=== PATIENT | male | born 1960 | race Caucasian/White ===

== ENCOUNTER 2023-03-16 07:26 | Outpatient (RCR) | payer OTHER, SELFPAY ==
[2023-03-16 07:27] VITALS: BP 142/85; PULSE 82; RESP 16; TEMP 36.3; O2SAT 97
[2023-03-16] MEDS: MITOMYCIN 40 MG in WATER FOR INJECTION,STERILE 20 ML 20 MG INTRAVESIC (07:53)
--- NOTE | 2023-03-16 07:53 | PC.NURSE ---
0753:Voss drainage bag removed. Mitomycin, 40mg, instilled into voss cath. using closed system transfer device. Instructed pt. to turn side to side and front to back Q 15min. x's 1.5hr. Pt. relays understanding.
--- NOTE | 2023-03-16 08:32 | PC.NURSE ---
0727: Pt. to [facility] amb. per self. Seated on side of bed. Consent form reviewed and verified, questions addressed. Consent obtained. Given privacy to change. 0748: Using sterile technique, #16Fr. voss catheter inserted easily into bladder with immediate return of pale yellow urine. Flecks of brown sediment noted in urine. U/A obtained and sent to lab. Pt. tolerated with minimal c/o.
--- NOTE | 2023-03-16 08:41 | PC.NURSE ---
Pt. tolerating treatment. Denies c/o or needs.
[2023-03-16 08:43] LABS: Bilirubin Urine NEGATIVE (NEGATIVE); Blood Urine MODERATE (NEGATIVE); Clarity Urine CLEAR (CLEAR); Color Urine LT. YELLOW (YELLOW); Glucose Urine UA NEGATIVE (NEGATIVE); Ketones Urine NEGATIVE (NEGATIVE); Leukocyte Esterase Urine MODERATE (NEGATIVE); Nitrite Urine NEGATIVE (NEGATIVE); Protein Urine NEGATIVE (NEG/TRACE); Specific Gravity Urine 1.015 (1.005-1.025); Urobilinogen Urine 0.2 EU/dL (0.2-1.0)
[2023-03-16 08:59] LABS: Urine Microscopic Indicated YES
[2023-03-16 09:01] LABS: Bacteria Urine MODERATE #/HPF (NONE SEEN); WBC Urine 20-50 #/HPF (NONE SEEN)
[2023-03-16 09:02] LABS: Amorphous Sediment Urine FEW; Crystals Seen? Seen #/HPF (None Seen); Mucus Urine NONE SEEN (NONE SEEN); Squamous Epithelial Cell Urine FEW #/LPF (NONE/RARE)
[2023-03-16 09:40] VITALS: BP 142/78; PULSE 78; RESP 16; TEMP 36.6; O2SAT 98
--- NOTE | 2023-03-16 09:40 | PC.NURSE ---
0940: Treatment completed at this time. Drainage bag re-connected to voss catheter. 400ML pale purple urine emptied from bladder. Cath. removed. Pt. tolerated with minimal c/o. Pt. relays having slight burning sensation when in prone position only. No redness, rash or c/o burning relayed. Pt. given at home care instructions, verbalizes understanding. D/c'd to home amb.
== END 2023-03-16 23:59 | disposition home or self-care (01) ==
LOC: INF 07:26
PROVIDERS: Visit Provider Urology
DX: Z85.51 Personal history of malignant neoplasm of bladder (principal)
CPT/HCPCS: 51700; 81001; 99211; J9280

== ENCOUNTER 2023-04-13 07:14 | Outpatient (RCR) | payer OTHER, SELFPAY ==
[2023-04-13 07:54] VITALS: BP 118/81; PULSE 94; RESP 16; TEMP 36; O2SAT 96
--- NOTE | 2023-04-13 07:57 | PC.NURSE ---
0730 Arrival ambulatory. Alert oriented. procedure explained to patient verbalizes understanding. 16 Yi voss placed without difficulty, returning clear yellow urine. balloon inflated wit 10cc NS. connected to bedside drainage
[2023-04-13] MEDS: MITOMYCIN 40 MG in WATER FOR INJECTION,STERILE 20 ML 20 MG INTRAVESIC (08:01)
--- NOTE | 2023-04-13 08:09 | PC.NURSE ---
0812 mitomyvin instilled via voss catheter using transfer devices. instructed on turning left right front/back every 15 mins. verbalizes understanding.
--- NOTE | 2023-04-13 08:13 | PC.NURSE ---
0810 Mitomycin verified with Sandie Britt
--- NOTE | 2023-04-13 09:46 | PC.NURSE ---
0930 patient rotated per self every 15 minutes per order, tolerated well. Voss connected to bedside drain after prescribed time. allowed to drain, voss dc'd after emptying bladder, tolerated well. Instructed may have some burning with urination for first few times after dc of voss. also instructed on chemo protocol post treatment. verbalizes understanding. Released ambulatory
== END 2023-04-15 23:59 | disposition home or self-care (01) ==
LOC: INF 07:14
PROVIDERS: Visit Provider Urology
DX: Z85.51 Personal history of malignant neoplasm of bladder (principal)
CPT/HCPCS: 51700; J9280

== ENCOUNTER 2023-05-18 11:04 | Outpatient (OUT) | payer OTHER, SELFPAY ==
--- NOTE | 2023-05-18 11:51 | PM.PRESUREVA ---
History of Present Illness History of Present Illness Chief complaint: BLADDER TUMOR, H/O BLADDER CANCER Narrative: Patient presents for preadmission testing. Please see HPI from Dr. Grimm dated 05/10/2023. Review of Systems ROS Narrative Please see ROS from Dr. Grimm dated 05/10/2023. [facility] Medical History (Updated 05/18/23 @ 11:34 by Caren Fajardo NP) Arthritis ?M19.90 - Unspecified osteoarthritis, unspecified site (ICD-10) Back pain ?M54.9 - Dorsalgia, unspecified (ICD-10) Bladder cancer ?C67.9 - Malignant neoplasm of bladder, unspecified (ICD-10) Bladder tumor ?D49.4 - Neoplasm of unspecified behavior of bladder (ICD-10) COVID-19 ?U07.1 - COVID-19 (ICD-10) Hypertension ?I10 - Essential (primary) hypertension (ICD-10) Pneumonia ?J18.9 - Pneumonia, unspecified organism (ICD-10) Shoulder pain ?M25.519 - Pain in unspecified shoulder (ICD-10) Surgical History (Updated 05/18/23 @ 11:50 by Caren Fajardo NP) H/O transurethral resection of bladder tumor (TURBT) ?Z98.890 - Other specified postprocedural states (ICD-10) ?Z86.03 - Personal history of neoplasm of uncertain behavior (ICD-10) H/O wrist surgery ?Z98.890 - Other specified postprocedural states (ICD-10) History of spinal surgery ?Z98.890 - Other specified postprocedural states (ICD-10) S/P cystoscopy ?Z98.890 - Other specified postprocedural states (ICD-10) Family History (Updated 05/18/23 @ 11:33 by Caren Fajardo NP) Other Family history of heart disease Family history of hypertension Family history of myocardial infarction Social History (Updated 05/18/23 @ 11:29 by Caren Fajardo NP) Within the past year, how often did you have a drink containing alcohol: never Score interpretation: A score less than 4 is consistent with normal alcohol consumption. Smoking status: Current every day smoker What tobacco products do you use: cigarettes Pack-years instructions: Please document either packs per day or cigarettes per day in order for pack years to calculate correctly. If using both packs per day and cigarettes per day, please make sure that they denote the same thing. If they differ, pack-years will calculate based on packs per day. Packs Per Day Cigarettes Per Day 1/4 of a pack 5 1/2 a pack 10 3/4 of a pack 15 1 pack 20 1.5 pack 30 2 packs 40 2.5 packs 50 3 packs 60 Packs per day: 2 Years smoked: 50 Smoking pack-years: 100.00 Non-prescribed substance use: denies use Previous occupational history: [employer] Highest level of school completed/degree received: high school graduate Meds Home Medications and Allergies Home Medications Medication Instructions Recorded Confirmed Type amlodipine 10 mg tablet 10 mg PO DAILY 05/18/23 05/18/23 History losartan 50 mg tablet 50 mg PO DAILY 05/18/23 05/18/23 History Allergies Allergy/AdvReac Type Severity Reaction Status Date / Time solifenacin [From [facility]] Allergy muscle Verified 05/18/23 11:25 aches Exam Narrative Exam Narrative: Constitutional: Awake, alert, comfortable, chronically-ill appearing, nontoxic, interactive, vital signs as charted Head: Normocephalic, atraumatic Neck: Supple, normal appearance, normal range of motion, no meningeal signs, no lymphadenopathy Respiratory: No respiratory distress, rhonchi bilateral bases, cleared with cough Cardiovascular: Regular rate and rhythm, strong and regular heart tones Abdomen: Nontender, normal bowel sounds, soft, no CVA tenderness Musculoskeletal: Normal gait, no swelling or edema Skin: No rashes or induration, no lesions, only visible skin inspected Neuro: No neurological deficits, normal sensation Psychiatric: Oriented ?3, normal affect Assessment and Plan Assessment and Plan (1) Bladder cancer: (2) Bladder tumor: Plan Cystoscopy/TURBT scheduled with Dr. Grimm 05/25/2023.
[2023-05-18 11:55] LABS: Basophils Percent Auto 0.7 % (0.2-2.0); Eosinophils Absolute Auto 0.1 10^3/uL (0.0-0.7); Hematocrit 44.7 % (42.0-54.0); Hemoglobin 15.2 g/dL (14.0-18.0); Immature Granulocytes Abs Auto 0.02 10^3/uL (0.00-0.03); Immature Granulocytes Pct Auto 0.3 % (0.0-0.5); Lymphocytes Absolute Auto 1.5 10^3/uL (1.2-3.8); Lymphocytes Percent Auto 25.7 % (20.5-60.0); Mean Corpuscular Hemoglobin 30.8 pg (25.9-34.0); Mean Corpuscular Volume 90.5 fL (80.0-94.0); Mean Platelet Volume 9.4 fL (9.5-13.5); Monocytes Absolute Auto 0.5 10^3/uL (0.3-0.8); Monocytes Percent Auto 7.5 % (1.7-12.0); Neutrophils Absolute Auto 3.8 10^3/uL (1.4-6.5); Neutrophils Percent Auto 63.8 % (43.0-75.0); Platelet Count 184 10^3/uL (150-450); Red Blood Count 4.94 10^6/uL (4.70-6.10); Red Cell Distribution Width 12.6 % (11.0-15.0)
[2023-05-18 12:16] LABS: INR 0.97; Partial Thromboplastin Time 31.6 sec (22.3-36.2); Prothrombin Time 10.3 sec (9.0-11.6)
[2023-05-18 12:18] LABS: Anion Gap 12.7; BUN Creatinine Ratio 14.1; Calcium 8.6 mg/dL (8.5-10.1); Chloride 101 mmol/L (98-107); Estimated GFR (African America >60 (>=60); Estimated GFR (Non-African Ame >60 (>=60); Glucose 180 mg/dL (74-106); Potassium 3.7 mmol/L (3.5-5.1); Sodium 137 mmol/L (136-145)
== END 2023-05-18 11:05 | disposition home or self-care (01) ==
LOC: PST 11:05
PROVIDERS: Visit Provider Urology
DX: Z01.812 Encounter for preprocedural laboratory examination (principal); Z85.51 Personal history of malignant neoplasm of bladder; D49.4 Neoplasm of unspecified behavior of bladder; I10 Essential (primary) hypertension
CPT/HCPCS: 80048; 85025; 85610; 85730; G0463

== ENCOUNTER 2023-05-25 08:57 | Day surgery (SDC) | payer OTHER, SELFPAY ==
[2023-05-18 11:49] VITALS: BP 135/81; PULSE 96; RESP 20; TEMP 36.3; O2SAT 95; BMI 36.2
[2023-05-25] VITALS (15 sets, daily range): BP systolic 92–134; BP diastolic 57–80; PULSE 76–92; RESP 10–24; TEMP 36.1–36.5; O2SAT 90–98
--- NOTE | 2023-05-25 09:19 | PC.NURSE ---
Lungs diminished in bases
[2023-05-25] MEDS: LACTATED RINGER'S SOLUTION 1,000 ML 50 ML IV (09:25)
[2023-05-25] MEDS: CEFAZOLIN SODIUM/DEXTROSE,ISO 1 GM/50 ML IV.SOLN IV (10:33)
[2023-05-25] MEDS: MITOMYCIN 40 MG in WATER FOR INJECTION,STERILE 20 ML 20 MG INTRAVESIC (11:20)
--- NOTE | 2023-05-25 11:28 | PM.URSON ---
Urology Surgery Operative Note Operative Note Procedure Date: 05/25/23 Time Out Performed: yes Pre-op Diagnosis: recurrent bladder tumors Post-op Diagnosis: same as pre-op Procedures performed: #1. Cyystoscopy. #2. Transurethral resection of bladder tumors approximately 3 cm. #3. Placement of intravesical mitomycin C 40 mg. Anesthesia: GETA Primary Surgeon: Marcelo Grimm Complications: none Estimated blood loss (mL): 5 Findings: several bladder tumors at the dome, one adjacent to the left UO and several other tiny tumors on the back wall. 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 He now presents for cystoscopy and transurethral resection of bladder tumors. He also is going to get intravesical mitomycin instilled after the procedure. He has signed an informed consent for these procedures after all risks were explained. Detailed description of Procedure: The patient was brought to the operating room and placed on the operating room table in the supine position. SCDs were placed on the lower extremities and turned on and functioning during the entire case. Timeout was done by all parties in the room. We all agreed upon the patient's identification and the planned procedures for this patient. Genn. anesthesia was then administered. The patient was then repositioned into the modified dorsal lithotomy position. All pressure points were satisfactorily padded. Genitalia were sterilely prepped and draped in usual fashion.I started by passing a 26 Hungarian Olympus resectoscope with the standard bipolar loop electrode per urethra and into the bladder. The bladder was evaluated and all the tumors were mapped out. I started at the dome. I had to hold suprapubic pressure to bring the dome down to the scope and I uniformly and deeply resected the tumors at the dome. The ellick was used to get the tumors out and these were sent for permanent sections. The resection beds were fulgurated. I then went to the left UO and I uniformly and deeply resected these tumors adjacent to it. I was able to spare the UO. The resection bed was fulgurated similarly. The tumors were removed similarly and sent for permanent sections. Clear urine was seen effluxing from the left UO upon completion. Several other tiny tumors were noted on the back wall. These were simply fulgurated. Upon completion there was no evidence of any tumors remaining in the bladder. All tumor pieces were removed. There was no bleeding. The scope was removed. I then placed a 20 Hungarian Santos catheter in the bladder. I then instilled 40 mg of mitomycin-C into the bladder and plugged the catheter. The anesthetic was then reversed. He was then transferred to a [facility] and wheeled to PACU in stable condition.
--- NOTE | 2023-05-25 11:39 | PC.NURSE ---
pt has catheter in with mitomycin. 1135. pt turned to left side.
--- NOTE | 2023-05-25 11:54 | PC.NURSE ---
1150 pt transferred to abdomen for mitomycin .
--- NOTE | 2023-05-25 14:09 | PC.NURSE ---
1350 voss catheter removed per order and Mitomyocin was drained. pt able to void after voss was removed at 1355. discharge instructions given regarding mitomyocin.
== END 2023-05-25 14:00 | disposition home or self-care (01) ==
PROVIDERS: Visit Provider Urology
PROC: (CPT 52235; principal; 2023-05-25 10:00)
DX: C67.9 Malignant neoplasm of bladder, unspecified (principal); Z85.51 Personal history of malignant neoplasm of bladder; I10 Essential (primary) hypertension; M19.90 Unspecified osteoarthritis, unspecified site; Z86.16 Personal history of COVID-19; Z87.01 Personal history of pneumonia (recurrent); F17.210 Nicotine dependence, cigarettes, uncomplicated; N40.1 Benign prostatic hyperplasia with lower urinary tract symptoms; R31.0 Gross hematuria; R91.1 Solitary pulmonary nodule
CPT/HCPCS: 52235; 36415; 88305; J2704; J9280

== ENCOUNTER 2024-08-20 13:17 | Outpatient (OUT) | payer OTHER, SELFPAY ==
--- NOTE | 2024-08-20 13:22 | ECG_ITS ---
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
--- OUTSIDE RECORDS SUMMARY | 2024-08-20 13:31 | XMS_ITS | CCD ---
Author Organization [facility] [place] [facility] Care Team Providers Care Defect Repairer Glassware Name Role Phone NO FAMILY, PHYSICIAN Primary Care Provider Unava ilable DO Ra Brannon Emergency Provider [phone] DIANELYS Roche Attending Provider NONE, XXXX Primary Care Physician Unavailab le NO FAMILY, PHYSICIAN Primary Care Provider Unava ilable DO Ra Brannon Emergency Provider DIANELYS Roche Attending Provider MD Yevgeniy Escudero Attending Provider NO FAMILY, PHYSICIAN Primary Care Provider Unava MD Yevgeniy Pelaez Attending Provider NO FAMILY, PHYSICIAN Primary Care Provider Unava MD Yevgeniy Pelaez Attending Provider Yevgeniy Escudero Attending Unavailable Escudero, Yevgeniy Admitting Unavailable NO FAMILY, PHYSICIAN Primary Care Unavailable Escudero, Yevgeniy Admitting Unavailable Escudero, Yevgeniy Attending Unavailable NO FAMILY, PHYSICIAN Primary Care Unavailable Escudero, Yevgeniy Attending Unavailable NO FAMILY, PHYSICIAN Primary Care Unavailable Escudero, Yevgeniy Admitting Unavailable Escudero, Yevgeniy Attending Unavailable Escudero, Yevgeniy Admitting Unavailable Escudero, Yevgeniy Attending Unavailable Escudero, Yevgeniy Admitting Unavailable NO FAMILY, PHYSICIAN Primary Care Unavailable DIANELYS DAVIS Attending Unavailab DIANELYS Kruse Attending Unavailab DIANELYS Kruse Attending Unavailab le Yevgeniy ESCUDERO Attending Unavailable KENA, Yevgeniy R Admitting Unavailable Yevgeniy ESCUDERO R Attending Unavailable Jerrod FINN - Johan AMES Primary Care Provi ia JOHAN GIBBONS Primary Care Unavailable JOHAN GIBBONS Primary Care Unavailable JOHAN GIBBONS Primary Care Unavailable QUINTON HEATH Attending Unavailable JOHAN GIBBONS Primary Care Unavailable YUSUF BOSS Referring Unavailable Kena ESPARZA, Yevgeniy Us Unavailable ESCUDERO, YEVGENIY Us Referring Unavailable ESCUDERO, Yevgeniy R Attending Unavailable ESCUDERO, Yevgeniy R Attending Unavailable ESCUDERO, Yevgeniy R Admitting Unavailable ESCUDERO, Yevgeniy R Attending Unavailable ESCUDERO, Yevgeniy R Attending Unavailable ESCUDERO, Yevgeniy R Admitting Unavailable ESCUDERO, Yevgeniy R Attending Unavailable ESCUDERO, Yevgeniy R Attending Unavailable ESCUDERO, Yevgeniy R Admitting Unavailable ESCUDERO, Yevgeniy R Attending Unavailable DIANELYS DAVIS Attending Unavailab le ESCUDERO, Yevgeniy Us Attending Unavailable ESCUDERO, Yevgeniy Us Attending Unavailable ESCUDERO, Yevgeniy Us Admitting Unavailable ESCUDERO, Yevgeniy Us Attending Unavailable ESCUDERO, Yevgeniy R Admitting Unavailable ESCUDERO, Yevgeniy R Attending Unavailable Allergies Allergy Classification Reported Allergen(s) Allergy Type Date of Onset Reaction(s) Facility Solifenacin (1 source) Solifenacin; Translations: [solifenacin] Drug Allergy Muscle pain (finding) [facility] (20 sources) Solifenacin; Translations: [solifenacin] Drug Allergy Muscle pain (finding) [facility] (4 sources) No Known Medication Allergies; Translations: [No Known Medication Allergies] Propensity to adverse reactions (disorder) [facility] (2 sources) Seasonal allergy Propensity to adverse reactions to substance [address] [place] [address] Medications Current Medications Medication Drug Class(es) Dates Sig (Normalized) Sig (Original) 24 hr alfuzosin hydrochloride 10 mg extended release oral tablet (2 sources) alpha-Adrenergic Luisa Start: 05-31-2023 End: 06-07-2023 take 1 tablet by mouth once daily alfuzosin 10 mg ER Tab 10 mg = 1 tab(s), Oral, Daily, X 7 day(s), # 7 tab(s), Refills(s) 0, Pharmacy: [facility], 167, cm, 05/31/23 10:41:00 EST, Height/Length Dosing, 100, kg, 05/31/23 10:41:00 EST, Weight Dosing Start Date: 05/31/23 Stop Date: 06/07/23 Status: Ordered amLODIPine 10 mg oral tablet (20 sources) Dihydropyridine Calcium Channel Luisa Start: 04-27-2022 take 1 tablet by mouth once daily amLODIPine (NORVASC) 10 MG tablet Indications: Essential hypertension TAKE 1 TABLET BY MOUTH EVERY DAY 30 tablet 06/10/2024 Active Start: 04-25-2022 End: 06-21-2022 take 2.5 mg by mouth once daily Amlodipine Discontinued 2.5 MG PO Daily April 24, 2022 11:00pm June 21, 2022 3:43pm cephalexin 500 mg oral capsule (5 sources) Cephalosporin Antibacterial Start: 07-05-2022 take 500 mg by mouth twice daily Cephalexin Active 500 MG PO Twice daily 10 July 05, 2022 12:00am cyclobenzaprine hydrochloride 5 mg oral tablet (1 source) Muscle Relaxant Start: 07-20-2024 End: 07-30-2024 take 1 tablet by mouth twice daily as needed for muscle spasms cyclobenzaprine (FLEXERIL) 5 MG tablet Take 1 tablet by mouth 2 times daily as needed for Muscle spasms 10 tablet 07/20/2024 07/30/2024 Active Handicap Placard MISC (2 sources) Start: 12-03-2021 Handicap Placard MISC Indications: Chronic low back pain, unspecified back pain laterality, unspecified whether sciatica present by Does not apply route Exp 5 years 1 each 12/03/2021 Active Start: 12-03-[address] MISC Indications: Chronic low back pain, unspecified back pain laterality, unspecified whether sciatica present by Does not apply route Exp 5 years 1 each 0 12/03/2021 Active levoFLOXacin 500 mg oral tablet (2 sources) Quinolone Antimicrobial Start: 05-31-2023 End: 06-07-2023 take 1 tablet by mouth every twenty-four hours Levaquin 500 mg Tab 500 mg = 1 tab(s), Oral, q24hr, X 7 day(s), # 7 tab(s), Refills(s) 0, Pharmacy: [facility], 167, cm, 05/31/23 10:41:00 EST, Height/Length Dosing, 100, kg, 05/31/23 10:41:00 EST, Weight Dosing Start Date: 05/31/23 Stop Date: 06/07/23 Status: Ordered naproxen 500 mg oral tablet (1 source) Nonsteroidal Anti-inflammatory Drug Start: 07-20-2024 take 1 tablet by mouth twice daily as needed for pain naproxen (NAPROSYN) 500 MG tablet Take 1 tablet by mouth 2 times daily as needed for Pain 14 tablet 07/20/2024 Active predniSONE 20 mg oral tablet (1 source) Start: 07-20-2024 End: 07-25-2024 take 1 tablet by mouth twice daily predniSONE (DELTASONE) 20 MG tablet Take 1 tablet by mouth 2 times daily for 5 days 10 tablet 07/20/2024 07/25/2024 Active solifenacin succinate 10 mg oral tablet (5 sources) Cholinergic Muscarinic Antagonist Start: 07-05-2022 take 1 tablet by mouth once daily Solifenacin (Vesicare) 10 mg tablet Active 10 MG PO Daily July 05, 2022 12:00am sulfamethoxazole 800 mg / trimethoprim 160 mg oral tablet (3 sources) Dihydrofolate Reductase Inhibitor Antibacterial, Sulfonamide Antimicrobial Start: 03-14-2024 End: 03-21-2024 Bactrim D.S. 800 mg-160 mg Tab 1 tab(s), Oral, BID for 7 day(s), 14 tab(s), Refill(s) 0, [id number], 167, cm, 03/14/24 13:22:00 EDT, Height/Length Dosing, 102, kg, 03/14/24 13:22:00 EDT, Weight Dosing Start Date: 03/14/24 Stop Date: 03/21/24 Status: Ordered Start: 07-05-2023 End: 07-12-2023 take 1 tablet by mouth every twelve hours Bactrim D.S. 800 mg-160 mg Tab 160 mg, Oral, q12hr for 7 day(s), 14 tab(s), Refill(s) 0, [id number], 167, cm, 07/05/23 11:06:00 EST, Height/Length Dosing, 100, kg, 07/05/23 11:06:00 EST, Weight Dosing Start Date: 07/05/23 Stop Date: 07/12/23 Status: Ordered tamsulosin hydrochloride 0.4 mg oral capsule (10 sources) alpha-Adrenergic Luisa Start: 01-25-2023 take 1 capsule by mouth once daily tamsulosin 0.4 mg Cap 0.4 mg = 1 cap(s), Oral, Daily, # 30 cap(s), Refills(s) 5, Pharmacy: [facility], 167, cm, 01/04/23 7:40:00 EDT, Height/Length Dosing, 99, kg, 01/04/23 7:40:00 EDT, Weight Dosing Start Date: 01/25/23 Status: Ordered tolterodine tartrate 2 mg oral tablet (17 sources) Cholinergic Muscarinic Antagonist Start: 08-23-2023 take 1 tablet by mouth twice daily Detrol 2 mg Tab 2 mg = 1 tab(s), Oral, BID, # 60 tab(s), Refills(s) 1, Pharmacy: [id number], 167, cm, 08/23/23 10:55:00 EST, Height/Length Dosing, 100, kg, 08/23/23 10:55:00 EST, Weight Dosing Start Date: 08/23/23 Status: Ordered Start: 07-11-2023 take 1 tablet by [facility] twice daily Detrol 2 mg Tab 2 mg = 1 tab(s), Oral, BID, # 60 tab(s), Refills(s) 1, Pharmacy: [id number], 167, cm, 07/05/23 11:06:00 EST, Height/Length Dosing, 100, kg, 07/05/23 11:06:00 EST, Weight Dosing Start Date: 07/11/23 Status: Ordered Completed/Discontinued Medications Medication Drug Class(es) Dates Sig (Normalized) Sig (Original) ciprofloxacin 500 mg oral tablet (8 sources) Quinolone Antimicrobial Start: 08-23-2023 take 1 tablet by mouth every three months Cipro 500 mg Tab 500 mg = 1 tab(s), Oral, Daily, Take 1 tablet the day before the procedure and 1 tablet after the procedure every 3 months, # 8 tab(s), Refills(s) 0, Pharmacy: [facility], 167, cm, 08/23/23 10:55:00 EST, Height/Length Dosing, 100, kg, 08/23/23 10:55:00 EST, Weight Dosing Start Date: 08/23/23 Status: Ordered Start: 12-08-2022 take 1 tablet by raina once daily Cipro 500 mg Tab 500 mg = 1 tab(s), Oral, Daily, Take 1 tablet the day before the procedure and 1 tablet after the procedure, # 6 tab(s), Refills(s) 0, Pharmacy: [facility], 167, cm, 09/20/22 7:58:00 EST, Height/Length Dosing, 99, kg, 09/20/22 7:58:00... Start Date: 12/08/22 Status: Ordered Start: 07-18-2022 take 1 tablet by raina once daily Cipro 500 mg Tab 500 mg = 1 tab(s), Oral, Daily, Take 1 tablet the day before the procedure and 1 tablet after the procedure, # 2 tab(s), Refills(s) 0, Pharmacy: [facility], 167, cm, 07/15/22 9:45:00 EST, Height/Length Dosing, 99, kg, 07/15/22 9:45:00... Start Date: 07/18/22 Status: Ordered Start: 05-04-2022 Cipro 500 mg T ab 500 mg = 1 tab(s), Oral, As Directed, # 2 tab(s), Refills(s) 0, Pharmacy: [facility], 169, cm, 05/04/22 10:09:00 EDT, Height/Length Dosing, 99, kg, 05/04/22 10:09:00 EDT, Weight Dosing Start Date: 05/04/22 Status: Ordered dexamethasone phosphate 10 mg/ml injectable solution (1 source) Corticosteroid Start: 07-20-2024 End: 07-20-2024 inject 10 mg by intramuscular injection once 10 mg, IntraMUSCular, ONCE, On 07/20/24 at 1845, For 1 dose 1 ml ketorolac tromethamine 30 mg/ml cartridge (1 source) Nonsteroidal Anti-inflammatory Drug, Cyclooxygenase Inhibitor Start: 07-20-2024 End: 07-20-2024 inject 1 dose by intramuscular injection once 30 mg, IntraMUSCular, ONCE, 1 dose, On 07/20/24 at 1845 losartan potassium 50 mg oral tablet (20 sources) Angiotensin 2 Receptor Luisa Start: 04-27-2022 End: 07-20-2024 take 1 tablet by mouth once daily losartan (COZAAR) 50 MG tablet Indications: Essential hypertension TAKE 1 TABLET BY MOUTH EVERY DAY 30 tablet 06/10/2024 07/20/2024 Discontinued (LIST CLEANUP) Start: 04-25-2022 End: 06-21-2022 take 25 mg by mouth once daily Losartan Discontinued 2 5 MG PO Daily April 24, 2022 11:00pm June 21, 2022 3:42pm Problems Active Problems Problem Classification Problem Date Documented Date Episodic/Chronic Cancer of bladder (20 sources) Malignant tumor of urinary bladder; Translations: [Malignant neoplasm of bladder, unspecified] Onset: 07-15-2022 Chronic Cancer of bladder (16 sources) History of malignant neoplasm of bladder; Translations: [Personal history of malignant neoplasm of bladder] Onset: 09-20-2022 Episodic Cancer; other and unspecified primary (20 sources) H/O: malignant neoplasm 09-20-2022 Episodic Essential hypertension (20 sources) Hypertensive disorder 04-27-2022 Chronic Genitourinary symptoms and ill-defined conditions (20 sources) Blood in urine; Translations: [Hematuria, unspecified] Onset: 05-04-2022 04-25-2022 Episodic Hyperplasia of prostate (20 sources) Benign prostatic hypertrophy with outflow obstruction; Translations: [Benign prostatic hyperplasia with lower urinary tract symptoms] Onset: 05-04-2022 Chronic Neoplasms of unspecified nature or uncertain behavior (20 sources) Neoplasm of bladder; Translations: [Neoplasm of unspecified behavior of bladder] Onset: 01-04-2023 Episodic Other connective tissue disease (1 source) Spasm; Translations: [Other muscle spasm] 07-20-2024 Episodic Other connective tissue disease (1 source) Other muscle spasm; Translations: [Other muscle spasm] Onset: 07-20-2024 Episodic Other diseases of bladder and urethra (20 sources) Mass of urinary bladder; Translations: [Other specified disorders of bladder] 04-25-2022 Chronic Other diseases of bladder and urethra (20 sources) Disorder of bladder; Translations: [Other specified disorders of bladder] Onset: 05-04-2022 Chronic Other diseases of kidney and ureters (2 sources) Urinary tract obstruction; Translations: [Other obstructive and reflux uropathy] Onset: 05-04-2022 Episodic Other lower respiratory disease (4 sources) Solitary nodule of lung; Translations: [Solitary pulmonary nodule] Onset: 05-10-2023 Episodic Other lower respiratory disease (20 sources) Nodule of lung 05-10-2023 Episodic Other nutritional; endocrine; and metabolic disorders (1 source) Obese class I; Translations: [Body mass index (BMI) 34.0-34.9, adult] Onset: 05-04-2022 Chronic Other nutritional; endocrine; and metabolic disorders (20 sources) Body mass index 30+ - obesity 05-04-2022 Chronic Other screening for suspected conditions (not mental disorders or infectious disease) (8 sources) Encounter for screening for malignant neoplasm of prostate; Translations: [Screening for malignant neoplasm done] Onset: 01-23-2024 Episodic Residual codes; unclassified (20 sources) Noncompliance with treatment; Translations: [Patient's noncompliance with other medical treatment and regimen due to unspecified reason] Onset: 05-10-2023 Episodic Spondylosis; intervertebral disc disorders; other back problems (2 sources) Cervical radiculopathy; Translations: [Radiculopathy, cervical region] Onset: 07-20-2024 07-20-2024 Episodic Substance-related disorders (20 sources) Smoker; Translations: [Nicotine dependence] Onset: 05-31-2023 05-31-2023 Chronic Unclassified (20 sources) Patient encounter status 04-27-2022 Urinary tract infections (20 sources) Acute cystitis; Translations: [Acute cystitis without hematuria] Onset: 05-31-2023 05-31-2023 Episodic Past or Other Problems Problem Classification Problem Date Documented Da te Episodic/Chronic E Codes: Fall (2 sources) Unspecified fall, initial encounter; Translations: [Fall] Onset: 01-07-2024 01-07-2024 Episodic Open wounds of head; neck; and trunk (2 sources) Laceration without foreign body of other part of head, initial encounter; Translations: [Laceration of forehead] Onset: 01-07-2024 01-07-2024 Episodic Other aftercare (1 source) Encounter for removal of sutures; Translations: [Encounter for removal of sutures] Onset: 01-20-2024 Episodic Other lower respiratory disease (1 source) Solitary pulmonary nodule; Translations: [Solitary pulmonary nodule] Onset: 03-14-2023 Episodic Results Test Name Value Interpretation Reference Range Facility [facility] Urine Cyt [facility] ([facility])on 08-13-2024 UVFISH & UC Diagnosis Info Invalid Interpretation Code [facility] Comment on above: Result Comment: A:Ur ine,Urine:Voided Diagnosis Summary - Occasional atypical urothelial cells with degenerative changes. Diagnosis Summary - The [facility] FISH study detected normal copy numbers for chromosomes 3, 7, 17, and 9p21. 200 cells were analyzed in this evaluation. No evidence of aneuploidy for chromosomes 3, 7, or 17 or deletion of the 9p21 locus was found in cells present in this specimen. This test does not rule out the possibility of a low grade non-invasive papillary urothelial carcinoma. These findings should be correlated with cytology and cystoscopy results. * CPT: 53191, 76277. 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 Electronically signed by : on: 08/13/2024 12:57:45 Performed By: #### 1 [id number] #### [facility] [address] [place] [id number] Reminderson 08-08-2024 Reminders Reminders From: Darleen Gonzalez To: EU - Recalls Escudero; Sent: 05/23/2024 14:17:15 EST Show up: 07/17/2024 14:17:00 EST Subject: cysto/FISH/cytol Due Date/Time: 08/12/2024 14:17:00 EST Reminder/Recall Patient is due in October 2024 for 3 month cysto/fish/cytol, bt ck Patient having TURBT 08/29/24.LG Normal [facility] Reminders Reminders From: Darleen Gonzalez To: EU - Recalls Escudero; Sent: 10/03/2023 14:40:01 EDT Show up: 01/15/2024 14:39:00 EDT Subject: Ct scan of chest Due Date/Time: 02/05/2024 14:39:00 EDT Reminder/Recall Pt needs sched for Ct scan of chest at [facility] in February 2024 CT order and paper work faxed to [facility] @ [facility] [phone] on 04/15/2024. I contacted [facility] to see if his CT had been approved and they stated that they do not do pre approvals for any outside doctors that are not contracted with them, we would have to do the approval for him. Spoke to pt, he states he said got the Ct of chest done a few months ago. He cannot remember which hosp. pt advised to find out which Hosp so we can get report, or he will have to have it repeated.LG Trying to coordinate at same time of pts PAT appt at [facility].LG Normal [facility] Fish and Urine Cyt [facility] ([facility])on 08-06-2024 [facility] Method of Extraction Voided Normal [facility] Comment on above: Performed By: #### 1 [id number] #### [facility] [address] [place] [address] [facility] Number of Jars 1 Invalid Interpretation Code [facility] Comment on above: Performed By: #### 1 [id number] #### [facility] [address] [place] [address] [facility] Specimen Urine [facility] Comment on above: Performed By: #### 1 [id number] #### [facility] [address] [place] [address] [facility] Type of Service Technical Only [facility] Comment on above: Performed By: #### 1 [id number] #### [facility] [address] [place] [address] Urology Office/Clinic Noteon 08-06-2024 Urology Office/Clinic Note Urology Office/Clinic Note Chief Complaint Cysto HPI Staff Cysto ABX taken, need Fish/Cytol History of Present Illness Tests reviewed: none. I have reviewed the previous health record information and history for this patient from . I have reviewed and verified the staff HPI to be accurate for this encounter. There have been no associated fever, chills, flank pain, or blood in the urine. Denies any urinary infections since last encounter. Review of Systems PHQ Score Initial Depression Screen Score: 0 SCORE ROS - Provider Constitutional: denies weight loss, denies hot flashes. Eyes: denies eye problems. Gastrointestinal: denies nausea, denies vomiting. Cardiovascular: denies chest pain or angina. Integumentary: no dryness Musculoskeletal: denies musculoskeletal symptoms. ENMT: denies otolaryngeal symptoms. Respiratory: no shortness of breath. Heme/Lymph: denies easy bleeding tendency, denies easy bruising tendency. Psychiatric: no confusion, no anxiety. Genitourinary: See HPI. Physical Exam Vitals & Measurements HR: 60(Peripheral) RR: 16 BP: 138/72 HT: 67 in HT: 169 cm WT: 97.5 kg WT: 214.95 lb BMI: 34.14 General Appearance: alert, no distress, well nourished, well developed male. Procedure Operative Information Anesthesia Type: Local Procedure: Local Cystoscopy Complications: None Surgical risks, benefits, details of the procedure have been explained to the patient. Full informed consent has been obtained. Intraoperative Information Prepped: Patient is brought back to the endoscopy suite. Patient is placed in supine position. Patient prepped in the usual fashion with Betadine solution. 2% Xylocaine Jelly is placed per Urethra. After waiting several minutes, the Cystoscope is introduced. The Urethra is: Normal The Prostatic Urethra is: bilobar obstruction The Bladder: on the back and dome there are 3, 2-3cm red raised areas, Trabeculated: Moderate (2) diverticuli The Ureteral orifices: Show efflux of clear urine Specimens Removed: Voided specimen sent for FISH and Cytology test Removal: Cystoscope is removed. The patient tolerated it well. Postoperative Information Patient is discharged home with antibiotic coverage. Follow up arranged. Assessment/Plan 1. History of bladder cancer (Z85.51: Personal history of malignant neoplasm of bladder) Original TURBT 07/05/22 - Low grade noninvasive papillary urothelial carcinoma. Detrusor muscle present and uninvolved. TURBT 01/24/23 - Low-grade papillary urothelial carcinoma in all fragments with a small focus of tumor microinvasion in 1 fragment (pT1). A small bundle of muscularis propria wo tumor involvement. Mitomycin 03/16/23 and 04/13/23. TURBT and Mitomycin instillation 05/25/23 - Low grade papillary urothelial carcinoma, noninvasive. BCG #6/6 08/23/23. Last cysto 01/23/24. BCG #3/3 03/14/24. Cysto 05/03/24 - bilobar obstruction, The Bladder:On R lateral wall prior resection site 3 cm with adhered calcified material but without tumor, stable. On dome, there is a stable 2 cm red area, not raised. Rest of the bladder is without tumors, Trabeculated: Moderate (2), a few open diverticuli. Pt had IO cysto done today without complications. Prophylactic abx taken. UA sent for FISH/Cytology. All questions/concerns were discussed. Pt to call the office if he encounters any issues prior. Pt acknowledges understanding. -Will schedule Cysto with TURBT. The procedure risks, benefits, details, and treatment alternatives have been discussed with the patient. These include bleeding -- sometimes to the point of hemorrhaging, infection, risk of bladder perforation, recurrence of bladder tumor in 60-70% of patients, need for indwelling catheter for a variable amount of time, as well as the rare risk of needing an open operation to repair the bladder, among others. Additional therapy as well as follow-up bladder evaluation will most likely be required. Full informed consent has been obtained. Will order General anesthesia. -Will schedule BCG pending path from TURBT. -See Procedure Documentation. 2. Elevated PSA (R97.20: Elevated prostate specific antigen [PSA]) PSA: 04/27/22 - 1.25 01/23/24 - 3.00 MRI of Prostate 07/29/23 - PI-RADS 2, negative for any suspicious lesions 3. Bladder neoplasm of uncertain malignant potential (D41.4: Neoplasm of uncertain behavior of bladder) Found on IO cysto. -See Procedure Documentation. Follow-up With When Contact Information KENA ESPARZA, Yevgeniy Us, [facility] [address], [place] [address]- Additional Instructions: Schedule TURBT Patient Education Transurethral Resection of Bladder Tumor Prostate Cancer Screening I, Gemini James , personally scribed for Dr. Escudero on 08/06/2024 14:15:52. . Documentation recorded by the Gemini maradiaga, accurately reflects the services(s) I performed and (more content not included)... [facility] Comment on above: Result Comment: Elec tronically Signed By: Yevgeniy ESCUDERO MD\.br\Date and Time Signed: 08/06/24 14:17 EST\.br\Electronically Co-Signed By: Gemini James\.br\Date and Time Co-Signed: 08/06/24 14:16 EST MRI PELVIS WO/W IVCONon 07-17 MRI PELVIS WO/W IVCON * * *Final Report* * * DATE OF EXAM: Jul 29 2024 5:16PM Q 0742 - MRI PELVIS WO/W IVCON / PROCEDURE REASON: ELEVATED PROSTATE SPEC ANTIGEN * * * * Physician Interpretation * * * * EXAMINATION: MRI PELVIS WITHOUT AND WITH IV CONTRAST (MULTIPARAMETRIC PROSTATE MRI) CLINICAL HISTORY: 63 years old being evaluated for prostate cancer. Elevated PSA. Previous biopsy: Not available or unknown. PSA: Not available or unknown. Prior therapy: Not available or unknown. TECHNIQUE: Multiparametric MRI of the prostate and pelvis performed on a 3T scanner utilizing phase pelvic coil. Sequences obtained: multiplanar T2-WI with small FOV; Axial DWI with multiple B-values and creation of ADC-maps; DCE T1-weighted images through the prostate obtained before, during and after the administration of intravenous gadolinium. THREE-DIMENSIONAL IMAGIND imaging including complex volumetric analysis of the prostate was performed on a dedicated stand-alone workstation by the interpreting physician, with images reviewed and archived. CONTRAST: IV: 18 cc of Dotarem. COMPARISON: None. RESULT: Prostate: 5.0 x 4.3 x 4.0 cm Gland volume: 38.0 cc Post biopsy hemorrhage: Absent Peripheral zone: Diffuse mild T2/ADC map hypointensity (PI-RADS 2). No focal lesion present. Transition zone: Transition zone hypertrophy, without focal abnormalities suspicious for clinically significant disease (PI-RADS 2). No focal lesion present. Neurovascular bundle: Unremarkable. Seminal vesicles: Unremarkable. Adjacent Organ Involvement: Not applicable. Lymph nodes: No enlarged pelvic lymph nodes. Bladder: Unremarkable. Pelvic bones: No suspicious pelvic osseous lesions. Other Findings: Small umbilical hernia containing a nondilated loop of small bowel. IMPRESSION: No focal lesions suspicious for clinically significant prostate cancer (PI-RADS 2). No pelvic lymphadenopathy. No suspicious osseous lesions. PI-QUAL v1: (3-3-3-5) Optimal image quality Number of targets created for MR/US fusion biopsy: Peripheral zone: 0 Transition zone: 0 Platform used: DynaCAD/Uronav If present, targets were numbered in order of level of suspicion for clinically significant prostate cancer (Grade Group 2 or higher). PI-RADS v2.1 Assessment Categories and clinically significant cancer detection rates (CDR): PI-RADS 1: Very low (CDR: 6%) PI-RADS 2: Low (CDR: 6%) PI-RADS 3: Intermediate (CDR: 20%) PI-RADS 4: High (CDR: 55%) PI-RADS 5: Very high (CDR: 83%) Source: Bonilla B, et al. Update on PI-RADS Version 2.1 Diagnostic Performance Benchmarks for Prostate MRI: Systematic Review and [place]-Analysis. Radiology. 2023;312(2):[id number] PMID: [id number]. Community Engagement Specialist: JERRY Transcribe Date/Time: Jul 30 2024 9:17A Dictated by : JONO AHN MD This examination was interpreted and the report reviewed and electronically signed by: FAB VELASQUEZ MD on Jul 30 2024 11:11AM EST [id number] Normal [facility] Reminderson 05-23-2024 Reminders Reminders From: Darleen Gonzalez To: EU - Recalls Escudero; Sent: 03/15/2024 11:34:21 EDT Show up: 05/17/2024 11:34:00 EDT Subject: Cysto/FISH/cytol Due Date/Time: 06/10/2024 11:34:00 EST Reminder/Recall Patient is due in Jul 2024 for 3 month cysto/fish/cytol (bt ck) Patient sched for 08/06/24. He will be due in September 2024.LG [facility] Fish and Urine Cyt o ([facility])on 05-06-2024 UVFISH & UC Diagnosis Info Invalid Interpretation Code [facility] Comment on above: Result Comment: A:Ur ine,Urine:Voided Interpretation - Occasional atypical urothelial cells with degenerative changes. Interpretation - The UroVysion FISH study detected normal copy numbers for chromosomes 3, 7, 17, and 9p21. 200 cells were analyzed in this evaluation. No evidence of aneuploidy for chromosomes 3, 7, or 17 or deletion of the 9p21 locus was found in cells present in this specimen. This test does not rule out the possibility of a low grade non-invasive papillary urothelial carcinoma. These findings should be correlated with cytology and cystoscopy results. * CPT: 14301, 30949. MicroScopic Description - MicroScopic Description - Electronically signed by : on: 05/06/2024 15:33:10 Performed By: #### 1 [id number] #### [facility] [address] [place] [address] Urology Office/Clinic Noteon 05-03-2024 Urology Office/Clinic Note Urology Office/Clinic Note Chief Complaint Patient is here for Cysto HPI Staff Cysto ABX TAKEN, need fish/cytol History of Present Illness Tests reviewed: I have reviewed the previous health record information and history for this patient from Dr. Escudero. I have reviewed and verified the staff HPI to be accurate for this encounter. Review of Systems ROS - Provider Constitutional: denies weight loss, denies hot flashes. Eyes: denies eye problems. Gastrointestinal: denies nausea, denies vomiting. Cardiovascular: denies chest pain or angina. Integumentary: no dryness Musculoskeletal: denies musculoskeletal symptoms. ENMT: denies otolaryngeal symptoms. Respiratory: no shortness of breath. Heme/Lymph: denies easy bleeding tendency, denies easy bruising tendency. Psychiatric: no confusion, no anxiety. Genitourinary: See HPI. Physical Exam Vitals & Measurements HR: 90(Peripheral) RR: 20 BP: 144/88 HT: 67 in HT: 169 cm WT: 97.5 kg WT: 214.5 lb BMI: 34.14 General Appearance: alert, no distress, well nourished, well developed male. Genitourinary: normal scrotum, normal testes, normal urethra, normal epididymis, normal vas deferens/spermatic cord. Flank Pain: none. Bladder: nonpalpable. Procedure Operative Information Anesthesia Type: Local Procedure: Local Cystoscopy Complications: None Surgical risks, benefits, details of the procedure have been explained to the patient. Full informed consent has been obtained. Intraoperative Information Prepped: Patient is brought back to the endoscopy suite. Patient is placed in supine position. Patient prepped in the usual fashion with Betadine solution. 2% Xylocaine Jelly is placed per Urethra. After waiting several minutes, the Cystoscope is introduced. The Urethra is: Normal The Prostatic Urethra is: _Bilobar obstruction. The Bladder: _On R lateral wall prior resection site 3 cm with adhered calcified material but without tumor, stable. On dome, there is a stable 2 cm red area, not raised. Rest of the bladder is without tumors, Trabeculated: Moderate (2), a few open diverticuli. The Ureteral orifices: Show efflux of clear urine Specimens Removed: Voided specimen sent for FISH and Cytology test Removal: Cystoscope is removed. The patient tolerated it well. Postoperative Information Patient is discharged home with antibiotic coverage. Follow up arranged. Assessment/Plan 1. History of bladder cancer (Z85.51: Personal history of malignant neoplasm of bladder) Original TURBT 07/05/22 - Low grade noninvasive papillary urothelial carcinoma. Detrusor muscle present and uninvolved. TURBT 01/24/23 - Low-grade papillary urothelial carcinoma in all fragments with a small focus of tumor microinvasion in 1 fragment (pT1). A small bundle of muscularis propria wo tumor involvement. Mitomycin 03/16/23 and 04/13/23. TURBT and Mitomycin instillation 05/25/23 - Low grade papillary urothelial carcinoma, noninvasive. BCG #6/6 08/23/23. Last cysto 01/23/24. BCG #3/3 03/14/24. Pt had 3 mo IO cysto to check for bladder tumor recurrence without complications today. Pt took prophylactic abx prior to procedure. Will send voided specimen for FISH/cytol and call pt if positive. Follow up 3 mos surveillance cysto/bt ck/FISH/cytol or sooner if needed. Pt understands and agrees with plan. 2. Elevated PSA (R97.20: Elevated prostate specific antigen [PSA]) PSA: 04/27/22 - 1.25 01/23/24 - 3.00 Waiting to find facility that takes pt's insurance for prostate MRI. Follow-up With When Contact Information Yevgeniy ESCUDERO MD, URL [facility] [address], [place] [address]- Additional Instructions: 3 mos surveillance cysto/bt ck/FISH/cytol Patient Education Prostate Cancer Screening I, Darcy Pineda, personally scribed for Dr. Escudero on 04/30/2024 13:27:20. . Problem List/Past Medical History Ongoing Acute cystitis Bladder cancer Bladder mass Bladder neoplasm of uncertain malignant potential Bladder tumor Blood in urine BMI 34.0-34.9,adult BPH with urinary obstruction Current smoker Disorder of bladder Elevated PSA Gross hematuria H/O: malignant neoplasm History of bladder cancer History of UTI HTN (hypertension) Hypertensive disorder Incomplete bladder emptying Mass of urinary bladder Noncompliance Prostate cancer screening Pulmonary nodule Screening PSA (prostate specific antigen) Urinary frequency Urinary tract obstruction UTI (urinary tract infection) UTI symptoms Historical No qualifying data Procedure/Surgical History Cystoscopy (04/30/2024), Flexible cystoscope (01/23/2024), Cystoscopy (10/03/2023), TURBT - Transurethral resection of bladder tumor (05/25/2023), Cystoscopy (05/10/2023), Cystoscopy (05/10/2023), TURBT - Transurethral resection of bladder tumor (01/24/2023), Cystoscopy (01/04/2023), Cystoscopy (09/20/2022), T (more content not included)... [facility] Comment on above: Result Comment: Elec tronically Signed By: Yevgeniy ESCUDERO MD\.br\Date and Time Signed: 05/03/24 13:11 EDT\.br\Electronically Co-Signed By: Darcy Pineda\.br\Date and Time Co-Signed: 04/30/24 13:27 EDT UroVysion Fish and Urine Cyt o ([facility])on 04-30-2024 [facility] Method of Extraction Voided [facility] Comment on above: Performed By: #### 1 [id number] #### [facility] [address] [place] [address] [facility] Number of Jars 1 Invalid Interpretation Code [facility] Comment on above: Performed By: #### 1 [id number] #### [facility] [address] [place] [address] [facility] Specimen Urine Normal [facility] Comment on above: Performed By: #### 1 [id number] #### [facility] [address] [place] [address] [facility] Type of Service Technical Only [facility] Comment on above: Performed By: #### 1 [id number] #### [facility] [address] [place] [address] C Urineon 03-16-2024 Bacteria identified Cx Nom (U) Microbiology PROCEDURE: Urine Culture [R1] SOURCE: U CleanCatch BODY SITE: COLLECTED DATE/TIME: 03/14/2024 15:03 EDT RECEIVED DATE/TIME: 03/14/2024 18:16 EDT START DATE/TIME: 03/14/2024 18:16 EDT FREE TEXT SOURCE: SYLVIE DAVIS PA-C, PA-C, JENNIFER E FINAL REPORTS Final Report [] Verified Date/Time: 03/16/2024 09:27 EDT 4,000 cfu/ml Mixed skin contaminants Performing Locations R1: [facility] at[facility], [address] [place] [address], [address]- , , Normal [facility] Comment on above: Performed By: #### 2 [id number] #### [facility] [address] [place] [id number] Reminderson 03-15-2024 Reminders Reminders From: Darleen Gonzalez To: EU - Recalls Escudero; Sent: 12/01/2023 11:29:20 EDT Show up: 01/15/2024 11:29:00 EDT Subject: cysto/fish/cytol Due Date/Time: 02/12/2024 11:29:00 EDT Reminder/Recall Patient is due in Mar 2024 for 3 month cysto/fish/cytol (bt ck) Patient having cysto January 22. Due in Apr 2024.LG Patient sched for 04/30/24 in [place] office. Patient is due in Jul 2024.LG [facility] Ambulatory Visit Summaryon 0 03-07-2024 Ambulatory Visit Summary Ambulatory Visit Summary TIKI RUGGIERO :1960 Visit Date:03/07/2024 Ambulatory Visit Instructions Your Diagnosis History of bladder cancer Bladder cancer Your Care Team Attending Physician - SYLVIE DAVIS PA-C Primary Care Physician - NONE, XXXX This Is Your Medications List Contact prescribing physician if questions or concerns amlodipine (amLODIPine 10 mg Tab) losartan (losartan 50 mg Tab) tolterodine (Detrol 2 mg Tab) Procedures Performed Flexible cystoscope (01/23/2024), Cystoscopy (10/03/2023), TURBT - Transurethral resection of bladder tumor (05/25/2023), Cystoscopy (05/10/2023), Cystoscopy (05/10/2023), TURBT - Transurethral resection of bladder tumor (01/24/2023), Cystoscopy (01/04/2023), Cystoscopy (09/20/2022), TURBT - Transurethral resection of bladder tumor (07/05/2022), Post-surgery back pain. Discharge Vitals Height 167 cm Height 66 in Weight 102 kg Weight 224.4 lb BMI 36.57 What to do next Scheduled Follow-Up Appointments 2023 1:20 PM EDT With: SYLVIE DAVIS PA-C Where: [facility] [address] [place] [address]- You Need to Schedule the Following Appointments Follow Up with MILLICENT IVORY, BRITTNEE GREY When: Comments: BCG #3 of 3 in 1 week Where: [address] [place] [address] Medications What How Much When Instructions Unchanged amlodipine (amLODIPine 10 mg Tab) Contact prescribing physician if questions or concerns Unchanged losartan (losartan 50 mg Tab) Contact prescribing physician if questions or concerns Unchanged tolterodine (Detrol 2 mg Tab) 1 Tablets By Mouth 2 times a day Contact prescribing physician if questions or concerns Medications and Immunizations Administered Given Mayte BCG Live (for intravesical use), 25 mg, IntraVesical. For: Bladder cancer BCG, IntraVesical Allergies VESIcare (Muscle ache) Problems Ongoing - Any problem that you are currently receiving treatment for. Acute cystitis Bladder cancer Bladder mass Bladder neoplasm of uncertain malignant potential Bladder tumor Blood in urine BMI 34.0-34.9,adult BPH with urinary obstruction Current smoker Disorder of bladder Gross hematuria H/O: malignant neoplasm History of bladder cancer History of UTI HTN (hypertension) Hypertensive disorder Incomplete bladder emptying Mass of urinary bladder Noncompliance Prostate cancer screening Pulmonary nodule Screening PSA (prostate specific antigen) Urinary frequency Urinary tract obstruction UTI (urinary tract infection) UTI symptoms Patient Survey You may receive a survey via text or e-mail asking about your office visit. Please share your experience with us by completing your survey. We appreciate your feedback and thank you for choosing us for your care. Education Materials Cancer Screening for Men A cancer screening is a test or exam that checks for cancer. Your health care provider will recommend specific cancer screenings based on your age, medical history (including risk factors), and family history of cancer. Work with your health care provider to create a cancer screening schedule that protects your health. Who should have screening? All men should be considered for screening of certain cancers, including colorectal cancer, prostate cancer, lung cancer, and skin cancer. Your health care provider may recommend screenings for other types of cancer if: ? You had cancer before. ? You have a family member with cancer. ? You have abnormal genes that could increase the risk of cancer. ? You have risk factors for certain cancers, such as current or past use of tobacco products, or being overweight. When you should be screened for cancer depends on: ? Your age. ? Your medical history and your family's medical history. ? Certain lifestyle factors, such as smoking or other use of tobacco products. ? Environmental exposure, such as to asbestos. How is screening done? Colorectal cancer All adults should have screenings starting at age 45 and continuing until age 75. Your health care provider may recommend screening before age 45. You will have tests every 1?10 years, depending on your results and the type of screening test. People at increased risk should start screening at an earlier age. Talk with your health care provider about which screening test is right for you and how often you should be screened. Colorectal cancer screening looks for cancer or for growths called polyps that often form before cancer starts. Tests to look for cancer or polyps include: ? Colonoscopy or flexible sigmoidoscopy. For these procedures, a flexible tube with a small camera is inserted into the rectum. ? CT colonography. This test uses X-rays and a contrast dye to check the colon for polyps. If a polyp is found (more content not included)... [facility] Urology Office/Clinic Noteon 03-07-2024 Urology Office/Clinic Note Urology Office/Clinic Note Chief Complaint BCG #2 of 3 half dose HPI Staff 63 year old male here for BCG #2 of 3 half dose. Dx: hx of bladder cancer s/p TURBT 07/05/22, TURBT 01/24/23, Mitomycin 03/16/23 and 04/13/23, TURBT 05/25/23, Cysto 10/03/23 and Cysto 01/23/24 History of Present Illness Tests reviewed: reviewed UA I have reviewed the previous health record information and history for this patient from ADRIAN Kraus & Dr. Escudero. I have reviewed and verified the staff HPI to be accurate for this encounter. Review of Systems PHQ Score Initial Depression Screen Score: 0 SCORE No fever, chills, malaise, myalgia. No rash/lesions. No chest pain, palpitations, or SOB. No abdominal pain, nausea, vomiting. No unilateral calf swelling, redness, pain Physical Exam Vitals & Measurements HT: 66 in HT: 167 cm WT: 102 kg WT: 224.4 lb BMI: 36.57 General: nontoxic, NAD Mouth: moist mucosa Lungs: normal respiratory effort Cardio: regular rate, good distal perfusion Abdomen: nondistended, no suprapubic distention or tenderness, no CVA tenderness Neurologic: Grossly normal Skin: No rashes or suspicious lesions Procedure The patient was placed in the appropriate position and under sterile conditions, the urethra is catheterized with a 14 Fr straight catheter and the bladder is emptied. 50 cc of sterile 0.9 NS with one vial of MAYTE BCG was placed into the bladder and the straight catheter was removed. The patient will hold the solution in the bladder for two hours, turning every fifteen minutes 1/4 turn to allow coating of the bladder surface. The patient should call the office or present to the Emergency Department for development of fever, chills, or flu-like symptoms. Symptoms such as urinary frequency, urgency, and other bladder irritation symptoms are expected. Assessment/Plan 1. History of bladder cancer (Z85.51: Personal history of malignant neoplasm of bladder) Original TURBT 07/05/22 - Low grade noninvasive papillary urothelial carcinoma. Detrusor muscle present and uninvolved. S/p TURBT 01/24/23 - Low-grade papillary urothelial carcinoma in all fragments with a small focus of tumor microinvasion in 1 fragment (pT1). A small bundle of muscularis propria wo tumor involvement. S/p Mitomycin 03/16/23 and 04/13/23. S/p TURBT and Mitomycin instillation 05/25/23 - Low grade papillary urothelial carcinoma, noninvasive. [1] BCG #1 was postponed 07/05/23 due to UA showing large blood and trace leuks. Was given multiple rounds of abx due to pt having extreme frequency since TURBT 05/25/23. UCx 07/05/23 was neg. BCG #1 was then canceled 07/12/23 due to continued frequency, 15-20x per day. Was rx'd Tolterodine 2mg bid. [1] UCx 08/23/23 - 1k mixed skin contam, tx'd empirically w/ Bactrim DS BID x7 days and Gentamicin 160mg IM inj given. 6 BCGs completed 08/23/23. [1] S/p Cysto 10/03/23 - Necrotic tissue adhered on back right wall of prior resection, 2 flat small red areas on anterior wall likely due to BCG irritation. Atypia, inconclusive cytol. No FISH done due to pt having lost his insurance. S/p Cysto 01/23/24 - negative for recurrence but found to have adhered calcified material on R lateral wall at prior resection site and a 2 cm red area, not raised but of concern at bladder dome. FISH/Cytol 01/23/24 - negative. #1 - trace leuk UA today shows negative blood and nitrites, +small leuks. Asx Pt received BCG #2 of 3 (half dose) IO today wo complications. Pt received 1/2 dose BCG today due to national shortage. EORTC 64868 trial showed no difference between 1/3 dose and full-dose BCG in patients with high-risk disease. Pt is aware of the reasoning and is amenable to proceed as discussed. -BCG #3 of 3 half dose in 1 week -Cysto in 3 mos following treatments Follow-up With When Contact Information SYLVIE DAVIS PA-C, URL [address] [address] Additional Instructions: BCG #3 of 3 in 1 week Patient Education Cancer Screening for Men Documentation recorded by the scribryan uS accurately reflects the services(s) I performed and decisions made by me. Authenticated by Sylvie Davis PA-C on 03/07/2024 14:03:13. I, Wilfred Su, personally scribed for Sylvie Davis PA-C on 03/07/2024 13:49:36. . Problem List/Past Medical History Ongoing Acute cystitis Bladder cancer Bladder mass Bladder neoplasm of uncertain malignant potential Bladder tumor Blood in urine BMI 34.0-34.9,adult BPH with urinary obstruction Current smoker Disorder of bladder Gross hematuria H/O: malignant neoplasm History of bladder cancer History of UTI HTN (hypertension) Hypertensive disorder Incomplete bladder emptying Mass of urinary bladder Noncompliance Prostate cancer screening Pulmonary nodule Screening PSA (prostate specific antigen) Urinary frequency Urinary tract obstruction UTI (more content not included)... [facility] Comment on above: Result Comment: Elec tronically Signed By: SYLVIE DAVIS PA-C\.br\Date and Time Signed: 03/07/24 14:03 EDT\.br\Electronically Co-Signed By: Wilfred Subr\Date and Time Co-Signed: 03/07/24 13:49 EDT Ambulatory Visit Summaryon 0 02-29-2024 Ambulatory Visit Summary Ambulatory Visit Summary TIKI RUGGIERO :1960 Visit Date:02/29/2024 Ambulatory Visit Instructions Your Diagnosis History of bladder cancer Your Care Team Attending Physician - SYLVIE DAVIS PA-C Primary Care Physician - NONE, XXXX This Is Your Medications List Contact prescribing physician if questions or concerns amlodipine (amLODIPine 10 mg Tab) losartan (losartan 50 mg Tab) tolterodine (Detrol 2 mg Tab) Procedures Performed Flexible cystoscope (01/23/2024), Cystoscopy (10/03/2023), TURBT - Transurethral resection of bladder tumor (05/25/2023), Cystoscopy (05/10/2023), Cystoscopy (05/10/2023), TURBT - Transurethral resection of bladder tumor (01/24/2023), Cystoscopy (01/04/2023), Cystoscopy (09/20/2022), TURBT - Transurethral resection of bladder tumor (07/05/2022), Post-surgery back pain. Discharge Vitals Temperature (Temporal Artery) 37 ?C Heart Rate (Peripheral) 80 Respiratory Rate 16 Blood Pressure 137/81 Height 167 cm Height 66 in Weight 102 kg Weight 224.4 lb BMI 36.57 What to do next Scheduled Follow-Up Appointments 2023 1:20 PM EDT With: SYLVIE DAVIS PA-C Where: [facility] [address] [address]- 2023 1:20 PM EDT With: SYLVIE DAVIS PA-C Where: [facility] [address] [address]- You Need to Schedule the Following Appointments Follow Up with SYLVIE DAVIS PA-C, URL When: Comments: 1 week BCG #2 of 3 half dose Where: [address] [place] [address] Medications What How Much When Instructions Unchanged amlodipine (amLODIPine 10 mg Tab) Contact prescribing physician if questions or concerns Unchanged losartan (losartan 50 mg Tab) Contact prescribing physician if questions or concerns Unchanged tolterodine (Detrol 2 mg Tab) 1 Tablets By Mouth 2 times a day Contact prescribing physician if questions or concerns Medications and Immunizations Administered Given Mayte BCG Live (for intravesical use), 25 mg, IntraVesical. For: History of bladder cancer BCG, IntraVesical Allergies VESIcare (Muscle ache) Problems Ongoing - Any problem that you are currently receiving treatment for. Acute cystitis Bladder cancer Bladder mass Bladder neoplasm of uncertain malignant potential Bladder tumor Blood in urine BMI 34.0-34.9,adult BPH with urinary obstruction Current smoker Disorder of bladder Gross hematuria H/O: malignant neoplasm History of bladder cancer History of UTI HTN (hypertension) Hypertensive disorder Incomplete bladder emptying Mass of urinary bladder Noncompliance Prostate cancer screening Pulmonary nodule Screening PSA (prostate specific antigen) Urinary frequency Urinary tract obstruction UTI (urinary tract infection) UTI symptoms Patient Survey You may receive a survey via text or e-mail asking about your office visit. Please share your experience with us by completing your survey. We appreciate your feedback and thank you for choosing us for your care. Education Materials Bladder Cancer Bladder cancer is a condition where abnormal tissue (a tumor) grows in the bladder. The bladder is the organ that holds urine. Two tubes (ureters) carry urine from the kidneys to the bladder. The bladder wall is made of layers of tissue. Cancer that spreads through these layers of the bladder wall becomes more difficult to treat. What increases the risk? The following factors may make you more likely to develop this condition: ? Smoking. ? Working where there are risks (occupational exposures), such as working with rubber, leather, clothing fabric, dyes, chemicals, or paint. ? Being 55 years of age or older. ? Being male. ? Having long-term bladder inflammation. ? Having a history of cancer. This includes: ? A family history of bladder cancer. ? Having had bladder cancer before. ? Having had certain treatments for cancer before, such as: ? Medicines to kill cancer cells (chemotherapy). ? Strong X-ray beams or high-energy capsules to kill cancer cells and shrink tumors (radiation therapy). ? Having been exposed to arsenic. This is a poisonous substance. What are the signs or symptoms? Early symptoms of this condition include: ? Blood in your urine. ? Pain when urinating. ? Infections of your urinary system (urinary tract infections or UTIs) that happen often. ? Having to urinate sooner or more often than normal. Late symptoms of this condition include: ? Not being able to urinate. ? Pain on one side of your lower back. ? Loss of appetite. ? Weight loss. ? Tiredness (fatigue). ? Swelling in your feet. ? Bone pain. How is (more content not included)... [facility] Office/Clinic Noteon 02-29-2024 Urology Office/Clinic Note Urology Office/Clinic Note Chief Complaint BCG #1 Hx of bladder cancer HPI Staff BCG #1 of 3 half dose. Dx: hx of bladder cancer, pulmonary nodule, current smoker Dysuria: no Incomplete bladder emptying: no Hematuria: denies Frequency: denies Urgency: denies Nocturia: denies Stream: weaker with intermittency Leaking: no Post void dripping: no Wearing pads/ Depends: no Urge incontinence: no Stress incontinence: no Incontinence without Sensory Awareness: no Abdominal pain: no Flank pain: no Sexual complaints: no History of Present Illness Tests reviewed: none I have reviewed the previous health record information and history for this patient from Dr. Escudero. I have reviewed and verified the staff HPI to be accurate for this encounter. Review of Systems PHQ Score Initial Depression Screen Score: 0 SCORE no fever, chills, malaise, myalgia. no rash/lesions. no chest pain, palpitations, or SOB. no abdominal pain, nausea, vomiting. no unilateral calf swelling, redness, pain Physical Exam Vitals & Measurements T: 37 ?C(Temporal Artery) HR: 80(Peripheral) RR: 16 BP: 137/81 HT: 66 in HT: 167 cm WT: 102 kg WT: 224.4 lb BMI: 36.57 General: nontoxic, NAD Mouth: moist mucosa Lungs: normal respiratory effort Cardio: regular rate, good distal perfusion Abdomen: nondistended, no suprapubic distention or tenderness, no CVA tenderness Neurologic: Grossly normal Skin: No rashes or suspicious lesions Procedure The patient was placed in the appropriate position and under sterile conditions, the urethra is catheterized with a 14 Fr straight catheter and the bladder is emptied. 50 cc of sterile 0.9 NS with one half vial of MAYTE BCG was placed into the bladder and the straight catheter was removed. The patient will hold the solution in the bladder for two hours, turning every fifteen minutes 1/4 turn to allow coating of the bladder surface. The patient should call the office or present to the Emergency Department for development of fever, chills, or flu-like symptoms. Symptoms such as urinary frequency, urgency, and other bladder irritation symptoms are expected. Assessment/Plan UA today negative for blood or nitrites, shows trace leuks. 1. History of bladder cancer (Z85.51: Personal history of malignant neoplasm of bladder) Original TURBT 07/05/22 - Low grade noninvasive papillary urothelial carcinoma. Detrusor muscle present and uninvolved. S/p TURBT 01/24/23 - Low-grade papillary urothelial carcinoma in all fragments with a small focus of tumor microinvasion in 1 fragment (pT1). A small bundle of muscularis propria wo tumor involvement. S/p Mitomycin 03/16/23 and 04/13/23. S/p TURBT and Mitomycin instillation 05/25/23 - Low grade papillary urothelial carcinoma, noninvasive. [1] BCG #1 was postponed 07/05/23 due to UA showing large blood and trace leuks. Was given multiple rounds of abx due to pt having extreme frequency since TURBT 05/25/23. UCx 07/05/23 was neg. BCG #1 was then canceled 07/12/23 due to continued frequency, 15-20x per day. Was rx'd Tolterodine 2mg bid. [1] UCx 08/23/23 - 1k mixed skin contam, tx'd empirically w/ Bactrim DS BID x7 days and Gentamicin 160mg IM inj given. 6 BCGs completed 08/23/23. [1] S/p Cysto 10/03/23 - Necrotic tissue adhered on back right wall of prior resection, 2 flat small red areas on anterior wall likely due to BCG irritation. Atypia, inconclusive cytol. No FISH done due to pt having lost his insurance. S/p Cysto 01/23/24 - negative for recurrence but found to have adhered calcified material on R lateral wall at prior resection site and a 2 cm red area, not raised but of concern at bladder dome. FISH/Cytol 01/23/24 - negative. UA shows trace leuks only. Pt asx. Pt received BCG tx #1 of 3 IO today wo complications. Pt received 1/2 dose BCG today due to national shortage. [employer] 10656 trial showed no difference between 1/3 dose and full-dose BCG in patients with high-risk disease. Pt is aware of the reasoning and is amenable to proceed as discussed. -BCG #2 of 3 half dose in 1 week -Cysto in 3 mos Follow-up With When Contact Information SYLVIE DAVIS PA-C, URL [address] [place] [address] Additional Instructions: 1 week BCG #2 of 3 half dose Patient Education Bladder Cancer Documentation recorded by the scribryan Su accurately reflects the services(s) I performed and decisions made by me. Authenticated by Sylvie Davis PA-C on 02/29/2024 13:37:12. Wilfred Armstrong, personally scribed for Sylvie Davis PA-C on 02/29/2024 13:29:19. . Problem List/Past Medical History Ongoing Acute cystitis Bladder cancer Bladder mass Bladder neoplasm of uncertain malignant potential Bladder tumor Blood in urine BMI 34.0-34.9,adult BPH with urinary obstruction Current smoker Disorder of bladder Gross hematuria H/O: malignant neoplas (more content not included)... [facility] Comment on above: Result Comment: Elec tronically Signed By: SYLVIE DAVIS PA-C\.br\Date and Time Signed: 02/29/24 13:37 EDT\.br\Electronically Co-Signed By: Wilfred Su\.br\Date and Time Co-Signed: 02/29/24 13:29 EDT [facility] Fish and Urine Cyt o ([facility])on 01-29-2024 UV[facility] & UC Diagnosis Info Invalid Interpretation Code [facility] Comment on above: Result Comment: A:Ur ine,Bladder Wash:Bladder Wash Diagnosis Summary - Adequate Diagnosis Summary - The [facility] FISH study detected normal copy numbers for chromosomes 3, 7, 17, and 9p21. 200 cells were analyzed in this evaluation. No evidence of aneuploidy for chromosomes 3, 7, or 17 or deletion of the 9p21 locus was found in cells present in this specimen. This test does not rule out the possibility of a low grade non-invasive papillary urothelial carcinoma. These findings should be correlated with cytology and cystoscopy results.* Microscopic Notes - Microscopic Notes - Abnormal cells 9p21 deletions: Abnormal cells aneploid events: Total cells analyzed: 200 Hematuria: Gross Description Site ID:A color Yellow fixative Alcohol Received 90 mls of clear yellow fluid with the patient's name and, Bladder Wash on the vial. Electronically signed by : on: 01/29/2024 17:36:53 Performed By: #### 1 [id number] #### [facility] [address] [place] [address] PSA Totalon 01-26-2024 Prostate specific Ag [Mass/Vol] 3.0 ng/mL Normal 0.1-3.5 [facility] Comment on above: Result Comment: The concentration of PSA determined by different manufacturers can vary due to differences in assay methods and reagent specificity. Values obtained from different assay methods cannot be used interchangeably. The methodology used for this result was chemiluminescence using [employer] Access Hybritech PSA reagent. Performed By: #### 1 [id number] #### [facility] [address] [place] [address] Ambulatory Visit Summaryon 0 01-23-2024 Ambulatory Visit Summary Ambulatory Visit Summary TIKI RUGGIERO :1960 Visit Date:01/23/2024 Ambulatory Visit Instructions Your Diagnosis History of bladder cancer Pulmonary nodule Screening PSA (prostate specific antigen) Current smoker Your Care Team Attending Physician - KENA ESPARZA, Yevgeniy Us Primary Care Physician - NONE, XXXX This Is Your Medications List Contact prescribing physician if questions or concerns amlodipine (amLODIPine 10 mg Tab) losartan (losartan 50 mg Tab) tolterodine (Detrol 2 mg Tab) Procedures Performed Flexible cystoscope (01/23/2024), Cystoscopy (10/03/2023), TURBT - Transurethral resection of bladder tumor (05/25/2023), Cystoscopy (05/10/2023), Cystoscopy (05/10/2023), TURBT - Transurethral resection of bladder tumor (01/24/2023), Cystoscopy (01/04/2023), Cystoscopy (09/20/2022), TURBT - Transurethral resection of bladder tumor (07/05/2022), Post-surgery back pain. Discharge Vitals Temperature (Temporal Artery) 36.6 ?C Heart Rate (Peripheral) 100 Respiratory Rate 16 Blood Pressure 122/78 Height 167 cm Height 66 in Weight 102 kg Weight 224.4 lb BMI 36.57 What to do next You Need to Schedule the Following Appointments Follow Up with KENA ESPARZA, BRITTNEE Andino When: Where: [facility] [address], [place] [phone]- [phone] Medications What How Much When Instructions Unchanged amlodipine (amLODIPine 10 mg Tab) Contact prescribing physician if questions or concerns Unchanged losartan (losartan 50 mg Tab) Contact prescribing physician if questions or concerns Unchanged tolterodine (Detrol 2 mg Tab) 1 Tablets By Mouth 2 times a day Contact prescribing physician if questions or concerns Medications and Immunizations Administered Given lidocaine Top 2% Gel w/Appl 11 mL, 11 mL, Topical. For: History of bladder cancer Allergies VESIcare (Muscle ache) Problems Ongoing - Any problem that you are currently receiving treatment for. Acute cystitis Bladder cancer Bladder mass Bladder neoplasm of uncertain malignant potential Bladder tumor Blood in urine BMI 34.0-34.9,adult BPH with urinary obstruction Current smoker Disorder of bladder Gross hematuria H/O: malignant neoplasm History of bladder cancer History of UTI HTN (hypertension) Hypertensive disorder Incomplete bladder emptying Mass of urinary bladder Noncompliance Prostate cancer screening Pulmonary nodule Screening PSA (prostate specific antigen) Urinary frequency Urinary tract obstruction UTI (urinary tract infection) UTI symptoms Patient Survey You may receive a survey via text or e-mail asking about your office visit. Please share your experience with us by completing your survey. We appreciate your feedback and thank you for choosing us for your care. Education Materials Cancer Screening for Men A cancer screening is a test or exam that checks for cancer. Your health care provider will recommend specific cancer screenings based on your age, medical history (including risk factors), and family history of cancer. Work with your health care provider to create a cancer screening schedule that protects your health. Who should have screening? All men should be considered for screening of certain cancers, including colorectal cancer, prostate cancer, lung cancer, and skin cancer. Your health care provider may recommend screenings for other types of cancer if: ? You had cancer before. ? You have a family member with cancer. ? You have abnormal genes that could increase the risk of cancer. ? You have risk factors for certain cancers, such as current or past use of tobacco products, or being overweight. When you should be screened for cancer depends on: ? Your age. ? Your medical history and your family's medical history. ? Certain lifestyle factors, such as smoking or other use of tobacco products. ? Environmental exposure, such as to asbestos. How is screening done? Colorectal cancer All adults should have screenings starting at age 45 and continuing until age 75. Your health care provider may recommend screening before age 45. You will have tests every 1?10 years, depending on your results and the type of screening test. People at increased risk should start screening at an earlier age. Talk with your health care provider about which screening test is right for you and how often you should be screened. Colorectal cancer screening looks for cancer or for growths called polyps that often form before cancer starts. Tests to look for cancer or polyps include: ? Colonoscopy or flexible sigmoidoscopy. For these procedures, a flexible tube with a small camera is inserted into the rectum. ? CT colonography. This test uses X-rays and a contrast dye to check the colon for polyps. If a polyp is found, you may need to have a colonoscopy so the polyp can be located and removed. Tests to loo (more content not included)... [facility] Fish and Urine Cyt o ([facility])on 01-23-2024 [facility] Method of Extraction Bladder Wash [facility] Comment on above: Performed By: #### 1 [id number] #### [facility] [address] [place] [address] [facility] Number of Jars 1 Invalid Interpretation Code [facility] Comment on above: Performed By: #### 1 [id number] #### [facility] [address] [place] [address] [facility] Specimen Bladder Wash [facility] Comment on above: Performed By: #### 1 [id number] #### [facility] [address] [place] [address] [facility] Type of Service Global Normal [facility] Comment on above: Performed By: #### 1 [id number] #### [facility] [address] [place] [address] Urology Office/Clinic Noteon 01-23-2024 Urology Office/Clinic Note Urology Office/Clinic Note Chief Complaint cysto with fish/cytol 3 month bladder check HPI Staff 3 mos cysto/bt ck. Cysto with FISH/CYTOL. ABX not taken History of Present Illness Tests reviewed: reviewed cytology I have reviewed the previous health record information and history for this patient from Dr. Escudero. I have reviewed and verified the staff HPI to be accurate for this encounter. Review of Systems PHQ Score Initial Depression Screen Score: 0 SCORE ROS - Provider Constitutional: denies weight loss, denies hot flashes. Eyes: denies eye problems. Gastrointestinal: denies nausea, denies vomiting. Cardiovascular: denies chest pain or angina. Integumentary: no dryness Musculoskeletal: denies musculoskeletal symptoms. ENMT: denies otolaryngeal symptoms. Respiratory: no shortness of breath. Heme/Lymph: denies easy bleeding tendency, denies easy bruising tendency. Psychiatric: no confusion, no anxiety. Genitourinary: See HPI. Physical Exam Vitals & Measurements T: 36.6 ?C(Temporal Artery) HR: 100(Peripheral) RR: 16 BP: 122/78 HT: 66 in HT: 167 cm WT: 102 kg WT: 224.4 lb BMI: 36.57 General Appearance: alert, no distress, well nourished, well developed male. Procedure Operative Information Anesthesia Type: Local Procedure: Local Cystoscopy Complications: None Surgical risks, benefits, details of the procedure have been explained to the patient. Full informed consent has been obtained. Intraoperative Information Prepped: Patient is brought back to the endoscopy suite. Patient is placed in supine position. Patient prepped in the usual fashion with Betadine solution. 2% Xylocaine Jelly is placed per Urethra. After waiting several minutes, the Cystoscope is introduced. The Urethra is: Normal The Prostatic Urethra is: Bilobar obstruction The Bladder: On R lateral wall prior resection site 3cm with adhered calcified material but without tumor. On dome, there is a 2 cm red area, not raised but of concern. Rest of the bladder is without tumors. , Trabeculated: Moderate (2), a few open diverticuli The Ureteral orifices: Show efflux of clear urine The Urethra was dilated to: _ [place] with sounds. Specimens Removed: Bladder wash sent for FISH and Cytology test Removal: Cystoscope is removed. The patient tolerated it well. Postoperative Information Patient is discharged home with antibiotic coverage. Follow up arranged. Assessment/Plan 1. History of bladder cancer (Z85.51: Personal history of malignant neoplasm of bladder) Original TURBT 07/05/22 - Low grade noninvasive papillary urothelial carcinoma. Detrusor muscle present and uninvolved. S/p TURBT 01/24/23 - Low-grade papillary urothelial carcinoma in all fragments with a small focus of tumor microinvasion in 1 fragment (pT1). A small bundle of muscularis propria wo tumor involvement. S/p Mitomycin 03/16/23 and 04/13/23. S/p TURBT and Mitomycin instillation 05/25/23 - Low grade papillary urothelial carcinoma, noninvasive. [1] BCG #1 was postponed 07/05/23 due to UA showing large blood and trace leuks. Was given multiple rounds of abx due to pt having extreme frequency since TURBT 05/25/23. UCx 07/05/23 was neg. BCG #1 was then canceled 07/12/23 due to continued frequency, 15-20x per day. Was rx'd Tolterodine 2mg bid. [1] UCx 08/23/23 - 1k mixed skin contam, tx'd empirically w/ Bactrim DS BID x7 days and Gentamicin 160mg IM inj given. 6 BCGs completed 08/23/23. [1] Most recent cysto 10/03/23 - Necrotic tissue adhered on back right wall of prior resection, 2 flat small red areas on anterior wall likely due to BCG irritation. Atypia, inconclusive cytol. No FISH done due to pt having lost his insurance. Pt had IO cysto to check for bladder tumor recurrence without complications today. Pt did not take prophylactic abx prior to procedure. Will send bladder wash specimen for FISH/cytol and call pt if positive. Cysto today was negative for recurrence but found to have adhered calcified material on R lateral wall at prior resection site and a 2 cm red area, not raised but of concern at bladder dome. -Proceed with BCG #3 -Cysto in 3 mos 2. Pulmonary nodule (R91.1: Solitary pulmonary nodule) CTU 02/14/23 - 5 mm pulmonary nodule RLL. CT Chest w con 03/14/23 - 5 mm noncalcified pulmonary nodule RLL is once again demonstrated. No additional nodule is seen. CT Chest 09/01/23 [facility] - Stable 5 mm pulmonary nodule right lower lobe. No additional nodule seen. [2] -CT Chest due 02/2024 (recall in place) 3. Screening PSA (prostate specific antigen) (Z12.5: Encounter for screening for malignant neoplasm of prostate) PSA 04/27/22 - 1.25 (no prior level found per [facility]). Pt was to get level done prior to appt today but forgot. Offered to draw blood IO today. Pt wishes to proceed. -PSA to be drawn IO today. Will call pt with results. 4. Current smoker (F17.200: Nicotine dependence, unspecified, uncomplicated) Risk factor for #1. [3] Follow-up With (more content not included)... [facility] Comment on above: Result Comment: Elec tronically Signed By: Yevgeniy ESCUDERO MD\.br\Date and Time Signed: 01/23/24 15:20 EDT\.br\Electronically Co-Signed By: Nilsa Hernandez\.br\Date and Time Co-Signed: 01/23/24 15:19 EDT Reminderson 01-16-2024 Reminders Reminders From: Darleen Gonzalez To: [facility] - Recalls Kena; Sent: 11/22/2023 16:14:13 EDT Show up: 01/15/2024 16:14:00 EDT Subject: cysto/fish/cytol Due Date/Time: 02/05/2024 16:14:00 EDT Reminder/Recall Patient is due in Mar for 3 month cysto/fish/cytol (bt ck) duplicate [facility] CT CERVICAL SPINE WO CONTRAS Ton 01-07-2024 CT CERVICAL SPINE WO CONTRAST EXAMINATION: CT OF THE CERVICAL SPINE WITHOUT CONTRAST 01/07/2024 1:16 am TECHNIQUE: CT of the cervical spine was performed without the administration of intravenous contrast. Multiplanar reformatted images are provided for review. Automated exposure control, iterative reconstruction, and/or weight based adjustment of the mA/kV was utilized to reduce the radiation dose to as low as reasonably achievable. COMPARISON: None. HISTORY: ORDERING SYSTEM PROVIDED HISTORY: Fall TECHNOLOGIST PROVIDED HISTORY: Reason for exam:->Fall Decision Support Exception - unselect if not a suspected or confirmed emergency medical condition->Emergency Medical Condition (MA) FINDINGS: BONES/ALIGNMENT: There is no acute fracture or traumatic malalignment. DEGENERATIVE CHANGES: There are multilevel discogenic changes throughout the cervical spine without evidence of acute fracture or subluxation. SOFT TISSUES: There is no prevertebral soft tissue swelling. IMPRESSION: No acute abnormality of the cervical spine. Interpreted by: Patricio Crum III, DO Signed by: Patricio Crum III, DO 01/07/24 Final result [facility] Comment on above: Order Comment: Reaso n for exam:->Fall Decision Support Exception - unselect if not a suspected or confirmed emergency medical condition->Emergency Medical Condition (MA) CT Cervical spine WO contras ton 01-07-2024 No acute abnormality of the cervical spine. [facility] EXAMINATION: CT OF THE CERVICAL SPINE WITHOUT CONTRAST 01/07/2024 1:16 am TECHNIQUE: CT of the cervical spine was performed without the administration of intravenous contrast. Multiplanar reformatted images are provided for review. Automated exposure control, iterative reconstruction, and/or weight based adjustment of the mA/kV was utilized to reduce the radiation dose to as low as reasonably achievable. COMPARISON: None. HISTORY: ORDERING SYSTEM PROVIDED HISTORY: Fall TECHNOLOGIST PROVIDED HISTORY: Reason for exam:->Fall Decision Support Exception - unselect if not a suspected or confirmed emergency medical condition->Emergency Medical Condition (MA) FINDINGS: BONES/ALIGNMENT: There is no acute fracture or traumatic malalignment. DEGENERATIVE CHANGES: There are multilevel discogenic changes throughout the cervical spine without evidence of acute fracture or subluxation. SOFT TISSUES: There is no prevertebral soft tissue swelling. [facility] Patricio Crum III, DO - 01/07/2024 EXAMINATION: CT OF THE CERVICAL SPINE WITHOUT CONTRAST 01/07/2024 1:16 am TECHNIQUE: CT of the cervical spine was performed without the administration of intravenous contrast. Multiplanar reformatted images are provided for review. Automated exposure control, iterative reconstruction, and/or weight based adjustment of the mA/kV was utilized to reduce the radiation dose to as low as reasonably achievable. COMPARISON: None. HISTORY: ORDERING SYSTEM PROVIDED HISTORY: Fall TECHNOLOGIST PROVIDED HISTORY: Reason for exam:->Fall Decision Support Exception - unselect if not a suspected or confirmed emergency medical condition->Emergency Medical Condition (MA) FINDINGS: BONES/ALIGNMENT: There is no acute fracture or traumatic malalignment. DEGENERATIVE CHANGES: There are multilevel discogenic changes throughout the cervical spine without evidence of acute fracture or subluxation. SOFT TISSUES: There is no prevertebral soft tissue swelling. IMPRESSION: No acute abnormality of the cervical spine. [facility] CT HEAD WO CONTRASTon 2023 CT HEAD WO CONTRAST EXAMINATION: CT OF THE HEAD WITHOUT CONTRAST 01/07/2024 1:16 am TECHNIQUE: CT of the head was performed without the administration of intravenous contrast. Automated exposure control, iterative reconstruction, and/or weight based adjustment of the mA/kV was utilized to reduce the radiation dose to as low as reasonably achievable. COMPARISON: None. HISTORY: ORDERING SYSTEM PROVIDED HISTORY: Fall TECHNOLOGIST PROVIDED HISTORY: Has a code stroke or stroke alert been called?->No Reason for exam:->Fall Decision Support Exception - unselect if not a suspected or confirmed emergency medical condition->Emergency Medical Condition (MA) FINDINGS: BRAIN/VENTRICLES: There is no acute intracranial hemorrhage, mass effect or midline shift. No abnormal extra-axial fluid collection. The nunez-white differentiation is maintained without evidence of an acute infarct. There is no evidence of hydrocephalus. ORBITS: The visualized portion of the orbits demonstrate no acute abnormality. SINUSES: The visualized paranasal sinuses and mastoid air cells demonstrate no acute abnormality. SOFT TISSUES/SKULL: No acute abnormality of the visualized skull or soft tissues. IMPRESSION: No acute intracranial abnormality. Interpreted by: Patricio Crum III, DO Signed by: Patricio Crum III, DO 01/07/24 Final result [facility] Comment on above: Order Comment: Has a code stroke or stroke alert been called?->No Reason for exam:->Fall Decision Support Exception - unselect if not a suspected or confirmed emergency medical condition->Emergency Medical Condition (MA) CT Head WO contraston 2023 No acute intracrania l abnormality. [facility] EXAMINATION: CT OF THE HEAD WITHOUT CONTRAST 01/07/2024 1:16 am TECHNIQUE: CT of the head was performed without the administration of intravenous contrast. Automated exposure control, iterative reconstruction, and/or weight based adjustment of the mA/kV was utilized to reduce the radiation dose to as low as reasonably achievable. COMPARISON: None. HISTORY: ORDERING SYSTEM PROVIDED HISTORY: Fall TECHNOLOGIST PROVIDED HISTORY: Has a code stroke or stroke alert been called?->No Reason for exam:->Fall Decision Support Exception - unselect if not a suspected or confirmed emergency medical condition->Emergency Medical Condition (MA) FINDINGS: BRAIN/VENTRICLES: There is no acute intracranial hemorrhage, mass effect or midline shift. No abnormal extra-axial fluid collection. The nunez-white differentiation is maintained without evidence of an acute infarct. There is no evidence of hydrocephalus. ORBITS: The visualized portion of the orbits demonstrate no acute abnormality. SINUSES: The visualized paranasal sinuses and mastoid air cells demonstrate no acute abnormality. SOFT TISSUES/SKULL: No acute abnormality of the visualized skull or soft tissues. [facility] Patricio Crum III , DO - 01/07/2024 EXAMINATION: CT OF THE HEAD WITHOUT CONTRAST 01/07/2024 1:16 am TECHNIQUE: CT of the head was performed without the administration of intravenous contrast. Automated exposure control, iterative reconstruction, and/or weight based adjustment of the mA/kV was utilized to reduce the radiation dose to as low as reasonably achievable. COMPARISON: None. HISTORY: ORDERING SYSTEM PROVIDED HISTORY: Fall TECHNOLOGIST PROVIDED HISTORY: Has a code stroke or stroke alert been called?->No Reason for exam:->Fall Decision Support Exception - unselect if not a suspected or confirmed emergency medical condition->Emergency Medical Condition (MA) FINDINGS: BRAIN/VENTRICLES: There is no acute intracranial hemorrhage, mass effect or midline shift. No abnormal extra-axial fluid collection. The nunez-white differentiation is maintained without evidence of an acute infarct. There is no evidence of hydrocephalus. ORBITS: The visualized portion of the orbits demonstrate no acute abnormality. SINUSES: The visualized paranasal sinuses and mastoid air cells demonstrate no acute abnormality. SOFT TISSUES/SKULL: No acute abnormality of the visualized skull or soft tissues. IMPRESSION: No acute intracranial abnormality. [facility] CT Head WO contrastOrdered B y: Patricio Crum on 01-07-2024 [facility] [employer] Work Phone: No Panel Informationon 01-06 Radiology Study observation (narrative) [facility] Urine Cytology ([facility])on 0 11-07-2023 Microscopic exam Cytology (U) [Interp] Diagnosis Info Invalid Interpretation Code [facility] Comment on above: Result Comment: A:Ur ine,Urine:Voided Interpretation - MicroScopic Description - Obscuring acute inflammatory cells are seen. CPT 33009 Adequacy - Gross Description Site ID:A color Dark Yellow fixative Alcohol Specimen designated Urine received in alcohol preservative and labeled with the patient?s name, consists of 80ml clear dark yellow fluid. Electronically signed by : on: 10/06/2023 12:21:14 Performed By: #### 1 [id number] ####[facility] [address] [place] [address] Consent for Procedure/Surger yon 10-04-2023 Consent for Procedure/Surgery [id number] [facility] Ambulatory Visit Summaryon 0 10-03-2023 Ambulatory Visit Summary TIKI RUGGIERO :1960 Visit Date:10/03/2023 Ambulatory Visit Instructions Your Diagnosis Bladder cancer Pulmonary nodule Current smoker Your Care Team Attending Physician - KENA ESPARZA, Yevgeniy Us Primary Care Physician - NONE, XXXX This Is Your Medications List Contact prescribing physician if questions or concerns amlodipine (amLODIPine 10 mg Tab) losartan (losartan 50 mg Tab) tolterodine (Detrol 2 mg Tab) [Image Removed: STOP]Stop taking these medications ciprofloxacin (Cipro 500 mg Tab) Procedures Performed Cystoscopy (10/03/2023), TURBT - Transurethral resection of bladder tumor (05/25/2023), Cystoscopy (05/10/2023), TURBT - Transurethral resection of bladder tumor (01/24/2023), Cystoscopy (01/04/2023), Cystoscopy (09/20/2022), TURBT - Transurethral resection of bladder tumor (07/05/2022), Post-surgery back pain. Discharge Vitals Temperature (Temporal Artery) 37 ?C Heart Rate (Peripheral) 77 Respiratory Rate 16 Blood Pressure 123/82 Height 167 cm Height 66 in Weight 100 kg Weight 220 lb BMI 35.86 What to do next You Need to Schedule the Following Appointments Follow Up with KENA ESPARZA, BRITTNEE Andino When: Comments: cysto/bt ck in 3 mos Where: [facility] [address] [place] [address] [phone] Medications What How Much When Instructions Unchanged amlodipine (amLODIPine 10 mg Tab) Contact prescribing physician if questions or concerns Unchanged losartan (losartan 50 mg Tab) Contact prescribing physician if questions or concerns Unchanged tolterodine (Detrol 2 mg Tab) 1 Tablets By Mouth 2 times a day Contact prescribing physician if questions or concerns What How Much When Comments Stop Taking ciprofloxacin (Cipro 500 mg Tab) 1 Tablets By Mouth Every day Take 1 tablet the day before the procedure and 1 tablet after the procedure every 3 months Medications and Immunizations Administered Given lidocaine Top 2% Gel w/Appl 6 mL, 6 mL, Topical. For: Bladder cancer Allergies VESIcare (Muscle ache) Problems Ongoing - Any problem that you are currently receiving treatment for. Acute cystitis Bladder cancer Bladder mass Bladder neoplasm of uncertain malignant potential Bladder tumor Blood in urine BMI 34.0-34.9,adult BPH with urinary obstruction Current smoker Disorder of bladder Gross hematuria H/O: malignant neoplasm History of bladder cancer History of UTI HTN (hypertension) Hypertensive disorder Incomplete bladder emptying Mass of urinary bladder Noncompliance Prostate cancer screening Pulmonary nodule Urinary frequency Urinary tract obstruction UTI (urinary tract infection) UTI symptoms Patient Survey You may receive a survey via text or e-mail asking about your office visit. Please share your experience with us by completing your survey. We appreciate your feedback and thank you for choosing us for your care. Education Materials Cancer Screening for Men A cancer screening is a test or exam that checks for cancer. Your health care provider will recommend specific cancer screenings based on your age, medical history (including risk factors), and family history of cancer. Work with your health care provider to create a cancer screening schedule that protects your health. Who should have screening? All men should be considered for screening of certain cancers, including colorectal cancer, prostate cancer, lung cancer, and skin cancer. Your health care provider may recommend screenings for other types of cancer if: ? You had cancer before. ? You have a family member with cancer. ? You have abnormal genes that could increase the risk of cancer. ? You have risk factors for certain cancers, such as current or past use of tobacco products, or being overweight. When you should be screened for cancer depends on: ? Your age. ? Your medical history and your family's medical history. ? Certain lifestyle factors, such as smoking or other use of tobacco products. ? Environmental exposure, such as to asbestos. How is screening done? Colorectal cancer All adults should have screenings starting at age 45 and continuing until age 75. Your health care provider may recommend screening before age 45. You will have tests every 1?10 years, depending on your results and the type of screening test. People at increased risk should start screening at an earlier age. Talk with your health care provider about which screening test is right for you and how often you should be screened. Colorectal cancer screening looks for cancer or for growths called polyps that often form before cancer starts. Tests to look for cancer or polyps include: ? Colonoscopy or flexible sigmoidoscopy. For these procedures, a flexible tube with a small camera is inserted into the rectum. ? CT colonography. This test uses X-rays and a contrast dye to check the colon for (more content not included)... [facility] Patient Educationon 10-03-19 Patient Education Oncology Cancer Screening for Men A cancer screening is a test or exam that checks for cancer. Your health care provider will recommend specific cancer screenings based on your age, medical history (including risk factors), and family history of cancer. Work with your health care provider to create a cancer screening schedule that protects your health. Who should have screening? All men should be considered for screening of certain cancers, including colorectal cancer, prostate cancer, lung cancer, and skin cancer. Your health care provider may recommend screenings for other types of cancer if: ? You had cancer before. ? You have a family member with cancer. ? You have abnormal genes that could increase the risk of cancer. ? You have risk factors for certain cancers, such as current or past use of tobacco products, or being overweight. When you should be screened for cancer depends on: ? Your age. ? Your medical history and your family's medical history. ? Certain lifestyle factors, such as smoking or other use of tobacco products. ? Environmental exposure, such as to asbestos. How is screening done? Colorectal cancer All adults should have screenings starting at age 45 and continuing until age 75. Your health care provider may recommend screening before age 45. You will have tests every 1?10 years, depending on your results and the type of screening test. People at increased risk should start screening at an earlier age. Talk with your health care provider about which screening test is right for you and how often you should be screened. Colorectal cancer screening looks for cancer or for growths called polyps that often form before cancer starts. Tests to look for cancer or polyps include: ? Colonoscopy or flexible sigmoidoscopy. For these procedures, a flexible tube with a small camera is inserted into the rectum. ? CT colonography. This test uses X-rays and a contrast dye to check the colon for polyps. If a polyp is found, you may need to have a colonoscopy so the polyp can be located and removed. Tests to look for cancer in the stool (feces) include: ? Guaiac-based fecal occult blood test (FOBT). This test can find blood in stool. It can be done at home with a kit. ? Fecal immunochemical test (FIT). This test can find blood in stool. For this test, you will need to collect stool samples at home. ? Stool DNA test. This test looks for blood in stool and any changes in DNA that can lead to colon cancer. For this test, you will need to collect a stool sample at home and send it to a lab. Prostate cancer Prostate cancer screening for men with average risk may start at age 50. Men with risk factors may need to be screened earlier, at ages 40?45. Talk with your health care provider about whether screening is right for you and, if so, how often you should be screened. Prostate cancer screening is done with blood tests and a digital rectal exam. During this exam, a health care provider uses a gloved finger to check prostate size. You may need to be screened for prostate cancer if: ? You have risk factors for prostate cancer, such as being or having a close family member with prostate cancer. ? You have had gene changes or a genetic condition that was passed on to you from a parent (inherited). These gene changes or genetic conditions include BRCA1 or BRCA2 gene mutations or Archuleta syndrome. ? You have symptoms of prostate cancer, such as problems urinating or problems getting or keeping an erection (erectile dysfunction). When you have been screened for prostate cancer, future screening may be recommended based on the results of your blood tests. Lung cancer Lung cancer screening is done with a CT scan that looks for abnormal changes in the lungs. Discuss lung cancer screening with your health care provider if you are 50?80 years old and if any of the following apply to you: ? You currently smoke. ? You used to smoke heavily. ? You have a smoking history of 1 pack of cigarettes a day for 20 years or 2 packs a day for 10 years. ? You have quit smoking within the past 15 years. You may need to be screened every year if you smoke heavily or if you used to smoke. Skin cancer Skin cancer screening is done by checking the skin for unusual moles or spots and any changes in existing moles. Your health care provider should check your skin for signs of skin cancer at every physical exam. You should check your skin every month and tell your health care provider right away if anything looks unusual. Men with a sjzyjw-gqbo-pbthek risk for skin cancer may want to see a clarity specialists (hourly manager) for an annual body check. What are the benefits of screening? Cancer screening is done to look for cancer in the very early stages, before it spreads and becomes harder to treat and before you would start to notice symptoms. Finding cancer early improves the chances of successful treatment. It doug (more content not included)... [facility] Reminderson 10-03-2023 Reminders - From: Darleen Gonzalez To: EU - Recalls Escudero; Cc: Darleen Gonzalez; Sent: 09/06/2023 10:14:52 EST Show up: 11/15/2023 10:14:00 EDT Subject: Cysto/FISH/cytol Due Date/Time: 12/04/2023 10:14:00 EDT Reminder/Recall Patient is due in December 2023 for 3 month cysto/fish/cytol (bt ck) and PSA/SHAR Patient sched for 01/09/24 , 3 mo bt ck [facility] Urine Cytology ([facility])on 0 10-03-2023 UC Method of Extraction Voided [facility] Comment on above: Performed By: #### 1 [id number] ####[facility] [address] [place] [address] Number of Jars 1 Invalid Interpretation Code [facility] Comment on above: Performed By: #### 1 [id number] ####[facility] [address] [place] [address] Specimen Urine [facility] Comment on above: Performed By: #### 1 [id number] ####[facility] [address] [place] [address] Type of Service Technical Only Normal [facility] Comment on above: Performed By: #### 1 [id number] ####[facility] [address] [place] [address] Urology Office/Clinic Noteon 10-03-2023 Urology Office/Clinic Note Chief Complaint Pt is here for cystoscopy HPI Staff Cysto/needs FISH/cytology. History of Present Illness Tests reviewed: reviewed CT scan I have reviewed the previous health record information and history for this patient from Dr. Escudero. I have reviewed and verified the staff HPI to be accurate for this encounter. Review of Systems PHQ Score Initial Depression Screen Score: 0 SCORE ROS - Provider Constitutional: denies weight loss, denies hot flashes. Eyes: denies eye problems. Gastrointestinal: denies nausea, denies vomiting. Cardiovascular: denies chest pain or angina. Integumentary: no dryness Musculoskeletal: denies musculoskeletal symptoms. ENMT: denies otolaryngeal symptoms. Respiratory: no shortness of breath. Heme/Lymph: denies easy bleeding tendency, denies easy bruising tendency. Psychiatric: no confusion, no anxiety. Genitourinary: See HPI. Physical Exam Vitals & Measurements T: 37 ?C(Temporal Artery) HR: 77(Peripheral) RR: 16 BP: 123/82 HT: 66 in HT: 167 cm WT: 100 kg WT: 220 lb BMI: 35.86 General Appearance: alert, no distress, well nourished, well developed male. Genitourinary: normal scrotum, normal testes, normal urethra, normal epididymis, normal vas deferens/spermatic cord. Flank Pain: none. Bladder: nonpalpable. Procedure Operative Information Anesthesia Type: Local Procedure: Local Cystoscopy Complications: None Surgical risks, benefits, details of the procedure have been explained to the patient. Full informed consent has been obtained. Intraoperative Information Prepped: Patient is brought back to the endoscopy suite. Patient is placed in supine position. Patient prepped in the usual fashion with Betadine solution. 2% Xylocaine Jelly is placed per Urethra. After waiting several minutes, the Cystoscope is introduced. The Urethra is: Normal The Prostatic Urethra is: Bilobar obstruction The Bladder: Necrotic tissue adhered on back right wall of prior resection, 2flat small red areas on anterior wall likely due to BCG irritation, Trabeculated: Severe (3), a few open diverticuli The Ureteral orifices: Show efflux of clear urine Specimens Removed: Voided specimen sent for Cytology Removal: Cystoscope is removed. The patient tolerated it well. Postoperative Information Patient is discharged home with antibiotic coverage. Follow up arranged. Assessment/Plan 1. Bladder cancer (C67.9: Malignant neoplasm of bladder, unspecified) Original TURBT 07/05/22 - Low grade noninvasive papillary urothelial carcinoma. Detrusor muscle present and uninvolved. S/p TURBT 01/24/23 - Low-grade papillary urothelial carcinoma in all fragments with a small focus of tumor microinvasion in 1 fragment (pT1). A small bundle of muscularis propria wo tumor involvement. S/p Mitomycin 03/16/23 and 04/13/23. S/p TURBT and Mitomycin instillation 05/25/23 - Low grade papillary urothelial carcinoma, noninvasive. [1] BCG #1 was postponed 07/05/23 due to UA showing large blood and trace leuks. Was given multiple rounds of abx due to pt having extreme frequency since TURBT 05/25/23. UCx 07/05/23 was neg. BCG #1 was then canceled 07/12/23 due to continued frequency, 15-20x per day. Was rx'd Tolterodine 2mg bid. [1] UCx 08/23/23 - 1k mixed skin contam, tx'd empirically w/ Bactrim DS BID x7 days and Gentamicin 160mg IM inj given. 6 BCGs completed 08/23/23. Pt had IO cysto to check for bladder tumor recurrence without complications today. Pt took prophylactic abx prior to procedure. Will send voided specimen for cytol (no FISH done as pt recently lost his insurance) and call pt if positive. Cysto today was negative for recurrence. -Schedule cysto/bt ck in 3 mos 2. Pulmonary nodule (R91.1: Solitary pulmonary nodule) CTU 02/14/23 - 5 mm pulmonary nodule RLL. CT Chest w con 03/14/23 - 5 mm noncalcified pulmonary nodule RLL is once again demonstrated. No additional nodule is seen. CT Chest 09/01/23 [facility] - Stable 5 mm pulmonary nodule right lower lobe. No additional nodule seen. Discussed imaging results, nodule remains stable. Will need repeat imaging in 6 months. 3. Current smoker (F17.200: Nicotine dependence, unspecified, uncomplicated) Risk factor for #1. Follow-up With When Contact Information Yevgeniy ESCUDERO MD, URL [facility] [address], [place] [address] [phone] Additional Instructions: cysto/bt ck in 3 mos Patient Education Cancer Screening for Men Steps to Quit Smoking I, Nilsa Hernandez, personally scribed for Dr. Escudero on 10/03/2023 14:35:27. . Documentation recorded by the scribeNilsa, accurately reflects the services(s) I performed and decisions made by me. Authenticated by Dr. Escudero on 10/03/2023 14:37:34. Problem List/Past Medical History Ongoing Acute cystitis Bladder cancer Bladder mass Bladder neoplasm of uncertain malignant potential Bladder tumor Blood in urine (more content not included)... [facility] Comment on above: Result Comment: Elec tronically Signed By: Yevgeniy ESCUDERO MD\.br\Date and Time Signed: 10/03/23 14:37 EDT\.br\Electronically Co-Signed By: Nilsa Hernandez\Catrachitabr\Date and Time Co-Signed: 10/03/23 14:35 EDT Reminderson 09-14-2023 Reminders - From: Fidelia Centeno To: PEDRO - Sade Escudero; Sent: 03/17/2023 15:24:03 EDT Show up: 07/17/2023 14:23:00 EST Subject: CT chest w/ con Due Date/Time: 08/17/2023 14:24:00 EST Reminder Message Patient needs CT chest w/ contrast to be done @ [facility] in 6 months. Order already placed. Order, H&P & demo's faxed to [facility]. Pt notified. [facility] will authorize and call pt to schedule. Results in chart. Review @ time of Cysto 10/02 [facility] RAD - CT Reporton 09-08-[address] - CT Report [id number] [facility] CT chest w conon 09-01-2023 CT chest w con [facility] [place] [address] [place] [address] CT Scan Report Signed Patient: Tiki Ruggiero MR#: [id number] : 1960 Acct:[id number] Age/Sex: 62 / M ADM Date: 09/01/23 Loc: CT Room: Type: [facility] Attending Dr: Yevgeniy Escudero MD Copies to: Yevgeniy Escudero MD Ordering Provider: Yevgeniy Escudero MD Date of Service: 09/01/23 CT/CT chest w con: R91.1 CT CHEST WITH INTRAVENOUS CONTRAST: CLINICAL HISTORY: Follow-up lung nodules COMPARISON: CT chest 03/14/2023 TECHNIQUE: Spiral images were obtained through the chest following intravenous administration of IV contrast. This CT exam was performed using one or more following dose reduction techniques: Automated exposure control, adjustment of the mA and/or kV according to patient size, or use of iterative reconstruction technique. FINDINGS: Mediastinum:Thoracic aorta appears normal in caliber. Pulmonary trunk appears nondilated. No pericardial effusion. No lymphadenopathy. The esophagus is unremarkable. Lungs:No consolidation pneumothorax or pleural effusion. Mild lung scarring. Stable 5 mm nodule right lower lobe series 5 image 33. No additional suspicious pulmonary nodule is seen. Abd:No acute findings. Soft tissues/Bones: Soft tissue surrounding the chest wall demonstrate no acute findings. Osseous structures demonstrate degenerative change. CT/CT chest w con IMPRESSION: Stable 5 mm pulmonary nodule right lower lobe. Repeat CT in 6 months is recommended. Impression dictated by: Avila Freeman Jr., D.OCatrachita09/01/2023 2:15 PM Dictation Location: [place] [address] Transcribed By: [facility] 09/01/23 141 Dictated By: Avila Freeman Jr, DO 09/01/23 141 Signed By: 09/01/23 141 [facility] Creatinine (Bld) [Mass/Vol]O rdered By: Yevgeniy Escudero on 09-01-2023 Creatinine [Mass/Vol] 1.0 mg/dL 0.6-1.3 [facility] Comment on above: ER/ESD physician is notified/shown all ISTAT results.Critical values may be confirmed by laboratory testing ifdeemed necessary by ER attending doctor. ISTAT XRay CREon 09-01-2023 Creatinine [Mass/Vol] 1.0 mg/dL Normal 0.6-1.3 [facility] Comment on above: Result Comment: ER/E SD physician is notified/shown all ISTAT results. Critical values may be confirmed by laboratory testing if deemed necessary by ER attending doctor. Performed By: #### I SCRE #### [facility] [address] [place] [address] ISTAT GFR > 60.0 [facility] Comment on above: Result Comment: PERF ORMED BY: [place] [address] PATHOLOGIST SEAM PRESS OPERATOR HAN CARBAJAL M.D. Performed By: #### I SCRE #### [facility] [address] [place] [address] No Panel InformationOrdered By: Yevgeniy Escudero on 09-01-2023 Bedside Estimated GFR (eGFR) > 60.0 [facility] C Urineon 08-25-2023 Bacteria identified Cx Nom (U) Microbiology PROCEDURE: Urine Culture [R1] SOURCE: U CleanCatch BODY SITE: COLLECTED DATE/TIME: 08/23/2023 11:26 EST RECEIVED DATE/TIME: 08/23/2023 18:08 EST START DATE/TIME: 08/23/2023 18:08 EST FREE TEXT SOURCE: Yevgeniy ESCUDERO MD, MD, Yevgeniy Us FINAL REPORTS Final Report [] Verified Date/Time: 08/25/2023 10:18 EST 1,000 cfu/ml Mixed skin contaminants Performing Locations R1: This test was performed at: [facility], [address] [place] [place] [address], [id number] , [place], [facility] Comment on above: Performed By: #### [id number] ####[facility] [address] [place] [address] Ambulatory Visit Summaryon 0 08-23-2023 Ambulatory Visit Summary TIKI RUGGIERO :1960 Visit Date:08/23/2023 Ambulatory Visit Instructions Your Diagnosis Bladder cancer Gross hematuria UTI (urinary tract infection) Your Care Team Attending Physician - Yevgeniy ESCUDERO MD Primary Care Physician - NONE, XXXX This Is Your Medications List sulfamethoxazole-trimetho prim (Bactrim D.S. 800 mg-160 mg Tab) tolterodine (Detrol 2 mg Tab) Contact prescribing physician if questions or concerns amlodipine (amLODIPine 10 mg Tab) losartan (losartan 50 mg Tab) Procedures Performed TURBT - Transurethral resection of bladder tumor (05/25/2023), Cystoscopy (05/10/2023), TURBT - Transurethral resection of bladder tumor (01/24/2023), Cystoscopy (01/04/2023), Cystoscopy (09/20/2022), TURBT - Transurethral resection of bladder tumor (07/05/2022), Post-surgery back pain. Discharge Vitals Height 167 cm Height 66 in Weight 100 kg Weight 220 lb BMI 35.86 What to do next You Need to Schedule the Following Appointments Follow Up with KENA ESPARZA, Yevgeniy Us, URL When: In 1 month Comments: w/Cysto Where: [facility] [address], [place] [address]- Medications What How Much When Instructions New sulfamethoxazole-trimetho prim (Bactrim D.S. 800 mg-160 mg Tab) 1 Tablets By Mouth 2 times a day Duration: 7 Days Printed Prescription Unchanged tolterodine (Detrol 2 mg Tab) 1 Tablets By Mouth 2 times a day Pickup at [id number] Unchanged amlodipine (amLODIPine 10 mg Tab) Contact prescribing physician if questions or concerns Unchanged losartan (losartan 50 mg Tab) Contact prescribing physician if questions or concerns Pharmacy Information [id number]: [id number] [place], [place] [id number] [phone] Medications and Immunizations Administered Given gentamicin 40 mg/mL Inj, 80 mg, IntraMuscular. For: UTI (urinary tract infection) gentamicin 40 mg/mL Inj, 80 mg, IntraMuscular. For: UTI (urinary tract infection) Mayte BCG Live (for intravesical use), 50 mg, IntraVesical. For: BCG, IntraVesical Not Given influenza virus vaccine, inactivated, Postpone due to refusal Allergies VESIcare (Muscle ache) Problems Ongoing - Any problem that you are currently receiving treatment for. Acute cystitis Bladder cancer Bladder mass Bladder neoplasm of uncertain malignant potential Bladder tumor Blood in urine BMI 34.0-34.9,adult BPH with urinary obstruction Current smoker Disorder of bladder Gross hematuria H/O: malignant neoplasm History of bladder cancer History of UTI HTN (hypertension) Hypertensive disorder Incomplete bladder emptying Mass of urinary bladder Noncompliance Prostate cancer screening Pulmonary nodule Urinary frequency Urinary tract obstruction UTI (urinary tract infection) UTI symptoms Patient Survey You may receive a survey via text or e-mail asking about your office visit. Please share your experience with us by completing your survey. We appreciate your feedback and thank you for choosing us for your care. Education Materials Bladder Cancer Bladder cancer is a condition where abnormal tissue (a tumor) grows in the bladder. The bladder is the organ that holds urine. Two tubes (ureters) carry urine from the kidneys to the bladder. The bladder wall is made of layers of tissue. Cancer that spreads through these layers of the bladder wall becomes more difficult to treat. What increases the risk? The following factors may make you more likely to develop this condition: ? Smoking. ? Working where there are risks (occupational exposures), such as working with rubber, leather, clothing fabric, dyes, chemicals, or paint. ? Being 55 years of age or older. ? Being male. ? Having long-term bladder inflammation. ? Having a history of cancer. This includes: ? A family history of bladder cancer. ? Having had bladder cancer before. ? Having had certain treatments for cancer before, such as: ? Medicines to kill cancer cells (chemotherapy). ? Strong X-ray beams or high-energy capsules to kill cancer cells and shrink tumors (radiation therapy). ? Having been exposed to arsenic. This is a poisonous substance. What are the signs or symptoms? Early symptoms of this condition include: ? Blood in your urine. ? Pain when urinating. ? Infections of your urinary system (urinary tract infections or UTIs) that happen often. ? Having to urinate sooner or more often than normal. Late symptoms of this condition include: ? Not being able to urinate. ? Pain on one side of your lower back. ? Loss of appetite. ? Weight loss. ? Tiredness (fatigue). ? Swelling in your feet. ? Bone pain. How is this diagnosed? This condition is diagnosed based on: ? Your medical history. ? A physical exam. ? Lab tests, such as urine tests. ? Imaging tests. ? (more content not included)... [facility] Patient Educationon 08-23-19 Patient Education Oncology Bladder Cancer Bladder cancer is a condition where abnormal tissue (a tumor) grows in the bladder. The bladder is the organ that holds urine. Two tubes (ureters) carry urine from the kidneys to the bladder. The bladder wall is made of layers of tissue. Cancer that spreads through these layers of the bladder wall becomes more difficult to treat. What increases the risk? The following factors may make you more likely to develop this condition: ? Smoking. ? Working where there are risks (occupational exposures), such as working with rubber, leather, clothing fabric, dyes, chemicals, or paint. ? Being 55 years of age or older. ? Being male. ? Having long-term bladder inflammation. ? Having a history of cancer. This includes: ? A family history of bladder cancer. ? Having had bladder cancer before. ? Having had certain treatments for cancer before, such as: ? Medicines to kill cancer cells (chemotherapy). ? Strong X-ray beams or high-energy capsules to kill cancer cells and shrink tumors (radiation therapy). ? Having been exposed to arsenic. This is a poisonous substance. What are the signs or symptoms? Early symptoms of this condition include: ? Blood in your urine. ? Pain when urinating. ? Infections of your urinary system (urinary tract infections or UTIs) that happen often. ? Having to urinate sooner or more often than normal. Late symptoms of this condition include: ? Not being able to urinate. ? Pain on one side of your lower back. ? Loss of appetite. ? Weight loss. ? Tiredness (fatigue). ? Swelling in your feet. ? Bone pain. How is this diagnosed? This condition is diagnosed based on: ? Your medical history. ? A physical exam. ? Lab tests, such as urine tests. ? Imaging tests. ? Your symptoms. You may also have other tests or procedures, such as: ? A cystoscopy. This involves putting a narrow tube into your urethra. The urethra is the organ that carries urine from your bladder to the outside of your body. This procedure is done to view the lining of your bladder for tumors. ? A biopsy. This involves removing a tissue sample to look at under a microscope to check for cancer. Blood tests or imaging tests may be needed. These show how far into the bladder wall cancer has grown, and if cancer has spread to any other parts of your body. Tests may include: ? CT scan. ? MRI. ? Bone scan. ? X-ray. How is this treated? Your health care provider may recommend one or more types of treatment based on the stage of your cancer. The most common treatments are: ? Surgery to remove the cancer. Types of surgeries include: ? Removing a tumor on the inside wall of the bladder (transurethral resection). ? Removing the bladder (cystectomy). ? Radiation therapy. This is often combined with chemotherapy. ? Chemotherapy. ? Immunotherapy. This uses medicines to help your body's disease-fighting system (immune system) destroy cancer cells. Follow these instructions at home: ? Take rluq-rco-hvmqinc and prescription medicines only as told by your health care provider. ? If you were prescribed an antibiotic medicine, take it as told by your health care provider. Do not stop using the antibiotic even if you start to feel better. ? Eat a healthy diet. Some treatments might affect your appetite. ? Do not use any products that contain nicotine or tobacco. These products include cigarettes, chewing tobacco, and vaping devices, such as e-cigarettes. If you need help quitting, ask your health care provider. ? Consider joining a support group. This may help you learn to deal with the stress of having bladder cancer. ? Tell your cancer care team if you develop side effects. Your team may be able to recommend ways to get relief. ? Keep all follow-up visits. This is important. Where to find more information ? [place] [employer] (ACS): cancer.org ? [employer] [place] (NCI): cancer.gov Contact a health care provider if: ? You have symptoms of a UTI. These include: ? Fever. ? Chills. ? Weakness. ? Muscle aches. ? Pain in your abdomen. ? Urge to urinate that is stronger and happens more often than normal. ? Burning in the bladder or urethra when you urinate. Get help right away if: ? There is blood in your urine. ? You cannot urinate. ? You have severe pain or other symptoms that do not go away. Summary ? Bladder cancer is a condition where tumors grow in the bladder. ? Diagnosis is based on your medical history, a physical exam, lab tests, imaging tests, and your symptoms. ? Your health care provider may recommend one or more types of treatment based on the stage of your cancer. ? Consider joining a support group. This may help you learn to deal with the stress of having bladder cancer. This information is not intended to replace advice given to you by your health care provider. Make sure you discuss any questions you have wi (more content not included)... [facility]rology Office/Clinic Noteon 08-23-2023 Urology Office/Clinic Note Chief Complaint Pt is here for BCG #6 of 6 HPI Staff BCG #6 of#6 due to bladder cancer. Previous DX: acute cystitis, bladder cancer, bladder mass, bladder tumor, blood in urine, BPH w/ urinary obstruction, disorder of bladder, gross hematuria, history of UTI, incomplete bladder emptying, mass of urinary bladder, urinary frequency, UTI symptoms. S/P TURBT done on 05/25/23, cystoscopy done on 05/10/23. Dysuria: mild burning Incomplete bladder emptying: denies Hematuria: denies Frequency: mild Urgency: denies Nocturia: 3x a night Stream: steady stream Leaking: denies Post void dripping: denies Wearing pads/ Depends: denies Urge incontinence: denies Stress incontinence: denies Incontinence without Sensory Awareness: denies Abdominal pain: denies Flank pain: denies Sexual complaints: _ History of Present Illness Tests reviewed: reviewed UA I have reviewed the previous health record information and history for this patient from . I have reviewed and verified the staff HPI to be accurate for this encounter. There have been no associated fever, chills, flank pain, or blood in the urine. Denies any urinary infections since last encounter. Review of Systems PHQ Score Initial Depression Screen Score: 0 SCORE ROS - Provider Constitutional: denies weight loss, denies hot flashes. Eyes: denies eye problems. Gastrointestinal: denies nausea, denies vomiting. Cardiovascular: denies chest pain or angina. Integumentary: no dryness Musculoskeletal: denies musculoskeletal symptoms. ENMT: denies otolaryngeal symptoms. Respiratory: no shortness of breath. Heme/Lymph: denies easy bleeding tendency, denies easy bruising tendency. Psychiatric: no confusion, no anxiety. Genitourinary: See HPI. Physical Exam Vitals & Measurements HT: 66 in HT: 167 cm WT: 100 kg WT: 220 lb BMI: 35.86 General Appearance: alert, no distress, well nourished, well developed male. Procedure The patient was placed in the appropriate position and under sterile conditions, the urethra is catheterized with a 14 Fr straight catheter and the bladder is emptied. 50 cc of sterile 0.9 NS with one vial of MAYTE BCG was placed into the bladder and the straight catheter was removed. The patient will hold the solution in the bladder for two hours, turning every fifteen minutes 1/4 turn to allow coating of the bladder surface. The patient should call the office or present to the Emergency Department for development of fever, chills, or flu-like symptoms. Symptoms such as urinary frequency, urgency, and other bladder irritation symptoms are expected. Assessment/Plan 1. Bladder cancer (C67.9: Malignant neoplasm of bladder, unspecified) Original TURBT 07/05/22 - Low grade noninvasive papillary urothelial carcinoma. Detrusor muscle present and uninvolved. S/p TURBT 01/24/23 - Low-grade papillary urothelial carcinoma in all fragments with a small focus of tumor microinvasion in 1 fragment (pT1). A small bundle of muscularis propria wo tumor involvement. S/p Mitomycin 03/16/23 and 04/13/23. S/p TURBT and Mitomycin instillation 05/25/23 - Low grade papillary urothelial carcinoma, noninvasive. [1] BCG #1 was postponed 07/05/23 due to UA showing large blood and trace leuks. Was given multiple rounds of abx due to pt having extreme frequency since TURBT 05/25/23. UCx 07/05/23 was neg. BCG #1 was then canceled 07/12/23 due to continued frequency, 15-20x per day. Was rx'd Tolterodine 2mg bid. Pt denies any fevers while taking the BCG. Pt states that when he is done voiding, he does feel he empties completely. Pt states that the Tolterodine helps with his urinary sxs. Pt states that after his last BCG treatment, he could not work for 3 days due to having having to void so often. Pt was given BCG #6 of 6 (full dose) today wo complications. All questions/concerns were discussed. Pt to call the office if he encounters any issues prior. Pt acknowledges understanding. -Will schedule cysto in one month. The risks and benefits for cystoscopy have been discussed. The risks include bleeding, infection, and irritation of the bladder and urinary channel, among others. The patient, after being informed of procedural details and after questions have been answered, wishes to proceed. Full informed consent has been obtained. Will order Local anesthesia. 2. Gross hematuria (R31.0: Gross hematuria) Pt states that after every BCG treatment he voids blood clots, but after his BCG #5 of 6 last week, he did not have as many blood clots, but was voiding out some sort of debris, white chunks. Advised pt that the whit chunks are parts of scar tissue that are falling off from the BCG treatments. Advised pt that the blood clots is also from the BCG. 3. UTI (urinary tract infection) (N39.0: Urinary tract infection, site not specified) UA today shows large blood, positive nitrates and trace leuks. Pt states that he has a little bit of burning, nothing bad, other than that has had no (more content not included)... [facility] Comment on above: Result Comment: Elec tronically Signed By: Yevgeniy ESCUDERO MD.br\Date and Time Signed: 08/23/23 11:45 EST\.br\Electronically Co-Signed By: Gemini James.[email or web address]\Date and Time Co-Signed: 08/23/23 11:40 EST Ambulatory Visit Summaryon 0 08-16-2023 Ambulatory Visit Summary TIKI RUGGIERO :1960 Visit Date:08/16/2023 Ambulatory Visit Instructions Your Diagnosis Bladder cancer Your Care Team Attending Physician - MILLICENT IVORY, SYLVIE Wilkerson Primary Care Physician - NONE, XXXX This Is Your Medications List Contact prescribing physician if questions or concerns amlodipine (amLODIPine 10 mg Tab) losartan (losartan 50 mg Tab) tolterodine (Detrol 2 mg Tab) Procedures Performed TURBT - Transurethral resection of bladder tumor (05/25/2023), Cystoscopy (05/10/2023), TURBT - Transurethral resection of bladder tumor (01/24/2023), Cystoscopy (01/04/2023), Cystoscopy (09/20/2022), TURBT - Transurethral resection of bladder tumor (07/05/2022), Post-surgery back pain. Discharge Vitals Heart Rate (Peripheral) 75 Respiratory Rate 16 Blood Pressure 133/83 Height 167 cm Height 66 in Weight 100 kg Weight 220 lb BMI 35.86 What to do next Scheduled Follow-Up Appointments Monday. 2023 10:45 AM EST With: KENA ESPARZA, Yevgeniy Us Where: [facility] Patient Educationon 08-16-19 24 Patient Education Oncology Bladder Cancer Bladder cancer is a condition where abnormal tissue (a tumor) grows in the bladder. The bladder is the organ that holds urine. Two tubes (ureters) carry urine from the kidneys to the bladder. The bladder wall is made of layers of tissue. Cancer that spreads through these layers of the bladder wall becomes more difficult to treat. What increases the risk? The following factors may make you more likely to develop this condition: ? Smoking. ? Working where there are risks (occupational exposures), such as working with rubber, leather, clothing fabric, dyes, chemicals, or paint. ? Being 55 years of age or older. ? Being male. ? Having long-term bladder inflammation. ? Having a history of cancer. This includes: ? A family history of bladder cancer. ? Having had bladder cancer before. ? Having had certain treatments for cancer before, such as: ? Medicines to kill cancer cells (chemotherapy). ? Strong X-ray beams or high-energy capsules to kill cancer cells and shrink tumors (radiation therapy). ? Having been exposed to arsenic. This is a poisonous substance. What are the signs or symptoms? Early symptoms of this condition include: ? Blood in your urine. ? Pain when urinating. ? Infections of your urinary system (urinary tract infections or UTIs) that happen often. ? Having to urinate sooner or more often than normal. Late symptoms of this condition include: ? Not being able to urinate. ? Pain on one side of your lower back. ? Loss of appetite. ? Weight loss. ? Tiredness (fatigue). ? Swelling in your feet. ? Bone pain. How is this diagnosed? This condition is diagnosed based on: ? Your medical history. ? A physical exam. ? Lab tests, such as urine tests. ? Imaging tests. ? Your symptoms. You may also have other tests or procedures, such as: ? A cystoscopy. This involves putting a narrow tube into your urethra. The urethra is the organ that carries urine from your bladder to the outside of your body. This procedure is done to view the lining of your bladder for tumors. ? A biopsy. This involves removing a tissue sample to look at under a microscope to check for cancer. Blood tests or imaging tests may be needed. These show how far into the bladder wall cancer has grown, and if cancer has spread to any other parts of your body. Tests may include: ? CT scan. ? MRI. ? Bone scan. ? X-ray. How is this treated? Your health care provider may recommend one or more types of treatment based on the stage of your cancer. The most common treatments are: ? Surgery to remove the cancer. Types of surgeries include: ? Removing a tumor on the inside wall of the bladder (transurethral resection). ? Removing the bladder (cystectomy). ? Radiation therapy. This is often combined with chemotherapy. ? Chemotherapy. ? Immunotherapy. This uses medicines to help your body's disease-fighting system (immune system) destroy cancer cells. Follow these instructions at home: ? Take pmri-gbe-cytrwrt and prescription medicines only as told by your health care provider. ? If you were prescribed an antibiotic medicine, take it as told by your health care provider. Do not stop using the antibiotic even if you start to feel better. ? Eat a healthy diet. Some treatments might affect your appetite. ? Do not use any products that contain nicotine or tobacco. These products include cigarettes, chewing tobacco, and vaping devices, such as e-cigarettes. If you need help quitting, ask your health care provider. ? Consider joining a support group. This may help you learn to deal with the stress of having bladder cancer. ? Tell your cancer care team if you develop side effects. Your team may be able to recommend ways to get relief. ? Keep all follow-up visits. This is important. Where to find more information ? [place] [employer] (ACS): cancer.org ? [employer] [place] (NCI): cancer.gov Contact a health care provider if: ? You have symptoms of a UTI. These include: ? Fever. ? Chills. ? Weakness. ? Muscle aches. ? Pain in your abdomen. ? Urge to urinate that is stronger and happens more often than normal. ? Burning in the bladder or urethra when you urinate. Get help right away if: ? There is blood in your urine. ? You cannot urinate. ? You have severe pain or other symptoms that do not go away. Summary ? Bladder cancer is a condition where tumors grow in the bladder. ? Diagnosis is based on your medical history, a physical exam, lab tests, imaging tests, and your symptoms. ? Your health care provider may recommend one or more types of treatment based on the stage of your cancer. ? Consider joining a support group. This may help you learn to deal with the stress of having bladder cancer. This information is not intended to replace advice given to you by your health care provider. Make sure you discuss any questions you have wi (more content not included)... [facility] Office/Clinic Noteon 08-16-2023 Urology Office/Clinic Note Chief Complaint BCG #5 of 6 HPI Staff BCG #5 of 6. Previous dx of bladder cancer and urinary frequency. Dysuria: no Incomplete bladder emptying: no Hematuria: no Frequency: no Urgency: no Nocturia: 2x Stream: no straining or intermittency, states that his stream feels stronger Leaking: no Post void dripping: no Wearing pads/ Depends: no Urge incontinence: no Stress incontinence: no Incontinence without Sensory Awareness: no Abdominal pain: only the day of the last treatment Flank pain: no Sexual complaints: no Review of Systems PHQ Score Initial Depression Screen Score: 0 SCORE no fever, chills, malaise, myalgia. no rash/lesions. no chest pain, palpitations, or SOB. no abdominal pain, nausea, vomiting. no unilateral calf swelling, redness, pain Physical Exam Vitals & Measurements HR: 75(Peripheral) RR: 16 BP: 133/83 HT: 66 in HT: 167 cm WT: 100 kg WT: 220 lb BMI: 35.86 General: nontoxic, NAD Mouth: moist mucosa Lungs: normal respiratory effort Cardio: regular rate, good distal perfusion Abdomen: nondistended, no suprapubic distention or tenderness, no CVA tenderness Neurologic: Grossly normal Skin: No rashes or suspicious lesions Procedure The patient was placed in the appropriate position and under sterile conditions, the urethra is catheterized with a 14 Fr straight catheter and the bladder is emptied. 50 cc of sterile 0.9 NS with one vial of MAYTE BCG was placed into the bladder and the straight catheter was removed. The patient will hold the solution in the bladder for two hours, turning every fifteen minutes 1/4 turn to allow coating of the bladder surface. The patient should call the office or present to the Emergency Department for development of fever, chills, or flu-like symptoms. Symptoms such as urinary frequency, urgency, and other bladder irritation symptoms are expected. Assessment/Plan 1. Bladder cancer (C67.9: Malignant neoplasm of bladder, unspecified) Original TURBT 07/05/22 - Low grade noninvasive papillary urothelial carcinoma. Detrusor muscle present and uninvolved. S/p TURBT 01/24/23 - Low-grade papillary urothelial carcinoma in all fragments with a small focus of tumor microinvasion in 1 fragment (pT1). A small bundle of muscularis propria wo tumor involvement. S/p Mitomycin 03/16/23 and 04/13/23. S/p TURBT and Mitomycin instillation 05/25/23 - Low grade papillary urothelial carcinoma, noninvasive. [1] BCG #1 was postponed 07/05/23 due to UA showing large blood and trace leuks. Was given multiple rounds of abx due to pt having extreme frequency since TURBT 05/25/23. UCx 07/05/23 was neg. BCG #1 was then canceled 07/12/23 due to continued frequency, 15-20x per day. Was rx'd Tolterodine 2mg bid. UA today shows trace hgb small leuks. Last week had more blood the day of and more frequency. Cleared by next day. fine the rest of the week. Pt was given BCG #5 of 6 (full dose) today wo complications. Follow up in 1 wk for BCG #6 of 6 - FULL DOSE. will need to see Darleen next week to schedule cysto. Ordered: BCG, 50 mg, IntraVesical, Once, Stop date 08/16/23 11:21:00 EST, Routine, Start date 08/16/23 11:21:00 EST, 08/16/23 11:21:00 EST Urnls Dip Stick Auto w/o Microscopy POC [id number] Follow-up With When Contact Information [facility] [place] [id number] [place] [address] Business (1) Additional Instructions: for procedure as scheduled [facility] [place] [id number] [place] [address] Business (1) Additional Instructions: for procedure as scheduled Patient Education Bladder Cancer Problem List/Past Medical History Ongoing Acute cystitis Bladder cancer Bladder mass Bladder neoplasm of uncertain malignant potential Bladder tumor Blood in urine BMI 34.0-34.9,adult BPH with urinary obstruction Current smoker Disorder of bladder Gross hematuria H/O: malignant neoplasm History of bladder cancer History of UTI HTN (hypertension) Hypertensive disorder Incomplete bladder emptying Mass of urinary bladder Noncompliance Prostate cancer screening Pulmonary nodule Urinary frequency Urinary tract obstruction UTI symptoms Historical No qualifying data Procedure/Surgical History TURBT - Transurethral resection of bladder tumor (05/25/2023), Cystoscopy (05/10/2023), TURBT - Transurethral resection of bladder tumor (01/24/2023), Cystoscopy (01/04/2023), Cystoscopy (09/20/2022), TURBT - Transurethral resection of bladder tumor (07/05/2022), Post-surgery back pain. Medications amLODIPine 10 mg Tab Detrol 2 mg Tab, 2 mg= 1 tab(s), Oral, BID, 1 refills losartan 50 mg Tab [place] BCG Live (for intravesical use), 50 mg, IntraVesical, Once Allergies VESIcare (Muscle ache) Social History Alcohol - Low Risk, 02/01/2023 Substance Abuse - Denies Substance Abuse, 02/01/2023 Tobacco - Hig (more content not included)... [facility] Comment on above: Result Comment: Elec tronically Signed By: SYLVIE DAVIS PA-C.[email or web address]\Date and Time Signed: 08/16/23 11:32 EST Patient Educationon 08-14-19 Patient Education Oncology Bladder Cancer Bladder cancer is a condition where abnormal tissue (a tumor) grows in the bladder. The bladder is the organ that holds urine. Two tubes (ureters) carry urine from the kidneys to the bladder. The bladder wall is made of layers of tissue. Cancer that spreads through these layers of the bladder wall becomes more difficult to treat. What increases the risk? The following factors may make you more likely to develop this condition: ? Smoking. ? Working where there are risks (occupational exposures), such as working with rubber, leather, clothing fabric, dyes, chemicals, or paint. ? Being 55 years of age or older. ? Being male. ? Having long-term bladder inflammation. ? Having a history of cancer. This includes: ? A family history of bladder cancer. ? Having had bladder cancer before. ? Having had certain treatments for cancer before, such as: ? Medicines to kill cancer cells (chemotherapy). ? Strong X-ray beams or high-energy capsules to kill cancer cells and shrink tumors (radiation therapy). ? Having been exposed to arsenic. This is a poisonous substance. What are the signs or symptoms? Early symptoms of this condition include: ? Blood in your urine. ? Pain when urinating. ? Infections of your urinary system (urinary tract infections or UTIs) that happen often. ? Having to urinate sooner or more often than normal. Late symptoms of this condition include: ? Not being able to urinate. ? Pain on one side of your lower back. ? Loss of appetite. ? Weight loss. ? Tiredness (fatigue). ? Swelling in your feet. ? Bone pain. How is this diagnosed? This condition is diagnosed based on: ? Your medical history. ? A physical exam. ? Lab tests, such as urine tests. ? Imaging tests. ? Your symptoms. You may also have other tests or procedures, such as: ? A cystoscopy. This involves putting a narrow tube into your urethra. The urethra is the organ that carries urine from your bladder to the outside of your body. This procedure is done to view the lining of your bladder for tumors. ? A biopsy. This involves removing a tissue sample to look at under a microscope to check for cancer. Blood tests or imaging tests may be needed. These show how far into the bladder wall cancer has grown, and if cancer has spread to any other parts of your body. Tests may include: ? CT scan. ? MRI. ? Bone scan. ? X-ray. How is this treated? Your health care provider may recommend one or more types of treatment based on the stage of your cancer. The most common treatments are: ? Surgery to remove the cancer. Types of surgeries include: ? Removing a tumor on the inside wall of the bladder (transurethral resection). ? Removing the bladder (cystectomy). ? Radiation therapy. This is often combined with chemotherapy. ? Chemotherapy. ? Immunotherapy. This uses medicines to help your body's disease-fighting system (immune system) destroy cancer cells. Follow these instructions at home: ? Take uqmw-qhm-qrmnrem and prescription medicines only as told by your health care provider. ? If you were prescribed an antibiotic medicine, take it as told by your health care provider. Do not stop using the antibiotic even if you start to feel better. ? Eat a healthy diet. Some treatments might affect your appetite. ? Do not use any products that contain nicotine or tobacco. These products include cigarettes, chewing tobacco, and vaping devices, such as e-cigarettes. If you need help quitting, ask your health care provider. ? Consider joining a support group. This may help you learn to deal with the stress of having bladder cancer. ? Tell your cancer care team if you develop side effects. Your team may be able to recommend ways to get relief. ? Keep all follow-up visits. This is important. Where to find more information ? [place] [employer] (ACS): cancer.org ? National Cancer [place] (NCI): cancer.gov Contact a health care provider if: ? You have symptoms of a UTI. These include: ? Fever. ? Chills. ? Weakness. ? Muscle aches. ? Pain in your abdomen. ? Urge to urinate that is stronger and happens more often than normal. ? Burning in the bladder or urethra when you urinate. Get help right away if: ? There is blood in your urine. ? You cannot urinate. ? You have severe pain or other symptoms that do not go away. Summary ? Bladder cancer is a condition where tumors grow in the bladder. ? Diagnosis is based on your medical history, a physical exam, lab tests, imaging tests, and your symptoms. ? Your health care provider may recommend one or more types of treatment based on the stage of your cancer. ? Consider joining a support group. This may help you learn to deal with the stress of having bladder cancer. This information is not intended to replace advice given to you by your health care provider. Make sure you discuss any questions you have wi (more content not included)... Normal [facility] chest w [facility] 03-14-2023 CT chest w [facility] [place] [address] [place] [address] CT Scan Report Signed Patient: Tiki Ruggiero MR#: [id number] 84 : 1960 Acct:[id number] Age/Sex: 62 / M ADM Date: 03/14/23 Loc: CT Room: Type: [facility] Attending Dr: Yevgeniy Escudero MD Copies to: Yevgeniy Escudero MD Ordering Provider: Yevgeniy Escudero MD Date of Service: 03/14/23 CT/CT chest w con: R91.1 CT CHEST WITH INTRAVENOUS CONTRAST: CLINICAL HISTORY: Follow-up lung nodule. Shortness of breath with exertion. COMPARISON: CT urogram 02/14/2023 TECHNIQUE: Spiral images were obtained through the chest following intravenous administration of IV contrast. This CT exam was performed using one or more following dose reduction techniques: Automated exposure control, adjustment of the mA and/or kV according to patient size, or use of iterative reconstruction technique. FINDINGS: Mediastinum:Thoracic aorta appears normal caliber. Pulmonary trunk appears nondilated. No pericardial effusion. No lymphadenopathy. The esophagus is grossly unremarkable. Lungs:No consolidation pneumothorax or pleural effusion. Trachea and distal airways appear patent. Stable 5 mm noncalcified pulmonary nodule right lower lobe series 4 measures 34. No additional suspicious pulmonary nodule is seen. Abd:No acute findings. Soft tissues/Bones: Soft tissues surrounding the chest wall demonstrate no acute findings. Osseous structures demonstrate degenerative change. CT/CT chest w con IMPRESSION: 5 mm noncalcified pulmonary nodule right lower lobe is once again demonstrated. No additional nodule is seen. Please see follow-up recommendations below. Fleischner Society guidelines for follow-up and management of incidentally detected pulmonary nodules: ? Single Solid Nodule: ? Nodule size less than 6 mm In a low-risk patient, no routine follow-up. In a high-risk patient, optional CT at 12 months. ? ? - Low risk patients include individuals with minimal or absent history of smoking and other known risk factors. ? - High risk patients include individuals with a history or smoking or known risk factors. ? Radiology 2017 http://pubs.rsna.org/doi/ full/10.1148/radiol.04496 77527 Impression dictated by: Avila Freeman Jr., D.O.03/14/2023 10:38 AM Dictation Location: [place] [address] Transcribed By: [facility] 03/14/23 1038 Dictated By: Avila Freeman Jr, DO 03/14/23 1035 Signed By: 03/14/23 1038 Normal [facility] CT urogramon 02-14-2023 CT [place]rogram [place] [address] CT Scan Report Signed Patient: Tiki Ruggiero MR#: [id number] 84 : 1960 Acct:[id number] Age/Sex: 62 / M ADM Date: 02/14/23 Loc: CT Room: Type: [facility] Attending Dr: Yevgeniy Escudero MD Copies to: Yevgeniy Escudero MD Ordering Provider: Yevgeniy Escudero MD Date of Service: 02/14/23 CT/CT urogram: BLADDER CA CT ABDOMEN AND PELVIS WITH AND WITHOUT INTRAVENOUS CONTRAST: CT urogram CLINICAL HISTORY: Hematuria. History of bladder cancer. COMPARISON: CT abdomen and pelvis 04/25/2022 TECHNIQUE: Spiral images were obtained through the abdomen and pelvis before and after the administration of intravenous contrast. This CT exam was performed using one or more following dose reduction techniques: Automated exposure control, adjustment of the mA and/or kV according to patient size, or use of iterative reconstruction technique. FINDINGS: Lung Bases: [5 mm noncalcified pulmonary nodule right lower lobe seen on image 1 of today's study.] Organs:Noncontrast images of the urinary system demonstrates no urinary tract calculus or hydronephrosis. Postcontrast images demonstrate no enhancing mass within the kidneys. No collecting system mass is noted. Opacified ureters appear unremarkable. Bladder wall irregularity, most prominent in the region of the left UVJ with surrounding inflammatory change. Prostate gland is normal in size. Liver gallbladder portal vein pancreas spleen and adrenal glands all appear unremarkable. Abdominal aorta appears normal in caliber. IVC and renal veins appear patent. GI: Stomach is grossly unremarkable. Small bowel appears nondilated.[ No acute colonic abnormality. Pelvis:[No lymphadenopathy.] Peritoneum/Retroperitoneu m:No free air, free fluid or lymphadenopathy.[ Abd wall/Bones:Abdominal wall demonstrates no acute findings. Osseous structures demonstrate degenerative change.[ CT/CT urogram IMPRESSION: 1. Bladder wall irregularity, most prominent involving the region of the left UVJ with surrounding inflammatory changes. Findings may posttreatment nature. Residual tumor cannot be excluded. This can be further evaluated by cystoscopy. 2. 5 mm pulmonary nodule right lower lobe. Given the history, complete evaluation with CT chest is recommended. Impression dictated by: Avila Freeman Jr., Margo02/14/2023 1:16 PM Dictation Location: [place] [address] Transcribed By: DMITRIY 02/14/23 1316 Dictated By: Avila Freeman Jr, DO 02/14/23 1307 Signed By: 02/14/23 1316 [facility] 01-24-2023 L ----- Specimen: [id number] Received: 01/25/230755 Status: [place] Num: [id number] Spec Type: Surgical Subm Dr: Yevgeniy Escudero MD Tissues: A Urinary Bladder - TUR (BLADDER TUMOR) Procedures: HE, Gross/Micro L5 Age/ Patient Sex Location Account Attending Physician Tiki Ruggiero 62/M [place] [id number] Yevgeniy Escudero MD SPEC NUM: [id number] RECD: 01/25/23 STATUS: KENNETH STEWART NUM: [id number] AAKASH: 01/24/23- [facility] DR: Yevgeniy Escudero MD ENTERED: 01/25/[address] [facility] [address]: Nando Wade [facility] SPEC TYPE: Surgical DEPT: S ORDERED: HE, Gross/Micro L5 ORDERED: HE, Gross/Micro L5 Pathological Diagnosis Bladder, tumor, TURBT: - 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 Entirely submitted in one cassette labeled A1. Microscopic Description One H E slide reviewed. The microscopic examination confirms the diagnosis. CPT Codes 53140 Specimen: [id number] Received: 01/25/23 Status: KENNETH Stewart Num: [id number] Spec Type: Surgical Subm Dr: Yevgeniy Escudero MD Tissues: A Urinary Bladder - TUR (BLADDER TUMOR) Procedures: Leslie SEVILLA/[place] L5 Patient: Tiki Ruggiero [id number] (Continued) Signed (signature on file) Arian Jasso MD 01/26/23 1445 Normal [facility] Activated partial thrombopla stin time (aPTT) in platelet poor plasma by coagulation aOrdered By: Yevgeniy Escudero on 01-12-2023 aPTT Coag (PPP) [Time] 32.0 s 25.1-36.5 [facility] Basic Metabolic Panelon 12-16 Anion gap [Moles/Vol] 9.1 mmol/L Normal 6.0-15.0 [facility] Comment on above: Performed By: #### P TT, PT, BMP, CBC #### [facility] [address] Calcium [Mass/Vol] 9.3 mg/dL Normal 8.6-10.3 [facility] Comment on above: Result Comment: PERF ORMED BY: [place] [address] PATHOLOGIST SEAM PRESS OPERATOR HAN CARBAJAL M.D. Performed By: #### P TT, PT, BMP, CBC #### [facility] [address] [place] [address] [place] Chloride [Moles/Vol] 102 mmol/L Normal 98-107 [facility] Comment on above: Performed By: #### P TT, PT, BMP, CBC #### [facility] [address] [place] [address] [place] CO2 [Moles/Vol] 30.3 mmol/L Normal 21.0-31.0 [facility] Comment on above: Performed By: #### P TT, PT, BMP, CBC #### [facility] [address] [place] [address] [place] Creatinine [Mass/Vol] 1.03 mg/dL Normal 0.70-1.30 [facility] Comment on above: Performed By: #### P TT, PT, BMP, CBC #### [facility] [address] [place] [address] [place] GFR/1.73 sq M.predicted MDRD (S/P/Bld) [Vol rate/Area] mL/min/{1.73_m2} Normal [facility] Comment on above: Performed By: #### P TT, PT, BMP, CBC #### [facility] [address] Glucose [Mass/Vol] 74 mg/dL Normal 70-100 [facility] Comment on above: Result Comment: [place] Glucose Reference Range is dependent on time and content of last meal. Glucose of more than 200 mg/dL in a nonstressed, ambulatory subject supports the diagnosis of Diabetes Mellitus. ADA recommended reference range Performed By: #### P TT, PT, BMP, CBC #### [facility] [address] Potassium [Moles/Vol] 4.4 mmol/L Normal 3.5-5.1 [facility] Comment on above: Performed By: #### P TT, PT, BMP, CBC #### [facility] [address] Sodium [Moles/Vol] 137 mmol/L Normal 136-145 [facility] Comment on above: Performed By: #### P TT, PT, BMP, CBC #### [facility] [address] Urea nitrogen [Mass/Vol] 11 mg/dL Normal 7-25 [facility] Comment on above: Performed By: #### P TT, PT, BMP, CBC #### [facility] [address] Basophils Auto (Bld) [#/Vol] Ordered By: Yevgeniy Escudero on 01-12-2023 Basophils (Bld) [#/Vol] 0.0 10*3/uL 0.0-0.2 [facility] Basophils/100 WBC Auto (Bld) Ordered By: Yevgeniy Escudero on 01-12-2023 Basophils/100 WBC (Bld) 0.6 % . [facility] Calcium [Mass/volume] in Ser um or PlasmaOrdered By: Yevgeniy Escudero on 01-12-2023 Calcium [Mass/Vol] 9.3 mg/dL 8.6-10.3 [facility] Carbon dioxide, total [Moles /volume] in Serum or PlasmaOrdered By: Yevgeniy Escudero on 01-12-2023 CO2 [Moles/Vol] 30.3 mmol/L 21.0-31.0 [facility] Chloride [Moles/volume] in S ginger or PlasmaOrdered By: Yevgeniy Escudero on 01-12-2023 Chloride [Moles/Vol] 102 mmol/L 98-107 [facility] Complete Blood Count Auto Di ffon 01-12-2023 Basophils (Bld) [#/Vol] 0.0 10*3/uL Normal 0.0-0.2 [facility] Comment on above: Result Comment: PERF ORMED BY: [place] [address] PATHOLOGIST SEAM PRESS OPERATOR HAN CARBAJAL M.D. Performed By: #### P TT, PT, BMP, CBC #### [facility] [address] [place] [address] Basophils/100 WBC (Bld) 0.6 % Normal . [facility] Comment on above: Performed By: #### P TT, PT, BMP, CBC #### [facility] [address] [place] [address] [place] Eosinophils (Bld) [#/Vol] 0.2 10*3/uL Normal 0.0-0.45 [facility] Comment on above: Performed By: #### P TT, PT, BMP, CBC #### [facility] [address] [place] [address] [place] Eosinophils/100 WBC (Bld) 2.5 % Normal . [facility] Comment on above: Performed By: #### P TT, PT, BMP, CBC #### [facility] [address] [place] [address] [place] Erythrocyte distribution width (RBC) [Ratio] 13.7 % Normal 12.0-14.8 [facility] Comment on above: Performed By: #### P TT, PT, BMP, CBC #### [facility] [address] Hematocrit (Bld) [Volume fraction] 47.0 % Normal 38.8-50.0 [facility] Comment on above: Performed By: #### P TT, PT, BMP, CBC #### [address] Hemoglobin (Bld) [Mass/Vol] 16.2 g/dL Normal 13.0-17.0 [facility] Comment on above: Performed By: #### P TT, PT, BMP, CBC #### [address] Lymphocytes (Bld) [#/Vol] 2.0 10*3/uL Normal 1.00-4.8 [facility] Comment on above: Performed By: #### P TT, PT, BMP, CBC #### [address] Lymphocytes/100 WBC (Bld) 30.6 % Normal . [facility] Comment on above: Performed By: #### P TT, PT, BMP, CBC #### [address] MCH (RBC) [Entitic mass] 31.1 pg Normal 27.5-35.2 [facility] Comment on above: Performed By: #### P TT, PT, BMP, CBC #### [address] MCV (RBC) [Entitic vol] 90.4 fL Normal 83.5-101 [facility] Comment on above: Performed By: #### P TT, PT, BMP, CBC #### [address] Mean Corpuscular HGB Conc 34.4 g/dL Normal 32.5-35.6 [facility] Comment on above: Performed By: #### P TT, PT, BMP, CBC #### [address] Monocytes (Bld) [#/Vol] 0.6 10*3/uL Normal 0.0-0.8 [facility] Comment on above: Performed By: #### P TT, PT, BMP, CBC #### [address] [place] [address] [place] Monocytes/100 WBC (Bld) 8.9 % Normal . [facility] Comment on above: Performed By: #### P TT, PT, BMP, CBC #### [facility] [address] Neutrophils (Bld) [#/Vol] 3.7 10*3/uL Normal 1.8-7.7 [facility] Comment on above: Performed By: #### P TT, PT, BMP, CBC #### [address] Neutrophils/100 WBC (Bld) 57.4 % Normal . [facility] Comment on above: Performed By: #### P TT, PT, BMP, CBC #### [address] NRBC% 0.2 /100{WBC} Normal 0-0.5 [facility] Comment on above: Performed By: #### P TT, PT, BMP, CBC #### [address] Platelet mean volume (Bld) [Entitic vol] 7.8 fL Normal 6.6-10.1 [facility] Comment on above: Performed By: #### P TT, PT, BMP, CBC #### [place] [address] [place] Platelets (Bld) [#/Vol] 210 10*3/uL Normal 150-450 [facility] Comment on above: Performed By: #### P TT, PT, BMP, CBC #### [place] [address] [place] RBC (Bld) [#/Vol] 5.20 10*6/uL Normal 3.90-5.60 [facility] Comment on above: Performed By: #### P TT, PT, BMP, CBC #### [place] [address] [place] WBC (Bld) [#/Vol] 6.4 10*3/uL Normal 4.1-10.5 [facility] Comment on above: Performed By: #### P TT, PT, BMP, CBC #### [facility] [address] Creatinine [Mass/volume] in Serum or PlasmaOrdered By: Yevgeniy Escudero on 01-12-2023 Creatinine [Mass/Vol] 1.03 mg/dL 0.70-1.30 [facility] ECG 12 lead ECGon 01-12-2023 ECG 12 lead ECG [facility] [place] [address] [place] [address] Electrocardiograph Report Signed Patient: Tiki Ruggiero MR#: [id number] 84 : 1960 Acct:[id number] Age/Sex: 62 / M ADM Date: 01/12/23 Loc: Room: Type: [facility] Attending Dr: Yevgeniy Escudero MD Ordering Provider: Yevgeniy Escudero MD Date of Service: 01/12/23/ ECG/ECG 12 lead ECG: see order Copies to: Test Reason : Blood Pressure : / mmHG Vent. Rate : 078 BPM Atrial Rate : 078 BPM P-R Int : 166 ms QRS Dur : 098 ms QT Int : 372 ms P-R-T Axes : 052 -17 068 degrees QTc Int : 424 ms Normal sinus rhythm Normal ECG When compared with ECG of 21-JUN-2022 15:21, No significant change was found Confirmed by TJ ESPARZA [facility] ([id number] on 01/12/2023 5:30:34 PM Referred By: Electronically Signed By:NI SPENCER MD [facility] Transcribed By: MUS Signed By Ni Spencer MD, FACC 01/12/23 1730 Normal [facility] Eosinophils Auto (Bld) [#/Vo l]Ordered By: Yevgeniy Escudero on 01-12-2023 Eosinophils (Bld) [#/Vol] 0.2 10*3/uL 0.0-0.45 [facility] Eosinophils/100 WBC Auto (Bl d)Ordered By: Yevgeniy Escudero on 01-12-2023 Eosinophils/100 WBC (Bld) 2.5 % . [facility] Erythrocyte distribution wid th Auto (RBC) [Ratio]Ordered By: Yevgeniy Escudero on 01-12-2023 Erythrocyte distribution width (RBC) [Ratio] 13.7 % 12.0-14.8 [facility] Glucose [Mass/volume] in Ser um or PlasmaOrdered By: Yevgeniy Escudero on 01-12-2023 Glucose [Mass/Vol] 74 mg/dL 70-100 [facility] Comment on above: ADA recommended refe rence rangeRandom Glucose Reference Range is dependent on time and content of last meal. Glucose of more than 200 mg/dL in a nonstressed, ambulatory subject supports the diagnosis of Diabetes Mellitus. Hematocrit Auto (Bld) [Volum e fraction]Ordered By: Yevgeniy Escudero on 01-12-2023 Hematocrit (Bld) [Volume fraction] 47.0 % 38.8-50.0 [facility] Hemoglobin [Mass/volume] in BloodOrdered By: Yevgeniy Escudero on 01-12-2023 Hemoglobin (Bld) [Mass/Vol] 16.2 g/dL 13.0-17.0 [facility] Laboratory - CoagulationOrde red By: Yevgeniy Escudero on 01-12-2023 PT Coag (PPP) [Time] 11.5 s 9.0-12.9 [facility] Leukocytes [#/volume] correc araseli for nucleated erythrocytes in Blood by Automated counOrdered By: Yevgeniy Escudero on 01-12-2023 WBC corrected for nucl RBC Auto (Bld) [#/Vol] 6.4 10*3/uL 4.1-10.5 [facility] Lymphocytes Auto (Bld) [#/Vo l]Ordered By: Yevgeniy Escudero on 01-12-2023 Lymphocytes (Bld) [#/Vol] 2.0 10*3/uL 1.00-4.8 [facility] Lymphocytes/100 WBC Auto (Bl d)Ordered By: Yevgeniy Escudero on 01-12-2023 Lymphocytes/100 WBC (Bld) 30.6 % . [facility] MCH Auto (RBC) [Entitic mass ]Ordered By: Yevgeniy Escudero on 01-12-2023 MCH (RBC) [Entitic mass] 31.1 pg 27.5-35.2 [facility] MCHC Auto (RBC) [Mass/Vol]Or dered By: Yevgeniy Escudero on 01-12-2023 MCHC (RBC) [Mass/Vol] 34.4 g/dL 32.5-35.6 [facility] MCV Auto (RBC) [Entitic vol] Ordered By: Yevgeniy Escudero on 01-12-2023 MCV (RBC) [Entitic vol] 90.4 fL 83.5-101 [facility] Monocytes Auto (Bld) [#/Vol] Ordered By: Yevgeniy Escudero on 01-12-2023 Monocytes (Bld) [#/Vol] 0.6 10*3/uL 0.0-0.8 [facility] Monocytes/100 WBC Auto (Bld) Ordered By: Yevgeniy Escudero on 01-12-2023 Monocytes/100 WBC (Bld) 8.9 % . [facility] Neutrophils Auto (Bld) [#/Vo l]Ordered By: Yevgeniy Escudero on 01-12-2023 Neutrophils (Bld) [#/Vol] 3.7 10*3/uL 1.8-7.7 [facility] Neutrophils/100 WBC Auto (Bl d)Ordered By: Yevgeniy Escudero on 01-12-2023 Neutrophils/100 WBC (Bld) 57.4 % . [facility] No Panel InformationOrdered By: Yevgeniy Escudero on 01-12-2023 Estimated GFR (CKD-EPI) > 60.0 mL/Min [facility] Pharmacy Creatinine Clearance (Chem N/A [facility] Nucleated erythrocytes [Pres ence] in Blood by Automated countOrdered By: Yevgeniy Escudero on 01-12-2023 Nucleated RBC Auto Ql (Bld) 0.2 /100{WBC} 0-0.5 [facility] Partial Thromboplastin Timeo n 01-12-2023 aPTT Coag (Bld) [Time] 32.0 s Normal 25.1-36.5 [facility] Comment on above: Result Comment: PERF ORMED BY: [place] [address] PATHOLOGIST SEAM PRESS OPERATOR HAN CARBAJAL M.D. Performed By: #### P TT, PT, BMP, CBC #### [facility] [address] [place] [address] [place] Platelet mean volume Auto (B ld) [Entitic vol]Ordered By: Yevgeniy Escudero on 01-12-2023 Platelet mean volume (Bld) [Entitic vol] 7.8 fL 6.6-10.1 [facility] Platelet poor plasma interna tional normalized ratio (INR) by coagulation assay (relatOrdered By: Yevgeniy Escudero on 01-12-2023 INR Coag (PPP) [Relative time] 1.0 {INR} [facility] Comment on above: INR Therapeutic Rang e A) Pre- and Peroperative OAT started two weeks before surgery. NOT HIP SURGERY: 1.5 - 2.5 HIP SURGERY: 2 - 3B) Primary and secondary prevention of venous THROMBOSIS: 2 - 3C) Active venous thrombosis, pulmonary embolismand prevention of recurrent venous thrombosis: 2 - 3D) Prevention of arterial thromboembolismincluding patients with mechanical heart valves: 3 - 4.5 Platelets Auto (Bld) [#/Vol] Ordered By: Yevgeniy Escudero on 01-12-2023 Platelets (Bld) [#/Vol] 210 10*3/uL 150-450 [facility] Potassium [Moles/volume] in Serum or PlasmaOrdered By: Yevgeniy Escudero on 01-12-2023 Potassium [Moles/Vol] 4.4 mmol/L 3.5-5.1 [facility] Prothrombin Time INRon 01-12 INR Coag (PPP) [Relative time] 1.0 {INR} Normal [facility] Comment on above: Result Comment: INR Therapeutic Range A) Pre- and Peroperative OAT started two weeks before surgery. NOT HIP SURGERY: 1.5 - 2.5 HIP SURGERY: 2 - 3 B) Primary and secondary prevention of venous THROMBOSIS: 2 - 3 C) Active venous thrombosis, pulmonary embolism and prevention of recurrent venous thrombosis: 2 - 3 D) Prevention of arterial thromboembolism including patients with mechanical heart valves: 3 - 4.5 Performed By: #### P TT, PT, BMP, CBC #### [facility] [address] PT Coag (PPP) [Time] 11.5 s Normal 9.0-12.9 [facility] Comment on above: Performed By: #### P TT, PT, BMP, CBC #### [facility] [address] [place] [id number] [place] RBC Auto (Bld) [#/Vol]Ordere d By: Yevgeniy Escudero on 01-12-2023 RBC (Bld) [#/Vol] 5.20 10*6/uL 3.90-5.60 [facility] Serum or plasma anion gap de terminationOrdered By: Yevgeniy Escudero on 01-12-2023 Anion gap [Moles/Vol] 9.1 mmol/L 6.0-15.0 [facility] Sodium [Moles/volume] in Ser um or PlasmaOrdered By: Yevgeniy Escudero on 01-12-2023 Sodium [Moles/Vol] 137 mmol/L 136-145 [facility] Urea nitrogen [Mass/volume] in Serum or PlasmaOrdered By: Yevgeniy Escudero on 01-12-2023 Urea nitrogen [Mass/Vol] 11 mg/dL 7-25 [facility] WBC Auto (Bld) [#/Vol]Ordere d By: Yevgeniy Escudero on 01-12-2023 WBC (Bld) [#/Vol] 6.4 10*3/uL 4.1-10.5 [facility] XR chest 2V*on 01-12-2023 XR chest 2V* [facility] [address] [place] [address] XRay Report Signed Patient: Tiki Ruggiero MR#: [id number] : 1960 Acct:[id number] Age/Sex: 62 / M ADM Date: 01/12/23 Loc: Room: Type: [facility] Attending Dr: Yevgeniy Escudero MD Copies to: Yevgeniy Escudero MD Ordering Provider: Yevgeniy Escudero MD Date of Service: 01/12/23 XR/XR chest 2V*: HTN SMOKER XR chest 2V* 01/12/2023 11:58 AM SIGNS AND SYMPTOMS: Bladder cancer, HTN SMOKER PROTOCOL: Frontal and lateral radiographs of the chest COMPARISON: 04/25/2022 FINDINGS: The trachea is midline. Atherosclerotic changes are present in the thoracic aorta. The heart and mediastinal structures are within normal limits. The lung parenchyma is clear. The bony thorax is intact. Degenerative changes are noted in the thoracic spine. XR/XR chest 2V* IMPRESSION: No acute cardiopulmonary pathology. Impression dictated by: Saravanan Zuniga M.D.01/12/2023 2:40 PM Dictation Location: [place] [address] Transcribed By: [facility] 01/12/23 1440 Dictated By: Saravanan Zuniga II, MD 01/12/23 1438 Signed By: 01/12/23 1440 [facility] Surgical Specimenon 11-09-19 Surgical Specimen [facility] [address] [place] [address] FINAL SURGICAL PATHOLOGY REPORT Patient Name: TIKI RUGGIERO Accession No: [id number] Age Sex: 1960 Location: [facility] Account No: [id number] Collected: 11/08/2022 Med Rec No: [id number] Received: 11/09/2022 Attend Phys: PATRICK DICKEY Completed: 11/16/2022 Perform Phys: PATRICK DICKEY FINAL DIAGNOSIS: A. RIGHT POSTAURICULAR AREA INFERIOR TO THE HELIX- ORGANIZED NEVUS. SEE COMMENT. COMMENT: The more superficial aspect of a nevus sebaceous of Jad[place]ohn is strongly considered. B. RIGHT PREAURICULAR- HYPERKERATOSIS WITH PAPILLOMATOSIS, FOCAL ENDOPHYTIC HYPERPLASIA AND ATYPIA, FOCI SHOWING FEATURES SUGGESTING AN ORGANIZED NEVUS COMMENT: There is an area similar to that seen in specimen A above, as could be seen in hamartoma, quite possibly the superficial aspect of the nevus sebaceous of Jadassohn. However, there is endophytic hyperplasia and atypia, very concerning for superficial aspect of squamous cell carcinoma possibly occurring within a longstanding hamartoma. Complete excision is advised. Note: This case is signed out in consultation with Tyrese Mena MD at [facility]. Please also see separate consult report from [facility]. ALIFA/ALIFA CLINICAL INFORMATION: Abnormal skin growth, ICD-10 code D49.2. Changing skin lesion. Margin requested in all specimens. Rule out verrucous lesion right postauricular area inferior to the helix. SPECIMEN: A. Right Postauricular Area Inferior to [place] B. Right Preauricular GROSS DESCRIPTION: A. Specimen received in formalin in a container labeled Tiki Ruggiero and designated as right posterior auricular area inferior to the helix , consists of pinkish-brown, verrucous-appearing skin lesion, measuring 1.3 x 0.7 x 0.5 cm. The margins are inked green. The specimen is bisected and submitted in toto in one cassette. B. Specimen received in formalin in a container labeled Tiki Ruggiero and designated as right preauricular . The specimen consists of multiple brownish-polanco skin fragments, measuring in aggregate 0.9 x 0.5 x 0.2 cm. Filtered and submitted in toto in cassette B1. NAVA/RUIZ CPT: 42682 X2 YOCASTA RICH M.D. 11/16/2022 Electronically signed out by Page 1 of 1 Invalid Interpretation Code [facility] Comment on above: Performed By: #### S UR #### [facility] [address] [facility] [place] [id number] COVID-19 SOFIAOrdered By: Adrian Escudero on 07-01-2022 SARS-CoV+SARS-CoV-2 (COVID-19) Ag IA.rapid Ql (Resp) Negative Negative [facility] Comment on above: This is a duplicate [place] SARS Antigen (VANCE) result to be used for statistical tracking purpose only. No Panel InformationOrdered By: Yevgeniy Escudero on 07-01-2022 SARS Antigen (LFIA) [facility] Activated partial thrombopla stin time (aPTT) in platelet poor plasma by coagulation aOrdered By: Yevgeniy Escudero on 06-21-2022 aPTT Coag (PPP) [Time] 31.4 s 25.1-36.5 Fi [facility] Basophils Auto (Bld) [#/Vol] Ordered By: Yevgeniy Escudero on 06-21-2022 Basophils (Bld) [#/Vol] 0.0 10*3/uL 0.0-0.2 [facility] Basophils/100 WBC Auto (Bld) Ordered By: Yevgeniy Escudero on 06-21-2022 Basophils/100 WBC (Bld) 0.5 % . [facility] Creatinine and Glomerular fi ltration rate.predicted panel (S/P/Bld)Ordered By: Yevgeniy Escudero on 06-21-2022 Creatinine [Mass/Vol] 1.10 mg/dL 0.64-1.27 [facility] Eosinophils Auto (Bld) [#/Vo l]Ordered By: Yevgeniy Escudero on 06-21-2022 Eosinophils (Bld) [#/Vol] 0.2 10*3/uL 0.0-0.45 [facility] Eosinophils/100 WBC Auto (Bl d)Ordered By: Yevgeniy Escudero on 06-21-2022 Eosinophils/100 WBC (Bld) 2.4 % . [facility] Erythrocyte distribution wid th Auto (RBC) [Ratio]Ordered By: Yevgeniy Escudero on 06-21-2022 Erythrocyte distribution width (RBC) [Ratio] 13.0 % 12.0-14.8 [facility] Estimated glomerular filtrat ion rate (GFR) non- AmericanOrdered By: Yevgeniy Escudero on 06-21-2022 GFR/1.73 sq M.predicted among non-blacks MDRD (S/P/Bld) [Vol rate/Area] > 60 mL/Min [facility] Hematocrit Auto (Bld) [Volum e fraction]Ordered By: Yevgeniy Escudero on 06-21-2022 Hematocrit (Bld) [Volume fraction] 45.4 % 38.8-50.0 [facility] Hemoglobin [Mass/volume] in BloodOrdered By: Yevgeniy Escudero on 06-21-2022 Hemoglobin (Bld) [Mass/Vol] 15.6 g/dL 13.0-17.0 [facility] Laboratory - CoagulationOrde red By: Yevgeniy Escudero on 06-21-2022 PT Coag (PPP) [Time] 11.7 s 9.0-12.9 [facility] Leukocytes [#/volume] correc araseli for nucleated erythrocytes in Blood by Automated counOrdered By: Yvegeniy Escudero on 06-21-2022 WBC corrected for nucl RBC Auto (Bld) [#/Vol] 7.0 10*3/uL 4.1-10.5 [facility] Lymphocytes Auto (Bld) [#/Vo l]Ordered By: Yevgeniy Escudero on 06-21-2022 Lymphocytes (Bld) [#/Vol] 1.7 10*3/uL 1.00-4.8 [facility] Lymphocytes/100 WBC Auto (Bl d)Ordered By: Yevgeniy Escudero on 06-21-2022 Lymphocytes/100 WBC (Bld) 23.5 % . [facility] MCH Auto (RBC) [Entitic mass ]Ordered By: Yevgeniy Escudero on 06-21-2022 MCH (RBC) [Entitic mass] 31.0 pg 27.5-35.2 [facility] MCHC Auto (RBC) [Mass/Vol]Or dered By: Yevgeniy Escudero on 06-21-2022 MCHC (RBC) [Mass/Vol] 34.4 g/dL 32.5-35.6 [facility] MCV Auto (RBC) [Entitic vol] Ordered By: Yevgeniy Escudero on 06-21-2022 MCV (RBC) [Entitic vol] 90.0 fL 83.5-101 [facility] Monocytes Auto (Bld) [#/Vol] Ordered By: Yevgeniy Escudero on 06-21-2022 Monocytes (Bld) [#/Vol] 0.7 10*3/uL 0.0-0.8 [facility] Monocytes/100 WBC Auto (Bld) Ordered By: Yevgeniy Escudero on 06-21-2022 Monocytes/100 WBC (Bld) 9.6 % . [facility] Neutrophils Auto (Bld) [#/Vo l]Ordered By: Yevgeniy Escudero on 06-21-2022 Neutrophils (Bld) [#/Vol] 4.5 10*3/uL 1.8-7.7 [facility] Neutrophils/100 WBC Auto (Bl d)Ordered By: Yevgeniy Escudero on 06-21-2022 Neutrophils/100 WBC (Bld) 64.0 % . [facility] No Panel InformationOrdered By: Yevgeniy Escudero on 06-21-2022 Estimated GFR () > 60 mL/Min [facility] Comment on above: GFR estimated refere nce range: According to KDOQI guidelines, <60 ml/min/1.73m2 is sufficient to diagnose a patient with chronic kidney disease. Pharmacy Creatinine Clearance (Chem N/A [facility] Nucleated erythrocytes [Pres ence] in Blood by Automated countOrdered By: Yevgeniy Escudero on 06-21-2022 Nucleated RBC Auto Ql (Bld) 0.1 /100{WBC} 0-0.5 [facility] Platelet mean volume Auto (B ld) [Entitic vol]Ordered By: Yevgeniy Escudero on 06-21-2022 Platelet mean volume (Bld) [Entitic vol] 7.6 fL 6.6-10.1 [facility] Platelet poor plasma interna tional normalized ratio (INR) by coagulation assay (relatOrdered By: Yevgeniy Escudero on 06-21-2022 INR Coag (PPP) [Relative time] 1.0 {INR} [facility] Comment on above: INR Therapeutic Rang e A) Pre- and Peroperative OAT started two weeks before surgery. NOT HIP SURGERY: 1.5 - 2.5 HIP SURGERY: 2 - 3B) Primary and secondary prevention of venous THROMBOSIS: 2 - 3C) Active venous thrombosis, pulmonary embolismand prevention of recurrent venous thrombosis: 2 - 3D) Prevention of arterial thromboembolismincluding patients with mechanical heart valves: 3 - 4.5 Platelets Auto (Bld) [#/Vol] Ordered By: Yevgeniy Escudero on 06-21-2022 Platelets (Bld) [#/Vol] 228 10*3/uL 150-450 [facility] RBC Auto (Bld) [#/Vol]Ordere d By: Yevgeniy Escudero on 06-21-2022 RBC (Bld) [#/Vol] 5.04 10*6/uL 3.90-5.60 [facility] Serum or plasma anion gap de terminationOrdered By: Yevgeniy Escudero on 06-21-2022 Anion gap [Moles/Vol] 11.4 mmol/L 6.0-15.0 [facility] Serum or plasma calcium steve urement (mass/volume)Ordered By: Yevgeniy Escudero on 06-21-2022 Calcium [Mass/Vol] 9.0 mg/dL 8.2-10.2 [facility] Serum or plasma chloride carmita surement (moles/volume)Ordered By: Yevgeniy Escudero on 06-21-2022 Chloride [Moles/Vol] 102 mmol/L 95-114 [facility] Serum or plasma glucose steve urement (mass/volume)Ordered By: Yevgeniy Escudero on 06-21-2022 Glucose [Mass/Vol] 97 mg/dL 70-100 [facility] Comment on above: ADA recommended refe rence rangeRandom Glucose Reference Range is dependent on time and content of last meal. Glucose of more than 200 mg/dL in a nonstressed, ambulatory subject supports the diagnosis of Diabetes Mellitus. Serum or plasma potassium me asurement (moles/volume)Ordered By: Yevgeniy Escudero on 06-21-2022 Potassium [Moles/Vol] 4.3 mmol/L 3.5-5.1 [facility] Serum or plasma sodium measu rement (moles/volume)Ordered By: Yevgeniy Escudero on 06-21-2022 Sodium [Moles/Vol] 134 mmol/L 136-146 [facility] Serum or plasma total carbon dioxide measurement (moles/volume)Ordered By: Yevgeniy Escudero on 06-21-2022 CO2 [Moles/Vol] 24.9 mmol/L 22.0-30.0 [facility] Serum or plasma urea nitroge n measurement (mass/volume)Ordered By: Yevgeniy Escudero on 06-21-2022 Urea nitrogen [Mass/Vol] 13 mg/dL 9-23 [facility] WBC Auto (Bld) [#/Vol]Ordere d By: Yevgeniy Escudero on 06-21-2022 WBC (Bld) [#/Vol] 7.0 10*3/uL 4.1-10.5 [facility] No Panel InformationOrdered By: Dinora Roche on 04-27-2022 Prostate Specific Antigen Screen 1.250 ng/mL 0.000-4.00 0 [facility] Prostate Specific Antigen Total 1.250 ng/mL 0.000-4.00 0 [facility] Urine culture routineOrdered By: Ra Brannon on 04-27-2022 Bacteria identified Cx Nom (U) No Growth 2 Days [facility] Activated partial thrombopla stin time (aPTT) in platelet poor plasma by coagulation aOrdered By: Ra Brannon on 04-25-2022 aPTT Coag (PPP) [Time] 33.2 s 25.1-36.5 [facility] Albumin [Mass/volume] in Ser um or PlasmaOrdered By: Ra Brannon on 04-25-2022 Albumin [Mass/Vol] 3.9 g/dL 3.2-5.5 [facility] Automated erythrocytes count in urine sediment (number/area)Ordered By: Ra Brannon on 04-25-2022 RBC Auto (Urine sed) [#/Area] Innumerable [HPF] 0-4 [facility] Automated leukocytes count i n urine sediment (number/area)Ordered By: Ra Brannon on 04-25-2022 WBC Auto (Urine sed) [#/Area] 3-4 [HPF] 0-4 [facility] Basophils Auto (Bld) [#/Vol] Ordered By: Ra Brannon on 04-25-2022 Basophils (Bld) [#/Vol] 0.0 10*3/uL 0.0-0.2 [facility] Basophils/100 WBC Auto (Bld) Ordered By: Ra Brannon on 04-25-2022 Basophils/100 WBC (Bld) 0.7 % . [facility] Bilirubin Test strip Ql (U)O rdered By: Ra Brannon on 04-25-2022 Bilirubin Ql (U) Negative Negative [facility] Chlamydia trachomatis DNA [P resence] in Specimen by PHOEBE with probe detectionOrdered By: Ra Brannon on 04-25-2022 C. trachomatis DNA PHOEBE+probe Ql (Unsp spec) Negative Negative [facility] Color Auto (U)Ordered By: Jose Brannon on 04-25-2022 Color (U) [place] Yellow [facility] Creatinine and Glomerular fi ltration rate.predicted panel (S/P/Bld)Ordered By: Ra Brannon on 04-25-2022 Creatinine [Mass/Vol] 1.01 mg/dL 0.64-1.27 [facility] Eosinophils Auto (Bld) [#/Vo l]Ordered By: Ra Brannon on 04-25-2022 Eosinophils (Bld) [#/Vol] 0.1 10*3/uL 0.0-0.45 [facility] Eosinophils/100 WBC Auto (Bl d)Ordered By: Ra Brannon on 04-25-2022 Eosinophils/100 WBC (Bld) 2.0 % . [facility] Erythrocyte distribution wid th Auto (RBC) [Ratio]Ordered By: Ra Brannon on 04-25-2022 Erythrocyte distribution width (RBC) [Ratio] 12.9 % 12.0-14.8 [facility] Estimated glomerular filtrat ion rate (GFR) non- AmericanOrdered By: Ra Brannon on 04-25-2022 GFR/1.73 sq M.predicted among non-blacks MDRD (S/P/Bld) [Vol rate/Area] > 60 mL/Min [facility] Globulin Calc (S) [Mass/Vol] Ordered By: Ra Brannon on 04-25-2022 Globulin (S) [Mass/Vol] 3.3 g/dL [facility] Hematocrit Auto (Bld) [Volum e fraction]Ordered By: Ra Brannon on 04-25-2022 Hematocrit (Bld) [Volume fraction] 47.0 % 38.8-50.0 [facility] Hemoglobin [Mass/volume] in BloodOrdered By: Ra Brannon on 04-25-2022 Hemoglobin (Bld) [Mass/Vol] 16.0 g/dL 13.0-17.0 [facility] Ketones Auto test strip (U) [Mass/Vol]Ordered By: Ra Brannon on 04-25-2022 Ketones (U) [Mass/Vol] Negative Negative [facility] Laboratory - CoagulationOrde red By: Ra Brannon on 04-25-2022 PT Coag (PPP) [Time] 12.5 s 9.0-12.9 [facility] Laboratory - Hematology and Cell countsOrdered By: Ra Brannon on 04-25-2022 Nucleated RBC/100 WBC (Bld) [Ratio] 0.1 % 0-0.5 [facility] Laboratory - UrinalysisOrder ed By: Ra Brannon on 04-25-2022 Hyaline casts LM Ql (Urine sed) None seen [LPF] 0-8 [facility] Leukocytes [#/volume] in Blo od by Automated countOrdered By: Ra Brannon on 04-25-2022 WBC (Bld) [#/Vol] 5.7 10*3/uL 4.5-11.0 [facility] Lymphocytes Auto (Bld) [#/Vo l]Ordered By: Ra Brannon on 04-25-2022 Lymphocytes (Bld) [#/Vol] 1.3 10*3/uL 1.00-4.8 [facility] Lymphocytes/100 WBC Auto (Bl d)Ordered By: Ra Brannon on 04-25-2022 Lymphocytes/100 WBC (Bld) 23.6 % . [facility] MCH Auto (RBC) [Entitic mass ]Ordered By: Ra Brannon on 04-25-2022 MCH (RBC) [Entitic mass] 31.2 pg 27.5-35.2 [facility] MCHC Auto (RBC) [Mass/Vol]Or dered By: Ra Brannon on 04-25-2022 MCHC (RBC) [Mass/Vol] 34.0 g/dL 32.5-35.6 [facility] MCV Auto (RBC) [Entitic vol] Ordered By: Ra Brannon on 04-25-2022 MCV (RBC) [Entitic vol] 91.8 fL 83.5-101 [facility] Monocytes Auto (Bld) [#/Vol] Ordered By: Ra Brannon on 04-25-2022 Monocytes (Bld) [#/Vol] 0.4 10*3/uL 0.0-0.8 [facility] Monocytes/100 WBC Auto (Bld) Ordered By: Ra Brannon on 04-25-2022 Monocytes/100 WBC (Bld) 7.2 % . [facility] Neisseria gonorrhoeae DNA [P resence] in Specimen by PHOEBE with probe detectionOrdered By: Ra Brannon on 04-25-2022 N. gonorrhoeae DNA PHOEBE+probe Ql (Unsp spec) Negative Negative [facility] Neutrophils Auto (Bld) [#/Vo l]Ordered By: Ra Barnnon on 04-25-2022 Neutrophils (Bld) [#/Vol] 3.8 10*3/uL 1.8-7.7 [facility] Neutrophils/100 WBC Auto (Bl d)Ordered By: Ra Brannon on 04-25-2022 Neutrophils/100 WBC (Bld) 66.5 % . [facility] Nitrite Test strip Ql (U)Ord ered By: Ra Brannon on 04-25-2022 Nitrite Ql (U) Negative Negative [facility] No Panel InformationOrdered By: Ra Brannon on 04-25-2022 Estimated GFR () > 60 mL/Min [facility] Comment on above: GFR estimated refere nce range: According to KDOQI guidelines, <60 ml/min/1.73m2 is sufficient to diagnose a patient with chronic kidney disease. Pharmacy Creatinine Clearance (Chem 86.56 [facility] Platelet mean volume Auto (B ld) [Entitic vol]Ordered By: Ra Brannon on 04-25-2022 Platelet mean volume (Bld) [Entitic vol] 7.6 fL 6.6-10.1 [facility] Platelet poor plasma interna tional normalized ratio (INR) by coagulation assay (relatOrdered By: Ra Brannon on 04-25-2022 INR Coag (PPP) [Relative time] 1.1 {INR} [facility] Comment on above: INR Therapeutic Rang e A) Pre- and Peroperative OAT started two weeks before surgery. NOT HIP SURGERY: 1.5 - 2.5 HIP SURGERY: 2 - 3B) Primary and secondary prevention of venous THROMBOSIS: 2 - 3C) Active venous thrombosis, pulmonary embolismand prevention of recurrent venous thrombosis: 2 - 3D) Prevention of arterial thromboembolismincluding patients with mechanical heart valves: 3 - 4.5 Platelets Auto (Bld) [#/Vol] Ordered By: Ra Brannon on 04-25-2022 Platelets (Bld) [#/Vol] 212 10*3/uL 150-450 [facility] Protein Auto test strip (U) [Mass/Vol]Ordered By: Ra Brannon on 04-25-2022 Protein (U) [Mass/Vol] 30 mg/dL Negative Fi [facility] Protein [Mass/volume] in Ser um or PlasmaOrdered By: Ra Brannon on 04-25-2022 Protein [Mass/Vol] 7.2 g/dL 6.1-7.9 [facility] RBC Auto (Bld) [#/Vol]Ordere d By: Ra Brannon on 04-25-2022 RBC (Bld) [#/Vol] 5.12 10*6/uL 3.90-5.60 [facility] Serum or plasma alanine gonzales otransferase measurement without P-5'-P (enzymatic activiOrdered By: Ra Brannon on 04-25-2022 ALT No additional P-5'-P [Catalytic activity/Vol] 21 U/L [facility] Serum or plasma albumin/glob ulin mass ratioOrdered By: Ra Brannon on 04-25-2022 Albumin/Globulin [Mass ratio] 1.2 {ratio} [facility] Serum or plasma alkaline rosendo sphatase measurement (enzymatic activity/volume)Ordered By: Ra Brannon on 04-25-2022 ALP [Catalytic activity/Vol] 77 U/L [facility] Serum or plasma anion gap de terminationOrdered By: Ra Brannon on 04-25-2022 Anion gap [Moles/Vol] 13.8 mmol/L 6.0-15.0 [facility] Serum or plasma aspartate am inotransferase measurement (enzymatic activity/volume)Ordered By: Ra Brannon on 04-25-2022 AST [Catalytic activity/Vol] 19 U/L [facility] Serum or plasma calcium steve urement (mass/volume)Ordered By: Ra Brannon on 04-25-2022 Calcium [Mass/Vol] 9.0 mg/dL 8.2-10.2 [facility] Serum or plasma chloride carmita surement (moles/volume)Ordered By: Ra Brannon on 04-25-2022 Chloride [Moles/Vol] 99 mmol/L 95-114 [facility] Serum or plasma glucose steve urement (mass/volume)Ordered By: Ra Brannon on 04-25-2022 Glucose [Mass/Vol] 97 mg/dL 70-100 [facility] Comment on above: ADA recommended refe rence rangeRandom Glucose Reference Range is dependent on time and content of last meal. Glucose of more than 200 mg/dL in a nonstressed, ambulatory subject supports the diagnosis of Diabetes Mellitus. Serum or plasma potassium me asurement (moles/volume)Ordered By: Ra Brannon on 04-25-2022 Potassium [Moles/Vol] 3.8 mmol/L 3.5-5.1 [facility] Serum or plasma sodium measu rement (moles/volume)Ordered By: Ra Brannon on 04-25-2022 Sodium [Moles/Vol] 134 mmol/L 136-146 [facility] Serum or plasma total biliru bin measurement (mass/volume)Ordered By: Ra Brannon on 04-25-2022 Bilirubin [Mass/Vol] 0.9 mg/dL 0.3-1.2 [facility] Serum or plasma total carbon dioxide measurement (moles/volume)Ordered By: Ra Brannon on 04-25-2022 CO2 [Moles/Vol] 25.0 mmol/L 22.0-30.0 [facility] Serum or plasma urea nitroge n measurement (mass/volume)Ordered By: Ra Brannon on 04-25-2022 Urea nitrogen [Mass/Vol] 8 mg/dL 9- [facility] Specific gravity Auto test s trip (U) [Rel density]Ordered By: Ra Brannon on 04-25-2022 Specific gravity (U) [Rel density] 1.014 1.001-1.03 0 [facility] Squamous epithelial cells de tection in urine sediment by light microscopyOrdered By: Ra Brannon on 04-25-2022 Epithelial cells.squamous LM Ql (Urine sed) None seen [HPF] 0-2 [facility] Trichomonas vaginalis DNA [P resence] in Specimen by PHOEBE with probe detectionOrdered By: Ra Brannon on 04-25-2022 T. vaginalis DNA PHOEBE+probe Ql (Unsp spec) Negative Negative [facility] Comment on above: Performed at: =[address] [id number] Director: Monique Berry MD, Phone: [phone] Urine bacteria detection by automated methodOrdered By: Ra Brannon on 04-25-2022 Bacteria Auto Ql (U) None seen None Seen [facility] Urine clarity by refractomet ry automatedOrdered By: Ra Brannon on 04-25-2022 Clarity Refractometry automated (U) Clear Clear [facility] Urine glucose measurement by automated test strip (mass/volume)Ordered By: Ra Brannon on 04-25-2022 Glucose Auto test strip (U) [Mass/Vol] Normal mg/dL Normal [facility] Urine hemoglobin detection b y automated test stripOrdered By: Ra Brannon on 04-25-2022 Hemoglobin Auto test strip Ql (U) 3+ Negative [facility] Urine leukocyte esterase det ection by automated test stripOrdered By: Ra Brannon on 04-25-2022 Leukocyte esterase Auto test strip Ql (U) 1+ Negative [facility] Urobilinogen Auto test strip (U) [Mass/Vol]Ordered By: Ra Brannon on 04-25-2022 Urobilinogen (U) [Mass/Vol] Normal mg/dL Normal [facility] pH Auto test strip (U)Ordere d By: Ra Brannon on 04-25-2022 pH (U) 7.5 [pH] 5.0-9.0 [facility] Vital Signs Date Time Vital Sign Value Performing Clinician Facility 08-06-2024 13:23-0500 Blood Pressure Location Yevgeniy ESCUDERO [facility] 08-06-2024 13:23-0500 Diastolic blood pressure 72 mm[Hg] Yevgeniy ESCUDERO [facility] 08-06-2024 13:23-0500 Heart rate 60 /min Yevgeniy ESCUDERO [facility] 08-06-2024 13:23-0500 Respiratory rate 16 /min Yevgeniy ESCUDERO [facility] 08-06-2024 13:23-0500 Systolic blood pressure 138 mm[Hg] Yevgeniy ESCUDERO [facility] 07-20-2024 18:28-0500 Diastolic blood pressure 95 mm[Hg] Johan Gibbons ELECTRO MECHANICAL DESIGNER - [employer] DEVELOPER Work Phone: [facility] 07-20-2024 18:28-0500 Systolic blood pressure 152 mm[Hg] Johan Gibbons ELECTRO MECHANICAL DESIGNER - [employer] DEVELOPER Work Phone: [facility] 07-20-2024 18:26-0500 Body mass index (BMI) [Ratio] 31.32 kg/m2 Johan Gibbons APRN - [employer]EL[employer] [facility] 07-20-2024 18:26-0500 Body weight 90.72 kg Johan Gibbons APRN - [employer] DEVELOPER [facility] 07-20-2024 18:26-0500 Respiratory rate 20 /min Johan Gibbons ELECTRO MECHANICAL DESIGNER - [employer] DEVELOPER [facility] 07-20-2024 18:21-0500 Body temperature 98.01 [degF] Johan Gibbons APRN - [employer] DEVELOPER Work Phone: [facility] [employer] 07-20-2024 18:21-0500 Heart rate 67 /min Johan Gibbons ELECTRO MECHANICAL DESIGNER - [employer] DEVELOPER [facility] Phone[facility] 07-20-2024 18:21-0500 SaO2% (BldA) [Mass fraction] 93 % Johan Gibbons APRN - [employer] DEVELOPER Work Phone: [facility] 04-30-2024 13:09-0400 Blood Pressure Location Yevgeniy ESCUDERO [facility] 04-30-2024 13:09-0400 Diastolic blood pressure 88 mm[Hg] Yevgeniy ESCUDERO [facility] 04-30-2024 13:09-0400 Heart rate 90 /min Yevgeniy ESCUDERO [facility] 04-30-2024 13:09-0400 Respiratory rate 20 /min Yevgeniy ESCUDERO [facility] 04-30-2024 13:09-0400 Systolic blood pressure 144 mm[Hg] Yevgeniy ESCUDERO [facility] 03-14-2024 13:18-0400 Blood Pressure Location SYLVIE MILLICENT [facility] 03-14-2024 13:18-0400 Diastolic blood pressure 87 mm[Hg] SYLVIE MILLICENT [facility] 03-14-2024 13:18-0400 Heart rate 94 /min SYLVIE MILLICENT [facility] 03-14-2024 13:18-0400 Respiratory rate 16 /min SYLVIE MILLICENT [facility] 03-14-2024 13:18-0400 Systolic blood pressure 138 mm[Hg] SYLVIE MILLICENT [facility] 02-29-2024 13:08-0400 Body temperature 98.6 [degF] SYLVIE MILLICENT [facility] 02-29-2024 13:08-0400 Diastolic blood pressure 81 mm[Hg] SYLVIE MILLICENT [facility] 02-29-2024 13:08-0400 Heart rate 80 /min SYLVIE MILLICENT [facility] 02-29-2024 13:08-0400 Respiratory rate 16 /min SYLVIE MILLICENT [facility] 02-29-2024 13:08-0400 Systolic blood pressure 137 mm[Hg] SYLVIE MILLICENT [facility] 01-23-2024 14:40-0400 Blood Pressure Location Yevgeniy ESCUDERO [facility] 01-23-2024 14:40-0400 Body temperature 97.88 [degF] Yevgeniy ESCUDERO [facility] 01-23-2024 14:40-0400 Diastolic blood pressure 78 mm[Hg] Yevgeniy ESCUDERO [facility] 01-23-2024 14:40-0400 Heart rate 100 /min Yevgeniy ESCUDERO [facility] 01-23-2024 14:40-0400 Respiratory rate 16 /min Yevgeniy ESCUDERO [facility] 01-23-2024 14:40-0400 Systolic blood pressure 122 mm[Hg] Yevgeniy ESCUDERO [facility] 01-07-2024 02:44-0400 Body temperature 98.2 [degF] Quinton Heath MD Work Phone: [facility] 01-07-2024 02:44-0400 Diastolic blood pressure 89 mm[Hg] Quinton Heath MD Work Phone: [facility] 01-07-2024 02:44-0400 Heart rate 84 /min Quinton Heath MD Work Phone: [facility] [facility] 01-07-2024 02:44-0400 Respiratory rate 18 /min Quinton Heath MD Work Phone: [facility] [facility] 01-07-2024 02:44-0400 SaO2% (BldA) [Mass fraction] 100 % Quinton Heath MD Work Phone: [facility] [employer] [facility] 01-07-2024 02:44-0400 Systolic blood pressure 122 mm[Hg] Quinton Heath MD Work Phone: [facility] 01-07-2024 00:53-0400 Body height 170.2 cm Quinton Heath MD Work Phone: [facility] 01-07-2024 00:53-0400 Body mass index (BMI) [Ratio] 32.11 kg/m2 Quinton Heath MD Work Phone: [facility] 01-07-2024 00:53-0400 Body weight 92.99 kg Quinton Heath MD Work Phone: [facility] 10-03-2023 14:01-0400 Body temperature 98.6 [degF] Yevgeniy ESCUDERO [facility] 10-03-2023 14:01-0400 Diastolic blood pressure 82 mm[Hg] Yevgeniy ESCUDERO [facility] 10-03-2023 14:01-0400 Heart rate 77 /min Yevgeniy ESCUDERO [facility] 10-03-2023 14:01-0400 Respiratory rate 16 /min Yevgeniy ESCUDERO [facility] 10-03-2023 14:01-0400 Systolic blood pressure 123 mm[Hg] Yevgeniy ESCUDERO [facility] 08-16-2023 10:54-0500 Blood Pressure Location SYLVIE MILLICENT [facility] 08-16-2023 10:54-0500 Diastolic blood pressure 83 mm[Hg] SYLVIE MILLICENT [facility] 08-16-2023 10:54-0500 Heart rate 75 /min SYLVIE PERSAUDRY [facility] 08-16-2023 10:54-0500 Respiratory rate 16 /min SYLVIE MILLICENT [facility] 08-16-2023 10:54-0500 Systolic blood pressure 133 mm[Hg] SYLVIE MILLICENT [facility] 08-09-2023 10:48-0500 Blood Pressure Location SYLVIE MILLICENT [facility] 08-09-2023 10:48-0500 Diastolic blood pressure 87 mm[Hg] SYLVIE MILLICENT [facility] 08-09-2023 10:48-0500 Heart rate 80 /min SYLVIE MILLICENT [facility] 08-09-2023 10:48-0500 Respiratory rate 16 /min SYLVIE MILLICENT [facility] 08-09-2023 10:48-0500 Systolic blood pressure 132 mm[Hg] SYLVIE MILLICENT [facility] 08-02-2023 11:02-0500 Blood Pressure Location SYLVIE MILLICENT [facility] 08-02-2023 11:02-0500 Diastolic blood pressure 87 mm[Hg] SYLVIE MILLICENT [facility] 08-02-2023 11:02-0500 Heart rate 80 /min SYLVIE MILLICENT [facility] 08-02-2023 11:02-0500 Respiratory rate 16 /min SYLVIE MILLICENT [facility] 08-02-2023 11:02-0500 Systolic blood pressure 129 mm[Hg] SYLVIE MILLICENT [facility] 07-19-2023 10:41-0500 Blood Pressure Location SYLVIE MILLICENT [facility] 07-19-2023 10:41-0500 Body temperature 97.16 [degF] SYLVIE MILLICENT [facility] 07-19-2023 10:41-0500 Diastolic blood pressure 78 mm[Hg] SYLVIE MILLICENT [facility] 07-19-2023 10:41-0500 Heart rate 68 /min SYLVIE MILLICENT [facility] 07-19-2023 10:41-0500 Systolic blood pressure 128 mm[Hg] SYLVIE MILLICENT [facility] 05-10-2023 07:25-0400 Blood Pressure Location Yevgeniy ESCUDERO [facility] 05-10-2023 07:25-0400 Diastolic blood pressure 89 mm[Hg] Yevgeniy ESCUDERO [facility] 05-10-2023 07:25-0400 Heart rate 83 /min Yevgeniy ESCUDERO [facility] 05-10-2023 07:25-0400 Respiratory rate 16 /min Yevgeniy ESCUDERO [facility] 05-10-2023 07:25-0400 Systolic blood pressure 136 mm[Hg] Yevgeniy ESCUDERO [facility] 02-01-2023 07:58-0400 Blood Pressure Location Yevgeniy ESCUDERO [facility] 02-01-2023 07:58-0400 Diastolic blood pressure 79 mm[Hg] Yevgeniy ESCUDERO [facility] 02-01-2023 07:58-0400 Heart rate 89 /min Yevgeniy ESCUDERO [facility] 02-01-2023 07:58-0400 Respiratory rate 18 /min Yevgeniy ESCUDERO [facility] 02-01-2023 07:58-0400 Systolic blood pressure 123 mm[Hg] Yevgeniy ESCUDERO [facility] 01-04-2023 07:34-0400 Blood Pressure Location Yevgeniy ESCUDERO [facility] 01-04-2023 07:34-0400 Diastolic blood pressure 89 mm[Hg] Yevgeniy ESCUDERO [facility] 01-04-2023 07:34-0400 Heart rate 92 /min Yevgeniy ESCUDERO [facility] 01-04-2023 07:34-0400 Respiratory rate 16 /min Yevgeniy ESCUDERO [facility] 01-04-2023 07:34-0400 Systolic blood pressure 138 mm[Hg] Yevgeniy ESCUDERO [facility] 09-20-2022 07:56-0500 Blood Pressure Location Yevgeniy ESCUDERO [facility] 09-20-2022 07:56-0500 Diastolic blood pressure 88 mm[Hg] Yevgeniy ESCUDERO [facility] 09-20-2022 07:56-0500 Heart rate 83 /min Yevgeniy ESCUDERO [facility] 09-20-2022 07:56-0500 Systolic blood pressure 133 mm[Hg] Yevgeniy ESCUDERO [facility] 07-15-2022 09:35-0500 Blood Pressure Location Yevgeniy ESCUDERO [facility] 07-15-2022 09:35-0500 Diastolic blood pressure 86 mm[Hg] Yevgeniy ESCUDERO [facility] 07-15-2022 09:35-0500 Heart rate 75 /min Yevgeniy ESCUDERO [facility] 07-15-2022 09:35-0500 Respiratory rate 16 /min Yevgeniy ESCUDERO [facility] 07-15-2022 09:35-0500 Systolic blood pressure 134 mm[Hg] Yevgeniy ESCUDERO [facility] 07-05-2022 10:34-0500 Diastolic blood pressure 76 mm[Hg] PHYSICIAN NO [facility] 07-05-2022 10:34-0500 Heart rate 80 /min PHYSICIAN NO [facility] 07-05-2022 10:34-0500 Respiratory rate 16 /min PHYSICIAN NO [facility] 07-05-2022 10:34-0500 SaO2% (BldA) [Mass fraction] 94 % PHYSICIAN NO [facility] 07-05-2022 10:34-0500 Systolic blood pressure 117 mm[Hg] PHYSICIAN NO [facility] 07-05-2022 10:04-0500 Inhaled oxygen flow rate 93 L/min PHYSICIAN NO [facility] 07-05-2022 09:59-0500 Body temperature 98.4 [degF] PHYSICIAN NO [facility] 07-05-2022 07:39-0500 Body mass index (BMI) [Ratio] 34.1 kg/m2 PHYSICIAN NO [facility] 07-05-2022 07:26-0500 Body height 170.18 cm PHYSICIAN NO [facility] 07-05-2022 07:26-0500 Body weight 98.88 kg PHYSICIAN NO [facility] 05-04-2022 10:06-0400 Blood Pressure Location Yevgeniy ESCUDERO [facility] 05-04-2022 10:06-0400 Diastolic blood pressure 90 mm[Hg] Yevgeniy ESCUDERO [facility] 05-04-2022 10:06-0400 Heart rate 92 /min Yevgeniy ESCUDERO [facility] 05-04-2022 10:06-0400 Systolic blood pressure 146 mm[Hg] Yevgeniy ESCUDERO [facility] 04-25-2022 13:21-0400 Diastolic blood pressure 86 mm[Hg] PHYSICIAN NO [facility] 04-25-2022 13:21-0400 Heart rate 79 /min PHYSICIAN NO [facility] 04-25-2022 13:21-0400 Respiratory rate 18 /min PHYSICIAN NO [facility] 04-25-2022 13:21-0400 SaO2% (BldA) [Mass fraction] 100 % PHYSICIAN NO [facility] 04-25-2022 13:21-0400 Systolic blood pressure 146 mm[Hg] PHYSICIAN NO [facility] 04-25-2022 11: Body height 167.64 cm PHYSICIAN NO [facility] 04-25-2022 11:040 Body temperature 98.1 [degF] PHYSICIAN NO [facility] 04-25-2022 11: Body weight 101 kg PHYSICIAN NO [facility] Encounters Encounter Date Encounter Type Care Provider Facility Start: 08-06-2024 End: 08-06-2024 ambulatory Yevgeniy ESCUDERO Facility:[facility] Start: 08-06-2024 End: 08-06-2024 Lab Drop off Yevgeniy ESCUDERO [facility] Start: 08-06-2024 End: 08-06-2024 ambulatory Yevgeniy ESCUDERO Facility: [place] Start: 08-06-2024 End: 08-06-2024 Patient encounter procedure Yevgeniy ESCUDERO [facility] Start: 07-29-2024 End: 07-29-2024 ambulatory YEVGENIY ESCUDERO Facility:[facility] Start: 07-29-2024 End: 07-29-2024 Subsequent hospital visit by physician Mri 3 [facility] (I-Stat/1.5t/3t) Work Phone: MRI [facility] Comment on above: Elevated prostate sp ecific antigen (PSA) [R97.20] Start: 07-20-2024 End: 07-20-2024 Emergency department patient visit JOHAN Samaniego [facility] Comment on above: Spasm of muscle ([place] jose de jesus Dx); Cervical radiculopathy Start: 04-30-2024 End: 04-30-2024 ambulatory Yevgeniy ESCUDERO Facility:[facility] Start: 04-30-2024 End: 04-30-2024 Lab Drop off Yevgeniy ESCUDERO [facility] Start: 04-30-2024 End: 04-30-2024 ambulatory Yevgeniy ESCUDERO Facility:[facility] [place] Start: 04-30-2024 End: 04-30-2024 Patient encounter procedure Yevgeniy ESCUDERO [facility] Start: 03-14-2024 End: 03-14-2024 Lab Drop off SYLVIE DAVIS [facility] Start: 03-14-2024 ambulatory PA-C SYLVIE DAVIS F acility:[facility] Start: 03-14-2024 End: 03-14-2024 Patient encounter procedure SYLVIE DAVIS [facility] Start: 03-07-2024 End: 03-07-2024 ambulatory PA-C SYLVIE DAVIS Facility[place] [place] Start: 03-07-2024 End: 03-07-2024 Patient encounter procedure SYLVIE DAVIS [facility] Start: 02-29-2024 End: 02-29-2024 ambulatory PA-C SYLVIE DAVIS Facility:[facility] [place] Start: 02-29-2024 End: 02-29-2024 Patient encounter procedure SYLVIE DAVIS [facility] Start: 01-23-2024 End: 01-23-2024 ambulatory Yevgeniy ESCUDERO Facility:[facility] Start: 01-23-2024 End: 01-23-2024 Lab Drop off Yevgeniy ESCUDERO [facility] Start: 01-23-2024 End: 01-23-2024 ambulatory Yevgeniy ESCUDERO Facility:[facility] Start: 01-23-2024 End: 01-23-2024 Patient encounter procedure Yevgeniy ESCUDERO [facility] Start: 01-20-2024 End: 01-20-2024 Emergency department patient visit JOHAN GIBBONS [facility] Start: 01-07-2024 End: 01-07-2024 Emergency department patient visit JOHAN GIBBONS [facility] Comment on above: Fall, initial encoun ter (Primary Dx); Laceration of forehead, initial encounter Start: 10-03-2023 End: 10-03-2023 Lab Drop off Yevgeniy ESCUDERO [facility] Start: 10-03-2023 End: 10-03-2023 ambulatory Yevgeniy ESCUDERO Facility:[facility] Start: 10-03-2023 End: 10-03-2023 Patient encounter procedure Yevgeniy ESCUDERO [facility] Start: 09-01-2023 End: 09-01-2023 ambulatory Yevgeniy Escudero Facility:[facility] Start: 09-01-2023 End: 09-01-2023 ambulatory PHYSICIAN NO [facility] Work Phone: Start: 09-01-2023 End: 09-01-2023 Patient encounter procedure PHYSICIAN NO [facility]-CT Scan Main [place] Work Phone: Start: 08-23-2023 End: 08-23-2023 Lab Drop off Yevgeniy ESCUDERO [facility] Start: 08-23-2023 End: 08-23-2023 ambulatory Yevgeniy ESCUDERO Facility:[facility] Start: 08-23-2023 End: 08-23-2023 Patient encounter procedure Yevgeniy ESCUDERO [facility] Start: 08-16-2023 End: 08-16-2023 ambulatory PA-C SYLVIE DAVIS Facility:[facility] Start: 08-16-2023 End: 08-16-2023 Patient encounter procedure SYLVIE PERSAUDRY [facility] [place] Start: 08-09-2023 End: 08-09-2023 Patient encounter procedure SYLVIE DAVIS [facility] [place] [facility] Start: 08-02-2023 End: 08-02-2023 Patient encounter procedure SYLVIE DAVIS [facility] Start: 07-26-2023 End: 07-26-2023 Patient encounter procedure SYLVIE DAVIS [facility] [place] [facility] Start: 07-19-2023 End: 07-19-2023 Patient encounter procedure SYLVIE PERSAUDRY [facility] [place] Start: 07-12-2023 End: 07-12-2023 Patient encounter procedure SYLVIE PERSAUDRY [facility] [place] [facility] Start: 07-05-2023 End: 07-05-2023 Lab Drop off SYLVIE DAVIS [facility] Start: 05-31-2023 End: 05-31-2023 Patient encounter [facility] Start: 05-10-2023 End: 05-10-2023 Lab Drop off Yevgeniyclaudio ESCUDERO [facility] Start: 05-10-2023 End: 05-10-2023 Patient encounter procedure Yevgeniyclaudio ESCUDERO [facility] Start: 03-14-2023 End: 03-14-2023 ambulatory Yevgeniy Kena Facility:[facility] Start: 03-09-2023 End: 03-09-2023 Lab Drop off SYLVIE DAVIS [facility] Start: 03-09-2023 End: 03-09-2023 Patient encounter procedure Yevgeniy R ESCUDERO [facility] Start: 02-14-2023 End: 02-14-2023 ambulatory Yevgeniy Escudero Facility:[facility] Start: 02-14-2023 End: 02-14-2023 ambulatory PHYSICIAN [facility] Work Phone: Start: 02-14-2023 End: 02-14-2023 Patient encounter procedure PHYSICIAN NO [facility]-CT Scan [facility] Work Phone: Start: 02-01-2023 End: 02-01-2023 Patient encounter procedure Yevgeniyclaudio ESCUDERO [facility] Start: 01-24-2023 End: 01-24-2023 ambulatory PHYSICIAN NO [facility] Work Phone: Start: 01-24-2023 End: 01-24-2023 Departed Referred PHYSICIAN NO [facility]-Lab [facility] Work Phone: Start: 01-12-2023 End: 01-12-2023 ambulatory PHYSICIAN NO [facility] Work Phone: Start: 01-12-2023 End: 01-12-2023 Patient encounter procedure PHYSICIAN NO [facility]-Electrodiagnostic s Work Phone: Start: 01-04-2023 End: 01-04-2023 Lab Drop off Yevgeniy ESCUDERO [facility] Start: 01-04-2023 End: 01-04-2023 Patient encounter procedure Yevgeniy ESCUDERO [facility] Start: 09-20-2022 End: 09-20-2022 Patient encounter procedure Yevgeniy ESCUDERO [facility] Start: 07-15-2022 End: 07-15-2022 Patient encounter procedure Yevgeniy Magen ESCUDERO [facility] Start: 07-12-2022 End: 07-12-2022 Patient encounter procedure Jono PAREDES [facility] Start: 07-05-2022 End: 07-05-2022 Admission to same day surgery center PHYSICIAN NO [facility]-Surgery Center [facility] Start: 07-05-2022 End: 07-05-2022 ambulatory PHYSICIAN NO [facility] Work Phone: Start: 07-01-2022 End: 07-01-2022 ambulatory PHYSICIAN [facility] Work Phone: Start: 07-01-2022 End: 07-01-2022 Patient encounter procedure PHYSICIAN [facility] Start: 06-21-2022 End: 06-21-2022 ambulatory PHYSICIAN NO [facility] Work Phone: Start: 06-21-2022 End: 06-21-2022 Patient encounter procedure PHYSICIAN NO [facility]-Pre-Surgical Testing Start: 05-24-2022 End: 05-24-2022 Patient encounter procedure Yevgeniy ESCUDERO [facility] Start: 05-04-2022 End: 05-04-2022 Patient encounter procedure Yevgeniy ESCUDERO [facility] Start: 04-27-2022 End: 04-27-2022 ambulatory PHYSICIAN NO [facility] Work Phone: Start: 04-27-2022 End: 04-27-2022 Patient encounter procedure PHYSICIAN [facility]-Lab [facility] Start: 04-25-2022 End: 04-25-2022 Emergency department patient visit PHYSICIAN NO [facility]-Emergency Room Procedures Date Procedure Procedure Detail Performing Clinician Start: 08-06-2024 Cystoscopy Yevgeniy HASSAN Start: 04-30-2024 Cystoscopy Yevgeniy HASSAN Start: 01-23-2024 Flexible cystoscope (physical object) Yevgeniy ESCUDERO Start: 01-07-2024 Ct cervical spine w/ o contrast material Yusuf Boss MD Work Phone: Start: 01-07-2024 Ct head/brain w/o co ntrast material Yusuf Boss MD Work Phone: Start: 10-03-2023 Transurethral cystoscopy Yevgeniy ESCUDERO Start: 09-01-2023 CT of thorax with contrast PHYSICIAN TI [facility] Start: 05-25-2023 Transurethral resect ion of bladder neoplasm Yevgeniy ESCUDERO Start: 05-10-2023 Transurethral cystoscopy Yevgeniy ESCUDERO Start: 05-10-2023 Transurethral cystoscopy Yevgeniy ESCUDERO Start: 02-14-2023 CT of urinary tract PHY SICIAN NO FAMILY Start: 01-24-2023 Transurethral resect ion of bladder neoplasm Yevgeniy ESCUDERO Start: 01-12-2023 Plain chest X-ray PHYSI SONALI NO FAMILY Start: 01-04-2023 Cystoscopy Yevgeniy HASSAN Start: 09-20-2022 Cystoscopy Yevgeniy HASSAN Start: 07-05-2022 Cystoscopy and transurethral resection of bladder tumor PHYSICIAN NO FAMILY Start: 07-05-2022 Transurethral resect ion of bladder neoplasm Yevgeniy ESCUDERO Start: 04-25-2022 Plain chest X-ray PHYSI SONALI NO FAMILY Start: 04-25-2022 Computed tomography of abdomen and pelvis with contrast PHYSICIAN NO FAMILY Start: 10-02-2021 Lipid 1996 panel - S ginger or Plasma Mri (I-Stat/1.5t/3t) Work Phone: Post-surgery back pa in (finding) Yevgeniy ESCUDERO SARS Antigen (LFIA) PHYSICIA N NO FAMILY Urine culture PHYSICIAN NO F AMILY Plan of Treatment Date Care Activity Detail Author Start: 2036 Respiratory Syncytial Virus (RSV) or age 60 yrs+ (1 - 1-dose 75+ series) Respiratory Syncytial Virus (RSV) or age 60 yrs+ (1 - 1-dose 75+ series) [facility] Start: 2036 RSV Vaccine (1 - 1-dose 75+ series) RSV Vaccine (1 - 1-dose 75+ series) [facility] Start: 10-02-2026 [facility]id [facility] Start: 10-02-2024 Depression Screen Depression Screen [facility] Start: 10-02-2024 Diabetes Screening Diabetes Screening [facility] Start: 09-04-2024 ambulatory Ambulatory Facility:[facility] Start: 08-29-2024 ambulatory Ambulatory Facility::[id number] Start: 03-17-2024 COVID-19 Vaccine ( season) COVID-19 Vaccine ( season) [facility] Start: 03-17-2024 Covid-19 Vaccine ( season) Covid-19 Vaccine ( season) [facility] Start: 03-17-2024 Influenza vaccination Influenza Vaccine (#1) [facility] Start: 02-15-2024 Influenza vaccination [facility] Start: 07-05-2022 [facility] Start: 07-05-2022 [facility] Start: 07-05-2022 Diagnostic radiography of abdomen [facility] Start: 2021 Respiratory Syncytial Virus (RSV) or age 60 yrs+ (1 - 1-dose 60+ series) Respiratory Syncytial Virus (RSV) or age 60 yrs+ (1 - 1-dose 60+ series) [facility] Start: 2016 Prostate specific antigen measurement Prostate Cancer Screening Discussion [facility] Start: 10-11-2011 Pneumococcal Vaccine: 50+ (1 of 1 - PCV) Pneumococcal Vaccine: 50+ (1 of 1 - PCV) [facility] Start: 10-11-2011 Screening for malignant neoplasm of lung [facility] Start: 10-11-2011 Shingles vaccine (1 of 2) Shingles vaccine (1 of 2) [facility] Start: 10-11-2011 Shingrix Vaccine (1 of 2) Shingrix Vaccine (1 of 2) [facility] Start: 2006 Screening for malignant neoplasm of colon [facility] Start: 05-01-2003 Urine microalbumin profile DTaP,Tdap,Td Vaccine (1 - Tdap) [facility] Start: 1980 DTaP/Tdap/Td vaccine (1 - Tdap) DTaP/Tdap/Td vaccine (1 - Tdap) [facility] Start: 10-11-1979 Anxiety Screening Anxiety Screening [facility] Start: 10-11-1979 Depression Screening Depression Screening [facility] Start: 10-11-1979 Hepatitis C screening [facility] Start: 10-11-1979 HIV screening HIV Screening [facility] Start: 1976 HIV screening HIV screen [facility] Start: 10-11-1967 Pneumococcal 0-64 years Vaccine (1 of 2 - PCV) Pneumococcal 0-64 years Vaccine (1 of 2 - PCV) [facility] Start: 04-12-1962 COVID-19 Vaccine (#1) COVID-19 Vaccine (#1) [facility] Patient Education Bladder Spasms Blood in Urine (Hematuria), Adult ED [facility] Work Phone: Patient referral [facility] Work Phone: Immunizations Immunization Date Immunization Notes Care Provider [facility] 03-14-2024 bacillus calmette-robbie vaccine SYLVIE DAVIS [facility] 03-07-2024 bacillus calmette-robbie vaccine SYLVIE DAVIS [facility] 02-29-2024 bacillus calmette-robbie vaccine SYLVIE DAVIS [facility] 10-03-2023 bacillus calmette-robbie vaccine Yevgeniy ESCUDERO [facility] Comment on above: Early/Late Reason: [place]/Late Reason: Other : wrong provider listed initially 08-23-2023 bacillus calmette-robbie vaccine Yevgeniy ESCUDERO [facility] 08-16-2023 bacillus calmette-robbie vaccine SYLVIE MILLICENT [facility] 08-09-2023 bacillus calmette-robbie vaccine SYLVIE MILLICENT [facility] 08-02-2023 bacillus calmette-robbie vaccine SYLVIE DAVIS [facility] 07-26-2023 bacillus calmette-robbie vaccine SYLVIE DAVIS [facility] 07-19-2023 bacillus calmette-robbie vaccine SYLVIE DAVIS [facility] NEGATED: Highlighted row has not occurred!08-23-2023 influenza virus vaccine, unspecified formulation Yevgeniy ESCUDERO [facility] Payers Date Payer Category Payer Unknown [employer] [place] X [id number] 2024-Present [id number] [id number] [facility] [id number] 2024 Unknown [id number] 2023 Self-pay 2022 Unknown [id number] 1961 Unknown [id number] 1961 Unknown [id number] [id number] 1961 Unknown [id number] [id number] 1961 Unknown [id number] .840.1.465165.3.579.2.727 1961 Unknown [id number] 2.840.1.090367.3.579.272 1961 Unknown [id number] 2.16.840.1.547883.3.579.2.204 1961 Unknown [id number] 2.16.840.1.824262.3.579.2.204 1961 Unknown [id number] 2.16.840.1.950158.3.579.2.727 1961 Unknown [id number] 2.16.840.1.952407.3.579.2.727 1961 Unknown [id number] 2.16.840.1.456134.3.579.2.727 1961 Unknown [id number] 2.16.840.1.001760.3.579.2.727 1961 Unknown [id number] 2.16.840.1.992992.3.579.2.727 1961 Unknown [id number] 2.16.840.1.569183.3.579.2.727 1961 Unknown [id number] 2.16.840.1.491478.3.579.2.727 1961 Unknown [id number] 2.16.840.1.699324.3.579.2.727 1961 Unknown [id number] 2.16.840.1.694470.3.579.2.727 1961 Unknown [id number] 2.16.840.1.412534.3.579.2.727 1961 Unknown [id number] 2.16.840.1.299512.3.579.2.727 Unknown [id number] 2.16.840.1.485372.3.579.2.531 Unknown [id number] 2.16.840.1.178544.3.579.2.531 Unknown [id number] 2.16.840.1.792780.3.579.2.531 Unknown [id number] 2.16.840.1.504079.3.579.2.531 Unknown [id number] 2.16.840.1.466651.3.579.2.531 Social History Date Type Detail Facility Start: 04-25-2022 End: 07-05-2022 Tobacco smoking status NHIS Smoker (finding) [facility] Start: 1960 Sex Assigned At Male [facility] Start: 05-04-2022 Tobacco smoking status Light t obacco smoker (finding) [facility] Tobacco smoking status Never [facility] Start: 10-14-2022 End: 07-20-2024 Sex Assigned At Male [facility] Start: 02-01-2023 End: 08-06-2024 Tobacco smoking status Heavy tobacco smoker (finding) [facility] Start: 10-03-2023 Tobacco smoking stat us NHIS Smokes tobacco daily [employer] History of tobacco use Cigarette Smoker [facility] [employer] Start: 10-14-2022 End: 10-03-2023 Cigarettes smoked current (pack per day) - Reported 2 [employer] Start: 10-03-2023 Tobacco use and exposure Smokeless tobacco non-user Scan Start: 01-07-2024 End: 01-20-2024 Alcoholic beverage intake Current drinker of alcohol (finding) Scan How often to you hav e a drink containing alcohol? Never Bon [employer] (I/We) worried arslan er (my/our) food would run out before (I/we) got money to buy more. Never true Scan Start: 1960 Sex assigned at Not on file [facility] [employer] [facility] consumption unknown [facility] At any time in the p ast 12 months, were you homeless or living in nursing home [including now]? No Scan Goals Date Patient Goal Desired Activity /State Functional Status Date Assessment Result Facility 08-06-2024 Functional Status N/A [facility] 04-30-2024 Functional Status N/A [facility] 03-14-2024 Functional Status N/A [facility] 03-07-2024 Functional Status N/A [facility] 02-29-2024 Functional Status N/A [facility] 01-23-2024 Functional Status N/A [facility] 10-03-2023 Functional Status N/A [facility] 08-23-2023 Functional Status N/A [facility] 08-16-2023 Functional Status N/A [facility] 08-09-2023 Functional Status N/A [facility] 08-02-2023 Functional Status N/A [facility] 07-26-2023 Functional Status N/A [facility] 07-19-2023 Functional Status Yes [facility] 05-31-2023 Functional Status N/A [facility] 05-10-2023 Functional Status N/A [facility] 02-01-2023 Functional Status N/A [facility] 01-04-2023 Functional Status N/A [facility] 09-20-2022 Functional Status N/A [facility] 07-15-2022 Functional Status N/A [facility] 05-12-2022 Functional Status N/A [facility] 05-04-2022 Functional Status N/A [facility] Clinical Notes 05-04-2022 to 08-06-2024 Neli Copeland RN - 07/29/2024 4:20 PM Dre KyungElsa - 07/29/2024 4:20 PM Adrian InstructionsAttachments Note Date & Type Note Facility 08-06-2024 Hospital Discharge instructions Patient Education 08/06/2024 14:15:25 Transurethral Resection of Bladder Tumor Transurethral Resection of Bladder Tumor Transurethral resection of a bladder tumor is the removal (resection) of cancerous tissue (tumor) from the inside wall of the bladder. The bladder is the organ that holds urine. The tumor is removed through the tube that carries urine out of the body (urethra). In a transurethral resection, a thin telescope with a light, a tiny camera, and an electric cutting edge (resectoscope) is passed through the urethra. In men, the opening of the urethra is at the end of the penis. In women, it is just above the opening of the vagina. Tell a health care provider about: Any allergies you have. All medicines you are taking, including vitamins, herbs, eye drops, creams, and ikkg-ztr-irokkin medicines. Any problems you or family members have had with anesthetic medicines. Any bleeding problems you have. Any surgeries you have had. Any medical conditions you have, including recent urinary tract infections. Whether you are or may be . What are the risks? Generally, this is a safe procedure. However, problems may occur, including: Infection. Bleeding. Allergic reactions to medicines. Damage to nearby structures or organs. Difficulty urinating from blockage of the urethra or not being able to urinate (urinary retention). Deep vein thrombosis. This is a blood clot that can develop in your leg. Recurring cancer. What happens before the procedure? When to stop eating and drinking Follow instructions from your health care provider about what you may eat and drink before your procedure. These may include: 8 hours before your procedure ?Stop eating most foods. Do not eat meat, fried foods, or fatty foods. ?Eat only light foods, such as toast or crackers. ?All liquids are okay except energy drinks and alcohol. 6 hours before your procedure ?Stop eating. ?Drink only clear liquids, such as water, clear fruit juice, black coffee, plain tea, and sports drinks. ?Do not drink energy drinks or alcohol. 2 hours before your procedure ?Stop drinking all liquids. ?You may be allowed to take medicines with small sips of water. Medicines Ask your health care provider about: Changing or stopping your regular medicines. This is especially important if you are taking diabetes medicines or blood thinners. Taking medicines such as aspirin and ibuprofen. These medicines can thin your blood. Do not take these medicines unless your health care provider tells you to take them. Taking gzoz-lcq-cjjebmk medicines, vitamins, herbs, and supplements. General instructions If you will be going home right after the procedure, plan to have a responsible adult: ?Take you home from the hospital or clinic. You will not be allowed to drive. ?Care for you for the time you are told. Ask your health care provider what steps will be taken to help prevent infection. These steps may include: ? Washing skin with a germ-killing soap. ? Taking antibiotic medicine. Do not use any products that contain nicotine or tobacco for at least 4 weeks before the procedure. These products include cigarettes, chewing tobacco, and vaping devices, such as e-cigarettes. If you need help quitting, ask your health care provider. What happens during the procedure? An IV will be inserted into one of your veins. You will be given one or more of the following: ?A medicine to help you relax (sedative). ?A medicine that is injected into your spine to numb the area below and slightly above the injection site (spinal anesthetic). ?A medicine that is injected into an area of your body to numb everything below the injection site (regional anesthetic). ?A medicine to make you fall asleep (general anesthetic). Your legs will be placed in foot rests (stirrups) to open your legs and bend your knees. The resectoscope will be passed through your urethra and into your bladder. The part of your bladder with the tumor will be resected by the cutting edge of the resectoscope. Fluid will be passed to rinse out the cut tissues (irrigation). The resectoscope will then be taken out. A small, thin tube (catheter) will be passed through your urethra and into your bladder. The catheter will drain urine into a bag outside of your body. The procedure may vary among health care providers and hospitals. What happens after the procedure? Your blood pressure, heart rate, breathing rate, and blood oxygen level will be monitored until you leave the hospital or clinic. You may continue to receive fluids and medicines through an IV. You will be given pain medicine to relieve pain. You will have a catheter to drain your urine. ?The amount of urine will be measured. If you have blood in your urine, your bladder may be rinsed out by passing fluid through your catheter. You will be encouraged to walk as soon as you can. You may have to wear compression stockings. These stockings help to prevent blood clots and reduce swelling in your legs. If you were given a sedative during the procedure, it can affect you for several hours. Do not drive or operate machinery until your health care provider says that it is safe. Summary Transurethral resection of a bladder tumor is the removal (resection) of a cancerous growth (tumor) on the inside wall of the bladder. To do this procedure, your health care provider uses a thin telescope with a light, a tiny camera, and an electric cutting edge (resectoscope) that is guided to your bladder through your urethra. The part of your bladder that is affected by the tumor will be resected by the cutting edge of the resectoscope. A catheter will be passed through your urethra and into your bladder. The catheter will drain urine into a bag outside of your body. If you will be going home right after the procedure, plan to have a responsible adult take you home from the hospital or clinic. You will not be allowed to drive. This information is not intended to replace advice given to you by your health care provider. Make sure you discuss any questions you have with your health care provider. Document Revised: 07/08/2022 Document Reviewed: 07/08/2022 [employer] Patient Education 2023 [employer]. 08/06/2024 13:57:27 Prostate Cancer Screening Prostate Cancer Screening Prostate cancer screening is testing that is done to check for the presence of prostate cancer in men. The prostate gland is a walnut-sized gland that is located below the bladder and in front of the rectum in males. The function of the prostate is to add fluid to semen during ejaculation. Prostate cancer is one of the most common types of cancer in men. Who should have prostate cancer screening? Screening recommendations vary based on age and other risk factors, as well as between the professional organizations who make the recommendations. In general, screening is recommended if: You are age 50 to 70 and have an average risk for prostate cancer. You should talk with your health care provider about your need for screening and how often screening should be done. Because most prostate cancers are slow growing and will not cause , screening in this age group is generally reserved for men who have a 10- to 15-year life expectancy. You are younger than age 50, and you have these risk factors: ?Having a father, brother, or uncle who has been diagnosed with prostate cancer. The risk is higher if your family member's cancer occurred at an early age or if you have multiple family members with prostate cancer at an early age. ?Being a male who is Black or is of [place] or sub-Saharan descent. In general, screening is not recommended if: You are younger than age 40. You are between the ages of 40 and 49 and you have no risk factors. You are 70 years of age or older. At this age, the risks that screening can cause are greater than the benefits that it may provide. If you are at high risk for prostate cancer, your health care provider may recommend that you have screenings more often or that you start screening at a younger age. How is screening for prostate cancer done? The recommended prostate cancer screening test is a blood test called the prostate-specific antigen (PSA) test. PSA is a protein that is made in the prostate. As you age, your prostate naturally produces more PSA. Abnormally high PSA levels may be caused by: Prostate cancer. An enlarged prostate that is not caused by cancer (benign prostatic hyperplasia, or BPH). This condition is very common in older men. A prostate gland infection (prostatitis) or urinary tract infection. Certain medicines such as male hormones (like testosterone) or other medicines that raise testosterone levels. A rectal exam may be done as part of prostate cancer screening to help provide information about the size of your prostate gland. When a rectal exam is performed, it should be done after the PSA level is drawn to avoid any effect on the results. Depending on the PSA results, you may need more tests, such as: A physical exam to check the size of your prostate gland, if not done as part of screening. Blood and imaging tests. A procedure to remove tissue samples from your prostate gland for testing (biopsy). This is the only way to know for certain if you have prostate cancer. What are the benefits of prostate cancer screening? Screening can help to identify cancer at an early stage, before symptoms start and when the cancer can be treated more easily. There is a small chance that screening may lower your risk of dying from prostate cancer. The chance is small because prostate cancer is a slow-growing cancer, and most men with prostate cancer from a different cause. What are the risks of prostate cancer screening? The main risk of prostate cancer screening is diagnosing and treating prostate cancer that would never have caused any symptoms or problems. This is called overdiagnosisand overtreatment. PSA screening cannot tell you if your PSA is high due to cancer or a different cause. A prostate biopsy is the only procedure to diagnose prostate cancer. Even the results of a biopsy may not tell you if your cancer needs to be treated. Slow-growing prostate cancer may not need any treatment other than monitoring, so diagnosing and treating it may cause unnecessary stress or other side effects. Questions to ask your health care provider When should I start prostate cancer screening? What is my risk for prostate cancer? How often do I need screening? What type of screening tests do I need? How do I get my test results? What do my results mean? Do I need treatment? Where to find more information The [place] [employer]: www.cancer.org [place] [employer]: www.auanet.org Contact a health care provider if: You have difficulty urinating. You have pain when you urinate or ejaculate. You have blood in your urine or semen. You have pain in your back or in the area of your prostate. Summary Prostate cancer is a common type of cancer in men. The prostate gland is located below the bladder and in front of the rectum. This gland adds fluid to semen during ejaculation. Prostate cancer screening may identify cancer at an early stage, when the cancer can be treated more easily and is less likely to have spread to other areas of the body. The prostate-specific antigen (PSA) test is the recommended screening test for prostate cancer, but it has associated risks. Discuss the risks and benefits of prostate cancer screening with your health care provider. If you are age 70 or older, the risks that screening can cause are greater than the benefits that it may provide. This information is not intended to replace advice given to you by your health care provider. Make sure you discuss any questions you have with your health care provider. Document Revised: 12/27/2021 Document Reviewed: 12/27/2021 [employer] Patient Education 2023 [employer]. Follow Up Care 05/23/2024 14:06:23 With:KENA ESPARZA, Yevgeniy Us, URL Address: [facility] [address] [place] [address]- When: Unknown Comments:Schedule TURBT [facility] 08-06-2024 Note Patient Education Oncology Transurethral Resection of Bladder Tumor Transurethral resection of a bladder tumor is the removal (resection) of cancerous tissue (tumor) from the inside wall of the bladder. The bladder is the organ that holds urine. The tumor is removed through the tube that carries urine out of the body (urethra). In a transurethral resection, a thin telescope with a light, a tiny camera, and an electric cutting edge (resectoscope) is passed through the urethra. In men, the opening of the urethra is at the end of the penis. In women, it is just above the opening of the vagina. Tell a health care provider about: ??? Any allergies you have. ??? All medicines you are taking, including vitamins, herbs, eye drops, creams, and mhej-zjf-sxoffpk medicines. ??? Any problems you or family members have had with anesthetic medicines. ??? Any bleeding problems you have. ??? Any surgeries you have had. ??? Any medical conditions you have, including recent urinary tract infections. ??? Whether you are or may be . What are the risks? Generally, this is a safe procedure. However, problems may occur, including: ??? Infection. ??? Bleeding. ??? Allergic reactions to medicines. ??? Damage to nearby structures or organs. ??? Difficulty urinating from blockage of the urethra or not being able to urinate (urinary retention). ??? Deep vein thrombosis. This is a blood clot that can develop in your leg. ??? Recurring cancer. What happens before the procedure? When to stop eating and drinking Follow instructions from your health care provider about what you may eat and drink before your procedure. These may include: ??? 8 hours before your procedure ? Stop eating most foods. Do not eat meat, fried foods, or fatty foods. ? Eat only light foods, such as toast or crackers. ? All liquids are okay except energy drinks and alcohol. ??? 6 hours before your procedure ? Stop eating. ? Drink only clear liquids, such as water, clear fruit juice, black coffee, plain tea, and sports drinks. ? Do not drink energy drinks or alcohol. ??? 2 hours before your procedure ? Stop drinking all liquids. ? You may be allowed to take medicines with small sips of water. Medicines Ask your health care provider about: ??? Changing or stopping your regular medicines. This is especially important if you are taking diabetes medicines or blood thinners. ??? Taking medicines such as aspirin and ibuprofen. These medicines can thin your blood. Do not take these medicines unless your health care provider tells you to take them. ??? Taking xvns-smk-cxvnuzy medicines, vitamins, herbs, and supplements. General instructions ??? If you will be going home right after the procedure, plan to have a responsible adult: ? Take you home from the hospital or clinic. You will not be allowed to drive. ? Care for you for the time you are told. ??? Ask your health care provider what steps will be taken to help prevent infection. These steps may include: ? Washing skin with a germ-killing soap. ? Taking antibiotic medicine. ??? Do not use any products that contain nicotine or tobacco for at least 4 weeks before the procedure. These products include cigarettes, chewing tobacco, and vaping devices, such as e-cigarettes. If you need help quitting, ask your health care provider. What happens during the procedure? An IV will be inserted into one of your veins. ??? You will be given one or more of the following: ? A medicine to help you relax (sedative). ? A medicine that is injected into your spine to numb the area below and slightly above the injection site (spinal anesthetic). ? A medicine that is injected into an area of your body to numb everything below the injection site (regional anesthetic). ? A medicine to make you fall asleep (general anesthetic). ??? Your legs will be placed in foot rests (stirrups) to open your legs and bend your knees. ??? The resectoscope will be passed through your urethra and into your bladder. ??? The part of your bladder with the tumor will be resected by the cutting edge of the resectoscope. ??? Fluid will be passed to rinse out the cut tissues (irrigation). ??? The resectoscope will then be taken out. ??? A small, thin tube (catheter) will be passed through your urethra and into your bladder. The catheter will drain urine into a bag outside of your body. The procedure may vary among health care providers and hospitals. What happens after the procedure? Your blood pressure, heart rate, breathing rate, and blood oxygen level will be monitored until you leave the hospital or clinic. ??? You may continue to receive fluids and medicines through an IV. ??? You will be given pain medicine to relieve pain. ??? You will have a catheter to drain your urine. ? The amount of urine will be measured. If you have blood in your urine, your bladder may be rinsed o (more content not included)... [facility] 07-29-2024 History of Present illness Narrative Radiology Service Progress Note DATE OF SERVICE: July 29, 2024 TIME: 4:02 PM PATIENT WEIGHT: 200 LBS PATIENT IDENTITY VERIFICATION COMPLETED USING TWO (2) STANDARD IDENTIFIERS: Name and Date of confirmed by patient verbally and Name and Date of confirmed by identification band. FALL SCREENING: Has the patient had 2 falls in the last year or 1 fall with injury or currently using an Ambulatory Assistive Device (Walker, Cane, Wheelchair, Crutches, etc.)? No PATIENT GENDER DATA: Assigned male at ALLERGIES: Reviewed and unchanged CONTRAST ALLERGY: No EXAM: MRI - CONTRAST TYPE: GROUP II IV SITE: Ambulatory: A peripheral IV was started in the Right antecubital site with a Angio cath: 22 gauge. IV SITE APPEARANCE: Clean,Dry and Intact SIGNATURE: Neli Copeland RN PATIENT NAME: Tiki Ruggiero DATE: July 29, 2024 TIME: 4:02 PM Radiology Service Progress Note PATIENT NAME: Tiki Ruggiero DATE OF SERVICE: July 29, 2024 TIME: 4:39 PM PATIENT IDENTITY VERIFICATION COMPLETED USING TWO (2) IDENTIFIERS: Name and Date of confirmed by patient verbally and Name and Date of confirmed by identification band. FALL SCREENING: Has the patient had 2 falls in the last year or 1 fall with injury or currently using an Ambulatory Assistive Device (Walker, Cane, Wheelchair, Crutches, etc.)? No PATIENT GENDER DATA: Assigned male at PATIENT RELEVANT IMPLANT DATA REVIEWED: Yes PATIENT PRESENTS WITH AN IMPLANTABLE OR ATTACHED SHEET LAYER: No RADIOLOGY DEPARTMENT: MR; Exam(s) Completed: Body: Prostate PERIPHERAL IV DATA: Site assessment: Clean,Dry and Intact, Site disposition Discontinued SIGNED BY: Elsa Wheatley July 29, 2024 4:39 PM documented in this encounter [facility] 07-29-2024 Note HNO ID: [id number] Author: KYUNG DUQUE Tech Service: ? Author Type: Passenger Car Inspector Type: Progress Notes Filed: 07/29/2024 16:40 Note Text: Radiology Service Progress Note PATIENT NAME: Tiki Ruggiero DATE OF SERVICE: July 29, 2024 TIME: 4:39 PM PATIENT IDENTITY VERIFICATION COMPLETED USING TWO (2) IDENTIFIERS: Name and Date of confirmed by patient verbally and Name and Date of confirmed by identification band. FALL SCREENING: Has the patient had 2 falls in the last year or 1 fall with injury or currently using an Ambulatory Assistive Device (Walker, Cane, Wheelchair, Crutches, etc.)? No PATIENT GENDER DATA: Assigned male at PATIENT RELEVANT IMPLANT DATA REVIEWED: Yes PATIENT PRESENTS WITH AN IMPLANTABLE OR ATTACHED SHEET LAYER: No RADIOLOGY DEPARTMENT: MR; Exam(s) Completed: Body: Prostate PERIPHERAL IV DATA: Site assessment: Clean,Dry and Intact, Site disposition Discontinued SIGNED BY: Elsa Wheatley July 29, 2024 4:39 PM [facility] 07-29-2024 Note HNO ID: [id number] Author: NELI COPELAND RN Service: Nursing Author Type: Registered Nurse Type: Progress Notes Filed: 07/29/2024 16:25 Note Text: Radiology Service Progress Note DATE OF SERVICE: July 29, 2024 TIME: 4:02 PM PATIENT WEIGHT: 200 LBS PATIENT IDENTITY VERIFICATION COMPLETED USING TWO (2) STANDARD IDENTIFIERS: Name and Date of confirmed by patient verbally and Name and Date of confirmed by identification band. FALL SCREENING: Has the patient had 2 falls in the last year or 1 fall with injury or currently using an Ambulatory Assistive Device (Walker, Cane, Wheelchair, Crutches, etc.)? No PATIENT GENDER DATA: Assigned male at ALLERGIES: Reviewed and unchanged CONTRAST ALLERGY: No EXAM: MRI - CONTRAST TYPE: GROUP II IV SITE: Ambulatory: A peripheral IV was started in the Right antecubital site with a Angio cath: 22 gauge. IV SITE APPEARANCE: Clean,Dry and Intact SIGNATURE: Neli Copeland RN PATIENT NAME: Tiik Ruggiero DATE: July 29, 2024 TIME: 4:02 PM [facility] 04-30-2024 Hospital Discharge instructions Patient Education 04/30/2024 13:21:51 Prostate Cancer Screening Prostate Cancer Screening Prostate cancer screening is testing that is done to check for the presence of prostate cancer in men. The prostate gland is a walnut-sized gland that is located below the bladder and in front of the rectum in males. The function of the prostate is to add fluid to semen during ejaculation. Prostate cancer is one of the most common types of cancer in men. Who should have prostate cancer screening? Screening recommendations vary based on age and other risk factors, as well as between the professional organizations who make the recommendations. In general, screening is recommended if: You are age 50 to 70 and have an average risk for prostate cancer. You should talk with your health care provider about your need for screening and how often screening should be done. Because most prostate cancers are slow growing and will not cause , screening in this age group is generally reserved for men who have a 10- to 15-year life expectancy. You are younger than age 50, and you have these risk factors: ?Having a father, brother, or uncle who has been diagnosed with prostate cancer. The risk is higher if your family member's cancer occurred at an early age or if you have multiple family members with prostate cancer at an early age. ?Being a male who is Black or is of [place] or sub-Saharan descent. In general, screening is not recommended if: You are younger than age 40. You are between the ages of 40 and 49 and you have no risk factors. You are 70 years of age or older. At this age, the risks that screening can cause are greater than the benefits that it may provide. If you are at high risk for prostate cancer, your health care provider may recommend that you have screenings more often or that you start screening at a younger age. How is screening for prostate cancer done? The recommended prostate cancer screening test is a blood test called the prostate-specific antigen (PSA) test. PSA is a protein that is made in the prostate. As you age, your prostate naturally produces more PSA. Abnormally high PSA levels may be caused by: Prostate cancer. An enlarged prostate that is not caused by cancer (benign prostatic hyperplasia, or BPH). This condition is very common in older men. A prostate gland infection (prostatitis) or urinary tract infection. Certain medicines such as male hormones (like testosterone) or other medicines that raise testosterone levels. A rectal exam may be done as part of prostate cancer screening to help provide information about the size of your prostate gland. When a rectal exam is performed, it should be done after the PSA level is drawn to avoid any effect on the results. Depending on the PSA results, you may need more tests, such as: A physical exam to check the size of your prostate gland, if not done as part of screening. Blood and imaging tests. A procedure to remove tissue samples from your prostate gland for testing (biopsy). This is the only way to know for certain if you have prostate cancer. What are the benefits of prostate cancer screening? Screening can help to identify cancer at an early stage, before symptoms start and when the cancer can be treated more easily. There is a small chance that screening may lower your risk of dying from prostate cancer. The chance is small because prostate cancer is a slow-growing cancer, and most men with prostate cancer from a different cause. What are the risks of prostate cancer screening? The main risk of prostate cancer screening is diagnosing and treating prostate cancer that would never have caused any symptoms or problems. This is called overdiagnosisand overtreatment. PSA screening cannot tell you if your PSA is high due to cancer or a different cause. A prostate biopsy is the only procedure to diagnose prostate cancer. Even the results of a biopsy may not tell you if your cancer needs to be treated. Slow-growing prostate cancer may not need any treatment other than monitoring, so diagnosing and treating it may cause unnecessary stress or other side effects. Questions to ask your health care provider When should I start prostate cancer screening? What is my risk for prostate cancer? How often do I need screening? What type of screening tests do I need? How do I get my test results? What do my results mean? Do I need treatment? Where to find more information The [place] [employer]: www.cancer.org [place] [employer]: www.auanet.org Contact a health care provider if: You have difficulty urinating. You have pain when you urinate or ejaculate. You have blood in your urine or semen. You have pain in your back or in the area of your prostate. Summary Prostate cancer is a common type of cancer in men. The prostate gland is located below the bladder and in front of the rectum. This gland adds fluid to semen during ejaculation. Prostate cancer screening may identify cancer at an early stage, when the cancer can be treated more easily and is less likely to have spread to other areas of the body. The prostate-specific antigen (PSA) test is the recommended screening test for prostate cancer, but it has associated risks. Discuss the risks and benefits of prostate cancer screening with your health care provider. If you are age 70 or older, the risks that screening can cause are greater than the benefits that it may provide. This information is not intended to replace advice given to you by your health care provider. Make sure you discuss any questions you have with your health care provider. Document Revised: 12/27/2021 Document Reviewed: 12/27/2021 [employer] Patient Education 2023 [employer] [place]. Follow Up Care 03/28/2024 11:25:46 With:KENA ESPARZA, Yevgeniy Us, URL Address: [facility] [address] , [place] [address]- When: Unknown [facility] 04-30-2024 Evaluation + Plan note Diagnostic Tests [facility] 04/30/24 [facility] 04-30-2024 Note Patient Education Oncology Prostate Cancer Screening Prostate cancer screening is testing that is done to check for the presence of prostate cancer in men. The prostate gland is a walnut-sized gland that is located below the bladder and in front of the rectum in males. The function of the prostate is to add fluid to semen during ejaculation. Prostate cancer is one of the most common types of cancer in men. Who should have prostate cancer screening? Screening recommendations vary based on age and other risk factors, as well as between the professional organizations who make the recommendations. In general, screening is recommended if: ? You are age 50 to 70 and have an average risk for prostate cancer. You should talk with your health care provider about your need for screening and how often screening should be done. Because most prostate cancers are slow growing and will not cause , screening in this age group is generally reserved for men who have a 10- to 15-year life expectancy. ? You are younger than age 50, and you have these risk factors: ? Having a father, brother, or uncle who has been diagnosed with prostate cancer. The risk is higher if your family member's cancer occurred at an early age or if you have multiple family members with prostate cancer at an early age. ? Being a male who is Black or is of [place] or sub-Saharan descent. In general, screening is not recommended if: ? You are younger than age 40. ? You are between the ages of 40 and 49 and you have no risk factors. ? You are 70 years of age or older. At this age, the risks that screening can cause are greater than the benefits that it may provide. If you are at high risk for prostate cancer, your health care provider may recommend that you have screenings more often or that you start screening at a younger age. How is screening for prostate cancer done? The recommended prostate cancer screening test is a blood test called the prostate-specific antigen (PSA) test. PSA is a protein that is made in the prostate. As you age, your prostate naturally produces more PSA. Abnormally high PSA levels may be caused by: ? Prostate cancer. ? An enlarged prostate that is not caused by cancer (benign prostatic hyperplasia, or BPH). This condition is very common in older men. ? A prostate gland infection (prostatitis) or urinary tract infection. ? Certain medicines such as male hormones (like testosterone) or other medicines that raise testosterone levels. A rectal exam may be done as part of prostate cancer screening to help provide information about the size of your prostate gland. When a rectal exam is performed, it should be done after the PSA level is drawn to avoid any effect on the results. Depending on the PSA results, you may need more tests, such as: ? A physical exam to check the size of your prostate gland, if not done as part of screening. ? Blood and imaging tests. ? A procedure to remove tissue samples from your prostate gland for testing (biopsy). This is the only way to know for certain if you have prostate cancer. What are the benefits of prostate cancer screening? ? Screening can help to identify cancer at an early stage, before symptoms start and when the cancer can be treated more easily. ? There is a small chance that screening may lower your risk of dying from prostate cancer. The chance is small because prostate cancer is a slow-growing cancer, and most men with prostate cancer from a different cause. What are the risks of prostate cancer screening? The main risk of prostate cancer screening is diagnosing and treating prostate cancer that would never have caused any symptoms or problems. This is called overdiagnosisand overtreatment. PSA screening cannot tell you if your PSA is high due to cancer or a different cause. A prostate biopsy is the only procedure to diagnose prostate cancer. Even the results of a biopsy may not tell you if your cancer needs to be treated. Slow-growing prostate cancer may not need any treatment other than monitoring, so diagnosing and treating it may cause unnecessary stress or other side effects. Questions to ask your health care provider ? When should I start prostate cancer screening? ? What is my risk for prostate cancer? ? How often do I need screening? ? What type of screening tests do I need? ? How do I get my test results? ? What do my results mean? ? Do I need treatment? Where to find more information ? The [place] [employer]: www.cancer.org ? [place] [employer]: www.auanet.org Contact a health care provider if: ? You have difficulty urinating. ? You have pain when you urinate or ejaculate. ? You have blood in your urine or semen. ? You have pain in your back or in the area of your prostate. Summary ? Prostate cancer is a common type of cancer in men. The prostate gland is located below the bladder and in front of the rectum. (more content not included)... [facility] 03-14-2024 Hospital Discharge instructions Patient Education 03/14/2024 13:47:33 Urinary Tract Infection, Adult Urinary Tract Infection, Adult A urinary tract infection (UTI) is an infection of any part of the urinary tract. The urinary tract includes the kidneys, ureters, bladder, and urethra. These organs make, store, and get rid of urine in the body. An upper UTI affects the ureters and kidneys. A lower UTI affects the bladder and urethra. What are the causes? Most urinary tract infections are caused by bacteria in your genital area around your urethra, where urine leaves your body. These bacteria grow and cause inflammation of your urinary tract. What increases the risk? You are more likely to develop this condition if: You have a urinary catheter that stays in place. You are not able to control when you urinate or have a bowel movement (incontinence). You are female and you: ?Use a spermicide or diaphragm for control. ?Have low estrogen levels. ?Are . You have certain genes that increase your risk. You are sexually active. You take antibiotic medicines. You have a condition that causes your flow of urine to slow down, such as: ?An enlarged prostate, if you are male. ?Blockage in your urethra. ?A kidney stone. ?A nerve condition that affects your bladder control (neurogenic bladder). ?Not getting enough to drink, or not urinating often. You have certain medical conditions, such as: ?Diabetes. ?A weak disease-fighting system (immunesystem). ?Sickle cell disease. ?Gout. ?Spinal cord injury. What are the signs or symptoms? Symptoms of this condition include: Needing to urinate right away (urgency). Frequent urination. This may include small amounts of urine each time you urinate. Pain or burning with urination. Blood in the urine. Urine that smells bad or unusual. Trouble urinating. Cloudy urine. Vaginal discharge, if you are female. Pain in the abdomen or the lower back. You may also have: Vomiting or a decreased appetite. Confusion. Irritability or tiredness. A fever or chills. Diarrhea. The first symptom in older adults may be confusion. In some cases, they may not have any symptoms until the infection has worsened. How is this diagnosed? This condition is diagnosed based on your medical history and a physical exam. You may also have other tests, including: Urine tests. Blood tests. Tests for STIs (sexually transmitted infections). If you have had more than one UTI, a cystoscopy or imaging studies may be done to determine the cause of the infections. How is this treated? Treatment for this condition includes: Antibiotic medicine. Gcda-jfd-fwciyrm medicines to treat discomfort. Drinking enough water to stay hydrated. If you have frequent infections or have other conditions such as a kidney stone, you may need to see a health care provider who specializes in the urinary tract (urologist). In rare cases, urinary tract infections can cause sepsis. Sepsis is a life-threatening condition that occurs when the body responds to an infection. Sepsis is treated in the hospital with IV antibiotics, fluids, and other medicines. Follow these instructions at home: Medicines Take zjrt-epb-ofudsjr and prescription medicines only as told by your health care provider. If you were prescribed an antibiotic medicine, take it as told by your health care provider. Do not stop using the antibiotic even if you start to feel better. General instructions Make sure you: ?Empty your bladder often and completely. Do not hold urine for long periods of time. ?Empty your bladder after sex. ?Wipe from front to back after urinating or having a bowel movement if you are female. Use each tissue only one time when you wipe. Drink enough fluid to keep your urine pale yellow. Keep all follow-up visits. This is important. Contact a health care provider if: Your symptoms do not get better after 1 2 days. Your symptoms go away and then return. Get help right away if: You have severe pain in your back or your lower abdomen. You have a fever or chills. You have nausea or vomiting. Summary A urinary tract infection (UTI) is an infection of any part of the urinary tract, which includes the kidneys, ureters, bladder, and urethra. Most urinary tract infections are caused by bacteria in your genital area. Treatment for this condition often includes antibiotic medicines. If you were prescribed an antibiotic medicine, take it as told by your health care provider. Do not stop using the antibiotic even if you start to feel better. Keep all follow-up visits. This is important. This information is not intended to replace advice given to you by your health care provider. Make sure you discuss any questions you have with your health care provider. Document Revised: 02/12/2021 Document Reviewed: 02/12/2021 [employer] Patient Education 2022 [employer]. 03/14/2024 13:47:29 Bladder Cancer Bladder Cancer Bladder cancer is a condition where abnormal tissue (a tumor) grows in the bladder. The bladder is the organ that holds urine. Two tubes (ureters) carry urine from the kidneys to the bladder. The bladder wall is made of layers of tissue. Cancer that spreads through these layers of the bladder wall becomes more difficult to treat. What increases the risk? The following factors may make you more likely to develop this condition: Smoking. Working where there are risks (occupational exposures), such as working with rubber, leather, clothing fabric, dyes, chemicals, or paint. Being 55 years of age or older. Being male. Having long-term bladder inflammation. Having a history of cancer. This includes: ?A family history of bladder cancer. ?Having had bladder cancer before. ?Having had certain treatments for cancer before, such as: ?Medicines to kill cancer cells (chemotherapy). ?Strong X-ray beams or high-energy capsules to kill cancer cells and shrink tumors (radiation therapy). Having been exposed to arsenic. This is a poisonous substance. What are the signs or symptoms? Early symptoms of this condition include: Blood in your urine. Pain when urinating. Infections of your urinary system (urinary tract infections or UTIs) that happen often. Having to urinate sooner or more often than normal. Late symptoms of this condition include: Not being able to urinate. Pain on one side of your lower back. Loss of appetite. Weight loss. Tiredness (fatigue). Swelling in your feet. Bone pain. How is this diagnosed? This condition is diagnosed based on: Your medical history. A physical exam. Lab tests, such as urine tests. Imaging tests. Your symptoms. You may also have other tests or procedures, such as: A cystoscopy. This involves putting a narrow tube into your urethra. The urethra is the organ that carries urine from your bladder to the outside of your body. This procedure is done to view the lining of your bladder for tumors. A biopsy. This involves removing a tissue sample to look at under a microscope to check for cancer. Blood tests or imaging tests may be needed. These show how far into the bladder wall cancer has grown, and if cancer has spread to any other parts of your body. Tests may include: CT scan. MRI. Bone scan. X-ray. How is this treated? Your health care provider may recommend one or more types of treatment based on the stage of your cancer. The most common treatments are: Surgery to remove the cancer. Types of surgeries include: ?Removing a tumor on the inside wall of the bladder (transurethral resection). ?Removing the bladder (cystectomy). Radiation therapy. This is often combined with chemotherapy. Chemotherapy. Immunotherapy. This uses medicines to help your body's disease-fighting system (immune system) destroy cancer cells. Follow these instructions at home: Take piap-rok-aavblnl and prescription medicines only as told by your health care provider. If you were prescribed an antibiotic medicine, take it as told by your health care provider. Do not stop using the antibiotic even if you start to feel better. Eat a healthy diet. Some treatments might affect your appetite. Do not use any products that contain nicotine or tobacco. These products include cigarettes, chewing tobacco, and vaping devices, such as e-cigarettes. If you need help quitting, ask your health care provider. Consider joining a support group. This may help you learn to deal with the stress of having bladder cancer. Tell your cancer care team if you develop side effects. Your team may be able to recommend ways to get relief. Keep all follow-up visits. This is important. Where to find more information [employer] [employer] (ACS): cancer.org National Cancer [place] (NCI): cancer.gov Contact a health care provider if: You have symptoms of a UTI. These include: ?Fever. ?Chills. ?Weakness. ?Muscle aches. ?Pain in your abdomen. ?Urge to urinate that is stronger and happens more often than normal. ?Burning in the bladder or urethra when you urinate. Get help right away if: There is blood in your urine. You cannot urinate. You have severe pain or other symptoms that do not go away. Summary Bladder cancer is a condition where tumors grow in the bladder. Diagnosis is based on your medical history, a physical exam, lab tests, imaging tests, and your symptoms. Your health care provider may recommend one or more types of treatment based on the stage of your cancer. Consider joining a support group. This may help you learn to deal with the stress of having bladder cancer. This information is not intended to replace advice given to you by your health care provider. Make sure you discuss any questions you have with your health care provider. Document Revised: 06/13/2022 Document Reviewed: 06/13/2022 [employer] Patient Education 2022 [employer]. Follow Up Care 02/20/2024 16:13:22 With:KENA ESPARZA, Yevgeniy Us, URL Address: [facility] [address] , [place] [phone] When: Unknown Comments:sched surveillance cysto 04/2024 [facility] 03-14-2024 Evaluation + Plan note Diagnostic Tests PendingUrine Culture 03/14/24 [facility] 03-07-2024 Hospital Discharge instructions Patient Education 03/07/2024 13:04:47 Cancer Screening for Men Cancer Screening for Men A cancer screening is a test or exam that checks for cancer. Your health care provider will recommend specific cancer screenings based on your age, medical history (including risk factors), and family history of cancer. Work with your health care provider to create a cancer screening schedule that protects your health. Who should have screening? All men should be considered for screening of certain cancers, including colorectal cancer, prostate cancer, lung cancer, and skin cancer. Your health care provider may recommend screenings for other types of cancer if: You had cancer before. You have a family member with cancer. You have abnormal genes that could increase the risk of cancer. You have risk factors for certain cancers, such as current or past use of tobacco products, or being overweight. When you should be screened for cancer depends on: Your age. Your medical history and your family's medical history. Certain lifestyle factors, such as smoking or other use of tobacco products. Environmental exposure, such as to asbestos. How is screening done? Colorectal cancer All adults should have screenings starting at age 45 and continuing until age 75. Your health care provider may recommend screening before age 45. You will have tests every 1 10 years, depending on your results and the type of screening test. People at increased risk should start screening at an earlier age. Talk with your health care provider about which screening test is right for you and how often you should be screened. Colorectal cancer screening looks for cancer or for growths called polyps that often form before cancer starts. Tests to look for cancer or polyps include: Colonoscopy or flexible sigmoidoscopy. For these procedures, a flexible tube with a small camera is inserted into the rectum. CT colonography. This test uses X-rays and a contrast dye to check the colon for polyps. If a polyp is found, you may need to have a colonoscopy so the polyp can be located and removed. Tests to look for cancer in the stool (feces) include: Guaiac-based fecal occult blood test (FOBT). This test can find blood in stool. It can be done at home with a kit. Fecal immunochemical test (FIT). This test can find blood in stool. For this test, you will need to collect stool samples at home. Stool DNA test. This test looks for blood in stool and any changes in DNA that can lead to colon cancer. For this test, you will need to collect a stool sample at home and send it to a lab. Prostate cancer Prostate cancer screening for men with average risk may start at age 50. Men with risk factors may need to be screened earlier, at ages 40 45. Talk with your health care provider about whether screening is right for you and, if so, how often you should be screened. Prostate cancer screening is done with blood tests and a digital rectal exam. During this exam, a health care provider uses a gloved finger to check prostate size. You may need to be screened for prostate cancer if: You have risk factors for prostate cancer, such as being or having a close family member with prostate cancer. You have had gene changes or a genetic condition that was passed on to you from a parent (inherited). These gene changes or genetic conditions include BRCA1 or BRCA2 gene mutations or Archuleta syndrome. You have symptoms of prostate cancer, such as problems urinating or problems getting or keeping an erection (erectile dysfunction). When you have been screened for prostate cancer, future screening may be recommended based on the results of your blood tests. Lung cancer Lung cancer screening is done with a CT scan that looks for abnormal changes in the lungs. Discuss lung cancer screening with your health care provider if you are 50 80 years old and if any of the following apply to you: You currently smoke. You used to smoke heavily. You have a smoking history of 1 pack of cigarettes a day for 20 years or 2 packs a day for 10 years. You have quit smoking within the past 15 years. You may need to be screened every year if you smoke heavily or if you used to smoke. Skin cancer Skin cancer screening is done by checking the skin for unusual moles or spots and any changes in existing moles. Your health care provider should check your skin for signs of skin cancer at every physical exam. You should check your skin every month and tell your health care provider right away if anything looks unusual. Men with a cncmdk-jmdi-rqzjsr risk for skin cancer may want to see a [facility] specialists (hourly manager) for an annual body check. What are the benefits of screening? Cancer screening is done to look for cancer in the very early stages, before it spreads and becomes harder to treat and before you would start to notice symptoms. Finding cancer early improves the chances of successful treatment. It may save your life. Where to find more information [employer] [employer]: www.cancer.org Centers for Disease Control and Prevention: www.cdc.gov National Cancer [place]: www.cancer.gov Contact a health care provider if: You have concerns about any signs or symptoms of cancer. These may include: Skin problems. You may have: ?Moles of an unusual shape or color. ?Changes in existing moles. ?A sore on your skin that does not heal. Tiredness (fatigue) that does not go away. Losing weight without trying. Blood in your urine or stool. Problems with urination. You may have: ?Changes in urination habits. ?Painful urination. Painful ejaculation. Problems with coughing or breathing. These may include: ?Coughing or trouble breathing that does not go away. ?Coughing up blood. Frequent pain or cramping in your abdomen. Summary Your health care provider will recommend specific cancer screenings based on your age, medical history, and family history of cancer. Work with your health care provider to create a cancer screening schedule that protects your health. Finding cancer early improves the chances of successful treatment. It may save your life. Contact a health care provider if you have concerns about any signs or symptoms of cancer. This information is not intended to replace advice given to you by your health care provider. Make sure you discuss any questions you have with your health care provider. Document Revised: 11/29/2021 Document Reviewed: 05/29/2020 [employer] Patient Education 2022 [employer]. Follow Up Care 02/20/2024 16:00:52 With:SYLVIE DAVIS PA-C, URL Address: [address] [place] [address] When: Unknown Comments:BCG #3 of 3 in 1 week [facility] 03-07-2024 Note Patient Education Oncology Cancer Screening for Men A cancer screening is a test or exam that checks for cancer. Your health care provider will recommend specific cancer screenings based on your age, medical history (including risk factors), and family history of cancer. Work with your health care provider to create a cancer screening schedule that protects your health. Who should have screening? All men should be considered for screening of certain cancers, including colorectal cancer, prostate cancer, lung cancer, and skin cancer. Your health care provider may recommend screenings for other types of cancer if: ? You had cancer before. ? You have a family member with cancer. ? You have abnormal genes that could increase the risk of cancer. ? You have risk factors for certain cancers, such as current or past use of tobacco products, or being overweight. When you should be screened for cancer depends on: ? Your age. ? Your medical history and your family's medical history. ? Certain lifestyle factors, such as smoking or other use of tobacco products. ? Environmental exposure, such as to asbestos. How is screening done? Colorectal cancer All adults should have screenings starting at age 45 and continuing until age 75. Your health care provider may recommend screening before age 45. You will have tests every 1?10 years, depending on your results and the type of screening test. People at increased risk should start screening at an earlier age. Talk with your health care provider about which screening test is right for you and how often you should be screened. Colorectal cancer screening looks for cancer or for growths called polyps that often form before cancer starts. Tests to look for cancer or polyps include: ? Colonoscopy or flexible sigmoidoscopy. For these procedures, a flexible tube with a small camera is inserted into the rectum. ? CT colonography. This test uses X-rays and a contrast dye to check the colon for polyps. If a polyp is found, you may need to have a colonoscopy so the polyp can be located and removed. Tests to look for cancer in the stool (feces) include: ? Guaiac-based fecal occult blood test (FOBT). This test can find blood in stool. It can be done at home with a kit. ? Fecal immunochemical test (FIT). This test can find blood in stool. For this test, you will need to collect stool samples at home. ? Stool DNA test. This test looks for blood in stool and any changes in DNA that can lead to colon cancer. For this test, you will need to collect a stool sample at home and send it to a lab. Prostate cancer Prostate cancer screening for men with average risk may start at age 50. Men with risk factors may need to be screened earlier, at ages 40?45. Talk with your health care provider about whether screening is right for you and, if so, how often you should be screened. Prostate cancer screening is done with blood tests and a digital rectal exam. During this exam, a health care provider uses a gloved finger to check prostate size. You may need to be screened for prostate cancer if: ? You have risk factors for prostate cancer, such as being or having a close family member with prostate cancer. ? You have had gene changes or a genetic condition that was passed on to you from a parent (inherited). These gene changes or genetic conditions include BRCA1 or BRCA2 gene mutations or Archuleta syndrome. ? You have symptoms of prostate cancer, such as problems urinating or problems getting or keeping an erection (erectile dysfunction). When you have been screened for prostate cancer, future screening may be recommended based on the results of your blood tests. Lung cancer Lung cancer screening is done with a CT scan that looks for abnormal changes in the lungs. Discuss lung cancer screening with your health care provider if you are 50?80 years old and if any of the following apply to you: ? You currently smoke. ? You used to smoke heavily. ? You have a smoking history of 1 pack of cigarettes a day for 20 years or 2 packs a day for 10 years. ? You have quit smoking within the past 15 years. You may need to be screened every year if you smoke heavily or if you used to smoke. Skin cancer Skin cancer screening is done by checking the skin for unusual moles or spots and any changes in existing moles. Your health care provider should check your skin for signs of skin cancer at every physical exam. You should check your skin every month and tell your health care provider right away if anything looks unusual. Men with a twmtui-wixc-lueduo risk for skin cancer may want to see a [facility] (hourly manager) for an annual body check. What are the benefits of screening? Cancer screening is done to look for cancer in the very early stages, before it spreads and becomes harder to treat and before you would start to notice symptoms. Finding cancer early improves the chances of success (more content not included)... [facility] 02-29-2024 Hospital Discharge instructions Patient Education 02/29/2024 13:06:31 Bladder Cancer Bladder Cancer Bladder cancer is a condition where abnormal tissue (a tumor) grows in the bladder. The bladder is the organ that holds urine. Two tubes (ureters) carry urine from the kidneys to the bladder. The bladder wall is made of layers of tissue. Cancer that spreads through these layers of the bladder wall becomes more difficult to treat. What increases the risk? The following factors may make you more likely to develop this condition: Smoking. Working where there are risks (occupational exposures), such as working with rubber, leather, clothing fabric, dyes, chemicals, or paint. Being 55 years of age or older. Being male. Having long-term bladder inflammation. Having a history of cancer. This includes: ?A family history of bladder cancer. ?Having had bladder cancer before. ?Having had certain treatments for cancer before, such as: ?Medicines to kill cancer cells (chemotherapy). ?Strong X-ray beams or high-energy capsules to kill cancer cells and shrink tumors (radiation therapy). Having been exposed to arsenic. This is a poisonous substance. What are the signs or symptoms? Early symptoms of this condition include: Blood in your urine. Pain when urinating. Infections of your urinary system (urinary tract infections or UTIs) that happen often. Having to urinate sooner or more often than normal. Late symptoms of this condition include: Not being able to urinate. Pain on one side of your lower back. Loss of appetite. Weight loss. Tiredness (fatigue). Swelling in your feet. Bone pain. How is this diagnosed? This condition is diagnosed based on: Your medical history. A physical exam. Lab tests, such as urine tests. Imaging tests. Your symptoms. You may also have other tests or procedures, such as: A cystoscopy. This involves putting a narrow tube into your urethra. The urethra is the organ that carries urine from your bladder to the outside of your body. This procedure is done to view the lining of your bladder for tumors. A biopsy. This involves removing a tissue sample to look at under a microscope to check for cancer. Blood tests or imaging tests may be needed. These show how far into the bladder wall cancer has grown, and if cancer has spread to any other parts of your body. Tests may include: CT scan. MRI. Bone scan. X-ray. How is this treated? Your health care provider may recommend one or more types of treatment based on the stage of your cancer. The most common treatments are: Surgery to remove the cancer. Types of surgeries include: ?Removing a tumor on the inside wall of the bladder (transurethral resection). ?Removing the bladder (cystectomy). Radiation therapy. This is often combined with chemotherapy. Chemotherapy. Immunotherapy. This uses medicines to help your body's disease-fighting system (immune system) destroy cancer cells. Follow these instructions at home: Take edgq-xyl-tcjnaer and prescription medicines only as told by your health care provider. If you were prescribed an antibiotic medicine, take it as told by your health care provider. Do not stop using the antibiotic even if you start to feel better. Eat a healthy diet. Some treatments might affect your appetite. Do not use any products that contain nicotine or tobacco. These products include cigarettes, chewing tobacco, and vaping devices, such as e-cigarettes. If you need help quitting, ask your health care provider. Consider joining a support group. This may help you learn to deal with the stress of having bladder cancer. Tell your cancer care team if you develop side effects. Your team may be able to recommend ways to get relief. Keep all follow-up visits. This is important. Where to find more information [employer] [employer] (ACS): cancer.org National Cancer [place] (NCI): cancer.gov Contact a health care provider if: You have symptoms of a UTI. These include: ?Fever. ?Chills. ?Weakness. ?Muscle aches. ?Pain in your abdomen. ?Urge to urinate that is stronger and happens more often than normal. ?Burning in the bladder or urethra when you urinate. Get help right away if: There is blood in your urine. You cannot urinate. You have severe pain or other symptoms that do not go away. Summary Bladder cancer is a condition where tumors grow in the bladder. Diagnosis is based on your medical history, a physical exam, lab tests, imaging tests, and your symptoms. Your health care provider may recommend one or more types of treatment based on the stage of your cancer. Consider joining a support group. This may help you learn to deal with the stress of having bladder cancer. This information is not intended to replace advice given to you by your health care provider. Make sure you discuss any questions you have with your health care provider. Document Revised: 06/13/2022 Document Reviewed: 06/13/2022 [employer] Patient Education 2022 [employer]. Follow Up Care 02/20/2024 15:53:12 With:SYLVIE DAVIS PA-C, URL Address: [address] [place] [address] When: Unknown Comments:1 week BCG #2 of 3 half dose [facility] 02-29-2024 Note Patient Education Oncology Bladder Cancer Bladder cancer is a condition where abnormal tissue (a tumor) grows in the bladder. The bladder is the organ that holds urine. Two tubes (ureters) carry urine from the kidneys to the bladder. The bladder wall is made of layers of tissue. Cancer that spreads through these layers of the bladder wall becomes more difficult to treat. What increases the risk? The following factors may make you more likely to develop this condition: ? Smoking. ? Working where there are risks (occupational exposures), such as working with rubber, leather, clothing fabric, dyes, chemicals, or paint. ? Being 55 years of age or older. ? Being male. ? Having long-term bladder inflammation. ? Having a history of cancer. This includes: ? A family history of bladder cancer. ? Having had bladder cancer before. ? Having had certain treatments for cancer before, such as: ? Medicines to kill cancer cells (chemotherapy). ? Strong X-ray beams or high-energy capsules to kill cancer cells and shrink tumors (radiation therapy). ? Having been exposed to arsenic. This is a poisonous substance. What are the signs or symptoms? Early symptoms of this condition include: ? Blood in your urine. ? Pain when urinating. ? Infections of your urinary system (urinary tract infections or UTIs) that happen often. ? Having to urinate sooner or more often than normal. Late symptoms of this condition include: ? Not being able to urinate. ? Pain on one side of your lower back. ? Loss of appetite. ? Weight loss. ? Tiredness (fatigue). ? Swelling in your feet. ? Bone pain. How is this diagnosed? This condition is diagnosed based on: ? Your medical history. ? A physical exam. ? Lab tests, such as urine tests. ? Imaging tests. ? Your symptoms. You may also have other tests or procedures, such as: ? A cystoscopy. This involves putting a narrow tube into your urethra. The urethra is the organ that carries urine from your bladder to the outside of your body. This procedure is done to view the lining of your bladder for tumors. ? A biopsy. This involves removing a tissue sample to look at under a microscope to check for cancer. Blood tests or imaging tests may be needed. These show how far into the bladder wall cancer has grown, and if cancer has spread to any other parts of your body. Tests may include: ? CT scan. ? MRI. ? Bone scan. ? X-ray. How is this treated? Your health care provider may recommend one or more types of treatment based on the stage of your cancer. The most common treatments are: ? Surgery to remove the cancer. Types of surgeries include: ? Removing a tumor on the inside wall of the bladder (transurethral resection). ? Removing the bladder (cystectomy). ? Radiation therapy. This is often combined with chemotherapy. ? Chemotherapy. ? Immunotherapy. This uses medicines to help your body's disease-fighting system (immune system) destroy cancer cells. Follow these instructions at home: ? Take ydxh-igv-cgpvxqx and prescription medicines only as told by your health care provider. ? If you were prescribed an antibiotic medicine, take it as told by your health care provider. Do not stop using the antibiotic even if you start to feel better. ? Eat a healthy diet. Some treatments might affect your appetite. ? Do not use any products that contain nicotine or tobacco. These products include cigarettes, chewing tobacco, and vaping devices, such as e-cigarettes. If you need help quitting, ask your health care provider. ? Consider joining a support group. This may help you learn to deal with the stress of having bladder cancer. ? Tell your cancer care team if you develop side effects. Your team may be able to recommend ways to get relief. ? Keep all follow-up visits. This is important. Where to find more information ? [place] [employer] (ACS): cancer.org ? National Cancer [place] (NCI): cancer.gov Contact a health care provider if: ? You have symptoms of a UTI. These include: ? Fever. ? Chills. ? Weakness. ? Muscle aches. ? Pain in your abdomen. ? Urge to urinate that is stronger and happens more often than normal. ? Burning in the bladder or urethra when you urinate. Get help right away if: ? There is blood in your urine. ? You cannot urinate. ? You have severe pain or other symptoms that do not go away. Summary ? Bladder cancer is a condition where tumors grow in the bladder. ? Diagnosis is based on your medical history, a physical exam, lab tests, imaging tests, and your symptoms. ? Your health care provider may recommend one or more types of treatment based on the stage of your cancer. ? Consider joining a support group. This may help you learn to deal with the stress of having bladder cancer. This information is not intended to replace advice given to you by your health care provider. Make sure you discuss any q (more content not included)... [facility] 01-23-2024 Hospital Discharge instructions Patient Education 01/23/2024 15:12:13 Cancer Screening for Men Cancer Screening for Men A cancer screening is a test or exam that checks for cancer. Your health care provider will recommend specific cancer screenings based on your age, medical history (including risk factors), and family history of cancer. Work with your health care provider to create a cancer screening schedule that protects your health. Who should have screening? All men should be considered for screening of certain cancers, including colorectal cancer, prostate cancer, lung cancer, and skin cancer. Your health care provider may recommend screenings for other types of cancer if: You had cancer before. You have a family member with cancer. You have abnormal genes that could increase the risk of cancer. You have risk factors for certain cancers, such as current or past use of tobacco products, or being overweight. When you should be screened for cancer depends on: Your age. Your medical history and your family's medical history. Certain lifestyle factors, such as smoking or other use of tobacco products. Environmental exposure, such as to asbestos. How is screening done? Colorectal cancer All adults should have screenings starting at age 45 and continuing until age 75. Your health care provider may recommend screening before age 45. You will have tests every 1 10 years, depending on your results and the type of screening test. People at increased risk should start screening at an earlier age. Talk with your health care provider about which screening test is right for you and how often you should be screened. Colorectal cancer screening looks for cancer or for growths called polyps that often form before cancer starts. Tests to look for cancer or polyps include: Colonoscopy or flexible sigmoidoscopy. For these procedures, a flexible tube with a small camera is inserted into the rectum. CT colonography. This test uses X-rays and a contrast dye to check the colon for polyps. If a polyp is found, you may need to have a colonoscopy so the polyp can be located and removed. Tests to look for cancer in the stool (feces) include: Guaiac-based fecal occult blood test (FOBT). This test can find blood in stool. It can be done at home with a kit. Fecal immunochemical test (FIT). This test can find blood in stool. For this test, you will need to collect stool samples at home. Stool DNA test. This test looks for blood in stool and any changes in DNA that can lead to colon cancer. For this test, you will need to collect a stool sample at home and send it to a lab. Prostate cancer Prostate cancer screening for men with average risk may start at age 50. Men with risk factors may need to be screened earlier, at ages 40 45. Talk with your health care provider about whether screening is right for you and, if so, how often you should be screened. Prostate cancer screening is done with blood tests and a digital rectal exam. During this exam, a health care provider uses a gloved finger to check prostate size. You may need to be screened for prostate cancer if: You have risk factors for prostate cancer, such as being or having a close family member with prostate cancer. You have had gene changes or a genetic condition that was passed on to you from a parent (inherited). These gene changes or genetic conditions include BRCA1 or BRCA2 gene mutations or Archuleta syndrome. You have symptoms of prostate cancer, such as problems urinating or problems getting or keeping an erection (erectile dysfunction). When you have been screened for prostate cancer, future screening may be recommended based on the results of your blood tests. Lung cancer Lung cancer screening is done with a CT scan that looks for abnormal changes in the lungs. Discuss lung cancer screening with your health care provider if you are 50 80 years old and if any of the following apply to you: You currently smoke. You used to smoke heavily. You have a smoking history of 1 pack of cigarettes a day for 20 years or 2 packs a day for 10 years. You have quit smoking within the past 15 years. You may need to be screened every year if you smoke heavily or if you used to smoke. Skin cancer Skin cancer screening is done by checking the skin for unusual moles or spots and any changes in existing moles. Your health care provider should check your skin for signs of skin cancer at every physical exam. You should check your skin every month and tell your health care provider right away if anything looks unusual. Men with a bfnpfu-jlrf-fcofst risk for skin cancer may want to see a [facility] (hourly manager) for an annual body check. What are the benefits of screening? Cancer screening is done to look for cancer in the very early stages, before it spreads and becomes harder to treat and before you would start to notice symptoms. Finding cancer early improves the chances of successful treatment. It may save your life. Where to find more information [place] [employer]: www.cancer.org Centers for Disease Control and Prevention: www.cdc.gov National Cancer [place]: www.cancer.gov Contact a health care provider if: You have concerns about any signs or symptoms of cancer. These may include: Skin problems. You may have: ?Moles of an unusual shape or color. ?Changes in existing moles. ?A sore on your skin that does not heal. Tiredness (fatigue) that does not go away. Losing weight without trying. Blood in your urine or stool. Problems with urination. You may have: ?Changes in urination habits. ?Painful urination. Painful ejaculation. Problems with coughing or breathing. These may include: ?Coughing or trouble breathing that does not go away. ?Coughing up blood. Frequent pain or cramping in your abdomen. Summary Your health care provider will recommend specific cancer screenings based on your age, medical history, and family history of cancer. Work with your health care provider to create a cancer screening schedule that protects your health. Finding cancer early improves the chances of successful treatment. It may save your life. Contact a health care provider if you have concerns about any signs or symptoms of cancer. This information is not intended to replace advice given to you by your health care provider. Make sure you discuss any questions you have with your health care provider. Document Revised: 11/29/2021 Document Reviewed: 05/29/2020 [employer] Patient Education 2022 [employer] 01/23/2024 15:12:09 Steps to Quit Smoking Steps to Quit Smoking Smoking tobacco is the leading cause of preventable . It can affect almost every organ in the body. Smoking puts you and those around you at risk for developing many serious chronic diseases. Quitting smoking can be very challenging. Do not get discouraged if you are not successful the first time. Some people need to make many attempts to quit before they achieve long-term success. Do your best to stick to your quit plan, and talk with your health care provider if you have any questions or concerns. How do I get ready to quit? When you decide to quit smoking, create a plan to help you succeed. Before you quit: Pick a date to quit. Set a date within the next 2 weeks to give you time to prepare. Write down the reasons why you are quitting. Keep this list in places where you will see it often. Tell your family, friends, and co-workers that you are quitting. Support from people you are close to can make quitting easier. Talk with your health care provider about your options for quitting smoking. Find out what treatment options are covered by your health insurance. Identify people, places, things, and activities that make you want to smoke (triggers). Avoid them. What first steps can I take to quit smoking? Throw away all cigarettes at home, at work, and in your car. Throw away smoking accessories, such as ashtrays and lighters. Clean your car. Make sure to empty the ashtray. Clean your home, including curtains and carpets. What strategies can I use to quit smoking? Talk with your health care provider about combining strategies, such as taking medicines while you are also receiving in-person counseling. Using these two strategies together makes you more likely to succeed in quitting than if you used either strategy on its own. If you are or , talk with your health care provider about finding counseling or other support strategies to quit smoking. Do not take medicine to help you quit smoking unless your health care provider tells you to. Quit right away Quit smoking completely, instead of gradually reducing how much you smoke over a period of time. Stopping smoking right away may be more successful than gradually quitting. Attend in-person counseling to help you build problem-solving skills. You are more likely to succeed in quitting if you attend counseling sessions regularly. Even short sessions of 10 minutes can be effective. Take medicine You may take medicines to help you quit smoking. Some medicines require a prescription. You can also purchase xnbn-nsr-qamphza medicines. Medicines may have nicotine in them to replace the nicotine in cigarettes. Medicines may: Help to stop cravings. Help to relieve withdrawal symptoms. Your health care provider may recommend: Nicotine patches, gum, or lozenges. Nicotine inhalers or sprays. Non-nicotine medicine that you take by mouth. Find resources Find resources and support systems that can help you quit smoking and remain smoke-free after you quit. These resources are most helpful when you use them often. They include: Online chats with a counselor. Telephone quitlines. Printed self-help materials. Support groups or group counseling. Text messaging programs. Mobile phone apps or applications. Use apps that can help you stick to your quit plan by providing reminders, tips, and encouragement. Examples of free services include Quit Guide from the CDC and smokefree.gov What can I do to make it easier to quit? Reach out to your family and friends for support and encouragement. Call telephone quitlines, such as 0-413-ZUSZ-NOW, reach out to support groups, or work with a counselor for support. Ask people who smoke to avoid smoking around you. Avoid places that trigger you to smoke, such as bars, parties, or smoke-break areas at work. Spend time with people who do not smoke. Lessen the stress in your life. Stress can be a smoking trigger for some people. To lessen stress, try: ?Exercising regularly. ?Doing deep-breathing exercises. ?Doing yoga. ?Meditating. What benefits will I see if I quit smoking? Over time, you should start to see positive results, such as: Improved sense of smell and taste. Decreased coughing and sore throat. Slower heart rate. Lower blood pressure. Clearer and healthier skin. The ability to breathe more easily. Fewer sick days. Summary Quitting smoking can be very challenging. Do not get discouraged if you are not successful the first time. Some people need to make many attempts to quit before they achieve long-term success. When you decide to quit smoking, create a plan to help you succeed. Quit smoking right away, not slowly over a period of time. Find resources and support systems that can help you quit smoking and remain smoke-free after you quit. This information is not intended to replace advice given to you by your health care provider. Make sure you discuss any questions you have with your health care provider. Document Revised: 06/24/2022 Document Reviewed: 06/24/2022 [employer] Patient Education 2022 [employer] [place]. Follow Up Care 10/03/2023 14:55:05 With:KENA ESPARZA, Yevgeniy Us, URL Address: [facility] [address] [place] [phone] When: Unknown [facility] 01-23-2024 Note Patient Education Oncology Cancer Screening for Men A cancer screening is a test or exam that checks for cancer. Your health care provider will recommend specific cancer screenings based on your age, medical history (including risk factors), and family history of cancer. Work with your health care provider to create a cancer screening schedule that protects your health. Who should have screening? All men should be considered for screening of certain cancers, including colorectal cancer, prostate cancer, lung cancer, and skin cancer. Your health care provider may recommend screenings for other types of cancer if: ? You had cancer before. ? You have a family member with cancer. ? You have abnormal genes that could increase the risk of cancer. ? You have risk factors for certain cancers, such as current or past use of tobacco products, or being overweight. When you should be screened for cancer depends on: ? Your age. ? Your medical history and your family's medical history. ? Certain lifestyle factors, such as smoking or other use of tobacco products. ? Environmental exposure, such as to asbestos. How is screening done? Colorectal cancer All adults should have screenings starting at age 45 and continuing until age 75. Your health care provider may recommend screening before age 45. You will have tests every 1?10 years, depending on your results and the type of screening test. People at increased risk should start screening at an earlier age. Talk with your health care provider about which screening test is right for you and how often you should be screened. Colorectal cancer screening looks for cancer or for growths called polyps that often form before cancer starts. Tests to look for cancer or polyps include: ? Colonoscopy or flexible sigmoidoscopy. For these procedures, a flexible tube with a small camera is inserted into the rectum. ? CT colonography. This test uses X-rays and a contrast dye to check the colon for polyps. If a polyp is found, you may need to have a colonoscopy so the polyp can be located and removed. Tests to look for cancer in the stool (feces) include: ? Guaiac-based fecal occult blood test (FOBT). This test can find blood in stool. It can be done at home with a kit. ? Fecal immunochemical test (FIT). This test can find blood in stool. For this test, you will need to collect stool samples at home. ? Stool DNA test. This test looks for blood in stool and any changes in DNA that can lead to colon cancer. For this test, you will need to collect a stool sample at home and send it to a lab. Prostate cancer Prostate cancer screening for men with average risk may start at age 50. Men with risk factors may need to be screened earlier, at ages 40?45. Talk with your health care provider about whether screening is right for you and, if so, how often you should be screened. Prostate cancer screening is done with blood tests and a digital rectal exam. During this exam, a health care provider uses a gloved finger to check prostate size. You may need to be screened for prostate cancer if: ? You have risk factors for prostate cancer, such as being or having a close family member with prostate cancer. ? You have had gene changes or a genetic condition that was passed on to you from a parent (inherited). These gene changes or genetic conditions include BRCA1 or BRCA2 gene mutations or Archuleta syndrome. ? You have symptoms of prostate cancer, such as problems urinating or problems getting or keeping an erection (erectile dysfunction). When you have been screened for prostate cancer, future screening may be recommended based on the results of your blood tests. Lung cancer Lung cancer screening is done with a CT scan that looks for abnormal changes in the lungs. Discuss lung cancer screening with your health care provider if you are 50?80 years old and if any of the following apply to you: ? You currently smoke. ? You used to smoke heavily. ? You have a smoking history of 1 pack of cigarettes a day for 20 years or 2 packs a day for 10 years. ? You have quit smoking within the past 15 years. You may need to be screened every year if you smoke heavily or if you used to smoke. Skin cancer Skin cancer screening is done by checking the skin for unusual moles or spots and any changes in existing moles. Your health care provider should check your skin for signs of skin cancer at every physical exam. You should check your skin every month and tell your health care provider right away if anything looks unusual. Men with a catwdj-oplu-kwbdtm risk for skin cancer may want to see a [facility] (hourly manager) for an annual body check. What are the benefits of screening? Cancer screening is done to look for cancer in the very early stages, before it spreads and becomes harder to treat and before you would start to notice symptoms. Finding cancer early improves the chances of success (more content not included)... [facility] 01-23-2024 Evaluation + Plan note Diagnostic Tests PendingPSA Total 01/23/24 [facility] 01-23-2024 Evaluation + Plan note Diagnostic Tests PendingUroVysion Fish and Urine Cyto ([facility]) 01/23/24 [facility] 01-07-2024 Hospital Discharge instructions Yusuf Boss MD - 01/07/2024 2:36 AM EDT Follow-up with your primary care provider for wound check and remove the sutures in 1 week. The following attachments cannot be sent through Care Everywhere.Lacerations: Stitches ([place])Fall Prevention ([place])documented in this encounter [facility] 10-03-2023 Hospital Discharge instructions Patient Education 10/03/2023 14:16:57 Cancer Screening for Men Cancer Screening for Men A cancer screening is a test or exam that checks for cancer. Your health care provider will recommend specific cancer screenings based on your age, medical history (including risk factors), and family history of cancer. Work with your health care provider to create a cancer screening schedule that protects your health. Who should have screening? All men should be considered for screening of certain cancers, including colorectal cancer, prostate cancer, lung cancer, and skin cancer. Your health care provider may recommend screenings for other types of cancer if: You had cancer before. You have a family member with cancer. You have abnormal genes that could increase the risk of cancer. You have risk factors for certain cancers, such as current or past use of tobacco products, or being overweight. When you should be screened for cancer depends on: Your age. Your medical history and your family's medical history. Certain lifestyle factors, such as smoking or other use of tobacco products. Environmental exposure, such as to asbestos. How is screening done? Colorectal cancer All adults should have screenings starting at age 45 and continuing until age 75. Your health care provider may recommend screening before age 45. You will have tests every 1 10 years, depending on your results and the type of screening test. People at increased risk should start screening at an earlier age. Talk with your health care provider about which screening test is right for you and how often you should be screened. Colorectal cancer screening looks for cancer or for growths called polyps that often form before cancer starts. Tests to look for cancer or polyps include: Colonoscopy or flexible sigmoidoscopy. For these procedures, a flexible tube with a small camera is inserted into the rectum. CT colonography. This test uses X-rays and a contrast dye to check the colon for polyps. If a polyp is found, you may need to have a colonoscopy so the polyp can be located and removed. Tests to look for cancer in the stool (feces) include: Guaiac-based fecal occult blood test (FOBT). This test can find blood in stool. It can be done at home with a kit. Fecal immunochemical test (FIT). This test can find blood in stool. For this test, you will need to collect stool samples at home. Stool DNA test. This test looks for blood in stool and any changes in DNA that can lead to colon cancer. For this test, you will need to collect a stool sample at home and send it to a lab. Prostate cancer Prostate cancer screening for men with average risk may start at age 50. Men with risk factors may need to be screened earlier, at ages 40 45. Talk with your health care provider about whether screening is right for you and, if so, how often you should be screened. Prostate cancer screening is done with blood tests and a digital rectal exam. During this exam, a health care provider uses a gloved finger to check prostate size. You may need to be screened for prostate cancer if: You have risk factors for prostate cancer, such as being or having a close family member with prostate cancer. You have had gene changes or a genetic condition that was passed on to you from a parent (inherited). These gene changes or genetic conditions include BRCA1 or BRCA2 gene mutations or Archuleta syndrome. You have symptoms of prostate cancer, such as problems urinating or problems getting or keeping an erection (erectile dysfunction). When you have been screened for prostate cancer, future screening may be recommended based on the results of your blood tests. Lung cancer Lung cancer screening is done with a CT scan that looks for abnormal changes in the lungs. Discuss lung cancer screening with your health care provider if you are 50 80 years old and if any of the following apply to you: You currently smoke. You used to smoke heavily. You have a smoking history of 1 pack of cigarettes a day for 20 years or 2 packs a day for 10 years. You have quit smoking within the past 15 years. You may need to be screened every year if you smoke heavily or if you used to smoke. Skin cancer Skin cancer screening is done by checking the skin for unusual moles or spots and any changes in existing moles. Your health care provider should check your skin for signs of skin cancer at every physical exam. You should check your skin every month and tell your health care provider right away if anything looks unusual. Men with a ummhyv-fgeu-lbuqin risk for skin cancer may want to see a [facility] (hourly manager) for an annual body check. What are the benefits of screening? Cancer screening is done to look for cancer in the very early stages, before it spreads and becomes harder to treat and before you would start to notice symptoms. Finding cancer early improves the chances of successful treatment. It may save your life. Where to find more information [place] [employer]: www.cancer.org Centers for Disease Control and Prevention: www.cdc.gov National Cancer [place]: www.cancer.gov Contact a health care provider if: You have concerns about any signs or symptoms of cancer. These may include: Skin problems. You may have: ?Moles of an unusual shape or color. ?Changes in existing moles. ?A sore on your skin that does not heal. Tiredness (fatigue) that does not go away. Losing weight without trying. Blood in your urine or stool. Problems with urination. You may have: ?Changes in urination habits. ?Painful urination. Painful ejaculation. Problems with coughing or breathing. These may include: ?Coughing or trouble breathing that does not go away. ?Coughing up blood. Frequent pain or cramping in your abdomen. Summary Your health care provider will recommend specific cancer screenings based on your age, medical history, and family history of cancer. Work with your health care provider to create a cancer screening schedule that protects your health. Finding cancer early improves the chances of successful treatment. It may save your life. Contact a health care provider if you have concerns about any signs or symptoms of cancer. This information is not intended to replace advice given to you by your health care provider. Make sure you discuss any questions you have with your health care provider. Document Revised: 11/29/2021 Document Reviewed: 05/29/2020 [employer] Patient Education 2022 [employer]. 10/03/2023 14:16:42 Steps to Quit Smoking Steps to Quit Smoking Smoking tobacco is the leading cause of preventable . It can affect almost every organ in the body. Smoking puts you and those around you at risk for developing many serious chronic diseases. Quitting smoking can be very challenging. Do not get discouraged if you are not successful the first time. Some people need to make many attempts to quit before they achieve long-term success. Do your best to stick to your quit plan, and talk with your health care provider if you have any questions or concerns. How do I get ready to quit? When you decide to quit smoking, create a plan to help you succeed. Before you quit: Pick a date to quit. Set a date within the next 2 weeks to give you time to prepare. Write down the reasons why you are quitting. Keep this list in places where you will see it often. Tell your family, friends, and co-workers that you are quitting. Support from people you are close to can make quitting easier. Talk with your health care provider about your options for quitting smoking. Find out what treatment options are covered by your health insurance. Identify people, places, things, and activities that make you want to smoke (triggers). Avoid them. What first steps can I take to quit smoking? Throw away all cigarettes at home, at work, and in your car. Throw away smoking accessories, such as ashtrays and lighters. Clean your car. Make sure to empty the ashtray. Clean your home, including curtains and carpets. What strategies can I use to quit smoking? Talk with your health care provider about combining strategies, such as taking medicines while you are also receiving in-person counseling. Using these two strategies together makes you more likely to succeed in quitting than if you used either strategy on its own. If you are or , talk with your health care provider about finding counseling or other support strategies to quit smoking. Do not take medicine to help you quit smoking unless your health care provider tells you to. Quit right away Quit smoking completely, instead of gradually reducing how much you smoke over a period of time. Stopping smoking right away may be more successful than gradually quitting. Attend in-person counseling to help you build problem-solving skills. You are more likely to succeed in quitting if you attend counseling sessions regularly. Even short sessions of 10 minutes can be effective. Take medicine You may take medicines to help you quit smoking. Some medicines require a prescription. You can also purchase xvze-hph-xhnkgss medicines. Medicines may have nicotine in them to replace the nicotine in cigarettes. Medicines may: Help to stop cravings. Help to relieve withdrawal symptoms. Your health care provider may recommend: Nicotine patches, gum, or lozenges. Nicotine inhalers or sprays. Non-nicotine medicine that you take by mouth. Find resources Find resources and support systems that can help you quit smoking and remain smoke-free after you quit. These resources are most helpful when you use them often. They include: Online chats with a counselor. Telephone quitlines. Printed self-help materials. Support groups or group counseling. Text messaging programs. Mobile phone apps or applications. Use apps that can help you stick to your quit plan by providing reminders, tips, and encouragement. Examples of free services include Quit Guide from the CDC and smokefree.gov What can I do to make it easier to quit? Reach out to your family and friends for support and encouragement. Call telephone quitlines, such as 2-681-PLXD-NOW, reach out to support groups, or work with a counselor for support. Ask people who smoke to avoid smoking around you. Avoid places that trigger you to smoke, such as bars, parties, or smoke-break areas at work. Spend time with people who do not smoke. Lessen the stress in your life. Stress can be a smoking trigger for some people. To lessen stress, try: ?Exercising regularly. ?Doing deep-breathing exercises. ?Doing yoga. ?Meditating. What benefits will I see if I quit smoking? Over time, you should start to see positive results, such as: Improved sense of smell and taste. Decreased coughing and sore throat. Slower heart rate. Lower blood pressure. Clearer and healthier skin. The ability to breathe more easily. Fewer sick days. Summary Quitting smoking can be very challenging. Do not get discouraged if you are not successful the first time. Some people need to make many attempts to quit before they achieve long-term success. When you decide to quit smoking, create a plan to help you succeed. Quit smoking right away, not slowly over a period of time. Find resources and support systems that can help you quit smoking and remain smoke-free after you quit. This information is not intended to replace advice given to you by your health care provider. Make sure you discuss any questions you have with your health care provider. Document Revised: 06/24/2022 Document Reviewed: 06/24/2022 [employer] Patient Education 2022 [employer]. Follow Up Care 08/30/2023 12:27:08 With:KENA ESPARZA, Yevgeniy Us, URL Address: [facility] [address], [place] [address]- [phone] When: Unknown Comments:cysto/bt ck in 3 mos [facility] 08-23-2023 Evaluation + Plan note Diagnostic Tests PendingUrine Culture 08/23/23 [facility] 08-23-2023 Hospital Discharge instructions Patient Education 08/23/2023 11:39:26 Bladder Cancer Bladder Cancer Bladder cancer is a condition where abnormal tissue (a tumor) grows in the bladder. The bladder is the organ that holds urine. Two tubes (ureters) carry urine from the kidneys to the bladder. The bladder wall is made of layers of tissue. Cancer that spreads through these layers of the bladder wall becomes more difficult to treat. What increases the risk? The following factors may make you more likely to develop this condition: Smoking. Working where there are risks (occupational exposures), such as working with rubber, leather, clothing fabric, dyes, chemicals, or paint. Being 55 years of age or older. Being male. Having long-term bladder inflammation. Having a history of cancer. This includes: ?A family history of bladder cancer. ?Having had bladder cancer before. ?Having had certain treatments for cancer before, such as: ?Medicines to kill cancer cells (chemotherapy). ?Strong X-ray beams or high-energy capsules to kill cancer cells and shrink tumors (radiation therapy). Having been exposed to arsenic. This is a poisonous substance. What are the signs or symptoms? Early symptoms of this condition include: Blood in your urine. Pain when urinating. Infections of your urinary system (urinary tract infections or UTIs) that happen often. Having to urinate sooner or more often than normal. Late symptoms of this condition include: Not being able to urinate. Pain on one side of your lower back. Loss of appetite. Weight loss. Tiredness (fatigue). Swelling in your feet. Bone pain. How is this diagnosed? This condition is diagnosed based on: Your medical history. A physical exam. Lab tests, such as urine tests. Imaging tests. Your symptoms. You may also have other tests or procedures, such as: A cystoscopy. This involves putting a narrow tube into your urethra. The urethra is the organ that carries urine from your bladder to the outside of your body. This procedure is done to view the lining of your bladder for tumors. A biopsy. This involves removing a tissue sample to look at under a microscope to check for cancer. Blood tests or imaging tests may be needed. These show how far into the bladder wall cancer has grown, and if cancer has spread to any other parts of your body. Tests may include: CT scan. MRI. Bone scan. X-ray. How is this treated? Your health care provider may recommend one or more types of treatment based on the stage of your cancer. The most common treatments are: Surgery to remove the cancer. Types of surgeries include: ?Removing a tumor on the inside wall of the bladder (transurethral resection). ?Removing the bladder (cystectomy). Radiation therapy. This is often combined with chemotherapy. Chemotherapy. Immunotherapy. This uses medicines to help your body's disease-fighting system (immune system) destroy cancer cells. Follow these instructions at home: Take fegg-rnj-cxhbmcg and prescription medicines only as told by your health care provider. If you were prescribed an antibiotic medicine, take it as told by your health care provider. Do not stop using the antibiotic even if you start to feel better. Eat a healthy diet. Some treatments might affect your appetite. Do not use any products that contain nicotine or tobacco. These products include cigarettes, chewing tobacco, and vaping devices, such as e-cigarettes. If you need help quitting, ask your health care provider. Consider joining a support group. This may help you learn to deal with the stress of having bladder cancer. Tell your cancer care team if you develop side effects. Your team may be able to recommend ways to get relief. Keep all follow-up visits. This is important. Where to find more information [employer] [employer] (ACS): cancer.org National Cancer [place] (NCI): cancer.gov Contact a health care provider if: You have symptoms of a UTI. These include: ?Fever. ?Chills. ?Weakness. ?Muscle aches. ?Pain in your abdomen. ?Urge to urinate that is stronger and happens more often than normal. ?Burning in the bladder or urethra when you urinate. Get help right away if: There is blood in your urine. You cannot urinate. You have severe pain or other symptoms that do not go away. Summary Bladder cancer is a condition where tumors grow in the bladder. Diagnosis is based on your medical history, a physical exam, lab tests, imaging tests, and your symptoms. Your health care provider may recommend one or more types of treatment based on the stage of your cancer. Consider joining a support group. This may help you learn to deal with the stress of having bladder cancer. This information is not intended to replace advice given to you by your health care provider. Make sure you discuss any questions you have with your health care provider. Document Revised: 06/13/2022 Document Reviewed: 06/13/2022 [employer] Patient Education 2022 [employer]. Follow Up Care 08/16/2023 10:42:48 With:KENA ESPARZA, Yevgeniy Us, URL Address: [facility] [address] , [place] [address]- When:Within 1 Month(s) Comments:w/Cysto [facility] 08-16-2023 Hospital Discharge instructions Patient Education 08/16/2023 11:21:05 Bladder Cancer Bladder Cancer Bladder cancer is a condition where abnormal tissue (a tumor) grows in the bladder. The bladder is the organ that holds urine. Two tubes (ureters) carry urine from the kidneys to the bladder. The bladder wall is made of layers of tissue. Cancer that spreads through these layers of the bladder wall becomes more difficult to treat. What increases the risk? The following factors may make you more likely to develop this condition: Smoking. Working where there are risks (occupational exposures), such as working with rubber, leather, clothing fabric, dyes, chemicals, or paint. Being 55 years of age or older. Being male. Having long-term bladder inflammation. Having a history of cancer. This includes: ?A family history of bladder cancer. ?Having had bladder cancer before. ?Having had certain treatments for cancer before, such as: ?Medicines to kill cancer cells (chemotherapy). ?Strong X-ray beams or high-energy capsules to kill cancer cells and shrink tumors (radiation therapy). Having been exposed to arsenic. This is a poisonous substance. What are the signs or symptoms? Early symptoms of this condition include: Blood in your urine. Pain when urinating. Infections of your urinary system (urinary tract infections or UTIs) that happen often. Having to urinate sooner or more often than normal. Late symptoms of this condition include: Not being able to urinate. Pain on one side of your lower back. Loss of appetite. Weight loss. Tiredness (fatigue). Swelling in your feet. Bone pain. How is this diagnosed? This condition is diagnosed based on: Your medical history. A physical exam. Lab tests, such as urine tests. Imaging tests. Your symptoms. You may also have other tests or procedures, such as: A cystoscopy. This involves putting a narrow tube into your urethra. The urethra is the organ that carries urine from your bladder to the outside of your body. This procedure is done to view the lining of your bladder for tumors. A biopsy. This involves removing a tissue sample to look at under a microscope to check for cancer. Blood tests or imaging tests may be needed. These show how far into the bladder wall cancer has grown, and if cancer has spread to any other parts of your body. Tests may include: CT scan. MRI. Bone scan. X-ray. How is this treated? Your health care provider may recommend one or more types of treatment based on the stage of your cancer. The most common treatments are: Surgery to remove the cancer. Types of surgeries include: ?Removing a tumor on the inside wall of the bladder (transurethral resection). ?Removing the bladder (cystectomy). Radiation therapy. This is often combined with chemotherapy. Chemotherapy. Immunotherapy. This uses medicines to help your body's disease-fighting system (immune system) destroy cancer cells. Follow these instructions at home: Take pdwr-lun-elshlvj and prescription medicines only as told by your health care provider. If you were prescribed an antibiotic medicine, take it as told by your health care provider. Do not stop using the antibiotic even if you start to feel better. Eat a healthy diet. Some treatments might affect your appetite. Do not use any products that contain nicotine or tobacco. These products include cigarettes, chewing tobacco, and vaping devices, such as e-cigarettes. If you need help quitting, ask your health care provider. Consider joining a support group. This may help you learn to deal with the stress of having bladder cancer. Tell your cancer care team if you develop side effects. Your team may be able to recommend ways to get relief. Keep all follow-up visits. This is important. Where to find more information [employer] [employer] (ACS): cancer.org National Cancer [place] (NCI): cancer.gov Contact a health care provider if: You have symptoms of a UTI. These include: ?Fever. ?Chills. ?Weakness. ?Muscle aches. ?Pain in your abdomen. ?Urge to urinate that is stronger and happens more often than normal. ?Burning in the bladder or urethra when you urinate. Get help right away if: There is blood in your urine. You cannot urinate. You have severe pain or other symptoms that do not go away. Summary Bladder cancer is a condition where tumors grow in the bladder. Diagnosis is based on your medical history, a physical exam, lab tests, imaging tests, and your symptoms. Your health care provider may recommend one or more types of treatment based on the stage of your cancer. Consider joining a support group. This may help you learn to deal with the stress of having bladder cancer. This information is not intended to replace advice given to you by your health care provider. Make sure you discuss any questions you have with your health care provider. Document Revised: 06/13/2022 Document Reviewed: 06/13/2022 [employer] Patient Education 2022 [employer]. Follow Up Care 08/16/2023 10:41:48 With:[facility] Address: [address] [place] [address] Business (1) When: Unknown Comments:for procedure as scheduled With:[facility] Address: [address] [place] [address] Business (1) When: Unknown Comments:for procedure as scheduled [facility] 08-02-2023 Hospital Discharge instructions Patient Education 08/02/2023 11:59:20 Bladder Cancer Bladder Cancer Bladder cancer is a condition where abnormal tissue (a tumor) grows in the bladder. The bladder is the organ that holds urine. Two tubes (ureters) carry urine from the kidneys to the bladder. The bladder wall is made of layers of tissue. Cancer that spreads through these layers of the bladder wall becomes more difficult to treat. What increases the risk? The following factors may make you more likely to develop this condition: Smoking. Working where there are risks (occupational exposures), such as working with rubber, leather, clothing fabric, dyes, chemicals, or paint. Being 55 years of age or older. Being male. Having long-term bladder inflammation. Having a history of cancer. This includes: ?A family history of bladder cancer. ?Having had bladder cancer before. ?Having had certain treatments for cancer before, such as: ?Medicines to kill cancer cells (chemotherapy). ?Strong X-ray beams or high-energy capsules to kill cancer cells and shrink tumors (radiation therapy). Having been exposed to arsenic. This is a poisonous substance. What are the signs or symptoms? Early symptoms of this condition include: Blood in your urine. Pain when urinating. Infections of your urinary system (urinary tract infections or UTIs) that happen often. Having to urinate sooner or more often than normal. Late symptoms of this condition include: Not being able to urinate. Pain on one side of your lower back. Loss of appetite. Weight loss. Tiredness (fatigue). Swelling in your feet. Bone pain. How is this diagnosed? This condition is diagnosed based on: Your medical history. A physical exam. Lab tests, such as urine tests. Imaging tests. Your symptoms. You may also have other tests or procedures, such as: A cystoscopy. This involves putting a narrow tube into your urethra. The urethra is the organ that carries urine from your bladder to the outside of your body. This procedure is done to view the lining of your bladder for tumors. A biopsy. This involves removing a tissue sample to look at under a microscope to check for cancer. Blood tests or imaging tests may be needed. These show how far into the bladder wall cancer has grown, and if cancer has spread to any other parts of your body. Tests may include: CT scan. MRI. Bone scan. X-ray. How is this treated? Your health care provider may recommend one or more types of treatment based on the stage of your cancer. The most common treatments are: Surgery to remove the cancer. Types of surgeries include: ?Removing a tumor on the inside wall of the bladder (transurethral resection). ?Removing the bladder (cystectomy). Radiation therapy. This is often combined with chemotherapy. Chemotherapy. Immunotherapy. This uses medicines to help your body's disease-fighting system (immune system) destroy cancer cells. Follow these instructions at home: Take zzez-xap-yvtaeus and prescription medicines only as told by your health care provider. If you were prescribed an antibiotic medicine, take it as told by your health care provider. Do not stop using the antibiotic even if you start to feel better. Eat a healthy diet. Some treatments might affect your appetite. Do not use any products that contain nicotine or tobacco. These products include cigarettes, chewing tobacco, and vaping devices, such as e-cigarettes. If you need help quitting, ask your health care provider. Consider joining a support group. This may help you learn to deal with the stress of having bladder cancer. Tell your cancer care team if you develop side effects. Your team may be able to recommend ways to get relief. Keep all follow-up visits. This is important. Where to find more information [employer] [employer] (ACS): cancer.org National Cancer [place] (NCI): cancer.gov Contact a health care provider if: You have symptoms of a UTI. These include: ?Fever. ?Chills. ?Weakness. ?Muscle aches. ?Pain in your abdomen. ?Urge to urinate that is stronger and happens more often than normal. ?Burning in the bladder or urethra when you urinate. Get help right away if: There is blood in your urine. You cannot urinate. You have severe pain or other symptoms that do not go away. Summary Bladder cancer is a condition where tumors grow in the bladder. Diagnosis is based on your medical history, a physical exam, lab tests, imaging tests, and your symptoms. Your health care provider may recommend one or more types of treatment based on the stage of your cancer. Consider joining a support group. This may help you learn to deal with the stress of having bladder cancer. This information is not intended to replace advice given to you by your health care provider. Make sure you discuss any questions you have with your health care provider. Document Revised: 06/13/2022 Document Reviewed: 06/13/2022 [employer] Patient Education 2022 [employer]. Follow Up Care 05/26/2023 08:46:23 With:[facility] Address: [address] [place] [address] Business (1) When: Unknown Comments:for procedure as scheduled [facility] 07-26-2023 Hospital Discharge instructions Patient Education 07/26/2023 11:06:24 Bladder Cancer Bladder Cancer Bladder cancer is a condition where abnormal tissue (a tumor) grows in the bladder. The bladder is the organ that holds urine. Two tubes (ureters) carry urine from the kidneys to the bladder. The bladder wall is made of layers of tissue. Cancer that spreads through these layers of the bladder wall becomes more difficult to treat. What increases the risk? The following factors may make you more likely to develop this condition: Smoking. Working where there are risks (occupational exposures), such as working with rubber, leather, clothing fabric, dyes, chemicals, or paint. Being 55 years of age or older. Being male. Having long-term bladder inflammation. Having a history of cancer. This includes: ?A family history of bladder cancer. ?Having had bladder cancer before. ?Having had certain treatments for cancer before, such as: ?Medicines to kill cancer cells (chemotherapy). ?Strong X-ray beams or high-energy capsules to kill cancer cells and shrink tumors (radiation therapy). Having been exposed to arsenic. This is a poisonous substance. What are the signs or symptoms? Early symptoms of this condition include: Blood in your urine. Pain when urinating. Infections of your urinary system (urinary tract infections or UTIs) that happen often. Having to urinate sooner or more often than normal. Late symptoms of this condition include: Not being able to urinate. Pain on one side of your lower back. Loss of appetite. Weight loss. Tiredness (fatigue). Swelling in your feet. Bone pain. How is this diagnosed? This condition is diagnosed based on: Your medical history. A physical exam. Lab tests, such as urine tests. Imaging tests. Your symptoms. You may also have other tests or procedures, such as: A cystoscopy. This involves putting a narrow tube into your urethra. The urethra is the organ that carries urine from your bladder to the outside of your body. This procedure is done to view the lining of your bladder for tumors. A biopsy. This involves removing a tissue sample to look at under a microscope to check for cancer. Blood tests or imaging tests may be needed. These show how far into the bladder wall cancer has grown, and if cancer has spread to any other parts of your body. Tests may include: CT scan. MRI. Bone scan. X-ray. How is this treated? Your health care provider may recommend one or more types of treatment based on the stage of your cancer. The most common treatments are: Surgery to remove the cancer. Types of surgeries include: ?Removing a tumor on the inside wall of the bladder (transurethral resection). ?Removing the bladder (cystectomy). Radiation therapy. This is often combined with chemotherapy. Chemotherapy. Immunotherapy. This uses medicines to help your body's disease-fighting system (immune system) destroy cancer cells. Follow these instructions at home: Take mycc-suf-yxfmyqy and prescription medicines only as told by your health care provider. If you were prescribed an antibiotic medicine, take it as told by your health care provider. Do not stop using the antibiotic even if you start to feel better. Eat a healthy diet. Some treatments might affect your appetite. Do not use any products that contain nicotine or tobacco. These products include cigarettes, chewing tobacco, and vaping devices, such as e-cigarettes. If you need help quitting, ask your health care provider. Consider joining a support group. This may help you learn to deal with the stress of having bladder cancer. Tell your cancer care team if you develop side effects. Your team may be able to recommend ways to get relief. Keep all follow-up visits. This is important. Where to find more information [employer] [employer] (ACS): cancer.org National Cancer [place] (NCI): cancer.gov Contact a health care provider if: You have symptoms of a UTI. These include: ?Fever. ?Chills. ?Weakness. ?Muscle aches. ?Pain in your abdomen. ?Urge to urinate that is stronger and happens more often than normal. ?Burning in the bladder or urethra when you urinate. Get help right away if: There is blood in your urine. You cannot urinate. You have severe pain or other symptoms that do not go away. Summary Bladder cancer is a condition where tumors grow in the bladder. Diagnosis is based on your medical history, a physical exam, lab tests, imaging tests, and your symptoms. Your health care provider may recommend one or more types of treatment based on the stage of your cancer. Consider joining a support group. This may help you learn to deal with the stress of having bladder cancer. This information is not intended to replace advice given to you by your health care provider. Make sure you discuss any questions you have with your health care provider. Document Revised: 06/13/2022 Document Reviewed: 06/13/2022 [employer] Patient Education 2022 [employer]. Follow Up Care 05/26/2023 08:45:13 With:MILLICENT IVORY, SYLVIE Wilkerson, URL Address: [address] [place] [address] When:Within 1 Week(s) Comments:BCG #3 of 6 - FULL DOSE [facility] 07-19-2023 Hospital Discharge instructions Patient Education 07/19/2023 10:59:20 Bladder Cancer Bladder Cancer Bladder cancer is a condition where abnormal tissue (a tumor) grows in the bladder. The bladder is the organ that holds urine. Two tubes (ureters) carry urine from the kidneys to the bladder. The bladder wall is made of layers of tissue. Cancer that spreads through these layers of the bladder wall becomes more difficult to treat. What increases the risk? The following factors may make you more likely to develop this condition: Smoking. Working where there are risks (occupational exposures), such as working with rubber, leather, clothing fabric, dyes, chemicals, or paint. Being 55 years of age or older. Being male. Having long-term bladder inflammation. Having a history of cancer. This includes: ?A family history of bladder cancer. ?Having had bladder cancer before. ?Having had certain treatments for cancer before, such as: ?Medicines to kill cancer cells (chemotherapy). ?Strong X-ray beams or high-energy capsules to kill cancer cells and shrink tumors (radiation therapy). Having been exposed to arsenic. This is a poisonous substance. What are the signs or symptoms? Early symptoms of this condition include: Blood in your urine. Pain when urinating. Infections of your urinary system (urinary tract infections or UTIs) that happen often. Having to urinate sooner or more often than normal. Late symptoms of this condition include: Not being able to urinate. Pain on one side of your lower back. Loss of appetite. Weight loss. Tiredness (fatigue). Swelling in your feet. Bone pain. How is this diagnosed? This condition is diagnosed based on: Your medical history. A physical exam. Lab tests, such as urine tests. Imaging tests. Your symptoms. You may also have other tests or procedures, such as: A cystoscopy. This involves putting a narrow tube into your urethra. The urethra is the organ that carries urine from your bladder to the outside of your body. This procedure is done to view the lining of your bladder for tumors. A biopsy. This involves removing a tissue sample to look at under a microscope to check for cancer. Blood tests or imaging tests may be needed. These show how far into the bladder wall cancer has grown, and if cancer has spread to any other parts of your body. Tests may include: CT scan. MRI. Bone scan. X-ray. How is this treated? Your health care provider may recommend one or more types of treatment based on the stage of your cancer. The most common treatments are: Surgery to remove the cancer. Types of surgeries include: ?Removing a tumor on the inside wall of the bladder (transurethral resection). ?Removing the bladder (cystectomy). Radiation therapy. This is often combined with chemotherapy. Chemotherapy. Immunotherapy. This uses medicines to help your body's disease-fighting system (immune system) destroy cancer cells. Follow these instructions at home: Take pkep-tix-kmsysol and prescription medicines only as told by your health care provider. If you were prescribed an antibiotic medicine, take it as told by your health care provider. Do not stop using the antibiotic even if you start to feel better. Eat a healthy diet. Some treatments might affect your appetite. Do not use any products that contain nicotine or tobacco. These products include cigarettes, chewing tobacco, and vaping devices, such as e-cigarettes. If you need help quitting, ask your health care provider. Consider joining a support group. This may help you learn to deal with the stress of having bladder cancer. Tell your cancer care team if you develop side effects. Your team may be able to recommend ways to get relief. Keep all follow-up visits. This is important. Where to find more information [employer] [employer] (ACS): cancer.org National Cancer [place] (NCI): cancer.gov Contact a health care provider if: You have symptoms of a UTI. These include: ?Fever. ?Chills. ?Weakness. ?Muscle aches. ?Pain in your abdomen. ?Urge to urinate that is stronger and happens more often than normal. ?Burning in the bladder or urethra when you urinate. Get help right away if: There is blood in your urine. You cannot urinate. You have severe pain or other symptoms that do not go away. Summary Bladder cancer is a condition where tumors grow in the bladder. Diagnosis is based on your medical history, a physical exam, lab tests, imaging tests, and your symptoms. Your health care provider may recommend one or more types of treatment based on the stage of your cancer. Consider joining a support group. This may help you learn to deal with the stress of having bladder cancer. This information is not intended to replace advice given to you by your health care provider. Make sure you discuss any questions you have with your health care provider. Document Revised: 06/13/2022 Document Reviewed: 06/13/2022 [employer] Patient Education 2022 [employer]. Follow Up Care 05/26/2023 08:44:02 With:SYLVIE DAVIS PA-C, URL Address: [address] [place] [phone] When: Unknown Comments:BCG #2/6 on 07/26/23 [facility] 05-31-2023 Hospital Discharge instructions Patient Education 05/31/2023 10:49:23 Cancer Screening for Men Cancer Screening for Men A cancer screening is a test or exam that checks for cancer. Your health care provider will recommend specific cancer screenings based on your age, medical history (including risk factors), and family history of cancer. Work with your health care provider to create a cancer screening schedule that protects your health. Who should have screening? All men should be considered for screening of certain cancers, including colorectal cancer, prostate cancer, lung cancer, and skin cancer. Your health care provider may recommend screenings for other types of cancer if: You had cancer before. You have a family member with cancer. You have abnormal genes that could increase the risk of cancer. You have risk factors for certain cancers, such as current or past use of tobacco products, or being overweight. When you should be screened for cancer depends on: Your age. Your medical history and your family's medical history. Certain lifestyle factors, such as smoking or other use of tobacco products. Environmental exposure, such as to asbestos. How is screening done? Colorectal cancer All adults should have screenings starting at age 45 and continuing until age 75. Your health care provider may recommend screening before age 45. You will have tests every 1 10 years, depending on your results and the type of screening test. People at increased risk should start screening at an earlier age. Talk with your health care provider about which screening test is right for you and how often you should be screened. Colorectal cancer screening looks for cancer or for growths called polyps that often form before cancer starts. Tests to look for cancer or polyps include: Colonoscopy or flexible sigmoidoscopy. For these procedures, a flexible tube with a small camera is inserted into the rectum. CT colonography. This test uses X-rays and a contrast dye to check the colon for polyps. If a polyp is found, you may need to have a colonoscopy so the polyp can be located and removed. Tests to look for cancer in the stool (feces) include: Guaiac-based fecal occult blood test (FOBT). This test can find blood in stool. It can be done at home with a kit. Fecal immunochemical test (FIT). This test can find blood in stool. For this test, you will need to collect stool samples at home. Stool DNA test. This test looks for blood in stool and any changes in DNA that can lead to colon cancer. For this test, you will need to collect a stool sample at home and send it to a lab. Prostate cancer Prostate cancer screening for men with average risk may start at age 50. Men with risk factors may need to be screened earlier, at ages 40 45. Talk with your health care provider about whether screening is right for you and, if so, how often you should be screened. Prostate cancer screening is done with blood tests and a digital rectal exam. During this exam, a health care provider uses a gloved finger to check prostate size. You may need to be screened for prostate cancer if: You have risk factors for prostate cancer, such as being or having a close family member with prostate cancer. You have had gene changes or a genetic condition that was passed on to you from a parent (inherited). These gene changes or genetic conditions include BRCA1 or BRCA2 gene mutations or Archuleta syndrome. You have symptoms of prostate cancer, such as problems urinating or problems getting or keeping an erection (erectile dysfunction). When you have been screened for prostate cancer, future screening may be recommended based on the results of your blood tests. Lung cancer Lung cancer screening is done with a CT scan that looks for abnormal changes in the lungs. Discuss lung cancer screening with your health care provider if you are 50 80 years old and if any of the following apply to you: You currently smoke. You used to smoke heavily. You have a smoking history of 1 pack of cigarettes a day for 20 years or 2 packs a day for 10 years. You have quit smoking within the past 15 years. You may need to be screened every year if you smoke heavily or if you used to smoke. Skin cancer Skin cancer screening is done by checking the skin for unusual moles or spots and any changes in existing moles. Your health care provider should check your skin for signs of skin cancer at every physical exam. You should check your skin every month and tell your health care provider right away if anything looks unusual. Men with a ttrjss-mggs-sjgtku risk for skin cancer may want to see a [facility] (hourly manager) for an annual body check. What are the benefits of screening? Cancer screening is done to look for cancer in the very early stages, before it spreads and becomes harder to treat and before you would start to notice symptoms. Finding cancer early improves the chances of successful treatment. It may save your life. Where to find more information [employer] [employer]: www.cancer.org Centers for Disease Control and Prevention: www.cdc.gov National Cancer [place]: www.cancer.gov Contact a health care provider if: You have concerns about any signs or symptoms of cancer. These may include: Skin problems. You may have: ?Moles of an unusual shape or color. ?Changes in existing moles. ?A sore on your skin that does not heal. Tiredness (fatigue) that does not go away. Losing weight without trying. Blood in your urine or stool. Problems with urination. You may have: ?Changes in urination habits. ?Painful urination. Painful ejaculation. Problems with coughing or breathing. These may include: ?Coughing or trouble breathing that does not go away. ?Coughing up blood. Frequent pain or cramping in your abdomen. Summary Your health care provider will recommend specific cancer screenings based on your age, medical history, and family history of cancer. Work with your health care provider to create a cancer screening schedule that protects your health. Finding cancer early improves the chances of successful treatment. It may save your life. Contact a health care provider if you have concerns about any signs or symptoms of cancer. This information is not intended to replace advice given to you by your health care provider. Make sure you discuss any questions you have with your health care provider. Document Revised: 11/29/2021 Document Reviewed: 05/29/2020 [employer] Patient Education 2022 [employer]. Follow Up Care 05/31/2023 09:58:28 With:KENA ESPARZA, Yevgeniy Us, URL Address: [facility] [address] [place] [address]- When: Unknown [facility] 05-10-2023 Hospital Discharge instructions Patient Education 05/10/2023 07:39:15 Cancer Screening for Men Cancer Screening for Men A cancer screening is a test or exam that checks for cancer. Your health care provider will recommend specific cancer screenings based on your age, medical history (including risk factors), and family history of cancer. Work with your health care provider to create a cancer screening schedule that protects your health. Who should have screening? All men should be considered for screening of certain cancers, including colorectal cancer, prostate cancer, lung cancer, and skin cancer. Your health care provider may recommend screenings for other types of cancer if: You had cancer before. You have a family member with cancer. You have abnormal genes that could increase the risk of cancer. You have risk factors for certain cancers, such as current or past use of tobacco products, or being overweight. When you should be screened for cancer depends on: Your age. Your medical history and your family's medical history. Certain lifestyle factors, such as smoking or other use of tobacco products. Environmental exposure, such as to asbestos. How is screening done? Colorectal cancer All adults should have screenings starting at age 45 and continuing until age 75. Your health care provider may recommend screening before age 45. You will have tests every 1 10 years, depending on your results and the type of screening test. People at increased risk should start screening at an earlier age. Talk with your health care provider about which screening test is right for you and how often you should be screened. Colorectal cancer screening looks for cancer or for growths called polyps that often form before cancer starts. Tests to look for cancer or polyps include: Colonoscopy or flexible sigmoidoscopy. For these procedures, a flexible tube with a small camera is inserted into the rectum. CT colonography. This test uses X-rays and a contrast dye to check the colon for polyps. If a polyp is found, you may need to have a colonoscopy so the polyp can be located and removed. Tests to look for cancer in the stool (feces) include: Guaiac-based fecal occult blood test (FOBT). This test can find blood in stool. It can be done at home with a kit. Fecal immunochemical test (FIT). This test can find blood in stool. For this test, you will need to collect stool samples at home. Stool DNA test. This test looks for blood in stool and any changes in DNA that can lead to colon cancer. For this test, you will need to collect a stool sample at home and send it to a lab. Prostate cancer Prostate cancer screening for men with average risk may start at age 50. Men with risk factors may need to be screened earlier, at ages 40 45. Talk with your health care provider about whether screening is right for you and, if so, how often you should be screened. Prostate cancer screening is done with blood tests and a digital rectal exam. During this exam, a health care provider uses a gloved finger to check prostate size. You may need to be screened for prostate cancer if: You have risk factors for prostate cancer, such as being or having a close family member with prostate cancer. You have had gene changes or a genetic condition that was passed on to you from a parent (inherited). These gene changes or genetic conditions include BRCA1 or BRCA2 gene mutations or Archuleta syndrome. You have symptoms of prostate cancer, such as problems urinating or problems getting or keeping an erection (erectile dysfunction). When you have been screened for prostate cancer, future screening may be recommended based on the results of your blood tests. Lung cancer Lung cancer screening is done with a CT scan that looks for abnormal changes in the lungs. Discuss lung cancer screening with your health care provider if you are 50 80 years old and if any of the following apply to you: You currently smoke. You used to smoke heavily. You have a smoking history of 1 pack of cigarettes a day for 20 years or 2 packs a day for 10 years. You have quit smoking within the past 15 years. You may need to be screened every year if you smoke heavily or if you used to smoke. Skin cancer Skin cancer screening is done by checking the skin for unusual moles or spots and any changes in existing moles. Your health care provider should check your skin for signs of skin cancer at every physical exam. You should check your skin every month and tell your health care provider right away if anything looks unusual. Men with a hqywhx-hhhl-zooatd risk for skin cancer may want to see a [facility] (hourly manager) for an annual body check. What are the benefits of screening? Cancer screening is done to look for cancer in the very early stages, before it spreads and becomes harder to treat and before you would start to notice symptoms. Finding cancer early improves the chances of successful treatment. It may save your life. Where to find more information [employer] [employer]: www.cancer.org Centers for Disease Control and Prevention: www.cdc.gov National Cancer [place]: www.cancer.gov Contact a health care provider if: You have concerns about any signs or symptoms of cancer. These may include: Skin problems. You may have: ?Moles of an unusual shape or color. ?Changes in existing moles. ?A sore on your skin that does not heal. Tiredness (fatigue) that does not go away. Losing weight without trying. Blood in your urine or stool. Problems with urination. You may have: ?Changes in urination habits. ?Painful urination. Painful ejaculation. Problems with coughing or breathing. These may include: ?Coughing or trouble breathing that does not go away. ?Coughing up blood. Frequent pain or cramping in your abdomen. Summary Your health care provider will recommend specific cancer screenings based on your age, medical history, and family history of cancer. Work with your health care provider to create a cancer screening schedule that protects your health. Finding cancer early improves the chances of successful treatment. It may save your life. Contact a health care provider if you have concerns about any signs or symptoms of cancer. This information is not intended to replace advice given to you by your health care provider. Make sure you discuss any questions you have with your health care provider. Document Revised: 11/29/2021 Document Reviewed: 05/29/2020 [employer] Patient Education 2022 [employer]. Follow Up Care 03/02/2023 14:05:04 With:KENA ESPARZA, Yevgeniy Us, URL Address: [facility] [address] , [place] [address]- When: Unknown [facility] 02-01-2023 Hospital Discharge instructions Patient Education 02/01/2023 08:30:25 Bladder Cancer Bladder Cancer Bladder cancer is a condition where abnormal tissue (a tumor) grows in the bladder. The bladder is the organ that holds urine. Two tubes (ureters) carry urine from the kidneys to the bladder. The bladder wall is made of layers of tissue. Cancer that spreads through these layers of the bladder wall becomes more difficult to treat. What increases the risk? The following factors may make you more likely to develop this condition: Smoking. Working where there are risks (occupational exposures), such as working with rubber, leather, clothing fabric, dyes, chemicals, or paint. Being 55 years of age or older. Being male. Having long-term bladder inflammation. Having a history of cancer. This includes: ?A family history of bladder cancer. ?Having had bladder cancer before. ?Having had certain treatments for cancer before, such as: ?Medicines to kill cancer cells (chemotherapy). ?Strong X-ray beams or high-energy capsules to kill cancer cells and shrink tumors (radiation therapy). Having been exposed to arsenic. This is a poisonous substance. What are the signs or symptoms? Early symptoms of this condition include: Blood in your urine. Pain when urinating. Infections of your urinary system (urinary tract infections or UTIs) that happen often. Having to urinate sooner or more often than normal. Late symptoms of this condition include: Not being able to urinate. Pain on one side of your lower back. Loss of appetite. Weight loss. Tiredness (fatigue). Swelling in your feet. Bone pain. How is this diagnosed? This condition is diagnosed based on: Your medical history. A physical exam. Lab tests, such as urine tests. Imaging tests. Your symptoms. You may also have other tests or procedures, such as: A cystoscopy. This involves putting a narrow tube into your urethra. The urethra is the organ that carries urine from your bladder to the outside of your body. This procedure is done to view the lining of your bladder for tumors. A biopsy. This involves removing a tissue sample to look at under a microscope to check for cancer. Blood tests or imaging tests may be needed. These show how far into the bladder wall cancer has grown, and if cancer has spread to any other parts of your body. Tests may include: CT scan. MRI. Bone scan. X-ray. How is this treated? Your health care provider may recommend one or more types of treatment based on the stage of your cancer. The most common treatments are: Surgery to remove the cancer. Types of surgeries include: ?Removing a tumor on the inside wall of the bladder (transurethral resection). ?Removing the bladder (cystectomy). Radiation therapy. This is often combined with chemotherapy. Chemotherapy. Immunotherapy. This uses medicines to help your body's disease-fighting system (immune system) destroy cancer cells. Follow these instructions at home: Take ebft-lui-qjzodcf and prescription medicines only as told by your health care provider. If you were prescribed an antibiotic medicine, take it as told by your health care provider. Do not stop using the antibiotic even if you start to feel better. Eat a healthy diet. Some treatments might affect your appetite. Do not use any products that contain nicotine or tobacco. These products include cigarettes, chewing tobacco, and vaping devices, such as e-cigarettes. If you need help quitting, ask your health care provider. Consider joining a support group. This may help you learn to deal with the stress of having bladder cancer. Tell your cancer care team if you develop side effects. Your team may be able to recommend ways to get relief. Keep all follow-up visits. This is important. Where to find more information [employer] [employer] (ACS): cancer.org National Cancer [place] (NCI): cancer.gov Contact a health care provider if: You have symptoms of a UTI. These include: ?Fever. ?Chills. ?Weakness. ?Muscle aches. ?Pain in your abdomen. ?Urge to urinate that is stronger and happens more often than normal. ?Burning in the bladder or urethra when you urinate. Get help right away if: There is blood in your urine. You cannot urinate. You have severe pain or other symptoms that do not go away. Summary Bladder cancer is a condition where tumors grow in the bladder. Diagnosis is based on your medical history, a physical exam, lab tests, imaging tests, and your symptoms. Your health care provider may recommend one or more types of treatment based on the stage of your cancer. Consider joining a support group. This may help you learn to deal with the stress of having bladder cancer. This information is not intended to replace advice given to you by your health care provider. Make sure you discuss any questions you have with your health care provider. Document Revised: 06/13/2022 Document Reviewed: 06/13/2022 [employer] Patient Education 2022 [employer]. Follow Up Care 01/04/2023 08:12:58 With:KENA ESPARZA, Yevgeniy Us, URL Address: [facility] [address] , [place] [address]- When: Unknown [facility] 01-04-2023 Hospital Discharge instructions Patient Education 01/04/2023 07:36:37 Cancer Screening for Men Cancer Screening for Men A cancer screening is a test or exam that checks for cancer. Your health care provider will recommend specific cancer screenings based on your age, medical history (including risk factors), and family history of cancer. Work with your health care provider to create a cancer screening schedule that protects your health. Who should have screening? All men should be considered for screening of certain cancers, including colorectal cancer, prostate cancer, lung cancer, and skin cancer. Your health care provider may recommend screenings for other types of cancer if: You had cancer before. You have a family member with cancer. You have abnormal genes that could increase the risk of cancer. You have risk factors for certain cancers, such as current or past use of tobacco products, or being overweight. When you should be screened for cancer depends on: Your age. Your medical history and your family's medical history. Certain lifestyle factors, such as smoking or other use of tobacco products. Environmental exposure, such as to asbestos. How is screening done? Colorectal cancer All adults should have screenings starting at age 45 and continuing until age 75. Your health care provider may recommend screening before age 45. You will have tests every 1 10 years, depending on your results and the type of screening test. People at increased risk should start screening at an earlier age. Talk with your health care provider about which screening test is right for you and how often you should be screened. Colorectal cancer screening looks for cancer or for growths called polyps that often form before cancer starts. Tests to look for cancer or polyps include: Colonoscopy or flexible sigmoidoscopy. For these procedures, a flexible tube with a small camera is inserted into the rectum. CT colonography. This test uses X-rays and a contrast dye to check the colon for polyps. If a polyp is found, you may need to have a colonoscopy so the polyp can be located and removed. Tests to look for cancer in the stool (feces) include: Guaiac-based fecal occult blood test (FOBT). This test can find blood in stool. It can be done at home with a kit. Fecal immunochemical test (FIT). This test can find blood in stool. For this test, you will need to collect stool samples at home. Stool DNA test. This test looks for blood in stool and any changes in DNA that can lead to colon cancer. For this test, you will need to collect a stool sample at home and send it to a lab. Prostate cancer Prostate cancer screening for men with average risk may start at age 50. Men with risk factors may need to be screened earlier, at ages 40 45. Talk with your health care provider about whether screening is right for you and, if so, how often you should be screened. Prostate cancer screening is done with blood tests and a digital rectal exam. During this exam, a health care provider uses a gloved finger to check prostate size. You may need to be screened for prostate cancer if: You have risk factors for prostate cancer, such as being or having a close family member with prostate cancer. You have had gene changes or a genetic condition that was passed on to you from a parent (inherited). These gene changes or genetic conditions include BRCA1 or BRCA2 gene mutations or Archuleta syndrome. You have symptoms of prostate cancer, such as problems urinating or problems getting or keeping an erection (erectile dysfunction). When you have been screened for prostate cancer, future screening may be recommended based on the results of your blood tests. Lung cancer Lung cancer screening is done with a CT scan that looks for abnormal changes in the lungs. Discuss lung cancer screening with your health care provider if you are 50 80 years old and if any of the following apply to you: You currently smoke. You used to smoke heavily. You have a smoking history of 1 pack of cigarettes a day for 20 years or 2 packs a day for 10 years. You have quit smoking within the past 15 years. You may need to be screened every year if you smoke heavily or if you used to smoke. Skin cancer Skin cancer screening is done by checking the skin for unusual moles or spots and any changes in existing moles. Your health care provider should check your skin for signs of skin cancer at every physical exam. You should check your skin every month and tell your health care provider right away if anything looks unusual. Men with a cgxcoj-zfuy-dulliz risk for skin cancer may want to see a [facility] (hourly manager) for an annual body check. What are the benefits of screening? Cancer screening is done to look for cancer in the very early stages, before it spreads and becomes harder to treat and before you would start to notice symptoms. Finding cancer early improves the chances of successful treatment. It may save your life. Where to find more information [employer] [employer]: www.cancer.org Centers for Disease Control and Prevention: www.cdc.gov National Cancer [place]: www.cancer.gov Contact a health care provider if: You have concerns about any signs or symptoms of cancer. These may include: Skin problems. You may have: ?Moles of an unusual shape or color. ?Changes in existing moles. ?A sore on your skin that does not heal. Tiredness (fatigue) that does not go away. Losing weight without trying. Blood in your urine or stool. Problems with urination. You may have: ?Changes in urination habits. ?Painful urination. Painful ejaculation. Problems with coughing or breathing. These may include: ?Coughing or trouble breathing that does not go away. ?Coughing up blood. Frequent pain or cramping in your abdomen. Summary Your health care provider will recommend specific cancer screenings based on your age, medical history, and family history of cancer. Work with your health care provider to create a cancer screening schedule that protects your health. Finding cancer early improves the chances of successful treatment. It may save your life. Contact a health care provider if you have concerns about any signs or symptoms of cancer. This information is not intended to replace advice given to you by your health care provider. Make sure you discuss any questions you have with your health care provider. Document Revised: 11/29/2021 Document Reviewed: 05/29/2020 [employer] Patient Education 2022 [employer]. Follow Up Care 12/08/2022 14:06:34 With:KENA ESPARZA, Yevgeniy Us, URL Address: [facility] [address] , [place] [address]- When: Unknown [facility] 09-20-2022 Evaluation + Plan note Diagnostic Tests [facility] 09/20/22 [facility] 09-20-2022 Hospital Discharge instructions Patient Education 09/20/2022 08:00:42 Cancer Screening for Men Cancer Screening for Men A cancer screening is a test or exam that checks for cancer. Your health care provider will recommend specific cancer screenings based on your age, personal history, and family history of cancer. Work with your health care provider to create a cancer screening schedule that protects your health. Why is cancer screening done? Cancer screening is done to look for cancer in the very early stages, before it spreads and becomes harder to treat and before you would start to notice symptoms. Finding cancer early improves the chances of successful treatment. It may save your life. Who should be screened for cancer? All men should be screened for colorectal cancer and skin cancer. Your health care provider may recommend screenings for other types of cancer if: You had cancer before. You have a family member with cancer. You have abnormal genes that could increase the risk of cancer. You have risk factors for certain cancers, such as smoking. When you should be screened for cancer depends on: Your age. Your medical history and your family's medical history. Certain lifestyle factors, such as smoking. Environmental exposure, such as to asbestos. What are some common cancer screenings? Lung cancer Lung cancer screening is done with a CT scan that looks for abnormal cells in the lungs. Discuss lung cancer screening with your health care provider if you are 55 74 years old and if any of the following apply to you: You currently smoke. You used to smoke heavily. You have a smoking history of 1 pack a day for 30 years or 2 packs a day for 15 years. You have quit smoking within the past 15 years. If you smoke heavily or if you used to smoke, you may need to be screened every year. Prostate cancer Prostate cancer screening is done with blood tests and an exam in which a health care provider uses a gloved finger to check prostate size (digital rectal exam). You may need to be screened for prostate cancer if: You have risk factors of prostate cancer, such as being or having a close family member with prostate cancer. You have inherited gene changes or a genetic condition, including BRCA1 or BRCA2 gene mutations or Archuleta syndrome. You have symptoms of prostate cancer, such as problems urinating or erectile dysfunction. Prostate cancer screening for men with average risk may start at age 50. Men with risk factors may need to be screened earlier at age 40 45. Once you have been screened for prostate cancer, future screening may be recommended based on the results of your blood tests. Colorectal cancer All adults should have screening for colorectal cancer starting at age 50 and continuing until age 75. Your health care provider may recommend screening at age 45. You will have tests every 1 10 years, depending on your results and the type of screening test. If you have a family history of colon or rectal cancer or other risk factors, you may need to start having screenings earlier. Talk with your health care provider about which screening test is right for you and how often you should be screened. Colorectal cancer screening looks for cancer or for growths called polyps that often form before cancer starts. Tests to look for cancer or polyps include: Colonoscopy or flexible sigmoidoscopy. For these procedures, a flexible tube with a small camera is inserted into the rectum. CT colonography. This test uses X-rays and a contrast dye to check the colon for polyps. If a polyp is found, you may need to have a colonoscopy so the polyp can be located and removed. Tests to look for cancer in the stool (feces) include: Guaiac-based fecal occult blood test (FOBT). This test detects blood in stool. It can be done at home with a kit. Fecal immunochemical test (FIT). This test detects blood in stool. For this test, you will need to collect stool samples at home. Stool DNA test. This test looks for blood in stool and any changes in DNA that can lead to colon cancer. For this test, you will need to collect a stool sample at home and send it to a lab. Skin cancer Skin cancer screening is done by checking the skin for unusual moles or spots and any changes in existing moles. Your health care provider should check your skin for signs of skin cancer at every physical exam. You should check your skin every month and tell your health care provider right away if anything looks unusual. Men with a tcydcr-nxji-kqrsyv risk for skin cancer may want to see a [facility] (hourly manager) for an annual body check. Where to find more information National Cancer [place]: https://www.cancer.gov/about-can cer/screening Centers for Disease Control and Prevention: https://www.cdc.gov/cancer/dcpc/ prevention/screening.htm [employer]: https://www.cancer.org/latest-ne ws/1-vmpxmc-caqrfrhtg-tests-for- men.html Contact a health care provider if: You have concerns about any signs or symptoms of cancer, such as: ?Moles that have an unusual shape or color. ?Changes in existing moles. ?A sore on your skin that does not heal. ?Blood in your urine or stool. ?Fatigue that does not go away. ?Frequent pain or cramping in your abdomen. ?Coughing or trouble breathing that does not go away. ?Coughing up blood. ?Losing weight without trying. ?Changes in urination habits. ?Painful urination or ejaculation. Summary Be aware of and watch for signs and symptoms of cancer, especially symptoms of lung cancer, prostate cancer, colorectal cancer, and skin cancer. Early detection of cancer with cancer screening may save your life. Talk with your health care provider about your specific cancer risks. Work together with your health care provider to create a cancer screening plan that is right for you. This information is not intended to replace advice given to you by your health care provider. Make sure you discuss any questions you have with your health care provider. Document Released: 03/30/2017 Document Revised: 03/22/2019 Document Reviewed: 03/30/2017 [employer] Patient Education 2019 [employer] Follow Up Care 07/15/2022 10:28:13 With:KENA ESPARZA, Yevgeniy Us, URL Address: [facility] [address], [place] [address]- When: Unknown [facility] 07-15-2022 Hospital Discharge instructions Patient Education 07/15/2022 09:53:15 Bladder Cancer Bladder Cancer Bladder cancer is an abnormal growth of tissue in the bladder. The bladder is the balloon-like sac in the pelvis. It collects and stores urine that comes from the kidneys through the ureters. The bladder wall is made of layers. If cancer spreads into these layers and through the wall of the bladder, it becomes more difficult to treat. What are the causes? The cause of this condition is not known. What increases the risk? The following factors may make you more likely to develop this condition: Smoking. Workplace risks (occupational exposures), such as rubber, leather, textile, dyes, chemicals, and paint. Being white. Your age. Most people with bladder cancer are over the age of 55. Being male. Having chronic bladder inflammation. Having a personal history of bladder cancer. Having a family history of bladder cancer (heredity). Having had chemotherapy or radiation therapy to the pelvis. Having been exposed to arsenic. What are the signs or symptoms? Initial symptoms of this condition include: Blood in the urine. Painful urination. Frequent bladder or urine infections. Increase in urgency and frequency of urination. Advanced symptoms of this condition include: Not being able to urinate. Low back pain on one side. Loss of appetite. Weight loss. Fatigue. Swelling in the feet. Bone pain. How is this diagnosed? This condition is diagnosed based on your medical history, a physical exam, urine tests, lab tests, imaging tests, and your symptoms. You may also have other tests or procedures done, such as: A narrow tube being inserted into your bladder through your urethra (cystoscopy) in order to view the lining of your bladder for tumors. A biopsy to sample the tumor to see if cancer is present. If cancer is present, it will then be staged to determine its severity and extent. Staging is an assessment of: The size of the tumor. Whether the cancer has spread. Where the cancer has spread. It is important to know how deeply into the bladder wall cancer has grown and whether cancer has spread to any other parts of your body. Staging may require blood tests or imaging tests, such as a CT scan, MRI, bone scan, or chest X-ray. How is this treated? Based on the stage of cancer, one treatment or a combination of treatments may be recommended. The most common forms of treatment are: Surgery to remove the cancer. Procedures that may be done include transurethral resection and cystectomy. Radiation therapy. This is high-energy X-rays or other particles. This is often used in combination with chemotherapy. Chemotherapy. During this treatment, medicines are used to kill cancer cells. Immunotherapy. This uses medicines to help your own immune system destroy cancer cells. Follow these instructions at home: Take xtwf-vri-areituq and prescription medicines only as told by your health care provider. Maintain a healthy diet. Some of your treatments might affect your appetite. Consider joining a support group. This may help you learn to cope with the stress of having bladder cancer. Tell your cancer care team if you develop side effects. They may be able to recommend ways to relieve them. Keep all follow-up visits as told by your health care provider. This is important. Where to find more information [employer]: www.cancer.org National Cancer [place] (NCI): www.cancer.gov Contact a health care provider if: You have symptoms of a urinary tract infection. These include: ?Fever. ?Chills. ?Weakness. ?Muscle aches. ?Abdominal pain. ?Frequent and intense urge to urinate. ?Burning feeling in the bladder or urethra during urination. Get help right away if: There is blood in your urine. You cannot urinate. You have severe pain or other symptoms that do not go away. Summary Bladder cancer is an abnormal growth of tissue in the bladder. This condition is diagnosed based on your medical history, a physical exam, urine tests, lab tests, imaging tests, and your symptoms. Based on the stage of cancer, surgery, chemotherapy, or a combination of treatments may be recommended. Consider joining a support group. This may help you learn to cope with the stress of having bladder cancer. This information is not intended to replace advice given to you by your health care provider. Make sure you discuss any questions you have with your health care provider. Document Released: 07/05/2004 Document Revised: 06/15/2018 Document Reviewed: 06/06/2017 [employer] Patient Education 2019 [employer]. Follow Up Care 05/24/2022 15:57:06 With:KENA ESPARZA, Yevgeniy Us, URL Address: [address] [place] [address] [place] [id number] When: Unknown [facility] 05-24-2022 Hospital Discharge instructions Patient Education 05/24/2022 15:07:19 EU - Cystoscopy Discharge Instructions (CUSTOM) Cystoscopy Voiding after the procedure: there may be some pain, burning, urgency, frequency and blood tinged urine following the procedure. These symptoms usually resolve within 2-5 days. Drink the amount of fluid it takes to keep the urine pink to yellow or clear in color. Drinking enough water and fluids will help to ease any discomfort after your procedure. If you are having problems that seem out of the ordinary, please call. If unable to contact your physician and you feel it is an emergency, go to the nearest emergency room or call 911 Diet you may resume your normal diet. Activity you may resume your normal activities Call if you have a fever over 100 degrees. [facility] 05-24-2022 Evaluation + Plan note Extrac araseli from: Title:Urology Progress Note Author:Adrian ESCUDERO MD Date:05/24/22 Impression and Plan Impression: #1. This gentleman has a bladder mass which is causing his gross hematuria. 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 2. This gentleman has BPH with LUTS. Plan: #1. We are getting him scheduled for a cystoscopy, transurethral resection of the bladder tumor and right ureteroscopy under general endotracheal with paralysis. 2. We will work on his voiding parameters after his bladder tumor has been removed. Future Appointments Appointment Date:07/12/2022 10:00:00 AM Scheduled Provider: Location:[facility] [place] Appointment Type:URO Nurse Visit Appointment Date:07/15/2022 09:15:00 AM Scheduled Provider:Yevgeniy ESCUDERO MD [facility] Appointment Type:URO Office Visit [facility] Hospital Discharge instructions Patient Education 05/04/2022 11:00:17 Benign Prostatic Hyperplasia Benign Prostatic Hyperplasia Benign prostatic hyperplasia (BPH) is an enlarged prostate gland that is caused by the normal agingprocess and not by cancer. The prostate is a walnut-sized gland that is involved in the production of semen. It is located in front of the rectum and below the bladder. The bladder stores urine and the urethra is the tube that carries the urine out of the body. The prostate may get bigger as a man gets older. An enlarged prostate can press on the urethra. This can make it harder to pass urine. The build-up of urine in the bladder can cause infection. Back pressure and infection may progress to bladder damage and kidney (renal) failure. What are the causes? This condition is part of a normal aging process. However, not all men develop problems from this condition. If the prostate enlarges away from the urethra, urine flow will not be blocked. If it enlarges toward the urethra and compresses it, there will be problems passing urine. What increases the risk? This condition is more likely to develop in men over the age of 50 years. What are the signs or symptoms? Symptoms of this condition include: Getting up often during the night to urinate. Needing to urinate frequently during the day. Difficulty starting urine flow. Decrease in size and strength of your urine stream. Leaking (dribbling) after urinating. Inability to pass urine. This needs immediate treatment. Inability to completely empty your bladder. Pain when you pass urine. This is more common if there is also an infection. Urinary tract infection (UTI). How is this diagnosed? This condition is diagnosed based on your medical history, a physical exam, and your symptoms. Tests will also be done, such as: A post-void bladder scan. This measures any amount of urine that may remain in your bladder after you finish urinating. A digital rectal exam. In a rectal exam, your health care provider checks your prostate by putting a lubricated, gloved finger into your rectum to feel the back of your prostate gland. This exam detects the size of your gland and any abnormal lumps or growths. An exam of your urine (urinalysis). A prostate specific antigen (PSA) screening. This is a blood test used to screen for prostate cancer. An ultrasound. This test uses sound waves to electronically produce a picture of your prostate gland. Your health care provider may refer you to a specialist in kidney and prostate diseases (urologist). How is this treated? Once symptoms begin, your health care provider will monitor your condition (active surveillance or watchful waiting). Treatment for this condition will depend on the severity of your condition. Treatment may include: Observation and yearly exams. This may be the only treatment needed if your condition and symptoms are mild. Medicines to relieve your symptoms, including: ?Medicines to shrink the prostate. ?Medicines to relax the muscle of the prostate. Surgery in severe cases. Surgery may include: ?Prostatectomy. In this procedure, the prostate tissue is removed completely through an open incision or with a laparoscope or robotics. ?Transurethral resection of the prostate (TURP). In this procedure, a tool is inserted through the opening at the tip of the penis (urethra). It is used to cut away tissue of the inner core of the prostate. The pieces are removed through the same opening of the penis. This removes the blockage. ?Transurethral incision (TUIP). In this procedure, small cuts are made in the prostate. This lessens the prostate's pressure on the urethra. ?Transurethral microwave thermotherapy (TUMT). This procedure uses microwaves to create heat. The heat destroys and removes a small amount of prostate tissue. ?Transurethral needle ablation (TUNA). This procedure uses radio frequencies to destroy and remove a small amount of prostate tissue. ?Interstitial laser coagulation (ILC). This procedure uses a laser to destroy and remove a small amount of prostate tissue. ?Transurethral electrovaporization (TUVP). This procedure uses electrodes to destroy and remove a small amount of prostate tissue. ?Prostatic urethral lift. This procedure inserts an implant to push the lobes of the prostate away from the urethra. Follow these instructions at home: Take oczm-tux-jgngicx and prescription medicines only as told by your health care provider. Monitor your symptoms for any changes. Contact your health care provider with any changes. Avoid drinking large amounts of liquid before going to bed or out in public. Avoid or reduce how much caffeine or alcohol you drink. Give yourself time when you urinate. Keep all follow-up visits as told by your health care provider. This is important. Contact a health care provider if: You have unexplained back pain. Your symptoms do not get better with treatment. You develop side effects from the medicine you are taking. Your urine becomes very dark or has a bad smell. Your lower abdomen becomes distended and you have trouble passing your urine. Get help right away if: You have a fever or chills. You suddenly cannot urinate. You feel lightheaded, or very dizzy, or you faint. There are large amounts of blood or clots in the urine. Your urinary problems become hard to manage. You develop moderate to severe low back or flank pain. The flank is the side of your body between the ribs and the hip. These symptoms may represent a serious problem that is an emergency. Do not wait to see if the symptoms will go away. Get medical help right away. Call your local emergency services (911 in the [place] Do not drive yourself to the hospital. Summary Benign prostatic hyperplasia (BPH) is an enlarged prostate that is caused by the normal aging process and not by cancer. An enlarged prostate can press on the urethra. This can make it hard to pass urine. This condition is part of a normal aging process and is more likely to develop in men over the age of 50 years. Get help right away if you suddenly cannot urinate. This information is not intended to replace advice given to you by your health care provider. Make sure you discuss any questions you have with your health care provider. Document Released: 07/03/2006 Document Revised: 05/28/2019 Document Reviewed: 08/07/2017 [employer] Patient Education 2020 [employer]. 05/04/2022 11:00:14 Calorie Counting for Weight Loss Calorie Counting for Weight Loss Calories are units of energy. Your body needs a certain amount of calories from food to keep you going throughout the day. When you eat more calories than your body needs, your body stores the extra calories as fat. When you eat fewer calories than your body needs, your body cantu fat to get the energy it needs. Calorie counting means keeping track of how many calories you eat and drink each day. Calorie counting can be helpful if you need to lose weight. If you make sure to eat fewer calories than your bodyneeds, you should lose weight. Ask your health care provider what a healthy weight is for you. For calorie counting to work, you will need to eat the right number of calories in a day in order to lose a healthy amount of weight per week. A dietitian can help you determine how many calories youneed in a day and will give you suggestions on how to reach your calorie goal. A healthy amount of weight to lose per week is usually 1 2 lb (0.5 0.9 kg). This usually means thatyour daily calorie intake should be reduced by 500 750 calories. Eating 1,200 1,500 calories per day can help most women lose weight. Eating 1,500 1,800 calories per day can help most men lose weight. What is my plan? My goal is to have calories per day. If I have this many calories per day, I should lose around pounds per week. What do I need to know about calorie counting? In order to meet your daily calorie goal, you will need to: Find out how many calories are in each food you would like to eat. Try to do this before you eat. Decide how much of the food you plan to eat. Write down what you ate and how many calories it had. Doing this is called keeping a food log. To successfully lose weight, it is important to balance calorie counting with a healthy lifestyle that includes regular activity. Aim for 150 minutes of moderate exercise (such as walking) or 75 minutes of vigorous exercise (such as running) each week. Where do I find calorie information? The number of calories in a food can be found on a Nutrition Facts label. If a food does not have aNutrition Facts label, try to look up the calories online or ask your dietitian for help. Remember that calories are listed per serving. If you choose to have more than one serving of a food, you will have to multiply the calories per serving by the amount of servings you plan to eat. Forexample, the label on a package of bread might say that a serving size is 1 slice and that there are 90 calories in a serving. If you eat 1 slice, you will have eaten 90 calories. If you eat 2 slices, you will have eaten 180 calories. How do I keep a food log? Immediately after each meal, record the following information in your food log: What you ate. Don't forget to include toppings, sauces, and other extras on the food. How much you ate. This can be measured in cups, ounces, or number of items. How many calories each food and drink had. The total number of calories in the meal. Keep your food log near you, such as in a small notebook in your pocket, or use a mobile leah or website. Some programs will calculate calories for you and show you how many calories you have left forthe day to meet your goal. What are some calorie counting tips? Use your calories on foods and drinks that will fill you up and not leave you hungry: ?Some examples of foods that fill you up are nuts and nut butters, vegetables, lean proteins, and high-fiber foods like whole grains. High-fiber foods are foods with more than 5 g fiber per serving. ?Drinks such as sodas, specialty coffee drinks, alcohol, and juices have a lot of calories, yet do not fill you up. Eat nutritious foods and avoid empty calories. Empty calories are calories you get from foods or beverages that do not have many vitamins or protein, such as candy, sweets, and soda. It is better to have a nutritious high-calorie food (such as an avocado) than a food with few nutrients (such as a bag of chips). Know how many calories are in the foods you eat most often. This will help you calculate calorie counts faster. Pay attention to calories in drinks. Low-calorie drinks include water and unsweetened drinks. Pay attention to nutrition labels for low fat or fat free foods. These foods sometimes have thesame amount of calories or more calories than the full fat versions. They also often have added sugar, starch, or salt, to make up for flavor that was removed with the fat. Find a way of tracking calories that works for you. Get creative. Try different apps or programs ifwriting down calories does not work for you. What are some portion control tips? Know how many calories are in a serving. This will help you know how many servings of a certain food you can have. Use a measuring cup to measure serving sizes. You could also try weighing out portions on a kitchenscale. With time, you will be able to estimate serving sizes for some foods. Take some time to put servings of different foods on your favorite plates, bowls, and cups so you know what a serving looks like. Try not to eat straight from a bag or box. Doing this can lead to overeating. Put the amount you would like to eat in a cup or on a plate to make sure you are eating the right portion. Use smaller plates, glasses, and bowls to prevent overeating. Try not to multitask (for example, watch TV or use your computer) while eating. If it is time to eat, sit down at a table and enjoy your food. This will help you to know when you are full. It will also help you to be aware of what you are eating and how much you are eating. What are tips for following this plan? Reading food labels Check the calorie count compared to the serving size. The serving size may be smaller than what youare used to eating. Check the source of the calories. Make sure the food you are eating is high in vitamins and proteinand low in saturated and trans fats. Shopping Read nutrition labels while you shop. This will help you make healthy decisions before you decide to purchase your food. Make a grocery list and stick to it. Cooking Try to cook your favorite foods in a healthier way. For example, try baking instead of frying. Use low-fat dairy products. Meal planning Use more fruits and vegetables. Half of your plate should be fruits and vegetables. Include lean proteins like poultry and fish. How do I count calories when eating out? Ask for smaller portion sizes. Consider sharing an entree and sides instead of getting your own entree. If you get your own entree, eat only half. Ask for a box at the beginning of your meal and put the rest of your entree in it so you are not tempted to eat it. If calories are listed on the menu, choose the lower calorie options. Choose dishes that include vegetables, fruits, whole grains, low-fat dairy products, and lean protein. Choose items that are boiled, broiled, grilled, or steamed. Stay away from items that are buttered,battered, fried, or served with cream sauce. Items labeled crispy are usually fried, unless stated otherwise. Choose water, low-fat milk, unsweetened iced tea, or other drinks without added sugar. If you want an alcoholic beverage, choose a lower calorie option such as a glass of wine or light beer. Ask for dressings, sauces, and syrups on the side. These are usually high in calories, so you should limit the amount you eat. If you want a salad, choose a garden salad and ask for grilled meats. Avoid extra toppings like schuler, cheese, or fried items. Ask for the dressing on the side, or ask for olive oil and vinegar or lemon to use as dressing. Estimate how many servings of a food you are given. For example, a serving of cooked rice is cup orabout the size of half a baseball. Knowing serving sizes will help you be aware of how much food you are eating at restaurants. The list below tells you how big or small some common portion sizes arebased on everyday objects: ?1 oz 4 stacked dice. ?3 oz 1 deck of cards. ?1 tsp 1 . ?1 Tbsp a ping-pong ball. ?2 Tbsp 1 ping-pong ball. ? cup baseball. ?1 cup 1 baseball. Summary Calorie counting means keeping track of how many calories you eat and drink each day. If you eat fewer calories than your body needs, you should lose weight. A healthy amount of weight to lose per week is usually 1 2 lb (0.5 0.9 kg). This usually means reducing your daily calorie intake by 500 750 calories. The number of calories in a food can be found on a Nutrition Facts label. If a food does not have aNutrition Facts label, try to look up the calories online or ask your dietitian for help. Use your calories on foods and drinks that will fill you up, and not on foods and drinks that will leave you hungry. Use smaller plates, glasses, and bowls to prevent overeating. This information is not intended to replace advice given to you by your health care provider. Make sure you discuss any questions you have with your health care provider. Document Released: 07/03/2006 Document Revised: 03/22/2019 Document Reviewed: 06/02/2017 [employer] Patient Education 2020 [employer] Follow Up Care 04/29/2022 15:04:43 With:KENA ESPARZA, Yevgeniy Us, URL Address: [address] [place], [place] [id number] Business (1) When: Unknown [facility] Evaluation + Plan note No data available for this section [facility] Evaluation + Plan note Future Appointments Appointment Date:07/15/2022 09:15:00 AM Scheduled Provider:Yevgeniy ESCUDERO MD Location:[facility] Appointment Type:URO Office Visit [facility] Evaluation + Plan note Future Appointments Appointment Date:09/20/2022 07:45:00 AM Scheduled Provider:Yevgeniy ESCUDERO MD Location:[facility] [place] Appointment Type:URO Procedure 15 min [facility] evaluation + Plan note Future Appointments Appointment Date:02/01/2023 08:00:00 AM Scheduled Provider:Yevgeniy ESCUDERO MD Location:[facility] Appointment Type:URO Office Visit [facility] Evaluation + Plan note Future Appointments Appointment Date:02/01/2023 08:00:00 AM Scheduled Provider:Yevgeniy ESCUDERO MD [facility] Appointment Type:URO Office Visit Diagnostic Tests Pending * UroVysion Fish and Urine Cyto ([facility]) [facility]ments Appointment Date:04/06/2023 08:30:00 AM Scheduled Provider: Location:[facility] [place] Appointment Type:URO Nurse Visit Appointment Date:05/10/2023 07:30:00 AM Scheduled Provider:Yevgeniy ESCUDERO MD Location:[facility] [place] Appointment Type:URO Procedure 15 min Diagnostic Tests Pending * Urine Culture [facility] App[facility]ments Appointment Date:04/06/2023 08:30:00 AM Scheduled Provider: Location:[facility] [place] Appointment Type:URO Nurse Visit Appointment Date:05/10/2023 07:30:00 AM Scheduled Provider:Yevgeniy ESCUDERO MD Location:[facility] [place] Appointment Type:URO Procedure 15 min [facility] Evaluation + Plan note Future Appointments Appointment Date:06/05/2023 10:00:00 AM Scheduled Provider: Location:[facility] [place] Appointment Type:URO Nurse Visit Appointment Date:06/14/2023 07:45:00 AM Scheduled Provider:Yevgeniy ESCUDERO MD [facility] Appointment Type:URO Office Visit [facility] Evaluation + Plan note Future Appointments Appointment Date:06/05/2023 10:00:00 AM Scheduled Provider: Location[facility] Appointment Type:URO Nurse Visit Appointment Date:06/14/2023 07:45:00 AM Scheduled Provider:Yevgeniy ESCUDERO MD Location:[facility] [place] Appointment Type:URO Office Visit Diagnostic Tests Pending * UroVysion Fish and Urine Cyto ([facility]) [facility] App[facility]ments Appointment Date:07/05/2023 11:00:00 AM Scheduled Provider:SYLVIE DAVIS PA-C Location[facility] Appointment Type:URO Office Visit Appointment Date:07/12/2023 11:00:00 AM Scheduled Provider:SYLVIE DAVIS PA-C Location:[facility] [place] Appointment Type:URO Office Visit Appointment Date:07/19/2023 10:30:00 AM Scheduled Provider:SYLVIE DAVIS PA-C [facility] Appointment Type:URO Office Visit Appointment Date:07/26/2023 10:30:00 AM Scheduled Provider:SYLVIE DAVIS PA-C Location:[facility] Appointment Type:URO Office Visit Appointment Date:08/02/2023 10:30:00 AM Scheduled Provider:SYLVIE DAVIS PA-C Location:[facility] Appointment Type:URO Office Visit Appointment Date:08/09/2023 10:30:00 AM Scheduled Provider:SYLVIE DAVIS PA-C Location[facility] Appointment Type:URO Office Visit [facility] Evaluation + Plan note Future Appointments Appointment Date:07/12/2023 11:00:00 AM Scheduled Provider:SYLVIE DAVIS PA-C Location[facility] Appointment Type:URO Office Visit Appointment Date:07/19/2023 10:40:00 AM Scheduled Provider:SYLVIE DAVIS PA-C Location:[facility] [place] Appointment Type:URO Office Visit Appointment Date:07/26/2023 10:40:00 AM Scheduled Provider:SYLVIE DAVIS PA-C Location:[facility] [place] Appointment Type:URO Office Visit Appointment Date:08/02/2023 10:40:00 AM Scheduled Provider:SYLVIE DAVIS PA-C Location:[facility] Appointment Type:URO Office Visit Appointment Date:08/09/2023 10:40:00 AM Scheduled Provider:SYLVIE DAVIS PA-C Location:[facility] Appointment Type:URO Office Visit Diagnostic Tests Pending * Urine Culture [facility] App[facility]ments Appointment Date:07/19/2023 10:40:00 AM Scheduled Provider:SYLVIE DAVIS PA-C Location:[facility] [place] Appointment Type:URO Office Visit Appointment Date:07/26/2023 10:40:00 AM Scheduled Provider:SYLVIE DAVIS PA-C Location:[facility] Appointment Type:URO Office Visit Appointment Date:08/02/2023 10:40:00 AM Scheduled Provider:SYLVIE DAVIS PA-C Location:[facility] Appointment Type:URO Office Visit Appointment Date:08/09/2023 10:40:00 AM Scheduled Provider:SYLVIE DAVIS PA-C [facility] [place] Appointment Type:URO Office Visit [facility] Evaluation + Plan note Future Appointments Appointment Date:07/26/2023 10:40:00 AM Scheduled Provider:SYLVIE DAVIS PA-C Location:[facility] Appointment Type:URO Office Visit Appointment Date:08/02/2023 10:40:00 AM Scheduled Provider:SYLVIE DAVIS PA-C Location:[facility] Appointment Type:URO Office Visit Appointment Date:08/09/2023 10:40:00 AM Scheduled Provider:SYLVIE DAVIS PA-C Location:[facility] Appointment Type:URO Office Visit [facility] Evaluation + Plan note Future Appointments Appointment Date:08/02/2023 10:40:00 AM Scheduled Provider:SYLVIE DAVIS PA-C Location:[facility] Appointment Type:URO Office Visit Appointment Date:08/09/2023 10:40:00 AM Scheduled Provider:SYLVIE DAVIS PA-C Location:[facility] [place] Appointment Type:URO Office Visit [facility] Evaluation + Plan note Future Appointments Appointment Date:08/09/2023 10:40:00 AM Scheduled Provider:SYLVIE DAVIS PA-C Location:[facility] Appointment Type:URO Office Visit [facility] Evaluation + Plan note Future Appointments Appointment Date:08/23/2023 10:45:00 AM Scheduled Provider:Yevgeniy ESCUDERO MD Location:[facility] Appointment Type:URO Office Visit [facility] evaluation + Plan note Future Appointments Appointment Date:01/09/2024 07:45:00 AM Scheduled Provider:Yevgeniy ESCUDERO MD Location:[facility] [place] Appointment Type:URO Procedure 15 min [facility] Evaluation + Plan note Future Appointments Appointment Date:01/09/2024 07:45:00 AM Scheduled Provider:Yevgeniy ESCUDERO MD Location:[facility] [place] Appointment Type:URO Procedure 15 min Diagnostic Tests Pending * Urine Cyt[facility] ([facility]) [facility]ments Appointment Date:03/07/2024 01:20:00 PM Scheduled Provider:SYLVIE DAVIS PA-C [facility] Appointment Type:URO Office Visit Appointment Date:03/14/2024 01:20:00 PM Scheduled Provider:SYLVIE DAVIS PA-C Location:[facility] Appointment Type:URO Office Visit [facility] evaluation + Plan note Future Appointments Appointment Date:03/14/2024 01:20:00 PM Scheduled Provider:SYLVIE DAVIS PA-C Location:[facility] Appointment Type:URO Office Visit [facility] evaluation + Plan note Future Appointments Appointment Date:09/04/2024 01:45:00 PM Scheduled Provider:Yevgeniy ESCUDERO MD Location:[facility] Appointment Type:URO Office Visit Diagnostic Tests Pending * UroVysion Fish and Urine Cyto ([facility]) 08/06/24 [facility] Evaluation + Plan note Future Appointments Appointment Date:09/04/2024 01:45:00 PM Scheduled Provider:Yevgeniy ESCUDERO MD Location:[facility] Appointment Type:URO Office Visit [facility] Evaluation noteNo assessment information available [facility] Work Phone: Evaluhmolq note* Diagnosis Spasm of muscle- Primary Cervical radiculopathy Brachial neuritis or radiculitis nos documented in this encounter [facility] note* Diagnosis Fall, initial encounter- Primary Laceration of forehead, initial encounter documented in this encounter [facility] Discharge instructions Additional Instructions DISCHARGE INSTRUCTIONS FOR BLADDER TUMOR, BLADDER BIOPSY -Even though there are no visible incisions, the bladder is quite raw on the inside, and you need to follow some instructions to minimize the risks of bleeding and disturbing the area over the next six weeks. -The catheter in the bladder will be irritating, sometimes causing a strong desire to urinate. Often patients will experience urine leakage around the catheter, as well as some blood in the urine. These same symptoms may persist even after the catheter is removed. -You have a leg bag to hold the urine, which will need to be emptied to avoid a urine backup. You may wash around the catheter entrance site with soap and water. You may also use an antibiotic ointment, such as Bacitracin or Neomycin. DIET -You may resume your normal diet, but you may want to avoid alcohol, carbonated drinks, caffeine, and spicy foods, which may increase the irritation from the surgery and the catheter. Drink plenty of water to keep the urine clear. ACTIVITY -You should limit any physical activity, especially over the first two weeks. -No heavy lifting or straining (10 pound limit). -No driving a car and limit long car rides for 1-2 weeks. -Showering is OK, even while the catheter is in. -Light activity, such as walking, is encouraged; as you are able (stairs are OK). BOWELS -Try to keep your bowel movements soft to minimize straining to have a bowel movement. -You may use a stool softener or over the counter laxative if needed. -Difficult bowel movements may lead to straining and bleeding from the prostate. MEDICATIONS -You may resume your home medications unless instructed otherwise. -[You may hold aspirin, ibuprofen, Coumadin (warfarin), and other blood thinners (we will discuss when to resume these medications).] -Take your prescribed medications as directed, including your antibiotics. THINGS TO WATCH FOR WHICH WOULD REQUIRE AN EMERGENCY ROOM VISIT OR CALL 911: (This is not a complete list) -Persistent or heavy bleeding or blood clots clogging the catheter. -Inability to urinate. -Fever over 101.5 degrees Farhenheit with or without chills. -Severe drug reactions, with itching, hives, or rash. FOLLOW UP -Please call the office to arrange for your post-operative appointment and to remove the catheter.[facility] Work Phone: Hospital Discharge instructions No data available for this section [facility] Progress note No data available for this section [facility] Chief Complaint and Reason for Visit Chief Complaint blood in urine LABS Chief Complaint blood in urine LABS Bladder Mass Chief Complaint blood in urine LABS Bladder Mass Bladder Mass Chief Complaint blood in urine LABS Bladder Mass Bladder Mass Bladder Mass Chief Complaint Bladder tumor, HTN, Smoker Chief Complaint Bladder tumor, HTN, Smoker bladder tumors , lesions C67.9 Chief Complaint r91.1 Advance Directives No Advanced Directives Records Found Advance Directive Response Recorded Date/ Time Advance Directives No April 25, 2022 11:42am Advance Directive Response Recorded Date/ Time Advance Directives No April 25, 2022 10:42am Family History No Family History Records Found Relationship Condition Age at Onset Recorded Date/T harry Not Specified Hypertension Unknown Unknown Alzheimer's disease Unknown grandparent Malignant neoplasm Unknown grandparent Heart disease Unknown Summary Purpose Additional Source Comments Care Teams (unrecognized sec tion and content) Team Status: Inactive Member Role Status Dates PHYSICIAN NO FAMILY Primary Care Provider Active Ra Brannon DO Emergency Provider Active Team Status: Inactive Member Role Status Dates PHYSICIAN NO FAMILY Primary Care Provider Active Dinora Roche PA-C Attending Provider Active Team Status: Active Member Role Status Dates PHYSICIAN NO FAMILY Primary Care Provider Active Team Status: Inactive Member Role Status Dates PHYSICIAN NO FAMILY Primary Care Provider Active Yevgeniy Escudero MD Attending Provider Active Team Status: Inactive Member Role Status Dates Yevgeniy Escudero MD Attending Provider Active Team Status: Inactive Member Role Status Dates Yevgeniy Escudero MD Attending Provider Active PHYSICIAN NO FAMILY Primary Care Provider Active Team Status: Inactive Member Role Status Dates PHYSICIAN NO FAMILY Primary Care Provider Active Start: September 01, 2023 End: September 01, 2023 Yevgeniy Escudero MD Attending Provider Active St art: September 01, 2023 End: September 01, 2023 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 Start Date End Date Johan Gibbons APRN - CNP [address] [facility] [address] [place] [address] PCP - General Family Medicine 09/28/21 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 Start Date End Date Yevgeniy Escudero MD [address] [place] [address] Urology 05/27/24 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 Start Date End Date Johan Gibbons APRN - CNP [address] [facility] [address] [place] [address] PCP - General Family Medicine 09/28/21 Goals (unrecognized section and content) Goals may be documented in a n alternate section No data available for this section No data available for this sectionGoals may be documented in an alternate sectionGoals may be documented in an alternate section No data available for this section No data available for this section No data available for this section No data available for this section No data available for this sectionGoals may be documented in an alternate sectionGoals may be documented in an alternate section No data available for this sectionGoals may be documented in an alternate section No data available for this section No data available for this section No data available for this section No data available for this section No data available for this section No data available for this section No data available for this section No data available for this section No data available for this section No data available for this section No data available for this section No data available for this section No data available for this section No data available for this section No data available for this sectionGoals may be documented in an alternate section No data available for this section No data available for this section No data available for this section No data available for this section No data available for this section No data available for this section No data available for this section No data available for this section No data available for this section No data available for this section No data available for this section No data available for this section No data available for this section (unrecognized sect ion and content) No Status Records FoundNo Status Records FoundNo Status Records FoundNo Status Records FoundNo Status Records FoundNo Status Records FoundNo Status Records FoundNo Status Records FoundNo Status Records FoundNo Status Records FoundNo Status Records Found INFORMATION SOURCE (unrecogn ized section and content) DATE CREATED AUTHOR 11/17/2022 [facility] DATE CREATED AUTHOR AUTHOR'S ORGANIZ ATION 09/03/2023 [facility] DATE CREATED AUTHOR AUTHOR'S ORGANIZ ATION 02/01/2024 [facility] DATE CREATED AUTHOR AUTHOR'S ORGANIZ ATION 03/13/2024 [facility] DATE CREATED AUTHOR AUTHOR'S ORGANIZ ATION 03/16/2024 [facility] DATE CREATED AUTHOR AUTHOR'S ORGANIZ ATION 05/05/2024 [facility] DATE CREATED AUTHOR AUTHOR'S ORGANIZ ATION 07/28/2024 [facility] DATE CREATED AUTHOR AUTHOR'S ORGANIZ ATION 08/02/2024 [facility] DATE CREATED AUTHOR AUTHOR'S ORGANIZ ATION 08/08/2024 [facility] DATE CREATED AUTHOR AUTHOR'S ORGANIZ ATION 08/10/2024 [facility] DATE CREATED AUTHOR AUTHOR'S ORGANIZ ATION 08/15/2024 [facility] Reason for Visit (unrecogniz ed section and content) Reason Comments Shoulder Pain Left shoulder pain f or a month with paresthesias, no injury Reason Comments Radiology MRI Specialty Diagnoses / Procedures Referred By Steffac camille Referred To Contact [facility] MRI MAIN Q Diagnoses Elevated prostate specific antigen (PSA) MRI pelvis WWO Contrast for Elevated prostate Spec Antigen. Referral and/or order can be found in Scan Document dated 05/21/2024. Procedures UNLISTED EVALUATION AND MANAGEMENT SERVICE MRI PELVIS W/O & W/CONTRAST MATERIAL Yevgeniy Escudero MD [address] [place] [address] [facility] Main [facility] [address] [address] Referral ID Status Reason Start Date Expiration Date Visits Requested Visits Authorized [id number] Closed Financial Clearance Required - OON Payor OON Notification Letter Patient Cleared - Admin/Roving Changer/D irector advise to proceed or did not respond OON/Self Pay Override 4 09/08/2024 1 1 Reason Comments Fall Facial Laceration Pt states that he ca me to the ED with c/o fall from standing and he hit his right eye off the nightstand. Pt has laceration above right eye. -LOC,-thinners. Ordered Prescriptions (unrec ognized section and content) Prescription Sig Dispensed Refills Start Date End Da te cyclobenzaprine (FLEXERIL) 5 MG tablet Take 1 tablet by mouth 2 times daily as needed for Muscle spasms 10 tablet 07/20/2024 07/30/2024 naproxen (NAPROSYN) 500 MG tablet Take 1 tablet by mouth 2 times daily as needed for Pain 14 tablet 07/20/2024 predniSONE (DELTASONE) 20 MG tablet Take 1 tablet by mouth 2 times daily for 5 days 10 tablet 07/20/2024 07/25/2024 Scheduled Active and Recently Administ ered Medications (unrecognized section and content) Medication Order 07/18/2024 07/19/2024 07/20/2024 dexAMETHasone (DECADRON) injection 10 mg (COMPLETED) 10 mg, IntraMUSCular, ONCE, On 07/20/24 at 1845, For 1 dose 1859 (Given - Provid er: Claudia Joseph LPN) ketorolac (TORADOL) injection 30 mg (COMPLETED) 30 mg, IntraMUSCular, ONCE, 1 dose, On 07/20/24 at 1845 1858 (Given - Provid er: Claudia Joseph LPN) Scheduled Medication Order 01/05/2024 01/06/2024 01/07/2024 lidocaine-EPINEPHrine 1 %-[id number] injection 20 mL 20 mL, IntraDERmal, ONCE, 1 dose, On 01/07/24 at 0115 0115 (Due)0239 (Hand off - Provider: Mary Walsh RN - Comment: admin by physician) Source Comments (unrecognize d section and content) In the event this informatio n is protected by the Federal Confidentiality of Alcohol and Drug Abuse Patient Records regulations: The Federal rules restrict any use of the information to criminally investigate or prosecute any alcohol or drug abuse patient.[facility] FOR RECORDS PERTAINING TO PATIENTS WHO ARE OR HAVE BEEN ENROLLED IN A CHEMICAL DEPENDENCY/SUBSTANCEABUSE PROGRAM, SOME INFORMATION MAY BE OMITTED. This clinical summary was aggregated from multiple sources. Caution should be exercised in using it in the provision of clinical care. This summary normalizes information from multiple sources, and as a consequence, information in this document may materially change the coding, format and clinical context of patient data. In addition, data may be omitted in some cases. CLINICAL DECISIONS SHOULD BE BASED ON THE PRIMARY CLINICAL RECORDS. [facility]. provides no warranty or guarantee of the accuracy or completeness of information in this document.
--- NOTE | 2024-08-20 14:04 | PM.PRESUREVA ---
History of Present Illness History of Present Illness Chief complaint: Bladder tumor, History of bladder cancer Narrative: Mr. Javid Ruggiero is a pleasant 63-year-old male who presents to presurgical testing with diagnosis of bladder tumor\lesion and history of bladder cancer. He is scheduled with Dr. Grimm on August 29, 2024 for cystoscopy/ TURBT Review of Systems ROS Narrative REVIEW OF SYSTEMS: Negative except as stated in HPI, ten or more systems reviewed. Constitutional: No fever, chills, weakness ENT: No sore throat or epistaxis Cardiovascular: No edema, chest pain, palpitations, or activity intolerance Respiratory: No shortness of breath, cough, or wheezing Musculoskeletal: Complains of left shoulder pain and reports history of left rotator cuff injury denies swelling Gastrointestinal: No abdominal pain, constipation, diarrhea, or vomiting Genitourinary: No dysuria or hematuria Neurological: No numbness, tingling, weakness, or headache Psychiatric: No mood changes PFSH PFSH Medical History Hearing loss ?H91.90 - Unspecified hearing loss, unspecified ear (ICD-10) Pulmonary nodule ?R91.1 - Solitary pulmonary nodule (ICD-10) Bladder mass ?N32.89 - Other specified disorders of bladder (ICD-10) BPH with urinary obstruction ?N40.1 - Benign prostatic hyperplasia with lower urinary tract symptoms (ICD-10) ?N13.8 - Other obstructive and reflux uropathy (ICD-10) Back pain ?M54.9 - Dorsalgia, unspecified (ICD-10) Shoulder pain ?M25.519 - Pain in unspecified shoulder (ICD-10) Arthritis ?M19.90 - Unspecified osteoarthritis, unspecified site (ICD-10) COVID-19 ?U07.1 - COVID-19 (ICD-10) Pneumonia ?J18.9 - Pneumonia, unspecified organism (ICD-10) Hypertension ?I10 - Essential (primary) hypertension (ICD-10) Bladder cancer ?C67.9 - Malignant neoplasm of bladder, unspecified (ICD-10) Bladder tumor ?D49.4 - Neoplasm of unspecified behavior of bladder (ICD-10) Surgical History H/O transurethral resection of bladder tumor (TURBT) (05/25/23) ?Z98.890 - Other specified postprocedural states (ICD-10) ?Z86.03 - Personal history of neoplasm of uncertain behavior (ICD-10) History of tonsillectomy ?Z90.89 - Acquired absence of other organs (ICD-10) H/O wrist surgery ?Z98.890 - Other specified postprocedural states (ICD-10) H/O transurethral resection of bladder tumor (TURBT) ?Z98.890 - Other specified postprocedural states (ICD-10) ?Z86.03 - Personal history of neoplasm of uncertain behavior (ICD-10) S/P cystoscopy ?Z98.890 - Other specified postprocedural states (ICD-10) History of spinal surgery ?Z98.890 - Other specified postprocedural states (ICD-10) Family History (Updated 08/20/24 @ 13:45 by Ashly Malik) Other Family history of Alzheimer's disease Family history of cancer Family history of heart disease Family history of hypertension Family history of lung cancer Family history of myocardial infarction Social History (Updated 08/20/24 @ 13:40 by Ashly Malik) Within the past year, how often did you have a drink containing alcohol: monthly or less Smoking status: Current every day smoker What tobacco products do you use: cigarettes Packs per day: 2 Years smoked: 50 Smoking pack-years: 100.00 Non-prescribed substance use: denies use and cannabis (any form) Non-prescribed substance use details: marijuana edibles 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/ Highest level of school completed/degree received: high school graduate Meds Home Medications and Allergies Home Medications ?Medication ?Instructions ?Recorded ?Confirmed ?Type amlodipine 10 mg tablet 10 mg PO DAILY 05/18/23 08/20/24 History losartan 50 mg tablet 50 mg PO DAILY 05/18/23 08/20/24 History Allergies Allergy/AdvReac Type Severity Reaction Status Date / Time solifenacin (From [facility]) Allergy muscle Verified 08/20/24 13:35 aches Exam Narrative Exam Narrative: Constitutional: Awake, alert, comfortable, well-appearing, nontoxic, interactive, vital signs as charted Head: Normocephalic, atraumatic Eyes: Conjunctiva and lids normal to inspection, pupils normal ENT: Tympanic membranes pearly nunez, nonerythematous, noninjected, naris patent, posterior oropharynx clear, oral mucosa moist Neck: Supple, normal appearance, normal range of motion, no meningeal signs, no lymphadenopathy Respiratory: No respiratory distress, breath sounds clear Cardiovascular: Regular rate and rhythm, strong and regular heart tones Abdomen: Nontender, normal bowel sounds, soft, no CVA tenderness Musculoskeletal: Normal gait, no swelling or edema limited range of motion left shoulder Skin: No rashes or induration, no lesions, only visible skin inspected Neuro: No neurological deficits, normal sensation Psychiatric: Oriented ?3, normal affect Assessment and Plan Assessment and Plan (1) Bladder neoplasm of uncertain malignant potential: (2) Elevated PSA: (3) History of bladder cancer: Plan Plan cystoscopy and TURBT scheduled August [address] Grimm
--- NOTE | 2024-08-20 14:10 | CT_ITS ---
The [address] [address] Patient Name: TIKI FERNANDEZ MRN: [id number] date: 1960 Sex: M Assigned Patient Location: [facility] Current Patient Location: Accession/Order Number: [id number] Exam Date: 08/20/2024 14:35 Report Date: 08/21/2024 11:59 At the request of: YEVGENIY ESCUDERO Procedure: CT chest w con EXAMINATION: CT chest w con HISTORY: Pulmonary Nodule, Personal History Bladder Cancer COMPARISON: No relevant comparison available. TECHNIQUE: Multi-planar CT images were obtained without and/or with IV contrast as indicated by examination type. Axial, Coronal, and Sagittal images. Dose reduction techniques were achieved by using automated exposure control and/or adjustment of mA and/or kV according to patient size and/or use of iterative reconstruction technique. FINDINGS: LUNGS: 6 mm thin plaque adjacent the right minor fissure. 6 mm slightly irregular opacity, scarring versus nodule, within lateral right lower lobe. No acute infiltrates. PLEURA: No mass, effusion, or pneumothorax. VASCULATURE: No abnormality. ALISHA: No mass or adenopathy. MEDIASTINUM: No mass or adenopathy. CARDIAC: No enlargement or pericardial thickening.. Coronary artery calcifications: AORTA: No aneurysm or dissection. CHEST WALL: No mass or axillary adenopathy. BONES: No bone lesion or fracture. LIMITED ABDOMEN: No suspicious findings Limited images of the upper abdomen. OTHER: Negative. CT/CT chest w con IMPRESSION: 1. No prior studies for comparison. 2. Small nonspecific 6 mm nodule and likely a pleural plaque within right lung base. Given patient's history, follow-up CT chest in 3 months is recommended to document stability. Electronically authenticated by: TIKI JHAVERI Date: 08/21/2024 11:59
[2024-08-20 14:17] LABS: Basophils Percent Auto 0.3 % (0.2-2.0); Eosinophils Absolute Auto 0.1 10^3/uL (0.0-0.7); Eosinophils Percent Auto 1.5 % (0.9-7.0); Hematocrit 44.9 % (42.0-54.0); Hemoglobin 15.9 g/dL (14.0-18.0); Immature Granulocytes Abs Auto 0.04 10^3/uL (0.00-0.03); Immature Granulocytes Pct Auto 0.4 % (0.0-0.5); Lymphocytes Absolute Auto 1.9 10^3/uL (1.2-3.8); Lymphocytes Percent Auto 20.4 % (20.5-60.0); Mean Corpuscular HGB Conc 35.4 g/dL (29.9-35.2); Mean Corpuscular Hemoglobin 32.3 pg (25.9-34.0); Mean Corpuscular Volume 91.1 fL (80.0-94.0); Mean Platelet Volume 9.2 fL (9.5-13.5); Monocytes Absolute Auto 0.5 10^3/uL (0.3-0.8); Monocytes Percent Auto 4.8 % (1.7-12.0); Neutrophils Absolute Auto 6.9 10^3/uL (1.4-6.5); Neutrophils Percent Auto 72.6 % (43.0-75.0); Platelet Count 187 10^3/uL (150-450); Red Blood Count 4.93 10^6/uL (4.70-6.10); Red Cell Distribution Width 12.5 % (11.0-15.0); White Blood Count 9.5 10^3/uL (4.0-11.0)
[2024-08-20 14:27] LABS: Anion Gap 14.6; BUN Creatinine Ratio 12.2; Calcium 8.8 mg/dL (8.5-10.1); Carbon Dioxide 25.2 mmol/L (21.0-32.0); Chloride 104 mmol/L (98-107); Estimated GFR (African America >60 (>=60 mL/min/1.73m^2); Estimated GFR (Non-African Ame >60 (>=60 mL/min/1.73m^2); Glucose 92 mg/dL (74-106); Potassium 3.8 mmol/L (3.5-5.1); Sodium 140 mmol/L (136-145)
[2024-08-20 14:30] LABS: INR 0.97; Prothrombin Time 10.3 sec (9.0-11.6)
== END 2024-08-20 13:18 | disposition home or self-care (01) ==
LOC: PST 13:18
PROVIDERS: Visit Provider Urology
DX: R91.1 Solitary pulmonary nodule (principal); Z85.51 Personal history of malignant neoplasm of bladder
CPT/HCPCS: 71260; 80048; 85025; 85610; 85730; 93005; G0463; Q9967

== ENCOUNTER 2024-08-29 07:16 | Day surgery (SDC) | payer OTHER, SELFPAY ==
[2024-08-20 13:43] VITALS: PULSE 94; TEMP 36.3; O2SAT 98; BMI 34.7
[2024-08-29] VITALS (10 sets, daily range): BP systolic 88–130; BP diastolic 56–91; PULSE 79–91; TEMP 35.9–36.2; O2SAT 93–97; BMI 34.7
--- OUTSIDE RECORDS SUMMARY | 2024-08-29 07:20 | XMS_ITS | CCD ---
Author Organization [facility] Care Team Providers Care Ripening Room Attendant Name Role Phone NO FAMILY, PHYSICIAN Primary Care Provider Unava ilable DO Ra Brannon Emergency Provider DIANELYS Roche Attending Provider NONE, XXXX Primary Care Physician Unavailab velázquez NO FAMILY, PHYSICIAN Primary Care Provider Unava ilable DO Ra Brannon Emergency Provider DIANELYS Roche Attending Provider [phone] MD Yevgeiny Grimm Attending Provider NO FAMILY, PHYSICIAN Primary Care Provider Unava MD Yevgeniy Pelaez Attending Provider [phone] NO FAMILY, PHYSICIAN Primary Care Provider Unava MD Yevgeniy Pelaez Attending Provider [phone] DIANELYS RICKS Attending Unavailab DIANELYS Kruse Attending Unavailab DIANELYS Kruse Attending Unavailab Yevgeniy Mead Attending Unavailable Yevgeniy GRIMM Admitting Unavailable Yevgeniy GRIMM Attending Unavailable Jerrod MARKETING PROGRAMS SPECIALIST - Johan AMES Primary Care Provi ai JOHAN GIBBONS Primary Care Unavailable JOHAN GIBBONS Primary Care Unavailable JOHAN GIBBONS Primary Care Unavailable QUINTON HEATH Attending Unavailable JOHAN GIBBONS Primary Care Unavailable YUSUF DESAI Referring Unavailable Yevgeniy Grimm MD Unavailable YEVGENIY GRIMM Referring Unavailable Yevgeniy GRIMM Attending Unavailable GRIMM, Yevgeniy R Attending Unavailable GRIMM, Yevgeniy R Admitting Unavailable GRIMM, Yevgeniy R Attending Unavailable GRIMM, Yevgeniy R Attending Unavailable GRIMM, Yevgeniy R Admitting Unavailable GRIMM, Yevgeniy R Attending Unavailable GRIMM, Yevgeniy R Attending Unavailable GRIMM, Yevgeniy R Admitting Unavailable GRIMM, Yevgeniy R Attending Unavailable GRIMM, Yevgeniy R Admitting Unavailable GRIMM, Yevgeniy R Attending Unavailable GRIMM, Yevgeniy R Attending Unavailable Grimm, Yevgeniy Attending Unavailable Grimm, Yevgeniy Admitting Unavailable NO FAMILY, PHYSICIAN Primary Care Unavailable Allergies Allergy Classification Reported Allergen(s) Allergy Type Date of Onset Reaction(s) Facility Solifenacin (1 source) Solifenacin; Translations: [solifenacin] Drug Allergy Muscle pain (finding) [facility] (20 sources) Solifenacin; Translations: [solifenacin] Drug Allergy Muscle pain (finding) [facility] (4 sources) No Known Medication Allergies; Translations: [No Known Medication Allergies] Propensity to adverse reactions (disorder) [facility] Repository (2 sources) Seasonal allergy Propensity to adverse reactions to substance 2 [facility] Medications Current Medications Medication Drug Class(es) Dates Sig (Normalized) Sig (Original) 24 hr alfuzosin hydrochloride 10 mg extended release oral tablet (2 sources) alpha-Adrenergic Luisa Start: 05-31-2023 End: 06-07-2023 take 1 tablet by mouth once daily alfuzosin 10 mg ER Tab 10 mg = 1 tab(s), Oral, Daily, X 7 day(s), # 7 tab(s), Refills(s) 0, Pharmacy: [facility] #[facility], 167, cm, 05/31/23 10:41:00 EST, Height/Length [...] day(s), # 7 tab(s), Refills(s) 0, Pharmacy: [facility] #29, 167, cm, 05/31/23 10:41:00 EST, Height/Length [...] for 7 day(s), 14 tab(s), Refill(s) 0, [facility], 167, cm, 03/14/24 13:22:00 EDT, Height/Length Dosing, 102, kg, 03/14/24 13:22:00 EDT, Weight Dosing Start Date: 03/14/24 Stop Date: 03/21/24 Status: Ordered Start: 07-05-2023 End: 07-12-2023 take 1 tablet by mouth every twelve hours Bactrim D.S. 800 mg-160 mg Tab 160 mg, Oral, q12hr for 7 day(s), 14 tab(s), Refill(s) 0, [facility], 167, cm, 07/05/23 11:06:00 EST, Height/Length Dosing, 100, kg, 07/05/23 11:06:00 EST, Weight Dosing Start Date: 07/05/23 Stop Date: 07/12/23 Status: Ordered tamsulosin hydrochloride 0.4 mg oral capsule (10 sources) alpha-Adrenergic Luisa Start: 01-25-2023 take 1 capsule by mouth once daily tamsulosin 0.4 mg Cap 0.4 mg = 1 cap(s), Oral, Daily, # 30 cap(s), Refills(s) 5, Pharmacy: [facility], 167, cm, 01/04/23 7:40:00 EDT, Height/Length Dosing, 99, kg, 01/04/23 7:40:00 EDT, Weight Dosing Start Date: 01/25/23 Status: Ordered tolterodine tartrate 2 mg oral tablet (17 sources) Cholinergic Muscarinic Antagonist Start: 08-23-2023 take 1 tablet by mouth twice daily Detrol 2 mg Tab 2 mg = 1 tab(s), Oral, BID, # 60 tab(s), Refills(s) 1, Pharmacy: [facility], 167, cm, 08/23/23 10:55:00 EST, Height/Length Dosing, 100, kg, 08/23/23 10:55:00 EST, Weight Dosing Start Date: 08/23/23 Status: Ordered Start: 07-11-2023 take 1 tablet by raina twice daily Detrol 2 mg Tab 2 mg = 1 tab(s), Oral, BID, # 60 tab(s), Refills(s) 1, Pharmacy: [facility], 167, cm, 07/05/23 11:06:00 EST, Height/Length [...] months, # 8 tab(s), Refills(s) 0, Pharmacy: [facility], 167, cm, 08/23/23 10:55:00 EST, Height/Length Dosing, 100, kg, 08/23/23 10:55:00 EST, Weight Dosing Start Date: 08/23/23 Status: Ordered Start: 12-08-2022 take 1 tablet by raina once daily Cipro 500 mg Tab 500 mg = 1 tab(s), Oral, Daily, Take 1 tablet the day before the procedure and 1 tablet after the procedure, # 6 tab(s), Refills(s) 0, Pharmacy: [facility], 167, cm, 09/20/22 7:58:00 EST, Height/Length Dosing, 99, kg, 09/20/22 7:58:00... Start Date: 12/08/22 Status: Ordered Start: 07-18-2022 take 1 tablet by raina th once daily Cipro 500 mg Tab 500 mg = 1 tab(s), Oral, Daily, Take 1 tablet the day before the procedure and 1 tablet after the procedure, # 2 tab(s), Refills(s) 0, Pharmacy: [facility], 167, cm, 07/15/22 9:45:00 EST, Height/Length Dosing, 99, kg, 07/15/22 9:45:00... Start Date: 07/18/22 Status: Ordered Start: 05-04-2022 Cipro 500 mg T ab 500 mg = 1 tab(s), Oral, As Directed, # 2 tab(s), Refills(s) 0, Pharmacy: [facility], 169, cm, 05/04/22 10:09:00 EDT, Height/Length [...] pulmonary nodule; Translations: [Solitary pulmonary nodule] Onset: 09-01-2023 Episodic Results Test Name Value Interpretation Reference Range Facility Reminderson 08-23-2024 Reminders Reminders From: Darleen Gonzalez To: EU - Recalls Grimm; Sent: 08/23/2024 13:13:08 EST Show up: 02/14/2025 13:12:00 EDT Subject: ct scan chest Due Date/Time: 03/10/2025 13:13:00 EDT Reminder/Recall Patient needs [address] scan of chest w contrast due to pulmonary nodule. Normal [facility] UroVysion Fish and Urine Cyt o ([facility])on 08-13-2024 UVFISH & UC Diagnosis Info Invalid Interpretation Code [facility] Comment on above: Result Comment: A:Ur ine,Urine:Voided [...] with cytology and cystoscopy results. * CPT: 68012, 69898. 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 Electronically signed by : on: 08/13/2024 12:57:45 Performed By: #### 1 [id number] #### [facility] [address] [place] [id number] Reminderson 08-08-2024 Reminders Reminders From: Darleen Gonzalez To: EU - Recalls Grimm; Sent: 05/23/2024 14:17:15 EST Show up: 07/17/2024 14:17:00 EST Subject: cysto/FISH/cytol Due Date/Time: 08/12/2024 14:17:00 EST Reminder/Recall Patient is due in October 2024 for 3 month cysto/fish/cytol, bt ck Patient having TURBT 08/29/24.LG Normal [facility] Reminders Reminders From: Darleen Gonzalez To: EU - Recalls Grimm; Sent: 10/03/2023 14:40:01 EDT Show up: 01/15/2024 14:39:00 EDT Subject: Ct scan of chest Due Date/Time: 02/05/2024 14:39:00 EDT Reminder/Recall Pt needs sched for Ct [place] [facility] [place] order and paper work [facility] [phone] on 04/15/2024. [facility] [...] same time of pts PAT appt at [facility].LG Normal [facility] UroVysion Fish and Urine Cyt o ([facility])on 08-06-2024 [facility] Method of Extraction Voided Normal [facility] Comment on above: Performed By: #### 1 [id number] #### [facility] [address] [place] [address] [facility] Number of Jars 1 Invalid Interpretation Code [facility] Comment on above: Performed By: #### 1 [id number] #### [facility] [address] [place] [address] [facility] Specimen Urine Normal [facility] Comment on above: Performed By: #### 1 [id number] #### [facility] [address] [place] [address] [facility] Type of Service Technical Only Normal [facility] Comment on above: Performed By: #### 1 [id number] #### [facility] [address] [place] [address] Urology Office/Clinic Noteon 08-06-2024 Urology Office/Clinic Note [...] [facility] [address], [place] [address]- Additional Instructions: Schedule TURBT Patient Education Transurethral Resection of Bladder Tumor Prostate Cancer Screening I, Gemini James , personally scribed for Dr. Grimm on 08/06/2024 14:15:52. . Documentation recorded by the scribe, Gemini James, accurately reflects the services(s) I performed and (more content not included)... Normal [facility] Comment on above: Result Comment: Elec tronically Signed By: Yevgeniy GRIMM MD\.br\Date and Time Signed: 08/06/24 14:17 EST\.br\Electronically Co-Signed By: Gemini James E\.br\Date and Time Co-Signed: 08/06/24 14:16 EST MRI PELVIS WO/W IVCONon 07-17 MRI PELVIS WO/W IVCON * * *Final Report* * * DATE OF EXAM: Jul 29 2024 5:16PM QBM 0742 - MRI PELVIS WO/W IVCON / [...] 5: Very high (CDR: 83%) Source: Bonilla Umanzor, et al. Update on PI-RADS Version 2.1 Diagnostic Performance Benchmarks for Prostate MRI: Systematic Review and [place]-Analysis. Radiology. 2023;312(2):[id number] PMID: [id number]. Bolt Header: JERRY Transcribe Date/Time: Jul 30 2024 9:17A Dictated by : JONO AHN MD This examination was interpreted and the report reviewed and electronically signed by: FAB VELASQUEZ MD on Jul 30 2024 11:11AM EST [id number] Normal [facility] Reminderson 05-23-2024 Reminders Reminders From: Darleen Gonzalez To: EU - Recalls Grimm; Sent: 03/15/2024 11:34:21 EDT Show up: 05/17/2024 11:34:00 EDT Subject: Cysto/FISH/cytol Due Date/Time: 06/10/2024 11:34:00 EST Reminder/Recall Patient is due in Jul 2024 for 3 month cysto/fish/cytol (bt ck) Patient sched for 08/06/24. He will be due in September 2024.LG Normal [facility] UroVysion Fish and Urine Cyt o ([facility])on 05-06-2024 UVFISH & UC Diagnosis Info Invalid Interpretation Code [facility] Comment on above: Result Comment: A:Ur ine,Urine:Voided [...] with cytology and cystoscopy results. * CPT: 09306, 72527. MicroScopic Description - MicroScopic Description - Electronically signed by : on: 05/06/2024 15:33:10 Performed By: #### 1 [id number] #### [facility] [address] [place] [address] Urology Office/Clinic Noteon 05-03-2024 Urology Office/Clinic Note Urology Office/Clinic Note Chief Complaint Patient is here for Cysto HPI Staff Cysto ABX TAKEN, need fish/cytol History of Present Illness Tests reviewed: I have reviewed the previous health record information and history for this patient from Dr. Grimm. I have reviewed and verified the staff [...] MRI. Follow-up With When Contact Information Yevgeniy GRIMM MD, URL [facility] [address], [place] [address]- Additional Instructions: 3 mos surveillance cysto/bt ck/FISH/cytol Patient Education Prostate Cancer Screening I, Darcy Pineda, personally scribed for Dr. Grimm on 04/30/2024 13:27:20. . Problem List/Past Medical [...] (09/20/2022), T (more content not included)... Normal [facility] Comment on above: Result Comment: Elec tronically Signed By: Yevgeniy GRIMM MD\.br\Date and Time Signed: 05/03/24 13:11 EDT\.br\Electronically Co-Signed By: Darcy Pineda\.br\Date and Time Co-Signed: 04/30/24 13:27 EDT UroVysion Fish and Urine Cyt o ([facility])on 04-30-2024 [facility] Method of Extraction Voided Normal [facility] Comment on above: Performed By: #### 1 [id number] #### [facility] [address] [place] [address] [facility] Number of Jars 1 Invalid Interpretation Code [facility] Comment on above: Performed By: #### 1 [id number] #### [facility] [address] [place] [address] [facility] Specimen Urine Normal [facility] Comment on above: Performed By: #### 1 [id number] #### [facility] [address] [place] [address] [facility] Type of Service Technical Only Normal [facility] Comment on above: Performed By: #### 1 [id number] #### [facility] [address] [place] [id number] C Urineon 03-16-2024 Bacteria identified Cx Nom (U) Microbiology PROCEDURE: Urine Culture [R1] SOURCE: U CleanCatch BODY SITE: COLLECTED DATE/TIME: 03/14/2024 15:03 EDT RECEIVED DATE/TIME: 03/14/2024 18:16 EDT START DATE/TIME: 03/14/2024 18:16 EDT FREE TEXT SOURCE: SYLVIE RICKS PA-C, PA-C, SYLVIE Davis FINAL REPORTS Final Report [] Verified Date/Time: 03/16/2024 09:27 EDT 4,000 cfu/ml Mixed skin contaminants Performing Locations R1: This test was performed at: [facility], [address] [place] [address], [address]- , , Normal [facility] Comment on above: Performed By: #### 2 [id number] #### [facility] [address] [place] [id number] Reminderson 03-15-2024 Reminders Reminders From: Darleen Gonzalez To: EU - Recallara Grimm; Sent: 12/01/2023 11:29:20 EDT Show up: 01/15/2024 11:29:00 EDT Subject: cysto/fish/cytol Due Date/Time: 02/12/2024 11:29:00 EDT Reminder/Recall Patient is due in Mar 2024 for 3 month cysto/fish/cytol (bt ck) Patient having cysto January 22. Due in Apr 2024.LG Patient sched for 04/30/24 in [place]. Patient is due in Jul 2024.LG Normal [facility] Ambulatory Visit Summaryon 0 03-07-2024 Ambulatory Visit Summary Ambulatory Visit Summary TIKI RUGGIERO :1960 Visit Date:03/07/2024 Ambulatory Visit Instructions Your Diagnosis History of bladder cancer Bladder cancer Your Care Team Attending Physician - SYLVIE RICKS PA-C Primary Care Physician - NONE, XXXX [...] Appointments 2023 1:20 PM EDT With: SYLVIE RICKS PA-C Where: [facility] [address] [place] [id number]- You Need to Schedule the Following Appointments Follow Up with MILLICENT IVORY, BRITTNEE GREY When: Comments: BCG #3 of 3 in 1 week Where: [address] [place] [address] Medications What How Much When Instructions Unchanged amlodipine (amLODIPine 10 mg Tab) Contact prescribing physician if questions or concerns Unchanged losartan (losartan 50 mg Tab) Contact prescribing physician if questions or concerns Unchanged tolterodine (Detrol 2 mg Tab) 1 Tablets By Mouth 2 times a day Contact prescribing physician if questions or concerns Medications and Immunizations Administered Given [place] BCG Live (for intravesical use), 25 mg, [...] is found (more content not included)... Normal [facility] Urology Office/Clinic Noteon 03-07-2024 Urology Office/Clinic Note [...] this patient from ADRIAN Kraus & Dr. Grimm. I have reviewed and verified the staff [...] BCG today due to national shortage. EORTC 78311 trial showed no difference between 1/3 dose and full-dose BCG in patients with high-risk disease. Pt is aware of the reasoning and is amenable to proceed as discussed. -BCG #3 of 3 half dose in 1 week -Cysto in 3 mos following treatments Follow-up With When Contact Information SYLVIE RICKS PA-C, URL [address] [address] Additional Instructions: BCG #3 of 3 in 1 week Patient Education Cancer Screening for Men Documentation recorded by the ashwini Su accurately reflects the services(s) I performed and decisions made by me. Authenticated by Sylvie Ricks PA-C on 03/07/2024 14:03:13. Wilfred Armstrong, personally scribed for Sylvie Ricks PA-C on 03/07/2024 13:49:36. . Problem List/Past [...] obstruction UTI (more content not included)... Normal [facility] Comment on above: Result Comment: Elec tronically Signed By: SYLVIE RICKS PA-C\Catrachitabr\Date and Time Signed: 03/07/24 14:03 EDT\.br\Electronically Co-Signed By: Wilfred Su\Date and Time Co-Signed: 03/07/24 13:49 EDT Ambulatory Visit Summaryon 0 02-29-2024 Ambulatory Visit Summary Ambulatory Visit Summary TIKI RUGGIERO :1960 Visit Date:02/29/2024 Ambulatory Visit Instructions Your Diagnosis History of bladder cancer Your Care Team Attending Physician - SYLVIE RICKS PA-C Primary Care Physician - NONE, XXXX [...] Appointments 2023 1:20 PM EDT With: SYLVIE RICKS PA-C Where: [facility] [address] [address] 2023 1:20 PM EDT With: SYLVIE RICKS PA-C Where: [facility] [address] [address]- You Need to Schedule the Following Appointments Follow Up with SYLVIE RICKS PA-C, URL When: Comments: 1 week BCG #2 of 3 half dose Where: [address] [place] [address] Medications What How Much When [...] How is (more content not included)... Normal [facility] Urology Office/Clinic Noteon 02-29-2024 Urology Office/Clinic Note [...] and history for this patient from Dr. Grimm. I have reviewed and verified the staff [...] BCG today due to national shortage. EORTC 00281 trial showed no difference between 1/3 dose and full-dose BCG in patients with high-risk disease. Pt is aware of the reasoning and is amenable to proceed as discussed. -BCG #2 of 3 half dose in 1 week -Cysto in 3 mos Follow-up With When Contact Information SYLVIE RICKS PA-C, URL [address] [address] Additional Instructions: 1 week BCG #2 of 3 half dose Patient Education Bladder Cancer Documentation recorded by the scribrock Su accurately reflects the services(s) I performed and decisions made by me. Authenticated by Sylvie Ricks PA-C on 02/29/2024 13:37:12. IWilfred, personally scribed for Sylvie Ricks PA-C on 02/29/2024 13:29:19. . Problem List/Past Medical History Ongoing Acute cystitis Bladder cancer Bladder mass Bladder neoplasm of uncertain malignant potential Bladder tumor Blood in urine BMI 34.0-34.9,adult BPH with urinary obstruction Current smoker Disorder of bladder Gross hematuria H/O: malignant neoplas (more content not included)... Normal [facility] Comment on above: Result Comment: Elec tronically Signed By: SYLVIE RICKS PA-C\.br\Date and Time Signed: 02/29/24 13:37 EDT\.br\Electronically Co-Signed By: Wilfred Su\.br\Date and Time Co-Signed: 02/29/24 13:29 EDT UroVysion Fish and Urine Cyt o ([facility])on 01-29-2024 UVFISH & UC Diagnosis Info Invalid Interpretation Code [facility] Comment on above: Result Comment: A:Ur ine,Bladder [...] on: 01/29/2024 17:36:53 Performed By: #### 1 [id number] #### [facility] [address] [place] [address] PSA Totalon 01-26-2024 Prostate specific Ag [Mass/Vol] 3.0 ng/mL Normal 0.1-3.5 [facility] Comment on above: Result Comment: The concentration of PSA determined by different manufacturers can vary due to differences in assay methods and reagent specificity. Values obtained from different assay methods cannot be used interchangeably. The methodology used for this result was chemiluminescence using [employer] Access Hybritech PSA reagent. Performed By: #### 1 [id number] #### [facility] [address] [place] [address] Ambulatory Visit Summaryon 0 01-23-2024 Ambulatory Visit [...] Andino When: Where: [facility] [address] [place] [id number] Medications What How Much When Instructions Unchanged [...] to loo (more content not included)... Normal [facility] UroVysion Fish and Urine Cyt o ([facility])on 01-23-2024 [facility] Method of Extraction Bladder Wash Normal [facility] Comment on above: Performed By: #### 1 [id number] #### [facility] [address] [place] [address] [facility] Number of Jars 1 Invalid Interpretation Code [facility] Comment on above: Performed By: #### 1 [id number] #### [facility] [address] [place] [address] [facility] Specimen Bladder Wash Normal [facility] Comment on above: Performed By: #### 1 [id number] #### [facility] [address] [place] [address] [facility] Type of Service Global Normal Fish er [facility] Comment on above: Performed By: #### 1 [id number] #### [facility] [address] [place] [address] Urology Office/Clinic Noteon 01-23-2024 Urology Office/Clinic Note Urology Office/Clinic Note Chief Complaint cysto with fish/cytol 3 month bladder check HPI Staff 3 mos cysto/bt ck. Cysto with FISH/CYTOL. ABX not taken History of Present Illness Tests reviewed: reviewed cytology I have reviewed the previous health record information and history for this patient from Dr. Grimm. I have reviewed and verified the staff [...] urine The Urethra was dilated to: _ Tristanian with sounds. Specimens Removed: Bladder wash sent [...] additional nodule is seen. CT Chest 09/01/23 [facility] - Stable 5 mm pulmonary nodule right [...] Follow-up With (more content not included)... Normal [facility] Comment on above: Result Comment: Elec tronically Signed By: Yevgeniy GRIMM MD\.br\Date and Time Signed: 01/23/24 15:20 EDT\.br\Electronically Co-Signed By: Nilsa Hernandez\.br\Date and Time Co-Signed: 01/23/24 15:19 EDT Reminderson 01-16-2024 Reminders Reminders From: Darleen Gonzalez To: EU - Recalls Kena; Sent: 11/22/2023 16:14:13 EDT Show up: 01/15/2024 16:14:00 EDT Subject: cysto/fish/cytol Due Date/Time: 02/05/2024 16:14:00 EDT Reminder/Recall Patient is due in Mar for 3 month cysto/fish/cytol (bt ck) duplicate Normal [facility] CT CERVICAL SPINE WO CONTRAS Ton 01-07-2024 [...] Crum III, DO 01/07/[address] [facility] Comment on above: Order Comment: Reaso n for exam:->Fall Decision Support Exception - unselect if not a suspected or confirmed emergency medical condition->Emergency Medical Condition (MA) CT Cervical spine WO contras ton 01-07-2024 No acute abnormality of the cervical spine. [facility] EXAMINATION: CT OF THE CERVICAL SPINE [...] There is no prevertebral soft tissue swelling. [facility] Patricio Crum III, DO - 01/07/2024 [...] No acute abnormality of the cervical spine. [facility] CT HEAD WO CONTRASTon 2023 CT HEAD [...] Crum III, DO 01/07/[address] [facility] Comment on above: Order Comment: Has a code stroke or stroke alert been called?->No Reason for exam:->Fall Decision Support Exception - unselect if not a suspected or confirmed emergency medical condition->Emergency Medical Condition (MA) CT Head WO contraston 2023 No acute intracrania l abnormality. [facility] EXAMINATION: CT OF THE HEAD WITHOUT [...] of the visualized skull or soft tissues. [facility] Patricio Crum III , DO - [...] soft tissues. IMPRESSION: No acute intracranial abnormality. [facility] CT Head WO contrastOrdered B y: Patricio Crum on 01-07-2024 [facility] No Panel Informationon 01-06 Radiology Study observation (narrative) [facility] Urine Cytology ([facility])on 0 11-07-2023 Microscopic exam Cytology (U) [Interp] Diagnosis Info Invalid Interpretation Code [facility] Comment on above: Result Comment: A:Ur ine,Urine:Voided Interpretation - MicroScopic Description - Obscuring acute inflammatory cells are seen. CPT 51839 Adequacy - Gross Description Site ID:A color Dark Yellow fixative Alcohol Specimen designated Urine received in alcohol preservative and labeled with the patient?s name, consists of 80ml clear dark yellow fluid. Electronically signed by : on: 10/06/2023 12:21:14 Performed By: #### 1 [id number] ####[facility] [address] [place] [address] Consent for Procedure/Surger yon 10-04-2023 Consent for Procedure/Surgery [id number] Normal [facility] Ambulatory Visit Summaryon 0 10-03-2023 Ambulatory Visit [...] 3 mos Where: [facility] [address], [place] [phone] Medications What How Much When Instructions Unchanged [...] colon for (more content not included)... Normal [facility] Patient Educationon 10-03-19 Patient Education Oncology Cancer [...] if anything looks unusual. Men with a hhipps-vclp-qzutac risk for skin cancer may want to see a bacon skinner (precision lathe operator) for an annual body check. What are the benefits of screening? Cancer screening is done to look for cancer in the very early stages, before it spreads and becomes harder to treat and before you would start to notice symptoms. Finding cancer early improves the chances of successful treatment. It ma (more content not included)... Normal [facility] Reminderson 10-03-2023 Reminders - From: Darleen Gonzalez To: [facility] - Recalls Grimm; Cc: Darleen Gonzalez; Sent: 09/06/2023 10:14:52 EST Show up: 11/15/2023 10:14:00 EDT Subject: Cysto/FISH/cytol Due Date/Time: 12/04/2023 10:14:00 EDT Reminder/Recall Patient is due in December 2023 for 3 month cysto/fish/cytol (bt ck) and PSA/SHAR Patient sched for 01/09/24 , 3 mo bt ck Normal [facility] Urine Cytology ([facility])on 0 10-03-2023 Method of Extraction Voided Normal [facility] Comment on above: Performed By: #### 1 [id number] ####[facility] [id number] [facility] [place] [address] Number of Jars 1 Invalid Interpretation Code [facility] Comment on above: Performed By: #### 1 [id number] ####[facility] [id number] [facility] [place] [address] Specimen Urine Normal [facility] Comment on above: Performed By: #### 1 [id number] ####[facility] [id number] [facility] [place] [address] Type of Service Technical Only Normal Fi [facility] Comment on above: Performed By: #### 1 [id number] ####[facility] [id number] [facility] [place] [address] Urology Office/Clinic Noteon 10-03-2023 Urology Office/Clinic Note Chief Complaint Pt is here for cystoscopy HPI Staff Cysto/needs FISH/cytology. History of Present Illness Tests reviewed: reviewed CT scan I have reviewed the previous health record information and history for this patient from Dr. Grimm. I have reviewed and verified the staff [...] additional nodule is seen. CT Chest [place] [facility] [place] St[place] 5 mm pulmonary nodule right lower lobe. No additional nodule seen. Discussed imaging results, nodule remains stable. Will need repeat imaging in 6 months. 3. Current smoker (F17.200: Nicotine dependence, unspecified, uncomplicated) Risk factor for #1. Follow-up With When Contact Information KENA ESPARZA, Yevgeniy Us, URL [facility] [address], [place] [address]- [phone] Additional Instructions: cysto/bt ck in 3 mos Patient Education Cancer Screening for Men Steps to Quit Smoking INilsa, personally scribed for Dr. Grimm on 10/03/2023 14:35:27. . Documentation recorded by the scribNilsa davis, accurately reflects the services(s) I performed and decisions made by me. Authenticated by Dr. Grimm on 10/03/2023 14:37:34. Problem List/Past Medical History Ongoing Acute cystitis Bladder cancer Bladder mass Bladder neoplasm of uncertain malignant potential Bladder tumor Blood in urine (more content not included)... Normal [facility] Comment on above: Result Comment: Elec tronically Signed By: Yevgeniy GRIMM MD\.br\Date and Time Signed: 10/03/23 14:37 EDT\.br\Electronically Co-Signed By: Nilsa Hernandez\.br\Date and Time Co-Signed: 10/03/23 14:[address] EDT RAD - CT Reporton 09-08-2023 RAD - CT Report [id number] Normal [facility] CT chest w conon 09-01-2023 CT chest w con [facility] [place] [address] [place] [id number] Scan Report Signed Patient: Tiki Ruggiero MR#: [id number] 84 : 1960 Acct:[id number] Age/Sex: 62 / M ADM Date: 09/01/23 Loc: CT Room: Type: [facility] Attending Dr: Yevgeniy Grimm MD Copies to: Yevgeniy Grimm MD Ordering Provider: Yevgeniy Grimm MD Date of Service: 09/01/23 CT/CT chest [...] Freeman Jr., D.OCatrachita09/01/2023 2:15 PM Dictation Location: [place] [address] Transcribed By: [facility] 09/01/23 1415 Dictated By: Avila Freeman Jr, DO 09/01/23 141 Signed By: 09/01/23 1415 Normal [facility] ISTAT XRay CREon 09-01-2023 ISTAT GFR > 60.0 Normal [facility] Comment on above: Result Comment: PERF ORMED BY: [address] [address] PATHOLOGIST TRANSPORT PILOT HAN CARBAJAL M.D. Performed By: #### I SCRE #### [facility] [address] No Panel InformationOrdered By: Yevgeniy Grimm on 09-01-2023 Bedside Estimated GFR (eGFR) > 60.0 [facility] Whole blood creatinine measu rementOrdered By: Yevgeniy Grimm on 09-01-2023 Creatinine [Mass/Vol] 1.0 mg/dL Normal 0.6-1.3 [facility] Comment on above: ER/ESD physician is notified/shown all ISTAT results.Critical values may be confirmed by laboratory testing ifdeemed necessary by ER attending doctor. Result Comment: ER/E SD physician is notified/shown all ISTAT results. Critical values may be confirmed by laboratory testing if deemed necessary by ER attending doctor. Performed By: #### I SCRE #### [facility] [address] [place] [address] Activated partial thrombopla stin time (aPTT) in platelet poor plasma by coagulation aOrdered By: Yevgeniy Grimm on 01-12-2023 aPTT Coag (PPP) [Time] 32.0 s 25.1-36.5 [facility] Basophils Auto (Bld) [#/Vol] Ordered By: Yevgeniy Grimm on 01-12-2023 Basophils (Bld) [#/Vol] 0.0 10*3/uL 0.0-0.2 [facility] Basophils/100 WBC Auto (Bld) Ordered By: Yevgeniy Grimm on 01-12-2023 Basophils/100 WBC (Bld) 0.6 % . [facility] Calcium [Mass/volume] in Ser um or PlasmaOrdered By: Yevgeniy Grimm on 01-12-2023 Calcium [Mass/Vol] 9.3 mg/dL 8.6-10.3 [facility] Carbon dioxide, total [Moles /volume] in Serum or PlasmaOrdered By: Yevgeniy Grimm on 01-12-2023 CO2 [Moles/Vol] 30.3 mmol/L 21.0-31.0 [facility] Chloride [Moles/volume] in S ginger or PlasmaOrdered By: Yevgeniy Grimm on 01-12-2023 Chloride [Moles/Vol] 102 mmol/L 98-107 [facility] Creatinine [Mass/volume] in Serum or PlasmaOrdered By: Yevgeniy Grimm on 01-12-2023 Creatinine [Mass/Vol] 1.03 mg/dL 0.70-1.30 [facility] Eosinophils Auto (Bld) [#/Vo l]Ordered By: Yevgeniy Grimm on 01-12-2023 Eosinophils (Bld) [#/Vol] 0.2 10*3/uL 0.0-0.45 [facility] Eosinophils/100 WBC Auto (Bl d)Ordered By: Yevgeniy Grimm on 01-12-2023 Eosinophils/100 WBC (Bld) 2.5 % . [facility] Erythrocyte distribution wid th Auto (RBC) [Ratio]Ordered By: Yevgeniy Grimm on 01-12-2023 Erythrocyte distribution width (RBC) [Ratio] 13.7 % 12.0-14.8 [facility] Glucose [Mass/volume] in Ser um or PlasmaOrdered By: Yevgeniy Grimm on 01-12-2023 Glucose [Mass/Vol] 74 mg/dL 70-100 [facility] Comment on above: ADA recommended refe rence rangeRandom Glucose Reference Range is dependent on time and content of last meal. Glucose of more than 200 mg/dL in a nonstressed, ambulatory subject supports the diagnosis of Diabetes Mellitus. Hematocrit Auto (Bld) [Volum e fraction]Ordered By: Yevgeniy Grimm on 01-12-2023 Hematocrit (Bld) [Volume fraction] 47.0 % 38.8-50.0 [facility] Hemoglobin [Mass/volume] in BloodOrdered By: Yevgeniy Grimm on 01-12-2023 Hemoglobin (Bld) [Mass/Vol] 16.2 g/dL 13.0-17.0 [facility] - CoagulationOrde red By: Yevgeniy Grimm on 01-12-2023 PT Coag (PPP) [Time] 11.5 s 9.0-12.9 [facility] Leukocytes [#/volume] correc araseli for nucleated erythrocytes in Blood by Automated counOrdered By: Yevgeniy Grimm on 01-12-2023 WBC corrected for nucl RBC Auto (Bld) [#/Vol] 6.4 10*3/uL 4.1-10.5 [facility] Lymphocytes Auto (Bld) [#/Vo l]Ordered By: Yevgeniy Grimm on 01-12-2023 Lymphocytes (Bld) [#/Vol] 2.0 10*3/uL 1.00-4.8 [facility] Lymphocytes/100 WBC Auto (Bl d)Ordered By: Yevgeniy Grimm on 01-12-2023 Lymphocytes/100 WBC (Bld) 30.6 % . [facility] MCH Auto (RBC) [Entitic mass ]Ordered By: Yevgeniy Grimm on 01-12-2023 MCH (RBC) [Entitic mass] 31.1 pg 27.5-35.2 [facility] MCHC Auto (RBC) [Mass/Vol]Or dered By: Yevgeniy Grimm on 01-12-2023 MCHC (RBC) [Mass/Vol] 34.4 g/dL 32.5-35.6 [facility] MCV Auto (RBC) [Entitic vol] Ordered By: Yevgeniy Grimm on 01-12-2023 MCV (RBC) [Entitic vol] 90.4 fL 83.5-101 [facility] Monocytes Auto (Bld) [#/Vol] Ordered By: Yevgeniy Grimm on 01-12-2023 Monocytes (Bld) [#/Vol] 0.6 10*3/uL 0.0-0.8 [facility] Monocytes/100 WBC Auto (Bld) Ordered By: Yevgeniy Grimm on 01-12-2023 Monocytes/100 WBC (Bld) 8.9 % . [facility] Neutrophils Auto (Bld) [#/Vo l]Ordered By: Yevgeniy Grimm on 01-12-2023 Neutrophils (Bld) [#/Vol] 3.7 10*3/uL 1.8-7.7 [facility] Neutrophils/100 WBC Auto (Bl d)Ordered By: Yevgeniy Grimm on 01-12-2023 Neutrophils/100 WBC (Bld) 57.4 % . [facility] No Panel InformationOrdered By: Yevgeniy Grimm on 01-12-2023 Estimated GFR (CKD-EPI) > 60.0 mL/Min [facility] Creatinine Clearance (Chem N/A [facility] Nucleated erythrocytes [Pres ence] in Blood by Automated countOrdered By: Yevgeniy Grimm on 01-12-2023 Nucleated RBC Auto Ql (Bld) 0.2 /100{WBC} 0-0.5 [facility] Platelet mean volume Auto (B ld) [Entitic vol]Ordered By: Yevgeniy Grimm on 01-12-2023 Platelet mean volume (Bld) [Entitic vol] 7.8 fL 6.6-10.1 [facility] Platelet poor plasma interna tional normalized ratio (INR) by coagulation assay (relatOrdered By: Yevgeniy Grimm on 01-12-2023 INR Coag (PPP) [Relative time] 1.0 {INR} [facility] Comment on above: INR Therapeutic Rang [...] Platelets Auto (Bld) [#/Vol] Ordered By: Yevgeniy Grimm on 01-12-2023 Platelets (Bld) [#/Vol] 210 10*3/uL 150-450 [facility] Potassium [Moles/volume] in Serum or PlasmaOrdered By: Yevgeniy Grimm on 01-12-2023 Potassium [Moles/Vol] 4.4 mmol/L 3.5-5.1 [facility] RBC Auto (Bld) [#/Vol]Ordere d By: Yevgeniy Grimm on 01-12-2023 RBC (Bld) [#/Vol] 5.20 10*6/uL 3.90-5.60 [facility] Serum or plasma anion gap de terminationOrdered By: Yevgeniy Grimm on 01-12-2023 Anion gap [Moles/Vol] 9.1 mmol/L 6.0-15.0 [facility] Sodium [Moles/volume] in Ser um or PlasmaOrdered By: Yevgeniy Grimm on 01-12-2023 Sodium [Moles/Vol] 137 mmol/L 136-145 [facility] Urea nitrogen [Mass/volume] in Serum or PlasmaOrdered By: Yevgeniy Grimm on 01-12-2023 Urea nitrogen [Mass/Vol] 11 mg/dL 7-25 [facility] WBC Auto (Bld) [#/Vol]Ordere d By: Yevgeniy Grimm on 01-12-2023 WBC (Bld) [#/Vol] 6.4 10*3/uL 4.1-10.5 [facility] Surgical Specimenon 11-09-19 Surgical Specimen [facility] [address] [place], [place] [id number] FINAL SURGICAL PATHOLOGY REPORT Patient Name: TIKI RUGGIERO Accession No: [id number] Age Sex: 1960 Location: [facility] Account No: [id number] Collected: 11/08/2022 Med Rec No: [id number] Received: 11/09/2022 Attend Phys: PATRICK DICKEY Completed: [...] in consultation with Tyrese Mena MD at [facility]. Please also see separate consult report from [facility]. ALIFA/ALIYOUSIF CLINICAL INFORMATION: Abnormal skin growth, ICD-10 code D49.2. Changing skin lesion. Margin requested in all specimens. Rule out verrucous lesion right postauricular area inferior to the helix. SPECIMEN: A. Right Postauricular Area Inferior to [place] B. Right Preauricular GROSS DESCRIPTION: A. Specimen [...] in toto in cassette B1. NAVA/RUIZ CPT: 20648 X2 YOCASTA RICH M.D. 11/16/2022 Electronically signed out by Page 1 of 1 Invalid Interpretation Code [facility] Comment on above: Performed By: #### S UR #### [facility] [address] [place] [address] COVID-19 SOFIAOrdered By: Adrian Grimm on 07-01-2022 SARS-CoV+SARS-CoV-2 (COVID-19) Ag IA.rapid Ql (Resp) Negative Negative [facility] Comment on above: This is a duplicate [place] SARS Antigen (VANCE) result to be used for statistical tracking purpose only. No Panel InformationOrdered By: Yevgeniy Grimm on 07-01-2022 SARS Antigen (LFIA) [facility] Activated partial thrombopla stin time (aPTT) in platelet poor plasma by coagulation aOrdered By: Yevgeniy Grimm on 06-21-2022 aPTT Coag (PPP) [Time] 31.4 s 25.1-36.5 [facility] Basophils Auto (Bld) [#/Vol] Ordered By: Yevgeniy Grimm on 06-21-2022 Basophils (Bld) [#/Vol] 0.0 10*3/uL 0.0-0.2 [facility] Basophils/100 WBC Auto (Bld) Ordered By: Yevgeniy Grimm on 06-21-2022 Basophils/100 WBC (Bld) 0.5 % . [facility] Creatinine and Glomerular fi ltration rate.predicted panel (S/P/Bld)Ordered By: Yevgeniy Grimm on 06-21-2022 Creatinine [Mass/Vol] 1.10 mg/dL 0.64-1.27 [facility] Eosinophils Auto (Bld) [#/Vo l]Ordered By: Yevgeniy Grimm on 06-21-2022 Eosinophils (Bld) [#/Vol] 0.2 10*3/uL 0.0-0.45 [facility] Eosinophils/100 WBC Auto (Bl d)Ordered By: Yevgeniy Grimm on 06-21-2022 Eosinophils/100 WBC (Bld) 2.4 % . [facility] Erythrocyte distribution wid th Auto (RBC) [Ratio]Ordered By: Yevgeniy Grimm on 06-21-2022 Erythrocyte distribution width (RBC) [Ratio] 13.0 % 12.0-14.8 [facility] Estimated glomerular filtrat ion rate (GFR) non- AmericanOrdered By: Yevgeniy Grimm on 06-21-2022 GFR/1.73 sq M.predicted among non-blacks MDRD (S/P/Bld) [Vol rate/Area] > 60 mL/Min [facility] Hematocrit Auto (Bld) [Volum e fraction]Ordered By: Yevgeniy Grimm on 06-21-2022 Hematocrit (Bld) [Volume fraction] 45.4 % 38.8-50.0 [facility] Hemoglobin [Mass/volume] in BloodOrdered By: Yevgeniy Grimm on 06-21-2022 Hemoglobin (Bld) [Mass/Vol] 15.6 g/dL 13.0-17.0 [facility] - CoagulationOrde red By: Yevgeniy Grimm on 06-21-2022 PT Coag (PPP) [Time] 11.7 s 9.0-12.9 [facility] Leukocytes [#/volume] correc araseli for nucleated erythrocytes in Blood by Automated counOrdered By: Yevgeniy Grimm on 06-21-2022 WBC corrected for nucl RBC Auto (Bld) [#/Vol] 7.0 10*3/uL 4.1-10.5 [facility] Lymphocytes Auto (Bld) [#/Vo l]Ordered By: Yevgeniy Grimm on 06-21-2022 Lymphocytes (Bld) [#/Vol] 1.7 10*3/uL 1.00-4.8 [facility] Lymphocytes/100 WBC Auto (Bl d)Ordered By: Yevgeniy Grimm on 06-21-2022 Lymphocytes/100 WBC (Bld) 23.5 % . [facility] MCH Auto (RBC) [Entitic mass ]Ordered By: Yevgeniy Grimm on 06-21-2022 MCH (RBC) [Entitic mass] 31.0 pg 27.5-35.2 [facility] MCHC Auto (RBC) [Mass/Vol]Or dered By: Yevgeniy Grimm on 06-21-2022 MCHC (RBC) [Mass/Vol] 34.4 g/dL 32.5-35.6 [facility] MCV Auto (RBC) [Entitic vol] Ordered By: Yevgeniy Grimm on 06-21-2022 MCV (RBC) [Entitic vol] 90.0 fL 83.5-101 [facility] Monocytes Auto (Bld) [#/Vol] Ordered By: Yevgeniy Grimm on 06-21-2022 Monocytes (Bld) [#/Vol] 0.7 10*3/uL 0.0-0.8 [facility] Monocytes/100 WBC Auto (Bld) Ordered By: Yevgeniy Grimm on 06-21-2022 Monocytes/100 WBC (Bld) 9.6 % . [facility] Neutrophils Auto (Bld) [#/Vo l]Ordered By: Yevgeniy Grimm on 06-21-2022 Neutrophils (Bld) [#/Vol] 4.5 10*3/uL 1.8-7.7 [facility] Neutrophils/100 WBC Auto (Bl d)Ordered By: Yevgeniy Grimm on 06-21-2022 Neutrophils/100 WBC (Bld) 64.0 % . [facility] No Panel InformationOrdered By: Yevgeniy Grimm on 06-21-2022 Estimated GFR () > 60 mL/Min [facility] Comment on above: GFR estimated refere nce range: According to KDOQI guidelines, <60 ml/min/1.73m2 is sufficient to diagnose a patient with chronic kidney disease. Pharmacy Creatinine Clearance (Chem N/A [facility] Nucleated erythrocytes [Pres ence] in Blood by Automated countOrdered By: Yevgeniy Grimm on 06-21-2022 Nucleated RBC Auto Ql (Bld) 0.1 /100{WBC} 0-0.5 [facility] Platelet mean volume Auto (B ld) [Entitic vol]Ordered By: Yevgeniy Grimm on 06-21-2022 Platelet mean volume (Bld) [Entitic vol] 7.6 fL 6.6-10.1 [facility] Platelet poor plasma interna tional normalized ratio (INR) by coagulation assay (relatOrdered By: Yevgeniy Grimm on 06-21-2022 INR Coag (PPP) [Relative time] 1.0 {INR} [facility] Comment on above: INR Therapeutic Rang [...] Platelets Auto (Bld) [#/Vol] Ordered By: Yevgeniy Grimm on 06-21-2022 Platelets (Bld) [#/Vol] 228 10*3/uL 150-450 [facility] RBC Auto (Bld) [#/Vol]Ordere d By: Yevgeniy Grimm on 06-21-2022 RBC (Bld) [#/Vol] 5.04 10*6/uL 3.90-5.60 [facility] Serum or plasma anion gap de terminationOrdered By: Yevgeniy Grimm on 06-21-2022 Anion gap [Moles/Vol] 11.4 mmol/L 6.0-15.0 [facility] Serum or plasma calcium steve urement (mass/volume)Ordered By: Yevgeniy Grimm on 06-21-2022 Calcium [Mass/Vol] 9.0 mg/dL 8.2-10.2 [facility] Serum or plasma chloride carmita surement (moles/volume)Ordered By: Yevgeniy Grimm on 06-21-2022 Chloride [Moles/Vol] 102 mmol/L 95-114 [facility] Serum or plasma glucose steve urement (mass/volume)Ordered By: Yevgeniy Grimm on 06-21-2022 Glucose [Mass/Vol] 97 mg/dL 70-100 [facility] Comment on above: ADA recommended refe rence rangeRandom Glucose Reference Range is dependent on time and content of last meal. Glucose of more than 200 mg/dL in a nonstressed, ambulatory subject supports the diagnosis of Diabetes Mellitus. Serum or plasma potassium me asurement (moles/volume)Ordered By: Yevgeniy Grimm on 06-21-2022 Potassium [Moles/Vol] 4.3 mmol/L 3.5-5.1 [facility] Serum or plasma sodium measu rement (moles/volume)Ordered By: Yevgeniy Grimm on 06-21-2022 Sodium [Moles/Vol] 134 mmol/L 136-146 [facility] Serum or plasma total carbon dioxide measurement (moles/volume)Ordered By: Yevgeniy Grimm on 06-21-2022 CO2 [Moles/Vol] 24.9 mmol/L 22.0-30.0 [facility] Serum or plasma urea nitroge n measurement (mass/volume)Ordered By: Yevgeniy Grimm on 06-21-2022 Urea nitrogen [Mass/Vol] 13 mg/dL 9-23 [facility] WBC Auto (Bld) [#/Vol]Ordere d By: Yevgeniy Grimm on 06-21-2022 WBC (Bld) [#/Vol] 7.0 10*3/uL 4.1-10.5 [facility] No Panel InformationOrdered By: Dinora Roche on 04-27-2022 Prostate Specific Antigen Screen 1.250 ng/mL 0.000-4.00 0 [facility] Prostate Specific Antigen Total 1.250 ng/mL 0.000-4.00 0 [facility] Urine culture routineOrdered By: Ra Brannon on 04-27-2022 Bacteria identified Cx Nom (U) No Growth 2 Days [facility] Activated partial thrombopla stin time (aPTT) in platelet poor plasma by coagulation aOrdered By: Ra Brannon on 04-25-2022 aPTT Coag (PPP) [Time] 33.2 s 25.1-36.5 [facility] Albumin [Mass/volume] in Ser um or PlasmaOrdered By: Ra Brannon on 04-25-2022 Albumin [Mass/Vol] 3.9 g/dL 3.2-5.5 [facility] Automated erythrocytes count in urine sediment (number/area)Ordered By: Ra Brannon on 04-25-2022 RBC Auto (Urine sed) [#/Area] Innumerable [HPF] 0-4 [facility] Automated leukocytes count i n urine sediment (number/area)Ordered By: Ra Brannon on 04-25-2022 WBC Auto (Urine sed) [#/Area] 3-4 [HPF] 0-4 [facility] Basophils Auto (Bld) [#/Vol] Ordered By: Ra Brannon on 04-25-2022 Basophils (Bld) [#/Vol] 0.0 10*3/uL 0.0-0.2 [facility] Basophils/100 WBC Auto (Bld) Ordered By: Ra Brannon on 04-25-2022 Basophils/100 WBC (Bld) 0.7 % . [facility] Bilirubin Test strip Ql (U)O rdered By: Ra Brannon on 04-25-2022 Bilirubin Ql (U) Negative Negative [facility] Chlamydia trachomatis DNA [P resence] in Specimen by PHOEBE with probe detectionOrdered By: Ra Brannon on 04-25-2022 C. trachomatis DNA PHOEBE+probe Ql (Unsp spec) Negative Negative [facility] Color Auto (U)Ordered By: Jose Brannon on 04-25-2022 Color (U) [place] Yellow [facility] Creatinine and Glomerular fi ltration rate.predicted panel (S/P/Bld)Ordered By: Ra Brannon on 04-25-2022 Creatinine [Mass/Vol] 1.01 mg/dL 0.64-1.27 [facility] Eosinophils Auto (Bld) [#/Vo l]Ordered By: Ra Brannon on 04-25-2022 Eosinophils (Bld) [#/Vol] 0.1 10*3/uL 0.0-0.45 [facility] Eosinophils/100 WBC Auto (Bl d)Ordered By: Ra Brannon on 04-25-2022 Eosinophils/100 WBC (Bld) 2.0 % . [facility] Erythrocyte distribution wid th Auto (RBC) [Ratio]Ordered By: Ra Brannon on 04-25-2022 Erythrocyte distribution width (RBC) [Ratio] 12.9 % 12.0-14.8 [facility] Estimated glomerular filtrat ion rate (GFR) non- AmericanOrdered By: Ra Brannon on 04-25-2022 GFR/1.73 sq M.predicted among non-blacks MDRD (S/P/Bld) [Vol rate/Area] > 60 mL/Min [facility] Globulin Calc (S) [Mass/Vol] Ordered By: Ra Brannon on 04-25-2022 Globulin (S) [Mass/Vol] 3.3 g/dL [facility] Hematocrit Auto (Bld) [Volum e fraction]Ordered By: Ra Brannon on 04-25-2022 Hematocrit (Bld) [Volume fraction] 47.0 % 38.8-50.0 [facility] Hemoglobin [Mass/volume] in BloodOrdered By: Ra Brannon on 04-25-2022 Hemoglobin (Bld) [Mass/Vol] 16.0 g/dL 13.0-17.0 [facility] Ketones Auto test strip (U) [Mass/Vol]Ordered By: Ra Brannon on 04-25-2022 Ketones (U) [Mass/Vol] Negative Negative [facility] - CoagulationOrde red By: Ra Brannon on 04-25-2022 PT Coag (PPP) [Time] 12.5 s 9.0-12.9 [facility] - Hematology and Cell countsOrdered By: Ra Brannon on 04-25-2022 Nucleated RBC/100 WBC (Bld) [Ratio] 0.1 % 0-0.5 [facility] - UrinalysisOrder ed By: Ra Brannon on 04-25-2022 Hyaline casts LM Ql (Urine sed) None seen [LPF] 0-8 [facility] Leukocytes [#/volume] in Blo od by Automated countOrdered By: Ra Brannon on 04-25-2022 WBC (Bld) [#/Vol] 5.7 10*3/uL 4.5-11.0 [facility] Lymphocytes Auto (Bld) [#/Vo l]Ordered By: Ra Brannon on 04-25-2022 Lymphocytes (Bld) [#/Vol] 1.3 10*3/uL 1.00-4.8 [facility] Lymphocytes/100 WBC Auto (Bl d)Ordered By: Ra Brannon on 04-25-2022 Lymphocytes/100 WBC (Bld) 23.6 % . [facility] MCH Auto (RBC) [Entitic mass ]Ordered By: Ra Brannon on 04-25-2022 MCH (RBC) [Entitic mass] 31.2 pg 27.5-35.2 [facility] MCHC Auto (RBC) [Mass/Vol]Or dered By: Ra Brannon on 04-25-2022 MCHC (RBC) [Mass/Vol] 34.0 g/dL 32.5-35.6 [facility] MCV Auto (RBC) [Entitic vol] Ordered By: Ra Brannon on 04-25-2022 MCV (RBC) [Entitic vol] 91.8 fL 83.5-101 [facility] Monocytes Auto (Bld) [#/Vol] Ordered By: Ra Brannon on 04-25-2022 Monocytes (Bld) [#/Vol] 0.4 10*3/uL 0.0-0.8 [facility] Monocytes/100 WBC Auto (Bld) Ordered By: Ra Brannon on 04-25-2022 Monocytes/100 WBC (Bld) 7.2 % . [facility] Neisseria gonorrhoeae DNA [P resence] in Specimen by PHOEBE with probe detectionOrdered By: Ra Brannon on 04-25-2022 N. gonorrhoeae DNA PHOEBE+probe Ql (Unsp spec) Negative Negative [facility] Neutrophils Auto (Bld) [#/Vo l]Ordered By: Ra Brannon on 04-25-2022 Neutrophils (Bld) [#/Vol] 3.8 10*3/uL 1.8-7.7 [facility] Neutrophils/100 WBC Auto (Bl d)Ordered By: Ra Brannon on 04-25-2022 Neutrophils/100 WBC (Bld) 66.5 % . [facility] Nitrite Test strip Ql (U)Ord ered By: Ra Brannon on 04-25-2022 Nitrite Ql (U) Negative Negative [facility] No Panel InformationOrdered By: Ra Brannon on 04-25-2022 Estimated GFR () > 60 mL/Min [facility] Comment on above: GFR estimated refere nce range: According to KDOQI guidelines, <60 ml/min/1.73m2 is sufficient to diagnose a patient with chronic kidney disease. Pharmacy Creatinine Clearance (Chem 86.56 [facility] Platelet mean volume Auto (B ld) [Entitic vol]Ordered By: Ra Brannon on 04-25-2022 Platelet mean volume (Bld) [Entitic vol] 7.6 fL 6.6-10.1 [facility] Platelet poor plasma interna tional normalized ratio (INR) by coagulation assay (relatOrdered By: Ra Brannon on 04-25-2022 INR Coag (PPP) [Relative time] 1.1 {INR} [facility] Comment on above: INR Therapeutic Rang [...] 04-25-2022 Platelets (Bld) [#/Vol] 212 10*3/uL 150-450 [facility] Protein Auto test strip (U) [Mass/Vol]Ordered By: Ra Brannon on 04-25-2022 Protein (U) [Mass/Vol] 30 mg/dL Negative [facility] Protein [Mass/volume] in Ser um or PlasmaOrdered By: Ra Brannon on 04-25-2022 Protein [Mass/Vol] 7.2 g/dL 6.1-7.9 [facility] RBC Auto (Bld) [#/Vol]Ordere d By: Ra Brannon on 04-25-2022 RBC (Bld) [#/Vol] 5.12 10*6/uL 3.90-5.60 [facility] Serum or plasma alanine gonzales otransferase measurement without P-5'-P (enzymatic activiOrdered By: Ra Brannon on 04-25-2022 ALT No additional P-5'-P [Catalytic activity/Vol] 21 U/L 10-60 [facility] Serum or plasma albumin/glob ulin mass ratioOrdered By: Ra Brannon on 04-25-2022 Albumin/Globulin [Mass ratio] 1.2 {ratio} [facility] Serum or plasma alkaline rosendo sphatase measurement (enzymatic activity/volume)Ordered By: Ra Brannon on 04-25-2022 ALP [Catalytic activity/Vol] 77 U/L 32-92 [facility] Serum or plasma anion gap de terminationOrdered By: Ra Brannon on 04-25-2022 Anion gap [Moles/Vol] 13.8 mmol/L 6.0-15.0 [facility] Serum or plasma aspartate am inotransferase measurement (enzymatic activity/volume)Ordered By: Ra Brannon on 04-25-2022 AST [Catalytic activity/Vol] 19 U/L 10-42 [facility] Serum or plasma calcium steve urement (mass/volume)Ordered By: Ra Brannon on 04-25-2022 Calcium [Mass/Vol] 9.0 mg/dL 8.2-10.2 [facility] Serum or plasma chloride carmita surement (moles/volume)Ordered By: Ra Brannon on 04-25-2022 Chloride [Moles/Vol] 99 mmol/L 95-114 [facility] Serum or plasma glucose steve urement (mass/volume)Ordered By: Ra Brannon on 04-25-2022 Glucose [Mass/Vol] 97 mg/dL 70-100 [facility] Comment on above: ADA recommended refe rence rangeRandom Glucose Reference Range is dependent on time and content of last meal. Glucose of more than 200 mg/dL in a nonstressed, ambulatory subject supports the diagnosis of Diabetes Mellitus. Serum or plasma potassium me asurement (moles/volume)Ordered By: Ra Brannon on 04-25-2022 Potassium [Moles/Vol] 3.8 mmol/L 3.5-5.1 [facility] Serum or plasma sodium measu rement (moles/volume)Ordered By: Ra Brannon on 04-25-2022 Sodium [Moles/Vol] 134 mmol/L 136-146 [facility] Serum or plasma total biliru bin measurement (mass/volume)Ordered By: Ra Brannon on 04-25-2022 Bilirubin [Mass/Vol] 0.9 mg/dL 0.3-1.2 [facility] Serum or plasma total carbon dioxide measurement (moles/volume)Ordered By: Ra Brannon on 04-25-2022 CO2 [Moles/Vol] 25.0 mmol/L 22.0-30.0 [facility] Serum or plasma urea nitroge n measurement (mass/volume)Ordered By: Ra Brannon on 04-25-2022 Urea nitrogen [Mass/Vol] 8 mg/dL 9-23 [facility] Specific gravity Auto test s trip (U) [Rel density]Ordered By: Ra Brannon on 04-25-2022 Specific gravity (U) [Rel density] 1.014 1.001-1.03 0 [facility] Squamous epithelial cells de tection in urine sediment by light microscopyOrdered By: Ra Brannon on 04-25-2022 Epithelial cells.squamous LM Ql (Urine sed) None seen [HPF] 0-2 [facility] Trichomonas vaginalis DNA [P resence] in Specimen by PHOEBE with probe detectionOrdered By: Ra Brannon on 04-25-2022 T. vaginalis DNA PHOEBE+probe Ql (Unsp spec) Negative Negative [facility] Comment on above: Performed at: =[address] [id number] Director: Monique Berry MD, Phone: [phone] Urine bacteria detection by automated methodOrdered By: Ra Brannon on 04-25-2022 Bacteria Auto Ql (U) None seen None Seen [facility] Urine clarity by refractomet ry automatedOrdered By: Ra Brannon on 04-25-2022 Clarity Refractometry automated (U) Clear Clear [facility] Urine glucose measurement by automated test strip (mass/volume)Ordered By: Ra Brannon on 04-25-2022 Glucose Auto test strip (U) [Mass/Vol] Normal mg/dL Normal [facility] Urine hemoglobin detection b y automated test stripOrdered By: Ra Brannon on 04-25-2022 Hemoglobin Auto test strip Ql (U) 3+ Negative [facility] Urine leukocyte esterase det ection by automated test stripOrdered By: Ra Brannon on 04-25-2022 Leukocyte esterase Auto test strip Ql (U) 1+ Negative [facility] Urobilinogen Auto test strip (U) [Mass/Vol]Ordered By: Ra Brannon on 04-25-2022 Urobilinogen (U) [Mass/Vol] Normal mg/dL Normal [facility] pH Auto test strip (U)Ordere d By: Ra Brannon on 04-25-2022 pH (U) 7.5 [pH] 5.0-9.0 [facility] Vital Signs Date Time Vital Sign Value Performing Clinician Facility 08-06-2024 13:23-0500 Blood Pressure Location Yevgeniy GRIMM [facility] 08-06-2024 13:23-0500 Diastolic blood pressure 72 mm[Hg] Yevgeniy GRIMM [facility] 08-06-2024 13:23-0500 Heart rate 60 /min Yevgeniy GRIMM [facility] 08-06-2024 13:23-0500 Respiratory rate 16 /min Yevgeniy GRIMM [facility] 08-06-2024 13:23-0500 Systolic blood pressure 138 mm[Hg] Yevgeniy GRIMM [facility] 07-20-2024 18:28-0500 Diastolic blood pressure 95 mm[Hg] Johan Gibbons MARKETING PROGRAMS SPECIALIST - HI RANGER OPERATOR Work Phone: [facility] 07-20-2024 18:28-0500 Systolic blood pressure 152 mm[Hg] Johan Gibbons MARKETING PROGRAMS SPECIALIST - HI RANGER OPERATOR Work Phone: [facility] 07-20-2024 18:26-0500 Body mass index (BMI) [Ratio] 31.32 kg/m2 Johan Gibbons APRN - HI RANGER OPERATOR [facility] 07-20-2024 18:26-0500 Body weight 90.72 kg Johan Gibbons APRN - HI RANGER OPERATOR [facility] 07-20-2024 18:26-0500 Respiratory rate 20 /min Johan Gibbons APRN - HI RANGER OPERATOR [facility] 07-20-2024 18:21-0500 Body temperature 98.01 [degF] Johan Gibbons APRN - HI RANGER OPERATOR Work Phone[facility] [employer] 07-20-2024 18:21-0500 Heart rate 67 /min Johan Gibbons APRN - HI RANGER OPERATOR Work Phone: [facility] [employer] 07-20-2024 18:21-0500 SaO2% (BldA) [Mass fraction] 93 % Johan Gibbons APRN - HI RANGER OPERATOR Work Phone: [facility] 04-30-2024 13:09-0400 Blood Pressure Location Yevgeniy GRIMM [facility] 04-30-2024 13:09-0400 Diastolic blood pressure 88 mm[Hg] Yevgeniyclaudio GRIMM [facility] 04-30-2024 13:09-0400 Heart rate 90 /min Yevgeniy GRIMM [facility] 04-30-2024 13:09-0400 Respiratory rate 20 /min Yevgeniy GRIMM [facility] 04-30-2024 13:09-0400 Systolic blood pressure 144 mm[Hg] Yevgeniy GRIMM [facility] 03-14-2024 13:18-0400 Blood Pressure Location SYLVIE MILLICENT [facility] 03-14-2024 13:18-0400 Diastolic blood pressure 87 mm[Hg] SYLVIE MILLICENT [facility] 03-14-2024 13:18-0400 Heart rate 94 /min SYLVIE MILLICENT [facility] 03-14-2024 13:18-0400 Respiratory rate 16 /min SYLVIE MILLICENT [facility] 03-14-2024 13:18-0400 Systolic blood pressure 138 mm[Hg] SYLVIE MILLICENT [facility] 02-29-2024 13:08-0400 Body temperature 98.6 [degF] SYLVIE MILLICENT [facility] 02-29-2024 13:08-0400 Diastolic blood pressure 81 mm[Hg] SYLVIE MILLICENT [facility] 02-29-2024 13:08-0400 Heart rate 80 /min SYLVIE MILLICENT [facility] 02-29-2024 13:08-0400 Respiratory rate 16 /min SYLVIE MILLICENT [facility] 02-29-2024 13:08-0400 Systolic blood pressure 137 mm[Hg] SYLIVE MILLICENT [facility] 01-23-2024 14:40-0400 Blood Pressure Location Yevgeniy GRIMM [facility] 01-23-2024 14:40-0400 Body temperature 97.88 [degF] Yevgeniy GRIMM [facility] 01-23-2024 14:40-0400 Diastolic blood pressure 78 mm[Hg] Yevgeniy GRIMM [facility] 01-23-2024 14:40-0400 Heart rate 100 /min Yevgeniyclaudio GRIMM [facility] 01-23-2024 14:40-0400 Respiratory rate 16 /min Yevgeniy GRIMM [facility] 01-23-2024 14:40-0400 Systolic blood pressure 122 mm[Hg] Yevgeniy GRIMM [facility] 01-07-2024 02:44-0400 Body temperature 98.2 [degF] Quinton Heath MD Work Phone: [facility] [employer] 01-07-2024 02:44-0400 Diastolic blood pressure 89 mm[Hg] Quinton Heath MD Work Phone: [facility] [employer] [facility] 01-07-2024 02:44-0400 Heart rate 84 /min Quinton Heath MD Work Phone: [facility] 01-07-2024 02:44-0400 Respiratory rate 18 /min Quinton Heath MD Work Phone: [facility] [employer] 01-07-2024 02:44-0400 SaO2% (BldA) [Mass fraction] 100 % Quinton Heath MD Work Phone: [facility] [employer] 01-07-2024 02:44-0400 Systolic blood pressure 122 mm[Hg] Quinton Heath MD Work Phone: [facility] 01-07-2024 00:53-0400 Body height 170.2 cm Quinton Heath MD Work Phone: [facility] 01-07-2024 00:53-0400 Body mass index (BMI) [Ratio] 32.11 kg/m2 Quinton Heath MD Work Phone: [facility] 01-07-2024 00:53-0400 Body weight 92.99 kg Quinton Heath MD Work Phone: [facility] 10-03-2023 14:01-0400 Body temperature 98.6 [degF] Yevgeniy GRIMM [facility] 10-03-2023 14:01-0400 Diastolic blood pressure 82 mm[Hg] Yevgeniy GRIMM [facility] 10-03-2023 14:01-0400 Heart rate 77 /min Yevgeniy GRIMM [facility] 10-03-2023 14:01-0400 Respiratory rate 16 /min Yevgeniy GRIMM [facility] 10-03-2023 14:01-0400 Systolic blood pressure 123 mm[Hg] Yevgeniy GRIMM [facility] 08-16-2023 10:54-0500 Blood Pressure Location SYLVIE MILLICENT [facility] 08-16-2023 10:54-0500 Diastolic blood pressure 83 mm[Hg] SYLVIE MILLICENT [facility] 08-16-2023 10:54-0500 Heart rate 75 /min SYLVIE MILLICENT [facility] 08-16-2023 10:54-0500 Respiratory rate 16 /min SYLVIE MILLICENT [facility] 08-16-2023 10:54-0500 Systolic blood pressure 133 mm[Hg] SYLVIE MILLICENT [facility] 08-09-2023 10:48-0500 Blood Pressure Location SYLVIE MILLICENT [facility] 08-09-2023 10:48-0500 Diastolic blood pressure 87 mm[Hg] SYLVIE MILLICENT [facility] 08-09-2023 10:48-0500 Heart rate 80 /min SYLVIE MILLICENT [facility] 08-09-2023 10:48-0500 Respiratory rate 16 /min SYLVIE MILLICENT [facility] 08-09-2023 10:48-0500 Systolic blood pressure 132 mm[Hg] SYLVIE MILLICENT [facility] 08-02-2023 11:02-0500 Blood Pressure Location SYLVIE MILLICENT [facility] 08-02-2023 11:02-0500 Diastolic blood pressure 87 mm[Hg] SYLVIE MILLICENT [facility] 08-02-2023 11:02-0500 Heart rate 80 /min SYLVIE MILLICENT [facility] 08-02-2023 11:02-0500 Respiratory rate 16 /min SYLVIE MILLICENT [facility] 08-02-2023 11:02-0500 Systolic blood pressure 129 mm[Hg] SYLVIE MILLICENT [facility] 07-19-2023 10:41-0500 Blood Pressure Location SYLVIE MILLICENT [facility] 07-19-2023 10:41-0500 Body temperature 97.16 [degF] SYLVIE MILLICENT [facility] 07-19-2023 10:41-0500 Diastolic blood pressure 78 mm[Hg] SYLVIE MILLICENT [facility] 07-19-2023 10:41-0500 Heart rate 68 /min SYLVIE MILLICENT [facility] 07-19-2023 10:41-0500 Systolic blood pressure 128 mm[Hg] SYLVIE MILLICENT [facility] 05-10-2023 07:25-0400 Blood Pressure Location Yevgeniy GRIMM [facility] 05-10-2023 07:25-0400 Diastolic blood pressure 89 mm[Hg] Yevgeniy GRIMM [facility] 05-10-2023 07:25-0400 Heart rate 83 /min Yevgeniy GRIMM [facility] 05-10-2023 07:25-0400 Respiratory rate 16 /min Yevgeniy GRIMM [facility] 05-10-2023 07:25-0400 Systolic blood pressure 136 mm[Hg] Yevgeniy GRIMM [facility] 02-01-2023 07:58-0400 Blood Pressure Location Yevgeniy GRIMM [facility] 02-01-2023 07:58-0400 Diastolic blood pressure 79 mm[Hg] Yevgeniy GRIMM [facility] 02-01-2023 07:58-0400 Heart rate 89 /min Yevgeniy GRIMM [facility] 02-01-2023 07:58-0400 Respiratory rate 18 /min Yevgeniy GRMIM [facility] 02-01-2023 07:58-0400 Systolic blood pressure 123 mm[Hg] Yevgeniy GRIMM [facility] 01-04-2023 07:34-0400 Blood Pressure Location Yevgeniy GRIMM [facility] 01-04-2023 07:34-0400 Diastolic blood pressure 89 mm[Hg] Yevgeniy GRIMM [facility] 01-04-2023 07:34-0400 Heart rate 92 /min Yevgeniy GRIMM [facility] 01-04-2023 07:34-0400 Respiratory rate 16 /min Yevgeniy GRIMM [facility] 01-04-2023 07:34-0400 Systolic blood pressure 138 mm[Hg] Yevgeniy GRIMM [facility] 09-20-2022 07:56-0500 Blood Pressure Location Yevgeniy GRIMM [facility] 09-20-2022 07:56-0500 Diastolic blood pressure 88 mm[Hg] Yevgeniy GRIMM [facility] 09-20-2022 07:56-0500 Heart rate 83 /min Yevgeniy GRIMM [facility] 09-20-2022 07:56-0500 Systolic blood pressure 133 mm[Hg] Yevgeniy GRIMM [facility] 07-15-2022 09:35-0500 Blood Pressure Location Yevgeniy GRIMM [facility] 07-15-2022 09:35-0500 Diastolic blood pressure 86 mm[Hg] Yevgeniy GRIMM [facility] 07-15-2022 09:35-0500 Heart rate 75 /min Yevgeniy GRIMM [facility] 07-15-2022 09:35-0500 Respiratory rate 16 /min Yevgeniy GRIMM [facility] 07-15-2022 09:35-0500 Systolic blood pressure 134 mm[Hg] Yevgeniy GRIMM [facility] 07-05-2022 10:34-0500 Diastolic blood pressure 76 mm[Hg] PHYSICIAN NO [facility] 07-05-2022 10:34-0500 Heart rate 80 /min PHYSICIAN NO [facility] 07-05-2022 10:34-0500 Respiratory rate 16 /min PHYSICIAN NO [facility] 07-05-2022 10:34-0500 SaO2% (BldA) [Mass fraction] 94 % PHYSICIAN NO [facility] 07-05-2022 10:34-0500 Systolic blood pressure 117 mm[Hg] PHYSICIAN NO [facility] 07-05-2022 10:04-0500 Inhaled oxygen flow rate 93 L/min PHYSICIAN NO [facility] 07-05-2022 09:59-0500 Body temperature 98.4 [degF] PHYSICIAN NO [facility] 07-05-2022 07:39-0500 Body mass index (BMI) [Ratio] 34.1 kg/m2 PHYSICIAN NO [facility] 07-05-2022 07:26-0500 Body height 170.18 cm PHYSICIAN NO [facility] 07-05-2022 07:26-0500 Body weight 98.88 kg PHYSICIAN NO [facility] 05-04-2022 10:06-0400 Blood Pressure Location Yevgeniy GRIMM [facility] 05-04-2022 10:06-0400 Diastolic blood pressure 90 mm[Hg] Yevgeniy GRIMM [facility] 05-04-2022 10:06-0400 Heart rate 92 /min Yevgeniy GRIMM [facility] 05-04-2022 10:06-0400 Systolic blood pressure 146 mm[Hg] Yevgeniy GRIMM [facility] 04-25-2022 13:21-0400 Diastolic blood pressure 86 mm[Hg] PHYSICIAN NO [facility] 04-25-2022 13:21-0400 Heart rate 79 /min PHYSICIAN NO [facility] 04-25-2022 13:21-0400 Respiratory rate 18 /min PHYSICIAN NO [facility] 04-25-2022 13:21-0400 SaO2% (BldA) [Mass fraction] 100 % PHYSICIAN NO [facility] 04-25-2022 13:21-0400 Systolic blood pressure 146 mm[Hg] PHYSICIAN NO [facility] 04-25-2022 11:13-0400 Body height 167.64 cm PHYSICIAN NO [facility] 04-25-2022 11: Body temperature 98.1 [degF] PHYSICIAN NO [facility] 04-25-2022 11: Body weight 101 kg PHYSICIAN NO [facility] Encounters Encounter Date Encounter Type Care Provider Facility Start: 08-06-2024 End: 08-06-2024 ambulatory Yevgeniy GRIMM [place] [place]: 08-06-2024 End: 08-06-2024 Lab Drop off Yevgeniy GRIMM [facility] Start: 08-06-2024 End: 08-06-2024 ambulatory Yevgeniy GRIMM Facility:[facility] Start: 08-06-2024 End: 08-06-2024 Patient encounter procedure Yevgeniy GRIMM [facility] Start: 07-29-2024 End: 07-29-2024 ambulatory YEVGENIY GRIMM Facility:[facility] Start: 07-29-2024 End: 07-29-2024 Subsequent hospital visit by physician Mri 3 [facility] Main Q (I-Stat/1.5t/3t) Work Phone: MRI [facility] Comment on above: Elevated prostate sp ecific antigen (PSA) [R97.20] Start: 07-20-2024 End: 07-20-2024 Emergency department patient visit JOHAN Samaniego [facility] Emergency [facility] Comment on above: Spasm of muscle (Luba jose de jesus Dx); Cervical radiculopathy Start: 04-30-2024 End: 04-30-2024 ambulatory Yevgeniy GRIMM [place] [place] Start: 04-30-2024 End: 04-30-2024 Lab Drop off Yevgeniy GRIMM [facility] Start: 04-30-2024 End: 04-30-2024 ambulatory Yevgeniy GRIMM Facility:[facility] Start: 04-30-2024 End: 04-30-2024 Patient encounter procedure Yevgeniy GRIMM [facility] Start: 03-14-2024 End: 03-14-2024 Lab Drop off SYLVIE RICKS [facility] Start: 03-14-2024 ambulatory PA-C SYLVIE RICKS F acility:[facility] Start: 03-14-2024 End: 03-14-2024 Patient encounter procedure SYLVIE RICKS [facility] [place] Start: 03-07-2024 End: 03-07-2024 ambulatory PA-C SYLVIE RICKS [place] Start: 03-07-2024 End: 03-07-2024 Patient encounter [facility] Start: 02-29-2024 End: 02-29-2024 ambulatory PA-C SYLVIE RICKS Facility: [place] Start: 02-29-2024 End: 02-29-2024 Patient encounter procedure SYLVIE RICKS [facility] Start: 01-23-2024 End: 01-23-2024 ambulatory Yevgeniy GRIMM [place] [place] Start: 01-23-2024 End: 01-23-2024 Lab Drop off Yevgeniy GRIMM [facility] Start: 01-23-2024 End: 01-23-2024 ambulatory Yevgeniy GRIMM Facility: [place] Start: 01-23-2024 End: 01-23-2024 Patient encounter procedure Yevgeniy GRIMM [facility] Start: 01-20-2024 End: 01-20-2024 Emergency department patient visit JOHAN GIBBONS [facility] Start: 01-07-2024 End: 01-07-2024 Emergency department patient visit JOHAN GIBBONS [facility] Comment on above: Fall, initial encoun ter (Primary Dx); Laceration of forehead, initial encounter Start: 10-03-2023 End: 10-03-2023 Lab Drop off Yevgeniy GRIMM [facility] Start: 10-03-2023 End: 10-03-2023 ambulatory Yevgeniy GRIMM [place] [place] Start: 10-03-2023 End: 10-03-2023 Patient encounter procedure Yevgeniy GRIMM [facility] Start: 09-01-2023 End: 09-01-2023 Patient encounter procedure PHYSICIAN [facility] [place] Work Phone: Start: 09-01-2023 End: 09-01-2023 ambulatory PHYSICIAN [facility] Work Phone: Start: 08-23-2023 End: 08-23-2023 Lab Drop off Yevgeniy GRIMM [facility] Start: 08-23-2023 End: 08-23-2023 Patient encounter procedure Yevgeniy GRIMM [facility] Start: 08-16-2023 End: 08-16-2023 Patient encounter procedure SYLVIE RICKS [facility] Start: 08-09-2023 End: 08-09-2023 Patient encounter procedure SYLVIE RICKS [facility] [place] Start: 08-02-2023 End: 08-02-2023 Patient encounter procedure SYLVIE E MILLICENT [facility] [place] Start: 07-26-2023 End: 07-26-2023 Patient encounter procedure SYLVIE Rock MILLICENT [facility] [place] Start: 07-19-2023 End: 07-19-2023 Patient encounter procedure SYLVIE Davis MILLICENT [facility] [place] Start: 07-12-2023 End: 07-12-2023 Patient encounter procedure SYLVIE RICKS [facility] [place] Start: 07-05-2023 End: 07-05-2023 Lab Drop off SYLVIE [facility] Start: 05-31-2023 End: 05-31-2023 Patient encounter procedure Yevgeniy GRIMM [facility] Start: 05-10-2023 End: 05-10-2023 Lab Drop off Yevgeniy GRIMM [facility] Start: 05-10-2023 End: 05-10-2023 Patient encounter procedure Yevgeniy GRIMM [facility] [place] Start: 03-09-2023 End: 03-09-2023 Lab Drop off SYLVIE E MILLICENT [facility] Start: 03-09-2023 End: 03-09-2023 Patient encounter procedure Yevgeniy GRIMM [facility] [place] Start: 02-14-2023 End: 02-14-2023 ambulatory PHYSICIAN NO [facility] Work Phone: Start: 02-14-2023 End: 02-14-2023 Patient encounter procedure PHYSICIAN NO [facility]-CT Scan [place] Work Phone: Start: 02-01-2023 End: 02-01-2023 Patient encounter procedure Yevgeniy GRIMM [facility] [place] Start: 01-24-2023 End: 01-24-2023 ambulatory PHYSICIAN NO [facility] Work Phone: Start: 01-24-2023 End: 01-24-2023 Departed Referred PHYSICIAN NO [facility]-Lab [place] Work Phone: Start: 01-12-2023 End: 01-12-2023 ambulatory PHYSICIAN NO [facility] Work Phone: Start: 01-12-2023 End: 01-12-2023 Patient encounter procedure PHYSICIAN NO [facility]-Electrodiagnostic s Work Phone: Start: 01-04-2023 End: 01-04-2023 Lab Drop off Yevgeniy GRIMM [facility] Start: 01-04-2023 End: 01-04-2023 Patient encounter procedure Yevgeniy GRIMM [facility] [place] Start: 09-20-2022 End: 09-20-2022 Patient encounter procedure Yevgeniy GRIMM [facility] [place] Start: 07-15-2022 End: 07-15-2022 Patient encounter procedure Yevgeniy Us GRIMM [facility] [place] Start: 07-12-2022 End: 07-12-2022 Patient encounter procedure Jono PAREDES [facility] [place] Start: 07-05-2022 End: 07-05-2022 Admission to same day surgery center PHYSICIAN NO [facility]-Surgery Center [place] Start: 07-05-2022 End: 07-05-2022 ambulatory PHYSICIAN NO [facility] Work Phone: Start: 07-01-2022 End: 07-01-2022 ambulatory PHYSICIAN NO [facility] Work Phone: Start: 07-01-2022 End: 07-01-2022 Patient encounter procedure PHYSICIAN NO [facility] Qox-Pwb-Nzwlnaxm Testing Start: 06-21-2022 End: 06-21-2022 ambulatory PHYSICIAN NO [facility] Work Phone: Start: 06-21-2022 End: 06-21-2022 Patient encounter procedure PHYSICIAN NO [facility] Arz-Myn-Fwekegub Testing Start: 05-24-2022 End: 05-24-2022 Patient encounter procedure Yevgeniy R KENA [facility] Start: 05-04-2022 End: 05-04-2022 Patient encounter procedure Yevgeniy R GRIMM [facility] [place] Start: 04-27-2022 End: 04-27-2022 ambulatory PHYSICIAN NO [facility] Work Phone: Start: 04-27-2022 End: 04-27-2022 Patient encounter procedure PHYSICIAN NO [facility] [place] Start: 04-25-2022 End: 04-25-2022 Emergency department patient visit PHYSICIAN NO [facility]-Emergency Room Procedures Date Procedure Procedure Detail Performing Clinician Start: 08-06-2024 Cystoscopy Yevgeniy HASSAN Start: 04-30-2024 Cystoscopy Yevgeniy HASSAN Start: 01-23-2024 Flexible cystoscope (physical object) Yevgeniy GRIMM Start: 01-07-2024 Ct cervical spine w/ o contrast material Yusuf Desai MD Work Phone: Start: 01-07-2024 Ct head/brain w/o co ntrast material Yusuf Desai MD Work Phone: Start: 10-03-2023 Transurethral cystoscopy Yevgeniy GRIMM Start: 09-01-2023 CT of thorax with contrast PHYSICIAN NO FAMILY Start: 05-25-2023 Transurethral resect ion of bladder neoplasm Yevgeniy GRIMM Start: 05-10-2023 Transurethral cystoscopy Yevgeniy GRIMM Start: 05-10-2023 Transurethral cystoscopy Yevgeniy GRIMM Start: 02-14-2023 CT of urinary tract PHY SICIAN NO FAMILY Start: 01-24-2023 Transurethral resect ion of bladder neoplasm Yevgeniy GRIMM Start: 01-12-2023 Plain chest X-ray PHYSI SONALI NO FAMILY Start: 01-04-2023 Cystoscopy Yevgeniy HASSAN Start: 09-20-2022 Cystoscopy Yevgeniy HASSAN Start: 07-05-2022 Cystoscopy and transurethral resection of bladder tumor PHYSICIAN NO FAMILY Start: 07-05-2022 Transurethral resect ion of bladder neoplasm Yevgeniyclaudio GRIMM Start: 04-25-2022 Plain chest X-ray PHYSI SONALI NO FAMILY Start: 04-25-2022 Computed tomography of abdomen and pelvis with contrast PHYSICIAN NO FAMILY Start: 10-02-2021 Lipid 1996 panel - S ginger or Plasma Mri (I-Stat/1.5t/3t) Work Phone: Post-surgery back pa in (finding) Yevgeniy GRIMM SARS Antigen (LFIA) PHYSICIA N NO FAMILY Urine culture PHYSICIAN NO F AMILY Plan of Treatment Date Care Activity Detail Author Start: 2036 Respiratory Syncytial Virus (RSV) or age 60 yrs+ (1 - 1-dose 75+ series) Respiratory Syncytial Virus (RSV) or age 60 yrs+ (1 - 1-dose 75+ series) [facility] Start: 2036 RSV Vaccine (1 - 1-dose 75+ series) RSV Vaccine (1 - 1-dose 75+ series) [facility] Start: 10-02-2026 Lipid panel [facility] Start: 10-02-2024 Depression Screen Depression Screen [facility] Start: 10-02-2024 Diabetes Screening Diabetes Screening [facility] Start: 09-04-2024 ambulatory Ambulatory Facility:[facility] Start: 08-29-2024 ambulatory Ambulatory Facility::[id number] Start: 03-17-2024 COVID-19 Vaccine ( season) COVID-19 Vaccine ( season) [facility] Start: 03-17-2024 Covid-19 Vaccine ( season) Covid-19 Vaccine ( season) [facility] Start: 03-17-2024 Influenza vaccination [facility] Start: 02-15-2024 Influenza vaccination [facility] Start: 07-05-2022 [facility] Start: 07-05-2022 [facility] Start: 07-05-2022 Diagnostic radiography of abdomen [facility] Start: 2021 Respiratory Syncytial Virus (RSV) or age 60 yrs+ (1 - 1-dose 60+ series) Respiratory Syncytial Virus (RSV) or age 60 yrs+ (1 - 1-dose 60+ series) [facility] Start: 2016 Prostate specific antigen measurement Prostate Cancer Screening Discussion [facility] Start: 10-11-2011 Pneumococcal Vaccine: 50+ (1 of 1 - PCV) Pneumococcal Vaccine: 50+ (1 of 1 - PCV) [facility] Start: 10-11-2011 Screening for malignant neoplasm of lung [facility] Start: 10-11-2011 Shingles vaccine (1 of 2) Shingles vaccine (1 of 2) [facility] Start: 10-11-2011 Shingrix Vaccine (1 of 2) Shingrix Vaccine (1 of 2) [facility] Start: 2006 Screening for malignant neoplasm of colon [facility] [employer] Start: 05-01-2003 Urine microalbumin profile DTaP,Tdap,Td Vaccine (1 - Tdap) [facility] Start: 1980 DTaP/Tdap/Td vaccine (1 - Tdap) DTaP/Tdap/Td vaccine (1 - Tdap) [facility] Start: 10-11-1979 Anxiety Screening Anxiety Screening [facility] Start: 10-11-1979 Depression Screening Depression Screening [facility] Start: 10-11-1979 Hepatitis C screening [facility] Start: 10-11-1979 HIV screening HIV Screening [facility] Start: 1976 HIV screening HIV screen [facility] Start: 10-11-1967 Pneumococcal 0-64 years Vaccine (1 of 2 - PCV) Pneumococcal 0-64 years Vaccine (1 of 2 - PCV) [facility] Start: 04-12-1962 COVID-19 Vaccine (#1) COVID-19 Vaccine (#1) [facility] [employer] Patient Education Bladder Spasms Blood in Urine (Hematuria), Adult ED [facility] Work Phone: Patient referral [facility] Work Phone: Immunizations Immunization Date Immunization Notes Care Provider Yousif aureliacherise 03-14-2024 bacillus calmette-robbie vaccine SYLVIE MILLICENT [facility] 03-07-2024 bacillus calmette-robbie vaccine SYLVIE MILLICENT [facility] 02-29-2024 bacillus calmette-robbie vaccine SYLVIE MILLICENT [facility] 10-03-2023 bacillus calmette-robbie vaccine Yevgeniy GRIMM [facility] Comment on above: Early/Late Reason: E [place]/Late Reason: Other : wrong provider listed initially 08-23-2023 bacillus calmette-robbie vaccine Yevgeniy GRIMM [facility] 08-16-2023 bacillus calmette-robbie vaccine SYLVIE MILLICENT [facility] 08-09-2023 bacillus calmette-robbie vaccine SYLVIE MILLICENT [facility] 08-02-2023 bacillus calmette-robbie vaccine SYLVIE MILLICENT [facility] 07-26-2023 bacillus calmette-robbie vaccine SYLVIE MILLICENT [facility] 07-19-2023 bacillus calmette-robbie vaccine SYLVIE MILLICENT [facility] NEGATED: Highlighted row has not occurred!08-23-2023 influenza virus vaccine, unspecified formulation Yevgeniy GRIMM [facility] Payers Date Payer Category Payer Unknown SERGIO ASH X [id number] 2024-Present [phone] [address] [address] [place] [address] O [id number] 2024 Unknown [id number] 2023 Self-pay 2023 Unknown [id number] 1961 Unknown [id number] 1961 Unknown [id number] 1961 Unknown [id number] [id number] 1961 Unknown [id number] [id number] 1961 Unknown [id number] [id number] 1961 Unknown [id number] [id number] 1961 Unknown [id number] [id number] 1961 Unknown [id number] 2.16.840.1.402474.3.579.2.727 1961 Unknown [id number] 2.16.840.1.389960.3.579.2.727 1961 Unknown [id number] [id number] 1961 Unknown [id number] [id number] 1961 Unknown [id number] [id number] 1961 Unknown [id number] 2.16.840.1.583673.3.579.2.727 1961 Unknown [id number] 2.16.840.1.968438.3.579.2.727 1961 Unknown [id number] [id number] Unknown [id number] Social History Date Type Detail Facility Start: 04-25-2022 End: 07-05-2022 Tobacco smoking status NHIS Smoker (finding) [facility] Start: 1960 Sex Assigned At Male [facility] Start: 05-04-2022 Tobacco smoking status Light t obacco smoker (finding) [facility] Tobacco smoking status Never [facility] Start: 10-14-2022 End: 07-20-2024 Sex Assigned At Male [facility] Start: 02-01-2023 End: 08-06-2024 Tobacco smoking status Heavy tobacco smoker (finding) [facility] Start: 10-03-2023 Tobacco smoking stat [facility] Smokes tobacco daily [employer] History of tobacco use Cigarette Smoker [facility] [employer] Start: 10-14-2022 End: 10-03-2023 Cigarettes smoked current (pack per day) - Reported 2 [employer] Start: 10-03-2023 Tobacco use and exposure Smokeless tobacco non-user [employer] Start: 01-07-2024 End: 01-20-2024 Alcoholic beverage intake Current drinker of alcohol (finding) [employer] How often to you hav e a drink containing alcohol? Never [employer] (I/We) worried arslan er (my/our) food would run out before (I/we) got money to buy more. Never true [employer] [employer] Start: 1960 Sex assigned at Not on file [facility] At any time in the p ast 12 months, were you homeless or living in alf [including now]? No [employer] Goals Date Patient Goal Desired Activity /State Functional Status Date Assessment Result Facility 08-06-2024 Functional Status N/A [facility] 04-30-2024 Functional Status N/A [facility] 03-14-2024 Functional Status N/A [facility] 03-07-2024 Functional Status N/A [facility] 02-29-2024 Functional Status N/A [facility] 01-23-2024 Functional Status N/A [facility] 10-03-2023 Functional Status N/A [facility] 08-23-2023 Functional Status N/A [facility] 08-16-2023 Functional Status N/A [facility] 08-09-2023 Functional Status N/A [facility] 08-02-2023 Functional Status N/A [facility] 07-26-2023 Functional Status N/A [facility] 07-19-2023 Functional Status Yes [facility] 05-31-2023 Functional Status N/A [facility] 05-10-2023 Functional Status N/A [facility] 02-01-2023 Functional Status N/A [facility] 01-04-2023 Functional Status N/A [facility] 09-20-2022 Functional Status N/A [facility] 07-15-2022 Functional Status N/A [facility] 05-12-2022 Functional Status N/A [facility] 05-04-2022 Functional Status N/A [facility] Clinical Notes 05-04-2022 to 08-06-2024 Neli Copeland RN - 07/29/2024 4:20 PM Kyung Erickson Tech - 07/29/2024 4:20 PM ESTDischarge InstructionsAttachments Note Date & Type Note Facility [...] including vitamins, herbs, eye drops, creams, and stha-bty-fuvganu medicines. Any problems you or family members [...] provider tells you to take them. Taking jifo-kvz-qguewom medicines, vitamins, herbs, and supplements. General instructions [...] provider. Document Revised: 07/08/2022 Document Reviewed: 07/08/2022 [employer] Patient Education 2023 [employer]. 08/06/2024 13:57:27 Prostate Cancer Screening Prostate Cancer [...] treatment? Where to find more information The [place] [employer] Society: www.cancer.org [place] [employer]: www.auanet.org Contact a health care [...] provider. Document Revised: 12/27/2021 Document Reviewed: 12/27/2021 [employer] Patient Education 2023 [employer]. Follow Up Care 05/23/2024 14:06:23 With:KENA ESPARZA, Yevgeniy Us, URL Address: [facility] [address], [place] [address]- When: Unknown Comments:Schedule TURBT [facility] 08-06-2024 Note Patient Education Oncology Transurethral Resection [...] including vitamins, herbs, eye drops, creams, and lyhi-cyh-wcemdrs medicines. ??? Any problems you or family [...] tells you to take them. ??? Taking hxrf-pvc-jvqzxuo medicines, vitamins, herbs, and supplements. General instructions [...] be rinsed o (more content not included)... [facility] 07-29-2024 History of Present illness Narrative Radiology [...] PATIENT PRESENTS WITH AN IMPLANTABLE OR ATTACHED COMMUNITY DEVELOPMENT DIRECTOR: No RADIOLOGY DEPARTMENT: MR; Exam(s) Completed: Body: Prostate PERIPHERAL IV DATA: Site assessment: Clean,Dry and Intact, Site disposition Discontinued SIGNED BY: Elsa Wheatley July 29, 2024 4:39 PM documented in this encounter [facility] 07-29-2024 Note HNO ID: [id number] Author: KYUNG DUQUE Tech Service: ? Author Type: Brush Fabrication Supervisor Type: Progress Notes Filed: 07/29/2024 16:40 Note [...] PATIENT PRESENTS WITH AN IMPLANTABLE OR ATTACHED COMMUNITY DEVELOPMENT DIRECTOR: No RADIOLOGY DEPARTMENT: MR; Exam(s) Completed: Body: Prostate PERIPHERAL IV DATA: Site assessment: Clean,Dry and Intact, Site disposition Discontinued SIGNED BY: Elsa Wheatley July 29, 2024 4:39 PM [facility] 07-29-2024 Note HNO ID: [id number] Author: NELI COPELAND RN Service: Nursing Author [...] DATE: July 29, 2024 TIME: 4:02 PM [facility] 04-30-2024 Hospital Discharge instructions Patient Education 04/30/2024 [...] treatment? Where to find more information The [place] [employer]: www.cancer.org [place] [employer]: www.auanet.org Contact a health care [...] provider. Document Revised: 12/27/2021 Document Reviewed: 12/27/2021 [employer] Patient Education 2023 [employer]. Follow Up Care 03/28/2024 11:25:46 With:KENA ESPARZA, Yevgeniy Us, URL Address: [facility] [address] [place] [address]- When: Unknown [facility] [place] 04-30-2024 Evaluation + Plan note Diagnostic Tests PendingUroVysion Fish and Urine Cyto ([facility]) 04/30/24 [facility] 04-30-2024 Note Patient Education Oncology Prostate [...] Where to find more information ? The [place] Cancer Society: www.cancer.org ? [place] [employer]: www.auanet.org Contact a health care [...] of the rectum. (more content not included)... [facility] 03-14-2024 Hospital Discharge instructions Patient Education 03/14/2024 [...] Treatment for this condition includes: Antibiotic medicine. Dypu-smt-hyxiood medicines to treat discomfort. Drinking enough water [...] Follow these instructions at home: Medicines Take aooc-ynn-iyvyqlm and prescription medicines only as told by [...] provider. Document Revised: 02/12/2021 Document Reviewed: 02/12/2021 [employer] Patient Education 2022 [employer]. 03/14/2024 13:47:29 Bladder Cancer Bladder Cancer Bladder [...] cells. Follow these instructions at home: Take bomd-ers-gqxcpox and prescription medicines only as told by [...] is important. Where to find more information [place] [employer] Society (ACS): cancer.org National Cancer Atlantic (NCI): cancer.gov Contact a health care provider [...] provider. Document Revised: 06/13/2022 Document Reviewed: 06/13/2022 Elsevier Patient Education 2022 [employer]. Follow Up Care 02/20/2024 16:13:22 With:KENA ESPARZA, Yevgeniy Us, URL Address: [facility] [address], [place] [address]- [phone] When: Unknown Comments:sched surveillance cysto 04/2024 [facility] 03-14-2024 Evaluation + Plan note Diagnostic Tests PendingUrine Culture 03/14/24 [facility] 03-07-2024 Hospital Discharge instructions Patient Education [...] if anything looks unusual. Men with a gsqwmw-jxmy-fpjpok risk for skin cancer may want to see a bacon skinner (precision lathe operator) for an annual body check. What are the benefits of screening? Cancer screening is done to look for cancer in the very early stages, before it spreads and becomes harder to treat and before you would start to notice symptoms. Finding cancer early improves the chances of successful treatment. It may save your life. Where to find more information [place] [employer]: www.cancer.org Centers for Disease Control and Prevention: www.cdc.gov National Cancer Atlantic: www.cancer.gov Contact a health care provider if: [...] provider. Document Revised: 11/29/2021 Document Reviewed: 05/29/2020 [employer] Patient Education 2022 [employer]. Follow Up Care 02/20/2024 16:00:52 With:TERRI RICKS PA-CNIJOSELUIS Davis, URL Address: [address] [place] [address] When: Unknown Comments:BCG #3 of 3 in 1 week [facility] 03-07-2024 Note Patient Education Oncology Cancer Screening [...] if anything looks unusual. Men with a fwipcd-yhxk-eqvbzl risk for skin cancer may want to see a bacon skinner (precision lathe operator) for an annual body check. What are the benefits of screening? Cancer screening is done to look for cancer in the very early stages, before it spreads and becomes harder to treat and before you would start to notice symptoms. Finding cancer early improves the chances of success (more content not included)... [facility] 02-29-2024 Hospital Discharge instructions Patient Education 02/29/2024 [...] cells. Follow these instructions at home: Take upli-apv-emuoyap and prescription medicines only as told by [...] is important. Where to find more information [place] [employer] (ACS): cancer.org National Cancer Atlantic (NCI): cancer.gov Contact a health care provider [...] provider. Document Revised: 06/13/2022 Document Reviewed: 06/13/2022 [employer] Patient Education 2022 [employer]. Follow Up Care 02/20/2024 15:53:12 With:MILLICENT IVORY, SYLVIE Davis, URL Address: [address] [place] [address] When: Unknown Comments:1 week BCG #2 of 3 half dose [facility] 02-29-2024 Note Patient Education Oncology Bladder Cancer [...] Follow these instructions at home: ? Take vrnf-dwc-ljtzmlf and prescription medicines only as told by [...] important. Where to find more information ? [place] [employer] Society (ACS): cancer.org ? National Cancer Atlantic (NCI): cancer.gov Contact a health care provider [...] discuss any q (more content not included)... [facility] 01-23-2024 Hospital Discharge instructions Patient Education 01/23/2024 [...] if anything looks unusual. Men with a bzciti-mukh-ogwzgu risk for skin cancer may want to see a bacon skinner (precision lathe operator) for an annual body check. What are the benefits of screening? Cancer screening is done to look for cancer in the very early stages, before it spreads and becomes harder to treat and before you would start to notice symptoms. Finding cancer early improves the chances of successful treatment. It may save your life. Where to find more information [place] [employer]: www.cancer.org Centers for Disease Control and Prevention: www.cdc.gov National Cancer Atlantic: www.cancer.gov Contact a health care provider if: [...] provider. Document Revised: 11/29/2021 Document Reviewed: 05/29/2020 [employer] Patient Education 2022 [employer]. 01/23/2024 15:12:09 Steps to Quit Smoking Steps [...] require a prescription. You can also purchase hzaq-yvt-aekhaem medicines. Medicines may have nicotine in them [...] and encouragement. Call telephone quitlines, such as 1-498-MJMN-NOW, reach out to support groups, or work [...] provider. Document Revised: 06/24/2022 Document Reviewed: 06/24/2022 [employer] Patient Education 2022 [employer]. Follow Up Care 10/03/2023 14:55:05 With:KENA ESPARZA, Yevgeniy Us, URL Address: [facility] [address], [place] [address] [phone] When: Unknown [facility] 01-23-2024 Note Patient Education Oncology Cancer Screening [...] if anything looks unusual. Men with a gvpzwk-ruwc-pnbxsj risk for skin cancer may want to see a bacon skinner (precision lathe operator) for an annual body check. What are the benefits of screening? Cancer screening is done to look for cancer in the very early stages, before it spreads and becomes harder to treat and before you would start to notice symptoms. Finding cancer early improves the chances of success (more content not included)... [facility] 01-23-2024 Evaluation + Plan note Diagnostic Tests PendingPSA Total 01/23/24 [facility] 01-23-2024 Evaluation + Plan note Diagnostic Tests PendingUroVysion Fish and Urine Cyto ([facility]) 01/23/24 [facility] 01-07-2024 Hospital Discharge instructions Yusuf Desai MD - 01/07/2024 2:36 AM EDT Follow-up with your primary care provider for wound check and remove the sutures in 1 week. The following attachments cannot be sent through Care Everywhere.Lacerations: Stitches ([place]orese)Fall Prevention ([place]se)documented in this encounter [facility] 10-03-2023 Hospital Discharge instructions Patient Education [...] if anything looks unusual. Men with a byhqnd-vbsz-exirzk risk for skin cancer may want to see a bacon skinner (precision lathe operator) for an annual body check. What are the benefits of screening? Cancer screening is done to look for cancer in the very early stages, before it spreads and becomes harder to treat and before you would start to notice symptoms. Finding cancer early improves the chances of successful treatment. It may save your life. Where to find more information [place] [employer]: www.cancer.org Centers for Disease Control and Prevention: www.cdc.gov National Cancer Atlantic: www.cancer.gov Contact a health care provider if: [...] provider. Document Revised: 11/29/2021 Document Reviewed: 05/29/2020 [employer] Patient Education 2022 [employer]. 10/03/2023 14:16:42 Steps to Quit Smoking Steps [...] require a prescription. You can also purchase cbzh-pxf-uyfjzei medicines. Medicines may have nicotine in them [...] and encouragement. Call telephone quitlines, such as 9-624-BQBD-NOW, reach out to support groups, or work [...] provider. Document Revised: 06/24/2022 Document Reviewed: 06/24/2022 [employer] Patient Education 2022 [employer]. Follow Up Care 08/30/2023 12:27:08 With:KENA ESPARZA, Yevgeniy Us, URL Address: [facility] [address] [place] [phone] When: Unknown Comments:cysto/bt ck in 3 mos [facility] [place] 08-23-2023 Evaluation + Plan note Diagnostic Tests PendingUrine Culture 08/23/23 [facility] 08-23-2023 Hospital Discharge instructions Patient Education [...] cells. Follow these instructions at home: Take zzxs-uzo-kocoerj and prescription medicines only as told by [...] is important. Where to find more information [place] [employer] Society (ACS): cancer.org National Cancer Atlantic (NCI): cancer.gov Contact a health care provider [...] provider. Document Revised: 06/13/2022 Document Reviewed: 06/13/2022 [employer] Patient Education 2022 [employer]. Follow Up Care 08/16/2023 10:42:48 With:KENA ESPARZA, Yevgeniy Us, URL Address: [facility] [address] , [place] [address]- When:Within 1 Month(s) Comments:w/Cysto [facility] Hospital Discharge instructions Patient Education 08/16/2023 [...] cells. Follow these instructions at home: Take aidk-djx-ssupejh and prescription medicines only as told by [...] is important. Where to find more information [place] [employer] Society (ACS): cancer.org National Cancer Atlantic (NCI): cancer.gov Contact a health care provider [...] provider. Document Revised: 06/13/2022 Document Reviewed: 06/13/2022 [employer] Patient Education 2022 [employer]. Follow Up Care 08/16/2023 10:41:48 With:[facility] Address: [address] [place] [address] Business (1) When: Unknown Comments:for procedure as scheduled With:[facility] Address: [address] [place] [address] Business (1) When: Unknown Comments:for procedure as scheduled [facility] 08-02-2023 Hospital Discharge instructions Patient Education 08/02/2023 [...] cells. Follow these instructions at home: Take xiny-xty-ytyczfj and prescription medicines only as told by [...] is important. Where to find more information [place] [employer] Society (ACS): cancer.org National Cancer Atlantic (NCI): cancer.gov Contact a health care provider [...] provider. Document Revised: 06/13/2022 Document Reviewed: 06/13/2022 [employer] Patient Education 2022 [employer]. Follow Up Care 05/26/2023 08:46:23 With:[facility] Address: [address] [place] [address] Chasidy [facility] [place] [address] Business (1) When: Unknown Comments:for procedure as scheduled [facility] 07-26-2023 Hospital Discharge instructions Patient Education 07/26/2023 [...] cells. Follow these instructions at home: Take jfsj-cwa-qvyuxrx and prescription medicines only as told by [...] is important. Where to find more information [place] Cancer Society (ACS): cancer.org National Cancer Atlantic (NCI): cancer.gov Contact a health care provider [...] provider. Document Revised: 06/13/2022 Document Reviewed: 06/13/2022 [employer] Patient Education 2022 [employer]. Follow Up Care 05/26/2023 08:45:13 With:SYLVIE RICKS PA-C, URL Address: [address] [place] [address] When:Within 1 Week(s) Comments:BCG #3 of 6 - FULL DOSE [facility] [place] 07-19-2023 Hospital Discharge instructions Patient Education 07/19/2023 [...] cells. Follow these instructions at home: Take ywoz-pgm-ltsynkf and prescription medicines only as told by [...] is important. Where to find more information [place] [employer] Society (ACS): cancer.org National Cancer Atlantic (NCI): cancer.gov Contact a health care provider [...] provider. Document Revised: 06/13/2022 Document Reviewed: 06/13/2022 [employer] Patient Education 2022 [employer]. Follow Up Care 05/26/2023 08:44:02 With:SYLVIE RICKS PA-C, URL Address: [address] [place] [address] [phone] When: Unknown Comments:RIGO #2/6 on 07/26/23 [facility] [place] 05-31-2023 Hospital Discharge instructions Patient Education 05/31/2023 [...] if anything looks unusual. Men with a dyhyhb-pzzg-tvuaxs risk for skin cancer may want to see a bacon skinner (precision lathe operator) for an annual body check. What are the benefits of screening? Cancer screening is done to look for cancer in the very early stages, before it spreads and becomes harder to treat and before you would start to notice symptoms. Finding cancer early improves the chances of successful treatment. It may save your life. Where to find more information [place] Cancer Society: www.cancer.org Centers for Disease Control and Prevention: www.cdc.gov National Cancer Atlantic: www.cancer.gov Contact a health care provider if: [...] provider. Document Revised: 11/29/2021 Document Reviewed: 05/29/2020 Elsevier Patient Education 2022 [employer]. Follow Up Care 05/31/2023 09:58:28 With:KENA ESPARZA, Yevgeniy Us, URL Address: [facility] [address] , [place] [address] When: Unknown [facility] [place] 05-10-2023 Hospital Discharge instructions Patient Education 05/10/2023 [...] if anything looks unusual. Men with a saagnj-sdyk-nkyaan risk for skin cancer may want to see a bacon skinner (precision lathe operator) for an annual body check. What are the benefits of screening? Cancer screening is done to look for cancer in the very early stages, before it spreads and becomes harder to treat and before you would start to notice symptoms. Finding cancer early improves the chances of successful treatment. It may save your life. Where to find more information [place] [employer] Society: www.cancer.org Centers for Disease Control and Prevention: www.cdc.gov National Cancer Atlantic: www.cancer.gov Contact a health care provider if: [...] provider. Document Revised: 11/29/2021 Document Reviewed: 05/29/2020 [employer] Patient Education 2022 [employer]. Follow Up Care 03/02/2023 14:05:04 With:KENA ESPARZA, Yevgeniy Us, URL Address: [facility] [address] [place] [address] When: Unknown [facility] 02-01-2023 Hospital Discharge instructions Patient Education 02/01/2023 [...] cells. Follow these instructions at home: Take izlp-oec-stzjuxa and prescription medicines only as told by [...] is important. Where to find more information [place] Cancer Society (ACS): cancer.org National Cancer Atlantic (NCI): cancer.gov Contact a health care provider [...] provider. Document Revised: 06/13/2022 Document Reviewed: 06/13/2022 [employer] Patient Education 2022 [employer]. Follow Up Care 01/04/2023 08:12:58 With:KENA ESPARZA, Yevgeniy Us, URL Address: [facility] [address] , [place] [address]- When: Unknown [facility] [place] 01-04-2023 Hospital Discharge instructions Patient Education 01/04/2023 [...] if anything looks unusual. Men with a mguiym-enbw-inclxe risk for skin cancer may want to see a bacon skinner (precision lathe operator) for an annual body check. What are the benefits of screening? Cancer screening is done to look for cancer in the very early stages, before it spreads and becomes harder to treat and before you would start to notice symptoms. Finding cancer early improves the chances of successful treatment. It may save your life. Where to find more information [place] [employer] Society: www.cancer.org Centers for Disease Control and Prevention: www.cdc.gov National Cancer Atlantic: www.cancer.gov Contact a health care provider if: [...] provider. Document Revised: 11/29/2021 Document Reviewed: 05/29/2020 [employer] Patient Education 2022 [employer]. Follow Up Care 12/08/2022 14:06:34 With:KENA ESPARZA, Yevgeniy Us, URL Address: [facility] [address] , [place] [address]- When: Unknown [facility] 09-20-2022 Evaluation + Plan note Diagnostic Tests PendingUroVysion Fish and Urine Cyto ([facility]) 09/20/22 [facility] 09-20-2022 Hospital Discharge instructions Patient Education 09/20/2022 [...] if anything looks unusual. Men with a vtuahm-gesv-ighlwv risk for skin cancer may want to see a bacon skinner (precision lathe operator) for an annual body check. Where to find more information National Cancer Atlantic: https://www.cancer.gov/about-can cer/screening Centers for Disease Control and Prevention: https://www.cdc.gov/cancer/dcpc/ prevention/screening.htm [place] Cancer Society: https://www.cancer.org/latest-ne ws/5-bckfuq-xkazihnzw-tests-for- men.html Contact a health care provider if: [...] 03/30/2017 Document Revised: 03/22/2019 Document Reviewed: 03/30/2017 [employer] Patient Education 2020 [employer]. Follow Up Care 07/15/2022 10:28:13 With:KENA ESPARZA, BRITTNEE Andino Address: [facility] [address] , [place] [address]- When: Unknown [facility] 07-15-2022 Hospital Discharge instructions Patient Education 07/15/2022 [...] cells. Follow these instructions at home: Take tmya-sst-yaxacwa and prescription medicines only as told by [...] is important. Where to find more information [place] [employer] Society: www.cancer.org National Cancer Atlantic (NCI): www.cancer.gov Contact a health care provider [...] 07/05/2004 Document Revised: 06/15/2018 Document Reviewed: 06/06/2017 [employer] Patient Education 2020 [employer]. Follow Up Care 05/24/2022 15:57:06 With:KENA ESPARZA, Yevgeniy Us, URL Address: [address] [place], [place] [id number]- When: Unknown [facility] Spyder Lynk 05-24-2022 Hospital Discharge instructions Patient Education 05/24/2022 [...] you have a fever over 100 degrees. [facility] 05-24-2022 Evaluation + Plan note Extrac araseli from: Title:Urology Progress Note Author:Adrian GRIMM MD Date:05/24/22 Impression and Plan Impression: #1. [...] Appointments Appointment Date:07/12/2022 10:00:00 AM Scheduled Provider: [place] [place] [facility] [place] Appointment Type:URO Nurse Visit Appointment Date:07/15/2022 09:15:00 AM Scheduled Provider:Yevgeniy GRIMM MD Location:[facility] Appointment Type:URO Office Visit [facility]10-19-2022 Hospital Discharge instructions Patient Education 05/04/2022 [...] urethra. Follow these instructions at home: Take domo-ccz-sjqfjdq and prescription medicines only as told by [...] 07/03/2006 Document Revised: 05/28/2019 Document Reviewed: 08/07/2017 [employer] Patient Education 2020 [employer] 05/04/2022 11:00:14 Calorie Counting for Weight Loss [...] 07/03/2006 Document Revised: 03/22/2019 Document Reviewed: 06/02/2017 [employer] Patient Education 2020 [employer] Follow Up Care 04/29/2022 15:04:43 With:Yevgeniy GRIMM MD, URL Address: [address] [place] [address] Business (1) When: Unknown [facility] Evaluation + Plan note No data available for this section [facility] Evaluation + Plan note Future Appointments Appointment Date:07/15/2022 09:15:00 AM Scheduled Provider:Yevgeniy GRIMM MD Location:[facility] Appointment Type:URO Office Visit [facility] Evaluation + Plan note Future Appointments Appointment Date:09/20/2022 07:45:00 AM Scheduled Provider:Yevgeniy GRIMM MD Location:[facility] Appointment Type:URO Procedure 15 min [facility] evaluation + Plan note Future Appointments Appointment Date:02/01/2023 08:00:00 AM Scheduled Provider:Yevgeniy GRIMM MD Location:[facility] Appointment Type:URO Office Visit [facility] Evaluation + Plan note Future Appointments Appointment Date:02/01/2023 08:00:00 AM Scheduled Provider:Yevgeniy GRIMM MD [facility] Type:URO Office Visit Diagnostic Tests Pending * UroVysion Fish and Urine Cyto ([facility]) [facility]04[facility] App[facility]ments Appointment Date:04/06/2023 08:30:00 AM Scheduled Provider: [facility] Appoint[facility] Type:URO Nurse Visit Appointment Date:05/10/2023 07:30:00 AM Scheduled Provider:Yevgeniy GRIMM MD [facility] Appointment Type:URO Procedure 15 min Diagnostic Tests Pending * [facility] Appointment Date:04/06/2023 08:30:00 AM Scheduled Provider: Location:[facility] Appointment Type:URO Nurse Visit Appointment Date:05/10/2023 07:30:00 AM Scheduled Provider:Yevgeniy GRIMM MD [facility] Appointment Type:URO Procedure 15 min [facility] Evaluation + Plan note Future Appointments Appointment Date:06/05/2023 10:00:00 AM Scheduled Provider: Location:[facility] Appointment Type:URO Nurse Visit Appointment Date:06/14/2023 07:45:00 AM Scheduled Provider:Yevgeniy GRIMM MD [facility] Appointment Type:URO Office Visit [facility] Evaluation + Plan note Future Appointments Appointment Date:06/05/2023 10:00:00 AM Scheduled Provider: Location:[facility] Appointment Type:URO Nurse Visit Appointment Date:06/14/2023 07:45:00 AM Scheduled Provider:Yevgeniy GRIMM MD Location:[facility] Appointment Type:URO Office Visit Diagnostic Tests Pending * UroVysion Fish and Urine Cyto ([facility]) [facility]10[facility] Future App[facility]ments Appointment Date:07/05/2023 11:00:00 AM Scheduled Provider:SYLVIE RICKS PA-C [facility] Office Visit Appointment Date:07/12/2023 11:00:00 AM Scheduled Provider:SYLVIE RICKS PA-C Location:[facility] [place] Appointment Type:URO Office Visit Appointment Date:07/19/2023 10:30:00 AM Scheduled Provider:SYLVIE RICKS PA-C Location:[facility] [place] Appointment Type:URO Office Visit Appointment Date:07/26/2023 10:30:00 AM Scheduled Provider:SYLVIE RCIKS PA-C Location:[facility] [place] Appointment Type:URO Office Visit Appointment Date:08/02/2023 10:30:00 AM Scheduled Provider:SYLVIE RICKS PA-C Location:[facility] Appointment Type:URO Office Visit Appointment Date:08/09/2023 10:30:00 AM Scheduled Provider:SYLVIE RICKS PA-C Location:[facility] [place] Appointment Type:URO Office Visit [facility] Evaluation + Plan note Future Appointments Appointment Date:07/12/2023 11:00:00 AM Scheduled Provider:SYLVIE RICKS PA-C Location:[facility] Appointment Type:URO Office Visit Appointment Date:07/19/2023 10:40:00 AM Scheduled Provider:SYLVIE RICKS PA-C Location:[facility] [place] Appointment Type:URO Office Visit Appointment Date:07/26/2023 10:40:00 AM Scheduled Provider:SYLVIE RICKS PA-C Location:[facility] [place] Appointment Type:URO Office Visit Appointment Date:08/02/2023 10:40:00 AM Scheduled Provider:SYLVIE RICKS PA-C [facility] Type[facility] Office Visit Appointment Date:08/09/2023 10:40:00 AM Scheduled Provider:SYLVIE RICKS PA-C [facility] Type:URO Office Visit Diagnostic Tests Pending * Urine Culture [facility] App[facility]ments Appointment Date:07/19/2023 10:40:00 AM Scheduled Provider:SYLVIE RICKS PA-C Location:[facility] [place] Appointment Type:URO Office Visit Appointment Date:07/26/2023 10:40:00 AM Scheduled Provider:SYLVIE RICKS PA-C Location:[facility] [place] Appointment Type:URO Office Visit Appointment Date:08/02/2023 10:40:00 AM Scheduled Provider:SYLVIE RICKS PA-C Location:[facility] [place] Appointment Type:URO Office Visit Appointment Date:08/09/2023 10:40:00 AM Scheduled Provider:SYLVIE RICKS PA-C Location:[facility] Appointment Type:URO Office Visit [facility] [place] Evaluation + Plan note Future Appointments Appointment Date:07/26/2023 10:40:00 AM Scheduled Provider:SYLVIE RICKS PA-C Location:[facility] [place] Appointment Type:URO Office Visit Appointment Date:08/02/2023 10:40:00 AM Scheduled Provider:SYLVIE RICKS PA-C Location:[facility] Appointment Type:URO Office Visit Appointment Date:08/09/2023 10:40:00 AM Scheduled Provider:SYLVIE RICKS PA-C [facility] Type:URO Office Visit [facility] Evaluation + Plan note Future Appointments Appointment Date:08/02/2023 10:40:00 AM Scheduled Provider:SYLVIE RICKS PA-C Location:[facility] Appointment Type:URO Office Visit Appointment Date:08/09/2023 10:40:00 AM Scheduled Provider:SYLVIE RICKS PA-C Location:[facility] [place] Appointment Type:URO Office Visit [facility] Evaluation + Plan note Future Appointments Appointment Date:08/09/2023 10:40:00 AM Scheduled Provider:SYLVIE RICKS PA-C Location:[facility] [place] Appointment Type:URO Office Visit [facility] [place] Evaluation + Plan note Future Appointments Appointment Date:08/23/2023 10:45:00 AM Scheduled Provider:Yevgeniy GRIMM MD Location:[facility] [place] Appointment Type:URO Office Visit [facility] evaluation + Plan note Future Appointments Appointment Date:01/09/2024 07:45:00 AM Scheduled Provider:Yevgeniy GRIMM MD [facility] App[facility] Type:URO Procedure 15 min [facility] Evaluation + Plan note Future Appointments Appointment Date:01/09/2024 07:45:00 AM Scheduled Provider:Yevgeniy GRIMM MD Location:[facility] Appointment Type:URO Procedure 15 min Diagnostic Tests Pending * Urine Cytology ([facility]) [facility]03[facility] App[facility]ments Appointment Date:03/07/2024 01:20:00 PM Scheduled Provider:SYLVIE RICKS PA-C Location:[facility] Appointment Type:URO Office Visit Appointment Date:03/14/2024 01:20:00 PM Scheduled Provider:SYLVIE RICSK PA-C Location:[facility] Appointment Type:URO Office Visit [facility] evaluation + Plan note Future Appointments Appointment Date:03/14/2024 01:20:00 PM Scheduled Provider:SYLVIE RICKS PA-C Location:[facility] Appointment Type:URO Office Visit [facility] evaluation + Plan note Future Appointments Appointment Date:09/04/2024 01:45:00 PM Scheduled Provider:Yevgeniy GRIMM MD Location:[facility] Appointment Type:URO Office Visit Diagnostic Tests Pending * UroVysion Fish and Urine Cyto ([facility]) 08/06/24 [facility] Evaluation + Plan note Future Appointments Appointment Date:09/04/2024 01:45:00 PM Scheduled Provider:Yevgeniy GRIMM MD Location:[facility] Appointment Type:URO Office Visit [facility] Evaluation noteNo assessment information available [facility] Work Phone: evalusuoar note* Diagnosis Spasm of muscle- Primary Cervical radiculopathy Brachial neuritis or radiculitis nos [facility] Fall, initial encounter- Primary Laceration of forehead, initial encounter documented in this encounter [facility] Discharge instructions Additional Instructions DISCHARGE [...] your post-operative appointment and to remove the catheter.[facility] Work Phone: Hospital Discharge instructions No data available for this section [facility] Progress note No data available for this section [facility] Chief Complaint and Reason for Visit Chief [...] NO FAMILY Primary Care Provider Active Yevgeniy Grimm MD Attending Provider Active Team Status: Inactive Member Role Status Dates Yevgeniy Grimm MD Attending Provider Active Team Status: Inactive Member Role Status Dates Yevgeniy Grimm MD Attending Provider Active PHYSICIAN NO FAMILY Primary Care Provider Active Team Status: Inactive Member Role Status Dates PHYSICIAN NO FAMILY Primary Care Provider Active Start: September 01, 2023 End: September 01, 2023 Yevgeniy Grimm MD Attending Provider Active St art: September 01, 2023 End: September 01, 2023 Ripening Room Attendant Relationship Specialty Start Date End Date Johan Gibbons, MARKETING PROGRAMS SPECIALIST - [place] RANGER OPERATOR [address] [place] [address] PCP - General Family Medicine 09/28/21 Ripening Room Attendant Relationship Specialty Start Date End Date Yevgeniy Grimm MD [address] [place] [place] [address] Urology 05/27/24 Ripening Room Attendant Relationship Specialty Start Date End Date Johan Gibbons MARKETING PROGRAMS SPECIALIST - HI RANGER OPERATOR [address] [place] [address] PCP - General Family Medicine 09/28/21 Goals [...] section and content) DATE CREATED AUTHOR 11/17/2022 [facility] DATE CREATED AUTHOR AUTHOR'S ORGANIZ ATION 02/01/2024 [facility] DATE CREATED AUTHOR AUTHOR'S ORGANIZ ATION 03/13/2024 [facility] DATE CREATED AUTHOR AUTHOR'S ORGANIZ ATION 03/16/2024 [facility] DATE CREATED AUTHOR AUTHOR'S ORGANIZ ATION 05/05/2024 [facility] DATE CREATED AUTHOR AUTHOR'S ORGANIZ ATION 07/28/2024 [facility] DATE CREATED AUTHOR AUTHOR'S ORGANIZ ATION 08/02/2024 [facility] DATE CREATED AUTHOR AUTHOR'S ORGANIZ ATION 08/08/2024 [facility] DATE CREATED AUTHOR AUTHOR'S ORGANIZ ATION 08/15/2024 [facility] DATE CREATED AUTHOR AUTHOR'S ORGANIZ ATION 08/25/2024 [facility] DATE CREATED AUTHOR AUTHOR'S ORGANIZ ATION 08/29/2024 [facility] Reason for Visit (unrecogniz ed section and content) Reason Comments Shoulder Pain Left shoulder pain f or a month with paresthesias, no injury Reason Comments Radiology MRI Specialty Diagnoses / Procedures Referred By Contac t Referred To Contact RADIO MRI MAIN Q Diagnoses Elevated prostate specific antigen (PSA) MRI pelvis WWO Contrast for Elevated prostate Spec Antigen. Referral and/or order can be found in Scan Document dated 05/21/2024. Procedures UNLISTED EVALUATION AND MANAGEMENT SERVICE MRI PELVIS W/O & W/CONTRAST MATERIAL Yevgeniy Grimm MD [address] [place] [address] [facility] Main [address] [address] Referral ID Status Reason Start Date Expiration Date Visits Requested Visits Authorized [id number] Closed Financial Clearance Required - OON Payor OON Notification Letter Patient Cleared - Admin/Store Team Leader/D irector advise to proceed or did not [...] Medication Order 01/05/2024 01/06/2024 01/07/2024 lidocaine-EPINEPHrine 1 %[id number] injection 20 mL 20 mL, IntraDERmal, ONCE, [...] or prosecute any alcohol or drug abuse patient.[facility] FOR RECORDS PERTAINING TO PATIENTS WHO [...] BE BASED ON THE PRIMARY CLINICAL RECORDS. [facility] [email or web address] [facility]. provides no warranty or guarantee of the accuracy or completeness of information in this document.
[2024-08-29] MEDS: LACTATED RINGER'S SOLUTION 1,000 ML 50 ML IV (07:59)
[2024-08-29] MEDS: CEFAZOLIN SODIUM 2 GM/50 ML D5W PREMIX IV (08:46)
--- NOTE | 2024-08-29 09:43 | PM.URSON ---
Urology Surgery Operative Note Operative Note Procedure Date: 08/29/24 Time Out Performed: yes Pre-op Diagnosis: History of noninvasive TCC of the bladder; recurrent bladder lesions Post-op Diagnosis: same as pre-op Procedures performed: 1. Cystoscopy. 2. Transurethral resection of bladder lesions approximately 3 cm Anesthesia: ANILA Primary Surgeon: Marcelo Grimm Complications: None Estimated blood loss (mL): 5 Findings: Raised lesions on the abdomen back wall. Specimens: Bladder tumors Drains: None Indications for Procedures: This gentleman has a history of recurrent superficial TCC of the bladder for which he has had intravesical mitomycin and BCG. On surveillance cystoscopy he was found to have red raised areas in the dome and back wall. He now presents for TURBT. He has signed an informed consent after risks were explained. Detailed description of Procedure: The patient was brought to the operating room and placed on the operating room table in the supine position. SCDs were placed on the lower extremities and turned on and functioning during the entire case. Timeout was done by all parties in the room. We all agreed upon the patient's identification and the planned procedures for this patient. Genn. anesthesia was then administered. The patient was then repositioned into the modified dorsal lithotomy position. All pressure points were satisfactorily padded. Genitalia were sterilely prepped and draped in usual fashion. I started by passing a 26 [place] Olympus resectoscope with a standard bipolar loop electrode per urethra and into the bladder. The anterior urethra was normal. The prostatic urethra revealed trilobar obstruction. Panendoscopy in the bladder revealed the previously noted lesions. No lesions were anywhere near the ureteral orifices. I started by using suprapubic pressure and bringing the dome down and uniformly resected the red raised areas. There were multiple other flat red areas which were coagulated. The Ilich was used to get the tissue out of the bladder and it was sent for pathology. Upon completion, there was no evidence of any tumors remaining or bleeding. The scope was then removed. I elected not to place a Santos catheter. The anesthetic was then reversed. He was then transferred to a [facility] bed and wheeled to PACU in stable condition.
--- NOTE | 2024-08-29 10:11 | PC.NURSE ---
0950: pt urinated after procedure on the OR table per RONA Snow and SINDI Holly. pt actively coughing and continues to have incontinence.
== END 2024-08-29 10:55 | disposition home or self-care (01) ==
PROVIDERS: Visit Provider Urology
PROC: (CPT 912; principal; 2024-08-29 08:15)
DX: D30.3 Benign neoplasm of bladder (principal); N30.21 Other chronic cystitis with hematuria; Z85.51 Personal history of malignant neoplasm of bladder; I10 Essential (primary) hypertension; R91.1 Solitary pulmonary nodule; R97.20 Elevated prostate specific antigen [PSA]; F17.210 Nicotine dependence, cigarettes, uncomplicated; J44.9 Chronic obstructive pulmonary disease, unspecified
CPT/HCPCS: 52234; 36415; 88307; 88341; 88342; 88360; J0131; J0690; J1100; J2250; J2371; J2405; J2704; J3010